=== PATIENT | male | born 1925 | race Caucasian/White ===

== ENCOUNTER 2016-04-29 11:07 | Emergency (ER) | payer MEDICARE ==
[~2016-04-29] VITALS: Ht 162.6 cm; Wt 71.3 kg
[~2016-04-29 11:07] MED LIST: ASPI81TA81; CARV25TA PO; COUM2.5T PO; FERR65TA PO; FOLI400T PO; LOSA50TA PO; MAGN1TAB14 PO; MECL25CH CHEW; NEXI40CA PO; NITR1SUB3 SL; PYRI1TAB2 PO; SIMV20TA PO; SOTA80TA PO; TAMS5CAP PO; TORS20TA PO; VITA100021 SL; VITA10007 PO; VITA200013 PO
[2016-04-29 11:09] VITALS: BP 89/63; PULSE 84; RESP 16; TEMP 97.2; O2SAT 97
[2016-04-29] MEDS ORDERED: SACC1CAP3 PO (11:31)
[2016-04-29] MEDS ORDERED: SODIUM CHLORIDE 0.9% FLUSH 5 ML FLUSH IVF PRN (11:45)
[2016-04-29] MEDS ORDERED: ONDANSETRON HCL 4 MG/2 ML VIAL IVP ONE (11:45)
[2016-04-29] MEDS ORDERED: SODIUM CHLORID 0.9% 500 ML INJ 500 ML IV ONE ×2 (11:45→14:45)
[2016-04-29 12:04] LABS: AUTOMATED NEUTROPHIL # 5.9 TH/MM3 (1.8-7.7); BASOPHIL # 0.1 TH/MM3 (0-0.2); BASOPHIL % 0.9 % (0.0-2.0); EOSINOPHIL # 0.2 TH/MM3 (0-0.4); EOSINOPHIL % 1.9 % (0.0-4.0); HEMATOCRIT 43.9 % (39.0-51.0); HEMO FLAGS DIFF FINAL; LYMPH % 22.8 % (9.0-44.0); LYMPHOCYTE # 2.1 TH/MM3 (1.0-4.8); MEAN CORPUSCULAR HEMOGLOBIN 30.4 PG (27.0-34.0); MEAN CORPUSCULAR HGB CONC 32.6 % (32.0-36.0); MONO % 8.4 % (0.0-8.0); PLATELET COUNT 152 TH/MM3 (150-450); RED BLOOD COUNT 4.72 MIL/MM3 (4.50-5.90); RED CELL DISTRIBUTION WIDTH 15.1 % (11.6-17.2); WHITE BLOOD COUNT 9.1 TH/MM3 (4.0-11.0)
[2016-04-29 12:12] LABS: CHLORIDE 105 MEQ/L (98-107); POTASSIUM 4.8 MEQ/L (3.5-5.1); SODIUM (NA) 138 MEQ/L (136-145)
[2016-04-29 12:16] LABS: ANION GAP 10 MEQ/L (5-15); BLOOD UREA NITROGEN 53 MG/DL (7-18)
[2016-04-29 12:19] LABS: ALT (GPT) 40 U/L (12-78); APTT (PATIENT) 40.3 SEC (24.3-30.1); AST (GOT) 31 U/L (15-37); GLOMERULAR FILTRATION RATE 30 ML/MIN (>89); INTERNATIONAL NORMALIZED RATIO 4.4 RATIO; PROTHROMBIN TIME - PATIENT 51.5 SEC (9.8-11.6)
[2016-04-29 12:20] LABS: TOTAL BILIRUBIN ADULT 1.4 MG/DL (0.2-1.0)
[2016-04-29 12:22] LABS: ALKALINE PHOSPHATASE 93 U/L (45-117)
[2016-04-29] MEDS ORDERED: DIATRIZOATE MEGLUM/DIATRIZOATE SOD 9 ML CUP ONE (12:26)
[2016-04-29 12:31] VITALS: BP 102/71; PULSE 74; RESP 18; O2SAT 97
--- NOTE | 2016-04-29 12:41 | PD ---
HPI Chief Complaint: GI Complaint Time Seen by Provider: 11:25 Travel History International Travel<30 days: No Contact w/Intl Traveler<30days: No Traveled to known affect area: No History of Present Illness HPI Patient is a 89 year old male who comes in complaining of abdominal pain and being unable to have a bowel movement for 5 days. He says he has tried multiple over the counter medications and has only been able to have a small, hard bowel movement. He has some nausea, but denies any vomiting. He says he has not been eating much in the past few days due to lack of appetite. He reports bloating of his abdomen. He denies any chest pain or SOB. He has had 2 surgeries on his abdomen in the past. He denies any fever or chills. PFSH Past Medical History Hx Anticoagulant Therapy: Yes (coumadin, asa 81) Heart Rhythm Problems: Yes (atrial fibulation ) Cancer: Yes (lung prostate) Cardiac Catheterization: Yes Cardiovascular Problems: Yes ( [place] x 1 , 4 vessel bypass) High Cholesterol: Yes Chest Pain: Yes Congestive Heart Failure: Yes Coronary Artery Disease: Yes Diabetes: No Diminished Hearing: No GERD: Yes Hypertension: Yes Myocardial Infarction: Yes Radiation Therapy: Yes (prostate, lung) Renal Failure: Yes Influenza Vaccination: Yes ?: Not Past Surgical History Appendectomy: Yes Cardiac Surgery: Yes (aorta replaced) Cholecystectomy: Yes Coronary Artery Bypass Graft: Yes Coronary Stent: Yes Pacemaker: Yes (defibrillator) Other Surgery: Yes (prostate radiation) Social History Alcohol Use: Yes (occ) Tobacco Use: No Substance Use: No Allergies-Medications (Allergen,Severity, Reaction): Coded Allergies: Levaquin (Verified Allergy, Severe, Joint Pain, 04/29/16) Patient report that this medication affect his tendon on his legs. Reported Meds & Prescriptions Reported Meds & Active Scripts Active Magnesium Citrate Liq (Magnesium Citrate) 300 Ml Liq 300 Ml PO ONCE Augmentin (Amoxicillin-Clavulanate) 875-125 mg Tab 875 Mg PO BID 10 Days not for use in CrCl <30 ml/min. Reported Probiotic (Saccharomyces Boulardii) 250 Mg Cap 250 Mg PO DAILY Vitamin D (Cholecalciferol) 2,000 Unit Cap 1 Cap PO DAILY Vitamin C (Ascorbic Acid) 1,000 Mg Tab 1,000 Mg PO Aspir-81 (Aspirin) 81 Mg Tabdr Carvedilol 25 Mg Tab 12.5 Mg PO BID Nexium (Esomeprazole DR) 40 Mg Capdr 40 Mg PO DAILY Feosol (Ferrous Sulfate) 65 Mg Tab 65 Mg PO DAILY Folic Acid 400 Mcg Tab 400 Mcg PO DAILY Losartan (Losartan Potassium) 50 Mg Tab 25 Mg PO DAILY Magnesium 400 Mg Tab 400 Mg PO DAILY Meclizine (Meclizine HCl) 25 Mg Chew 25 Mg CHEW DIRECTED PRN Nitroglycerin SL (Nitroglycerin) 0.4 Mg Subl 0.4 Mg SL DIRECTED PRN ONE TABLET UNDER THE TONGUE NEEDED FOR CHEST PAIN, MAY REPEAT EVERY FIVE MINUTES FOR A TOTAL OF 3 DOSES OR CALL 911 IF NO RELIEF Vitamin B-12 (Cyanocobalamin) 1,000 Mcg Subl 1,000 Mcg SL EVERY OTHER DAY Simvastatin 20 Mg Tab 20 Mg PO DAILY Sotalol (Sotalol HCl) 80 Mg Tab 80 Mg PO BID Flomax (Tamsulosin HCl) 0.4 Mg Cap 0.4 Mg PO HS Torsemide 20 Mg Tab 10 Mg PO DAILY Vitamin B-6 (Pyridoxine HCl) 200 Mg Tab 200 Mg PO DAILY Coumadin (Warfarin) 2.5 Mg Tab 2.5 Mg PO DAILY Review of Systems Except as stated in HPI: all other systems reviewed are Neg General / Constitutional: No: Fever, Chills HENT: No: Headaches, Lightheadedness Cardiovascular: No: Chest Pain or Discomfort Respiratory: No: Shortness of Breath Gastrointestinal: Positive: Nausea, Abdominal Pain, Constipation, No: Vomiting Genitourinary: No: Dysuria Musculoskeletal: No: Edema, Pain Skin: No Change in Pigmentation Neurologic: No: Weakness, Dizziness Physical Exam Narrative GENERAL: Awake and alert in no acute distress. SKIN: Warm and dry. HEAD: Atraumatic. Normocephalic. EYES: Pupils equal and round. No scleral icterus. ENT: Mucous membranes pink and moist. NECK: Trachea midline. No JVD. CARDIOVASCULAR: Regular rate and rhythm. No murmur appreciated. RESPIRATORY: No accessory muscle use. Clear to auscultation. Breath sounds equal bilaterally. GASTROINTESTINAL: Abdomen soft, nondistended. Diffusely tender to palpation. No rebound or guarding. MUSCULOSKELETAL: No obvious deformities. No clubbing. No cyanosis. No edema. NEUROLOGICAL: Awake and alert. No obvious cranial nerve deficits. Motor grossly within normal limits. Normal speech. PSYCHIATRIC: Appropriate mood and affect; insight and judgment normal. Data Data Last Documented VS Vital Signs Date Time Temp Pulse Resp B/P Pulse Ox O2 Delivery O2 Flow Rate FiO2 04/29/16 15:31 68 18 105/60 97 Room Air 04/29/16 11:09 97.2 Orders Complete Blood Count With Diff (04/29/16 11:35) Comprehensive Metabolic Panel (04/29/16 11:35) Lipase (04/29/16 11:35) Lactic Acid (04/29/16 11:35) Prothrombin Time / Inr (Pt) (04/29/16 11:35) Act Partial Throm Time (Ptt) (04/29/16 11:35) Urinalysis - C+S If Indicated (04/29/16 11:35) Ua Includes Microscopic (04/29/16 11:35) Iv Access Insert/Monitor (04/29/16 11:35) Ecg Monitoring (04/29/16 11:35) Oximetry (04/29/16 11:35) Ondansetron Inj (Zofran Inj) (04/29/16 11:45) Sodium Chloride 0.9% Flush (Ns Flush) (04/29/16 11:45) Electrocardiogram (04/29/16 11:35) Troponin I (04/29/16 11:35) Sodium Chlorid 0.9% 500 Ml Inj (Ns 500 M (04/29/16 11:45) Ct Abd/Pel W/O Iv Contrast (04/29/16 ) Diatrizoate Liq ( Gastroview Liq) (04/29/16 12:26) Oral Contrast - Adult (04/29/16 13:06) Sodium Chlorid 0.9% 500 Ml Inj (Ns 500 M (04/29/16 14:45) Labs Laboratory Tests Test 04/29/16 04/29/16 11:50 14:05 White Blood Count 9.1 TH/MM3 Red Blood Count 4.72 MIL/MM3 Hemoglobin 14.3 GM/DL Hematocrit 43.9 % Mean Corpuscular Volume 93.0 FL Mean Corpuscular Hemoglobin 30.4 PG Mean Corpuscular Hemoglobin 32.6 % Concent Red Cell Distribution Width 15.1 % Platelet Count 152 TH/MM3 Mean Platelet Volume 8.3 FL Neutrophils (%) (Auto) 66.0 % Lymphocytes (%) (Auto) 22.8 % Monocytes (%) (Auto) 8.4 % Eosinophils (%) (Auto) 1.9 % Basophils (%) (Auto) 0.9 % Neutrophils # (Auto) 5.9 TH/MM3 Lymphocytes # (Auto) 2.1 TH/MM3 Monocytes # (Auto) 0.8 TH/MM3 Eosinophils # (Auto) 0.2 TH/MM3 Basophils # (Auto) 0.1 TH/MM3 CBC Comment DIFF FINAL Differential Comment Prothrombin Time 51.5 SEC Prothromb Time International 4.4 RATIO Ratio Activated Partial 40.3 SEC Thromboplast Time Sodium Level 138 MEQ/L Potassium Level 4.8 MEQ/L Chloride Level 105 MEQ/L Carbon Dioxide Level 23.0 MEQ/L Anion Gap 10 MEQ/L Blood Urea Nitrogen 53 MG/DL Creatinine 2.10 MG/DL Estimat Glomerular Filtration 30 ML/MIN Rate Random Glucose 95 MG/DL Lactic Acid Level 1.8 mmol/L Calcium Level 9.4 MG/DL Total Bilirubin 1.4 MG/DL Aspartate Amino Transf 31 U/L (AST/SGOT) Alanine Aminotransferase 40 U/L (ALT/SGPT) Alkaline Phosphatase 93 U/L Troponin I 0.03 NG/ML Total Protein 7.1 GM/DL Albumin 3.0 GM/DL Lipase 108 U/L Urine Collection Type CLEAN CATCH Urine Color YELLOW Urine Turbidity CLEAR Urine pH 5.5 Urine Specific [place] 1.021 Urine Protein 30 mg/dL Urine Glucose (UA) NEG mg/dL Urine Ketones 15 mg/dL Urine Occult Blood NEG Urine Nitrite NEG Urine Bilirubin NEG Urine Leukocyte Esterase NEG Urine RBC 0-3 /hpf Urine WBC 0-2 /hpf Urine Squamous Epithelial 0-5 /hpf Cells Microscopic Urinalysis Comment CULT NOT INDICATED Urine Collection Time 14:05 [facility] Medical Decision Making Medical Screen Exam Complete: Yes Emergency Medical Condition: Yes Medical Record Reviewed: Yes Interpretation(s) ECG shows paced rhythm. ECG is unchanged from his previous in June 2015. Differential Diagnosis Constipation versus colitis versus diverticulitis Narrative Course Patient is an 89-year-old male comes in complaining of abdominal pain and being unable to have a bowel movement. Exam shows diffuse tenderness on palpation, but abdomen is soft. IV established, labs sent. Patient noted to have a low blood pressure of 89/63. This improved quickly with 500 cc of fluid. He does say that he has issues with low blood pressure. Labs show no elevation in white count, creatinine is 2.1. He has known history of chronic kidney disease, creatinine was 1.9 in June 2015. INR is elevated to 4.4. Patient is on Coumadin. He has no signs of bleeding currently. CT of the abdomen and pelvis performed shows diverticulitis without complication. There is some stool in the colon, but no signs of obstruction or impaction. Patient was recently on antibiotics for diverticulitis, is presumed this was Cipro and Flagyl, the daughter seems to remember these names. I we'll give him a prescription for Augmentin since he was recently on Cipro and Flagyl. Patient advised to hold his Coumadin tonight and speak with his doctor tomorrow about repeating his INR. Advised follow-up with gastroenterology. Advised to drink more fluids. Patient is very concerned that he has not had a bowel movement, I advised that this is possibly because he has not been eating. We will give him a prescription for a mild laxative. Patient is comfortable with discharge at this time. Advised to return immediately if he has any worsening symptoms. Diagnosis Primary Impression: Diverticulitis Qualified Code: K57.32 - Diverticulitis of large intestine without perforation or abscess without bleeding Additional Impression: Constipation Qualified Code: K59.00 - Constipation, unspecified constipation type Patient Instructions: Diverticulitis (ED), General Instructions Additional Instructions: Follow up with with gastroenterology. Make sure you finish all of the antibiotics. Increase your fluid intake. Your INR was 4.4 today, make sure that you do not take your Warfarin tonight. Follow up with your doctor for repeat INR testing. Do not take your blood pressure medication today either. Return to the ED for any active bleeding or any worsening symptoms. Scripts Magnesium Citrate Liq 300 Ml [id number] Ml PO ONCE #1 BOTTLE Ref 0 Prov:Kinsey Vazquez MD 04/29/16 Amoxicillin-Clavulanate (Augmentin)875-125 mg [id number] Mg PO BID 10 Days Ref 0 not for use in CrCl <30 ml/min. Prov:Kinsey Vazquez MD 04/29/16 Disposition: 01 DISCHARGE HOME Condition: Stable Kinsey Vazquez MD Apr 29, 2016 12:41
[2016-04-29 12:55] VITALS: BP 108/69; PULSE 69; RESP 18; O2SAT 98
--- NOTE | 2016-04-29 14:04 | RADHPO ---
EXAM DATE/TIME: 04/29/2016 13:45 [facility] COMPARISON: No previous studies available for comparison. INDICATIONS : Abdominal pain and constipation. ORAL CONTRAST: Prescribed oral contrast ingested. RADIATION DOSE: 15.23 CTDIvol (mGy) MEDICAL HISTORY : Cardiovascular disease. Congestive heart failure. Hypertension. Lung cancer. Prostate cancer. Renal f ailure. SURGICAL HISTORY : CABG Coronary artery stent. Pacemaker. Appendectomy. Cholecystectomy. ENCOUNTER: Initial ACUITY: 4 - 6 days PAIN SCALE: 5/10 LOCATION: abdomen/pelvis TECHNIQUE: Volumetric scanning of the abdomen and pelvis was performed. Using automated exposure control and ad justment of the mA and/or kV according to patient size, radiation dose was kept as low as reasonably achievable to obtain optimal diagnostic quality images. FINDINGS: LOWER LUNGS: The visualized lower lungs are clear. The patient is status post median sternotomy with postsurgical changes involving the heart. There is a transvenous pacer in place and aortic valve prosthesis. LIVER: Homogeneous density without lesion. There is no dilation of the biliary tree. The patient is status post cholecystectomy. SPLEEN: Normal size without lesion. PANCREAS: Within normal limits. KIDNEYS: Normal in size and shape. There is no mass or hydronephrosis. There is a small 2 mm calcification le ft renal cortex on axial image #56. ADRENAL GLANDS: Within normal limits. VASCULAR: There is no aortic aneurysm. BOWEL/MESENTERY: There are multiple scattered diverticuli. There is mild wall thickening and inflammatory change invol ving the distal descending colon with no free air or drainable fluid. There is mild inflammatory gottlieb ge. ABDOMINAL WALL: Within normal limits. RETROPERITONEUM: There is no lymphadenopathy. BLADDER: No wall thickening or mass. REPRODUCTIVE: Within normal limits. INGUINAL: There is a left inguinal hernia containing fat. MUSCULOSKELETAL: Within normal limits for patient age. CONCLUSION: 1. Acute diverticulitis involving the distal descending colon with mild inflammatory change and no fr ee air or drainable fluid. 2. Left inguinal hernia containing fat. 3. Small left renal cortical calcification. 4. Status post cholecystectomy. Rafat Lai MD on April 29, 2016 at 13:57 Board Certified Radiologist. This report was verified electronically.
[2016-04-29 14:10] VITALS: BP 109/72; PULSE 70; RESP 18; O2SAT 97
[2016-04-29 14:13] LABS: BLOOD, URINE NEG (NEG); GLUCOSE,URINE NEG (NEG); KETONE, URINE 15 mg/dL (NEG); NITRITE,URINE NEG (NEG); PH, URINE 5.5 (5.0-8.5)
[2016-04-29 14:18] LABS: COMMENT (UR) CULT NOT INDICATED; CULTURE IF INDICATED CULT NOT INDICATED; METHOD OF COLLECTION CLEAN CATCH; RBC, URINE 0-3 /hpf (0-3); SQUAMOUS EPITHELIAL CELL URINE 0-5 /hpf (0-5); URINE COLOR YELLOW (YELLW/STRAW); WBC, URINE 0-2 /hpf (0-5)
[2016-04-29 15:31] VITALS: BP 105/60; PULSE 68; RESP 18; O2SAT 97
[2016-04-29] MEDS ORDERED: AUGM875T PO (16:08)
[2016-04-29] MEDS ORDERED: MAGNSOL2 PO (16:08)
--- NOTE | 2016-04-30 23:06 | EKG ---
Date Performed: 04/29/2016 Time Performed: 11:42:56 PTAGE: 89 years EKG: Ventricular demand pacing Abnormal ECG PREVIOUS TRACING : 07/03/2015 00.55 Compared to the previous tracing, previously AV paced DOCTOR: Pratik Carroll Interpretating Date/Time 04/30/2016 23:04:30
[2016-05-14] MEDS ORDERED: ZANA4CAP PO (15:28)
[2016-05-14] MEDS ORDERED: TAMS5CAP PO (15:29)
[2016-05-14] MEDS ORDERED: PANT40TA3 PO (15:29)
[2016-05-21] MEDS ORDERED: CYCL7.5T33 PO (15:01)
[2016-05-21] MEDS ORDERED: TORS20TA PO (15:02)
[2016-05-30] MEDS ORDERED: TRAM50TA PO (16:33)
[2016-07-07] MEDS ORDERED: DOCU1CAP25 (14:48)
[2016-07-07] MEDS ORDERED: HYDR-3583 PO (14:48)
[2016-07-07] MEDS ORDERED: PANT40TA3 PO (15:05)
[2016-07-07] MEDS ORDERED: TRAM50TA PO (15:09)
[2016-07-07] MEDS ORDERED: COLC1TAB15 PO (15:16)
[2016-07-07] MEDS ORDERED: COUM2.5T PO (15:20)
[2016-07-25] MEDS ORDERED: TRAM50TA PO (14:17)
[2016-07-30] MEDS ORDERED: BACT800T5 PO (11:02)
[2016-07-30] MEDS ORDERED: METR500T10 PO (11:02)
[2016-08-07] MEDS ORDERED: WARF-18 PO (13:01)
[2016-08-11] MEDS ORDERED: NITR50VP (16:15)
[2016-08-11] MEDS ORDERED: LACTCAP8 PO (16:15)
[2016-08-11] MEDS ORDERED: VITA200T2 (16:15)
[2016-08-11] MEDS ORDERED: TRAM50TA PO (16:15)
[2016-08-11] MEDS ORDERED: FERR65TA PO (16:15)
[2016-08-11] MEDS ORDERED: OMEP40CA2 PO (16:15)
== END 2016-04-29 16:18 | disposition home or self-care (01) ==
LOC: PHED 11:07
DX: K57.32 Diverticulitis of large intestine without perforation or abscess without bleeding (principal); K59.00 Constipation, unspecified; I10 Essential (primary) hypertension; I25.2 Old myocardial infarction; I50.9 Heart failure, unspecified; I25.10 Atherosclerotic heart disease of native coronary artery without angina pectoris; R94.31 Abnormal electrocardiogram [ECG] [EKG]; Z79.01 Long term (current) use of anticoagulants
CPT/HCPCS: 74176; 80053; 81001; 83605; 83690; 84484; 85025; 85610; 85730; 93005; 96361; 96374; 99284; J2405; J7040; Q9963

== ENCOUNTER 2016-05-04 15:14 | Inpatient (IN) | payer MEDICARE ==
[2016-05-04] VITALS (10 sets, daily range): BP systolic 89–122; BP diastolic 54–68; PULSE 69–76; RESP 9–21; TEMP 97.6; O2SAT 93–100
[~2016-05-04] VITALS: Ht 162.6 cm; Wt 76.1 kg
[~2016-05-04 15:14] MED LIST changes: +AUGM875T PO; +MAGNSOL2 PO; +SACC1CAP3 PO
--- NOTE | 2016-05-04 15:16 | PD ---
HPI Chief Complaint: GI bleed, hypotension Time Seen by Provider: 15:15 Travel History International Travel<30 days: No Contact w/Intl Traveler<30days: No Traveled to known affect area: No History of Present Illness HPI 89-year-old male came to the emergency room with history of presyncope and low blood pressure this afternoon. He was with his daughter who checked his blood pressure and patient had these symptoms and it was 57 systolic. Patient had taken one of his nitroglycerin pills when he had the symptoms of dizziness. 911 was called and patient was given 1 L of IV fluid bolus en route. He never lost consciousness and blood pressure improved upon arrival to 1 teens. Patient said that for past couple days he has noticed that his stool has been dark in color. He suspects that he was passing blood. He did not tell his daughter or son-in-law regarding this since he did not want them to be bothered. Patient was taken to [place] emergency room 5 days ago for abdominal discomfort where he was diagnosed with diverticulitis. He was discharged home on antibiotics. He was also given mag citrate prescription and patient says after taking that he had started to go and was having watery stool. No history of nausea or vomiting. Currently does not have any abdominal discomfort. He is awake and answering questions appropriately. Patient says that he is on Coumadin but in the emergency room his blood test showed an INR of 4.5 he was asked to hold off on the Coumadin. He did not take it for past 5 days. However last night he took 1 dose. PFSH Past Medical History Narrative Medical List of his past medical history is reviewed from the nursing note. Hx Anticoagulant Therapy: Yes (coumadin, asa 81) Heart Rhythm Problems: Yes (atrial fibulation ) Cancer: Yes (lung prostate) Cardiac Catheterization: Yes Cardiovascular Problems: Yes ( [place] x 1 , 4 vessel bypass) High Cholesterol: Yes Chest Pain: Yes Congestive Heart Failure: Yes Coronary Artery Disease: Yes Diabetes: No Diminished Hearing: No GERD: Yes Hypertension: Yes Myocardial Infarction: Yes Radiation Therapy: Yes (prostate, lung) Renal Failure: Yes Past Surgical History Appendectomy: Yes Cardiac Surgery: Yes (aorta replaced) Cholecystectomy: Yes Coronary Artery Bypass Graft: Yes Coronary Stent: Yes Pacemaker: Yes (defibrillator) Other Surgery: Yes (prostate radiation) Social History Alcohol Use: Yes (occ) Tobacco Use: No Substance Use: No Allergies-Medications (Allergen,Severity, Reaction): Coded Allergies: Levaquin (Verified Allergy, Severe, Joint Pain, 04/29/16) Patient report that this medication affect his tendon on his legs. *MDRO Multi-Drug Resistant Organism (Verified Adverse Reaction, Unknown, ) MRSA PCR Screen POSITIVE - 05/05/2016 Comments List of his allergies reviewed from the nursing note. Reported Meds & Prescriptions Reported Meds & Active Scripts Active Magnesium Citrate Liq (Magnesium Citrate) 300 Ml Liq 300 Ml PO ONCE Augmentin (Amoxicillin-Clavulanate) 875-125 mg Tab 875 Mg PO BID 10 Days not for use in CrCl <30 ml/min. Reported Probiotic (Saccharomyces Boulardii) 250 Mg Cap 250 Mg PO DAILY Vitamin D (Cholecalciferol) 2,000 Unit Cap 1 Cap PO DAILY Vitamin C (Ascorbic Acid) 1,000 Mg Tab 1,000 Mg PO Aspir-81 (Aspirin) 81 Mg Tabdr Carvedilol 25 Mg Tab 12.5 Mg PO BID Nexium (Esomeprazole DR) 40 Mg Capdr 40 Mg PO DAILY Feosol (Ferrous Sulfate) 65 Mg Tab 65 Mg PO DAILY Folic Acid 400 Mcg Tab 400 Mcg PO DAILY Losartan (Losartan Potassium) 50 Mg Tab 25 Mg PO DAILY Magnesium 400 Mg Tab 400 Mg PO DAILY Meclizine (Meclizine HCl) 25 Mg Chew 25 Mg CHEW DIRECTED PRN Nitroglycerin SL (Nitroglycerin) 0.4 Mg Subl 0.4 Mg SL DIRECTED PRN ONE TABLET UNDER THE TONGUE NEEDED FOR CHEST PAIN, MAY REPEAT EVERY FIVE MINUTES FOR A TOTAL OF 3 DOSES OR CALL 911 IF NO RELIEF Vitamin B-12 (Cyanocobalamin) 1,000 Mcg Subl 1,000 Mcg SL EVERY OTHER DAY Simvastatin 20 Mg Tab 20 Mg PO DAILY Sotalol (Sotalol HCl) 80 Mg Tab 80 Mg PO BID Flomax (Tamsulosin HCl) 0.4 Mg Cap 0.4 Mg PO HS Torsemide 20 Mg Tab 10 Mg PO DAILY Vitamin B-6 (Pyridoxine HCl) 200 Mg Tab 200 Mg PO DAILY Coumadin (Warfarin) 2.5 Mg Tab 2.5 Mg PO DAILY Narrative Medication List of his home medications reviewed from the nursing note. Review of Systems Except as stated in HPI: all other systems reviewed are Neg Physical Exam Narrative GENERAL: Awake, alert, elderly, anxious SKIN: Warm and dry. Pale HEAD: Atraumatic. Normocephalic. EYES: Pupils equal and round. No scleral icterus. No injection or drainage. Pallor ENT: No nasal bleeding or discharge. Mucous membranes pink and moist. NECK: Trachea midline. No JVD. CARDIOVASCULAR: Regular rate and rhythm. No murmur appreciated. RESPIRATORY: No accessory muscle use. Clear to auscultation. Breath sounds equal bilaterally. GASTROINTESTINAL: Abdomen soft, non-tender, nondistended. Hepatic and splenic margins not palpable. External hemorrhoids with no thrombosis MUSCULOSKELETAL: No obvious deformities. No clubbing. No cyanosis. No edema. NEUROLOGICAL: Awake and alert. No obvious cranial nerve deficits. Motor grossly within normal limits. Normal speech. PSYCHIATRIC: Appropriate mood and affect; insight and judgment normal. Data Data Last Documented VS Vital Signs Date Time Temp Pulse Resp B/P Pulse Ox O2 Delivery O2 Flow Rate FiO2 05/04/16 15:34 18 96 Room Air 05/04/16 15:20 76 117/63 Orders Complete Blood Count With Diff (05/04/16 15:26) Comprehensive Metabolic Panel (05/04/16 15:26) Prothrombin Time / Inr (Pt) (05/04/16 15:26) Act Partial Throm Time (Ptt) (05/04/16 15:26) Type And Screen (05/04/16 15:26) Blood Product Administration .UPON TRANSFUSION (05/04/16 15:26) Ecg Monitoring (05/04/16 15:26) Iv Access Insert/Monitor (05/04/16 15:26) Oximetry (05/04/16 15:26) Sodium Chlor 0.9% 1000 Ml Inj (Ns 1000 M (05/04/16 15:26) Sodium Chloride 0.9% Flush (Ns Flush) (05/04/16 15:30) Troponin I (05/04/16 15:26) Electrocardiogram (05/04/16 ) Pantoprazole Inj (Protonix Inj) (05/04/16 18:00) Pantoprazole Inj (Protonix Inj) (05/04/16 18:00) Piperacil-Tazo 3.375 Gm Premix (Zosyn 3. (05/04/16 17:00) Red Blood Cells (Rbc) (05/04/16 16:49) Blood Product Administration .UPON TRANSFUSION (05/04/16 16:49) Sodium Chlor 0.9% 250 Ml Inj (Ns 250 Ml (05/04/16 17:00) Insert Ng Tube (05/04/16 17:08) Admit Order (Ed Use Only) (05/04/16 17:08) Labs Laboratory Tests Test 05/04/16 05/04/16 15:50 16:49 White Blood Count 9.7 TH/MM3 Red Blood Count 2.65 MIL/MM3 Hemoglobin 8.3 GM/DL Hematocrit 25.5 % Mean Corpuscular Volume 95.9 FL Mean Corpuscular Hemoglobin 31.1 PG Mean Corpuscular Hemoglobin 32.4 % Concent Red Cell Distribution Width 16.0 % Platelet Count 129 TH/MM3 Mean Platelet Volume 8.6 FL Neutrophils (%) (Auto) 65.1 % Lymphocytes (%) (Auto) 23.6 % Monocytes (%) (Auto) 8.2 % Eosinophils (%) (Auto) 2.5 % Basophils (%) (Auto) 0.6 % Neutrophils # (Auto) 6.3 TH/MM3 Lymphocytes # (Auto) 2.3 TH/MM3 Monocytes # (Auto) 0.8 TH/MM3 Eosinophils # (Auto) 0.2 TH/MM3 Basophils # (Auto) 0.1 TH/MM3 CBC Comment DIFF FINAL Differential Comment Prothrombin Time 14.8 SEC Prothromb Time International 1.3 RATIO Ratio Activated Partial 28.7 SEC Thromboplast Time Sodium Level 141 MEQ/L Potassium Level 5.4 MEQ/L Chloride Level 110 MEQ/L Carbon Dioxide Level 23.1 MEQ/L Anion Gap 8 MEQ/L Blood Urea Nitrogen 50 MG/DL Creatinine 1.93 MG/DL Estimat Glomerular Filtration 33 ML/MIN Rate Random Glucose 94 MG/DL Calcium Level 7.9 MG/DL Total Bilirubin 1.3 MG/DL Aspartate Amino Transf 22 U/L (AST/SGOT) Alanine Aminotransferase 25 U/L (ALT/SGPT) Alkaline Phosphatase 65 U/L Troponin I 0.03 NG/ML Total Protein 5.0 GM/DL Albumin 2.5 GM/DL Blood Type O POSITIVE Antibody Screen NEGATIVE Blood Bank Comment Crossmatch Leukocyte-Reduced Red Blood Cells MDM Medical Decision Making Medical Screen Exam Complete: Yes Emergency Medical Condition: Yes Medical Record Reviewed: Yes Interpretation(s) Twelve-lead EKG was reviewed by me. Paced rhythm. Heart rate of 73 bpm. Differential Diagnosis Upper GI bleed, lower GI bleed, diverticular bleed Narrative Course 5:21 PM blood test shows hemoglobin of 8.5 which has dropped significantly from hemoglobin of 14.5 from his last visit almost a week ago. Patient had another bowel movement which was all blood and about 350 ML's of it. I spoke with the GI specialist Dr. Kay and he wanted the patient to get a NG tube lavage. As per him if there was blood in the lavage he needs to be called so that he can come and do an upper endoscopy. He wanted the patient to get protonix bolus and drip an antibiotic to cover for diverticulitis. He wanted the patient to be admitted to the ICU and I spoke with the extern Dr. Soto who has accepted the patient. Have ordered 2 units of PRBC for this patient for transfusion. Patient had his last systolic blood pressure of 105. He has been informed about his admission and blood transfusion and he understands. 5:26 PM the NG tube lavage was clean return. Tube be taken out. Awaiting for the blood test was sent from blood bank for transfusion. Critical Care Narrative Aggregate critical care time was 45 minutes. Time to perform other separately billable procedures was not included in the critical care time. My time did not include minutes spent treating any other patients simultaneously or on activities that did not directly contribute to the patient's treatment. The services I provided to this patient were to treat and/or prevent clinically significant deterioration that could result in: GI bleed, hypotension, symptomatic anemia, blood transfusion I provided critical care services requiring my management, as noted below: Chart data review, documentation time, medication orders and management, vital sign assessments/reviewing monitor data, ordering and reviewing lab tests, ordering and interpreting/reviewing x-rays and diagnostic studies, care of the patient and discussion of the patient with the admitting physicians. Procedures EKG Prior to Arrival: Yes HemaPrompt Point of Care Internal Pos. & Neg. Controls: Passed Fecal Specimen Occult Blood: Positive Comment Bright red blood Diagnosis Primary Impression: GI bleed Qualified Code: K92.2 - Gastrointestinal hemorrhage, unspecified gastrointestinal hemorrhage type Additional Impressions: Symptomatic anemia Diverticulitis Qualified Code: K57.93 - Diverticulitis of intestine without perforation or abscess with bleeding, unspecified part of intestinal tract Admitting Information Admitting Physician Requests: Admit Linda Garcia MD May 04, 2016 15:16
[2016-05-04] MEDS ORDERED: SODIUM CHLOR 0.9% 1000 ML INJ 1,000 ML IV SCH (15:26)
[2016-05-04] MEDS ORDERED: SODIUM CHLORIDE 0.9% FLUSH 5 ML FLUSH IVF PRN (15:30)
[2016-05-04 16:26] LABS: AUTOMATED NEUTROPHIL # 6.3 TH/MM3 (1.8-7.7); BASOPHIL # 0.1 TH/MM3 (0-0.2); BASOPHIL % 0.6 % (0.0-2.0); EOSINOPHIL # 0.2 TH/MM3 (0-0.4); EOSINOPHIL % 2.5 % (0.0-4.0); HEMATOCRIT 25.5 % (39.0-51.0); HEMO FLAGS DIFF FINAL; LYMPH % 23.6 % (9.0-44.0); LYMPHOCYTE # 2.3 TH/MM3 (1.0-4.8); MEAN CELL VOLUME 95.9 FL (80.0-100.0); MEAN CORPUSCULAR HEMOGLOBIN 31.1 PG (27.0-34.0); MEAN CORPUSCULAR HGB CONC 32.4 % (32.0-36.0); MONO % 8.2 % (0.0-8.0); NEUT % 65.1 % (16.0-70.0); PLATELET COUNT 129 TH/MM3 (150-450); RED BLOOD COUNT 2.65 MIL/MM3 (4.50-5.90); WHITE BLOOD COUNT 9.7 TH/MM3 (4.0-11.0)
[2016-05-04 16:35] LABS: APTT (PATIENT) 28.7 SEC (24.3-30.1); INTERNATIONAL NORMALIZED RATIO 1.3 RATIO; PROTHROMBIN TIME - PATIENT 14.8 SEC (9.8-11.6)
[2016-05-04 16:38] LABS: ALT (GPT) 25 U/L (12-78); ANION GAP 8 MEQ/L (5-15); AST (GOT) 22 U/L (15-37); BICARBONATE 23.1 MEQ/L (21.0-32.0); BLOOD UREA NITROGEN 50 MG/DL (7-18); CHLORIDE 110 MEQ/L (98-107); GLOMERULAR FILTRATION RATE 33 ML/MIN (>89); POTASSIUM 5.4 MEQ/L (3.5-5.1); SODIUM (NA) 141 MEQ/L (136-145)
[2016-05-04 16:42] LABS: ALKALINE PHOSPHATASE 65 U/L (45-117); TOTAL BILIRUBIN ADULT 1.3 MG/DL (0.2-1.0)
[2016-05-04] MEDS ORDERED: SODIUM CHLOR 0.9% 250 ML INJ 250 ML IV ONE (17:00)
[2016-05-04] MEDS ORDERED: PIPERACIL-TAZO 3.375 GM PREMIX 50 ML IV ONE (17:00)
[2016-05-04] MEDS ORDERED: PANTOPRAZOLE INJ 80 MG in SODIUM CHLORIDE 0.9% INJ 35 ML IV ONE (18:00)
[2016-05-04] MEDS ORDERED: POTASSIUM CL 40 MEQ/30 ML LIQ UDC PO/TUBE PRN ×2 (18:15)
[2016-05-04] MEDS ORDERED: MAGNESIUM SULFATE INJ 4 GM in SODIUM CHLORIDE 0.9% INJ 92 ML IV PRN (18:15)
[2016-05-04] MEDS ORDERED: POTASSIUM PHOSPHATE MONOBASIC 500 MG TAB PO/TUBE PRN (18:15)
[2016-05-04] MEDS ORDERED: DEXTROSE 50% IN WATER 50 ML VIAL(D50) IV PUSH PRN (18:15)
[2016-05-04] MEDS ORDERED: SODIUM CHLORIDE 0.9% FLUSH 5 ML FLUSH IV FLUSH PRN (18:15)
[2016-05-04] MEDS ORDERED: RESP: ALBUTEROL 2.5 MG/IPRATROPIUM 0.5 MG NEB (PRN) INH (18:15)
[2016-05-04] MEDS ORDERED: POTASSIUM CHLOR 20 MEQ PREMIX 100 ML IV PRN ×2 (18:15)
[2016-05-04] MEDS ORDERED: MAGNESIUM OXIDE 400 MG TAB PO PRN (18:15)
[2016-05-04] MEDS ORDERED: POTASSIUM PHOSPHATE INJ 30 MMOL in SODIUM CHLOR 0.9% 250 ML INJ 250 ML IV PRN (18:15)
[2016-05-04] MEDS ORDERED: SODIUM PHOSPHATE INJ 30 MMOL in SODIUM CHLOR 0.9% 250 ML INJ 240 ML IV PRN (18:15)
[2016-05-04] MEDS ORDERED: ONDANSETRON HCL 4 MG/2 ML VIAL IV PRN (18:15)
[2016-05-04] MEDS ORDERED: CHLORHEXIDINE GLUCONATE 2 % 1 PACK (2 CLOTHS) TOP PRN (18:15)
[2016-05-04] MEDS ORDERED: POTASSIUM PHOSPHATE MONOBASIC 500 MG TAB PO PRN (18:15)
[2016-05-04] MEDS ORDERED: MAGNESIUM SULFATE INJ 2 GM in SODIUM CHLORIDE 0.9% INJ 96 ML IV PRN (18:15)
[2016-05-04] MEDS ORDERED: ACETAMINOPHEN 325 MG TAB PO PRN (18:15)
[2016-05-04] MEDS ORDERED: POTASSIUM CHLOR 40 MEQ PREMIX 100 ML IV PRN ×2 (18:15)
[2016-05-04] MEDS ORDERED: MISCELLANEOUS NURSING INFORMATION XX SCH (18:15)
--- NOTE | 2016-05-04 18:52 | HHI.HP ---
[facility] Service Critical Care Medicine Primary Care Physician Ale Marte MD Admission Diagnosis GI bleed, hypotension, symptomatic anemia Diagnosis: Chief Complaint: bleeding from rectum Travel History International Travel<30 Days: No Contact w/Intl Traveler <30 Da: No Traveled to Known Affected Are: No History of Present Illness This is an 89-year-old male with a history of ischemic cardiomyopathy, prior AR , prior CABG, prior PCI, prior TAVR, ACID placement who presented approximately a week ago to the [facility] emergency department with constipation was found to have acute diverticulitis and was placed on Biaxin that time and sent home. He now presents with a one-day history of acute bright red blood per rectum and hypotension. Initially, he had epigastric discomfort and arm numbness that he thought might be a heart attack, so he took a nitroglycerin, which made his blood pressure dropped even lower. On arrival to the [facility] emergency department, he was noted to have approximately 300 cc of bright red blood per rectum and was persistently hypotensive. He was given IV fluids and empirically given 1 unit of blood. Per report, he recently had a supratherapeutic INR 4.5 and was told to hold his Coumadin. Today's INR is 1.3. He denies chest pain, shortness of breath, fever, chills, nausea, vomiting. He does not have any abdominal pain currently. Critical care medicine is consulted to evaluate and manage his lower GI bleed. Review of Systems Constitutional: DENIES: Diaphoretic episodes, Fever, Chills Respiratory: DENIES: Cough, Sputum production, Shortness of breath Cardiovascular: DENIES: Chest pain, Syncope, Dyspnea on Exertion, Lower Extremity Edema, Orthopnea Gastrointestinal: COMPLAINS OF: Bloody stools, Constipation, DENIES: Abdominal pain, Diarrhea, Nausea, Vomiting Hematologic/lymphatic: DENIES: Bruising Neurologic: DENIES: Headache, Localized weakness Past Family Social History Allergies: Coded Allergies: Levaquin (Verified Allergy, Severe, Joint Pain, 04/29/16) Patient report that this medication affect his tendon on his legs. Past Medical History History of lung cancer History of prostate cancer Atrial fibrillation Coronary artery disease Acute myocardial infarction 1 Congestive heart failure, likely systolic Hyperlipidemia Hypertension GERD Prior radiation therapy Chronic kidney disease, unknown stage Past Surgical History Appendectomy TAVR CABG x 4 Cholecystectomy Multiple cardiac stents AICD Reported Medications Probiotic (Saccharomyces Boulardii) 250 Mg Cap 250 Mg PO DAILY Vitamin D (Cholecalciferol) 2,000 Unit Cap 1 Cap PO DAILY Vitamin C (Ascorbic Acid) 1,000 Mg Tab 1,000 Mg PO Aspir-81 (Aspirin) 81 Mg Tabdr Carvedilol 25 Mg Tab 12.5 Mg PO BID Nexium (Esomeprazole DR) 40 Mg Capdr 40 Mg PO DAILY Feosol (Ferrous Sulfate) 65 Mg Tab 65 Mg PO DAILY Folic Acid 400 Mcg Tab 400 Mcg PO DAILY Losartan (Losartan Potassium) 50 Mg Tab 25 Mg PO DAILY Magnesium 400 Mg Tab 400 Mg PO DAILY Meclizine (Meclizine HCl) 25 Mg Chew 25 Mg CHEW DIRECTED PRN Nitroglycerin SL (Nitroglycerin) 0.4 Mg Subl 0.4 Mg SL DIRECTED PRN ONE TABLET UNDER THE TONGUE NEEDED FOR CHEST PAIN, MAY REPEAT EVERY FIVE MINUTES FOR A TOTAL OF 3 DOSES OR CALL 911 IF NO RELIEF Vitamin B-12 (Cyanocobalamin) 1,000 Mcg Subl 1,000 Mcg SL EVERY OTHER DAY Simvastatin 20 Mg Tab 20 Mg PO DAILY Sotalol (Sotalol HCl) 80 Mg Tab 80 Mg PO BID Flomax (Tamsulosin HCl) 0.4 Mg Cap 0.4 Mg PO HS Torsemide 20 Mg Tab 10 Mg PO DAILY Vitamin B-6 (Pyridoxine HCl) 200 Mg Tab 200 Mg PO DAILY Coumadin (Warfarin) 2.5 Mg Tab 2.5 Mg PO DAILY Active Ordered Medications See MAR Family History Reviewed and found to be noncontributory to his acute illness Social History Occasional EtOH. Denies tobacco. Denies other substances. Physical Exam Vital Signs Vital Signs Date Time Temp Pulse Resp B/P Pulse Ox O2 Delivery O2 Flow Rate FiO2 05/04/16 17:30 75 21 105/55 96 Nasal Cannula 2 05/04/16 15:34 18 96 Room Air 05/04/16 15:20 76 19 117/63 Physical Exam GENERAL: Elderly male, lying in bed HEENT: Normocephalic. Atraumatic. Pupils equal, round and reactive, conjugate. Mucous membranes are dry. NECK: Trachea is midline. Large neck circumference prevents adequate assessment of JVD. CHEST: Equal chest rise. Clear to auscultation bilaterally. CARDIOVASCULAR: Normal rate, regular rhythm. No appreciable murmurs. ABDOMEN: Obese, soft, nontender, nondistended. No guarding. MUSCULOSKELETAL: 1+ peripheral edema. Distal pulses 2+. NEUROLOGICAL: 0. CAM -. Alert and oriented 3. Follows commands in all 4 extremity. Laboratory Laboratory Tests Test 05/04/16 05/04/16 15:50 16:49 White Blood Count 9.7 Red Blood Count 2.65 Hemoglobin 8.3 Hematocrit 25.5 Mean Corpuscular Volume 95.9 Mean Corpuscular Hemoglobin 31.1 Mean Corpuscular Hemoglobin 32.4 Concent Red Cell Distribution Width 16.0 Platelet Count 129 Mean Platelet Volume 8.6 Neutrophils (%) (Auto) 65.1 Lymphocytes (%) (Auto) 23.6 Monocytes (%) (Auto) 8.2 Eosinophils (%) (Auto) 2.5 Basophils (%) (Auto) 0.6 Neutrophils # (Auto) 6.3 Lymphocytes # (Auto) 2.3 Monocytes # (Auto) 0.8 Eosinophils # (Auto) 0.2 Basophils # (Auto) 0.1 CBC Comment DIFF FINAL Differential Comment Prothrombin Time 14.8 Prothromb Time International 1.3 Ratio Activated Partial 28.7 Thromboplast Time Sodium Level 141 Potassium Level 5.4 Chloride Level 110 Carbon Dioxide Level 23.1 Anion Gap 8 Blood Urea Nitrogen 50 Creatinine 1.93 Estimat Glomerular Filtration 33 Rate Random Glucose 94 Calcium Level 7.9 Total Bilirubin 1.3 Aspartate Amino Transf 22 (AST/SGOT) Alanine Aminotransferase 25 (ALT/SGPT) Alkaline Phosphatase 65 Troponin I 0.03 Total Protein 5.0 Albumin 2.5 Blood Type O POSITIVE Antibody Screen NEGATIVE Blood Bank Comment Crossmatch Leukocyte-Reduced Red Blood Cells Result Diagram: 05/04/16 1550 05/04/16 1550 Imaging Bedside Critical Care Ultrasound 05/04: moderate-severe LV systolic dysfunction, preserved RV function. no significant valvular lesions. no pericardial effusion. Assessment and Plan Assessment and Plan Assessment: This is an 89-year-old male with history of ischemic cardiomyopathy , aortic stenosis status post TAVR, on chronic anticoagulation with Coumadin, who presents a week out from a diagnosis of acute diverticulitis and now has acute bright red blood per rectum along with lightheadedness and hypotension. Given his gastric lavage was negative, this is most likely lower GI bleeding. She has been consult. We will admit him to the ICU and proceed with serial hemoglobin assessments. The patient is receiving empiric blood transfusion in the emergency department, which I agree with. Given the patient's age and significant medical comorbidities, I agree its best to admit the ICU as this bleed may be very life-threatening at this point. We will keep large-bore IV access at all times. Plan: 1. Active lower GI bleed GI has been consulted Every 4 hours H&H Nothing by mouth If he continues to have active bleeding, he will likely require CT abdomen and pelvis with IV contrast to look for source Agree with empiric blood transfusion Goal hemoglobin greater than 7 We will keep the patient on IV PPI twice a day empirically just in case there is an upper GI component, although this is unlikely. 2. Hypotension -- now resolving. -- blood transfusion as above -- admit to ICU -- q1h vitals. 3. Recent history of diverticulitis Given very recent history, we will empirically cover the patient with Zosyn 3.375 g IV every 6 hours. If the patient appears nontoxic and clinically improves we can consider de-escalating therapy. 4. Ischemic Cardiomyopathy The patient has not ever been here for cardiac evaluation. We will order a 2- D echocardiogram to officially evaluate his left ventricle function Hold the patient's home ACEI and Carvedilol in the setting of recent hypotension -- hold home diuretics in the setting of kidney injury and hypotension 5. Acute on Chronic Renal Insufficiency/Kidney Injury -- strict I/Os -- risk/benefit of Carvalho at present time is in favor of no carvalho catheter placement. If the patient continues to have active LGIB, will require Carvalho catheter placement. -- given risk of fluid overload with cardiomyopathy, will use blood transfusion as intravascular volume expansion and will not add additional fluid resuscitation at this time. Careful monitoring. 6. h/o TAVR -- hold anticoagulation. -- SCDs for DVT prophylaxis. Pharmacologic DVT prophylaxis contraindicated in the setting of active bleeding GI prophylaxis as above Dispo: Admit to the ICU. At this point he is critically ill given the high risk for active GI bleeding in the setting of presumed severe ischemic cardiomyopathy, as this combination is clearly life-threatening. This patient remains critically ill with one or more organ systems which are or may become a threat to life. I have spent in excess of 58 minutes discontinuously in the care and management of this patient. This time is exclusive of procedures, and includes, but is not limited to, evaluation of the patient, review of the medical record, discussions with family, consultants, nursing staff, or respiratory therapy, and documentation in the medical record. Randell Aguirre MD May 04, 2016 18:52
[2016-05-04] MEDS: SODIUM CHLORIDE 0.9% FLUSH 5 ML FLUSH IV FLUSH SCH (21:00)
[2016-05-04] MEDS ORDERED: PANTOPRAZOLE SODIUM 40 MG VIAL IV SCH (21:00)
[2016-05-04 21:30] LABS: HEMATOCRIT 25.5 % (39.0-51.0); REVIEW FLAG FINAL
[2016-05-04] MEDS: PANTOPRAZOLE INJ 80 MG in SODIUM CHLORIDE 0.9% INJ 100 ML IV SCH (21:30)
[2016-05-04] MEDS: PIPERACIL-TAZO 3.375 GM PREMIX 50 ML IV SCH (23:45)
[2016-05-04] MEDS: INSULIN NovoLIN REGULAR SUPPLEMENTAL SCALE SQ SCH (23:49)
[2016-05-05] VITALS (15 sets, daily range): BP systolic 86–122; BP diastolic 54–68; PULSE 69–95; RESP 12–23; TEMP 97.2–97.9; O2SAT 96–100
[2016-05-05 03:04] LABS: HEMATOCRIT 28.4 % (39.0-51.0); REVIEW FLAG FINAL
[2016-05-05] MEDS: CHLORHEXIDINE GLUCONATE 2 % 1 PACK (2 CLOTHS) TOP SCH (04:00)
[2016-05-05 04:34] LABS: HEMATOCRIT 28.1 % (39.0-51.0); MEAN CELL VOLUME 91.6 FL (80.0-100.0); MEAN CORPUSCULAR HEMOGLOBIN 31.3 PG (27.0-34.0); MEAN CORPUSCULAR HGB CONC 34.2 % (32.0-36.0); PLATELET COUNT 107 TH/MM3 (150-450); RED BLOOD COUNT 3.07 MIL/MM3 (4.50-5.90); RED CELL DISTRIBUTION WIDTH 15.9 % (11.6-17.2); REVIEW FLAG FINAL; WHITE BLOOD COUNT 8.4 TH/MM3 (4.0-11.0)
[2016-05-05 04:35] LABS: HEMATOCRIT 28.5 % (39.0-51.0); REVIEW FLAG FINAL
[2016-05-05 05:02] LABS: BICARBONATE 21.7 MEQ/L (21.0-32.0); POTASSIUM 4.8 MEQ/L (3.5-5.1)
--- NOTE | 2016-05-05 05:50 | MB ---
cc: JOAQUÍN NOLAN MD, HASSAN M.D. KIM, KIRSTEN DATE OF CONSULTATION May 04, 2016 PHYSICIAN Ale Marte MD REASON FOR CONSULTATION Melena and anemia. HISTORY OF PRESENT ILLNESS Mr. Mejia is an 89-year-old gentleman who, about a week ago came to the emergency room with some rectal bleeding and abdominal pain. At that time he was diagnosed with acute diverticulitis, was placed on antibiotics and sent home. He states he never actually felt better. He completed his course of antibiotics. He says he has mostly been on a liquid diet. He also stopped his Coumadin about four or five days ago. This morning he started passing blood again through the rectum. He states he has had a total of four bowel movements which are bloody and this brought him to the hospital. Currently he has no abdominal pain. He feels otherwise well. He is receiving blood at the time of dictation. REVIEW OF SYSTEMS No hematemesis. No hematochezia. The patient has had some melena earlier, no abdominal pain. PAST MEDICAL HISTORY 1. Lung cancer. 2. Prostate cancer. 3. Atrial fibrillation. 4. Coronary artery disease. 5. Acute CT in the past. 6. Congestive heart failure. 7. Hyperlipidemia. 8. Hypertension. 9. Reflux disease. 10. Chronic kidney disease. SURGICAL HISTORY 1. Appendectomy. 2. TAVR. 3. CABG. 4. Cholecystectomy. 5. Cardiac stents. 6. AICD. MEDICINES ON ADMISSION 1. Aspirin. 2. Carvedilol. 3. Nexium. 4. Losartan. 5. Meclizine. 6. Nitroglycerin. 7. Simvastatin. 8. Sotalol. 9. Flomax. 10. Torsemide. 11. Coumadin. FAMILY HISTORY Noncontributory. SOCIAL HISTORY Occasional alcohol. No tobacco reported. PHYSICAL EXAMINATION GENERAL: A well-nourished man in no apparent distress. VITAL SIGNS: Stable. HEAD AND NECK EXAMINATION: Anicteric sclerae. CHEST: Bilateral air entry with rales. ABDOMEN: Soft, nontender. No hepatosplenomegaly. Bowel sounds are present. FUNDRAISING COORDINATOR: Exam is nonfocal. RECTAL: Exam deferred at this time. LABS Hemoglobin of 8.3. INR is 1.3. Creatinine is 1.93. IMPRESSION Acute GI bleeding, melena with recent diverticulitis. RECOMMENDATIONS 1. The patient's Coumadin is on hold. 2. IV Protonix recommended. 3. Clear liquid diet 4. N.p.o. after midnight for endoscopy in the morning. 5. If endoscopy is negative and the patient continues to bleed, would recommend a bleeding scan. 6. Can consider a colonoscopy but ideally not indicated with in the setting of acute diverticulitis about 5-[address] Ledesma will follow from tomorrow. Thank you for this referral. MD THIAGO Lindo/JULIETH /9:31 PM /5:40 AM
[2016-05-05] MEDS: INSULIN NovoLIN REGULAR SUPPLEMENTAL SCALE SQ SCH ×3 (06:00→18:00)
[2016-05-05] MEDS: PANTOPRAZOLE INJ 80 MG in SODIUM CHLORIDE 0.9% INJ 100 ML IV SCH ×2 (06:13→22:35)
[2016-05-05] MEDS: PIPERACIL-TAZO 3.375 GM PREMIX 50 ML IV SCH ×2 (06:20→15:00)
--- NOTE | 2016-05-05 08:32 | HHI.GIFU ---
Subjective Remarks Resting in bed. States he had 2 episodes of passing dark/black stool with small amount of red blood. No n/v. No abdominal pain. Objective Vitals I&O Vital Signs Date Time Temp Pulse Resp B/P Pulse Ox O2 Delivery O2 Flow Rate FiO2 05/05/16 06:00 71 05/05/16 04:00 97.5 69 15 86/54 100 05/05/16 04:00 69 05/05/16 03:00 72 12 111/58 100 05/05/16 02:00 72 23 91/55 100 05/05/16 02:00 72 05/05/16 01:00 69 13 117/57 100 05/05/16 00:00 97.5 71 21 122/68 100 05/05/16 00:00 70 05/04/16 23:40 97.6 73 16 122/68 100 05/04/16 23:00 69 14 115/65 100 05/04/16 22:06 97.6 69 18 102/55 100 05/04/16 22:00 71 05/04/16 22:00 71 17 102/55 93 05/04/16 21:00 69 9 103/54 100 05/04/16 20:00 97.6 70 13 89/54 97 05/04/16 20:00 70 05/04/16 19:50 97.6 70 13 89/54 97 05/04/16 17:30 75 21 105/55 96 Nasal Cannula 2 05/04/16 15:34 18 96 Room Air 05/04/16 15:20 76 19 117/63 I/O 05/04/16 05/04/16 05/04/16 05/05/16 05/05/16 05/05/16 07:00 15:00 23:00 07:00 15:00 23:00 Intake Total 453 ml 410 ml Output Total 375 ml 325 ml Balance 78 ml 85 ml Intake IV Total 153 ml 202 ml Packed Cells 300 ml 208 ml Output Stool Total 375 ml 325 ml # Bowel Movements 2 2 Laboratory Laboratory Tests Test 05/04/16 05/04/16 05/04/16 05/04/16 15:50 16:49 18:00 19:00 White Blood Count 9.7 Red Blood Count 2.65 Hemoglobin 8.3 Hematocrit 25.5 Mean Corpuscular Volume 95.9 Mean Corpuscular Hemoglobin 31.1 Mean Corpuscular Hemoglobin 32.4 Concent Red Cell Distribution Width 16.0 Platelet Count 129 Mean Platelet Volume 8.6 Neutrophils (%) (Auto) 65.1 Lymphocytes (%) (Auto) 23.6 Monocytes (%) (Auto) 8.2 Eosinophils (%) (Auto) 2.5 Basophils (%) (Auto) 0.6 Neutrophils # (Auto) 6.3 Lymphocytes # (Auto) 2.3 Monocytes # (Auto) 0.8 Eosinophils # (Auto) 0.2 Basophils # (Auto) 0.1 CBC Comment DIFF FINAL Differential Comment Prothrombin Time 14.8 Prothromb Time International 1.3 Ratio Activated Partial 28.7 Thromboplast Time Sodium Level 141 Potassium Level 5.4 Chloride Level 110 Carbon Dioxide Level 23.1 Anion Gap 8 Blood Urea Nitrogen 50 Creatinine 1.93 Estimat Glomerular Filtration 33 Rate Random Glucose 94 Calcium Level 7.9 Total Bilirubin 1.3 Aspartate Amino Transf 22 (AST/SGOT) Alanine Aminotransferase 25 (ALT/SGPT) Alkaline Phosphatase 65 Troponin I 0.03 Total Protein 5.0 Albumin 2.5 Blood Type O POSITIVE O POSITIVE Antibody Screen NEGATIVE Blood Bank Comment Crossmatch Leukocyte-Reduced Red Blood Cells Nasal Screen MRSA (PCR) POSITIVE Test 05/04/16 05/05/16 05/05/16 21:24 02:41 03:25 Hemoglobin 8.2 9.5 9.7 Hematocrit 25.5 28.4 28.5 White Blood Count 8.4 Red Blood Count 3.07 Mean Corpuscular Volume 91.6 Mean Corpuscular Hemoglobin 31.3 Mean Corpuscular Hemoglobin 34.2 Concent Red Cell Distribution Width 15.9 Platelet Count 107 Mean Platelet Volume 8.8 Sodium Level 142 Potassium Level 4.8 Chloride Level 111 Carbon Dioxide Level 21.7 Anion Gap 9 Blood Urea Nitrogen 45 Creatinine 1.76 Estimat Glomerular Filtration 37 Rate Random Glucose 75 Calcium Level 8.0 Physical Exam HEENT: Normocephalic; atraumatic; no jaundice. CHEST: CTA CARDIAC: RRR, paced ABDOMEN: Soft, nondistended, nontender; no hepatosplenomegaly; bowel sounds are present in all four quadrants. EXTREMITIES: No clubbing, cyanosis, or edema. SKIN: Normal; no rash; no jaundice. TWISTER TENDER: No focal deficits; alert and oriented times three. Assessment and Plan Plan ASSESSMENT: - GIB, with melena and hematochezia. On anticoagulation at home S/P 2 units of PRBC. HH stable 9.7/28.5. PPI. Scheduled for EGD today. - Anemia, acute blood loss. S/P 2 units of PRBC. HH stable 9.7/28.5. - BRAYAN. Creat 1.76, GFR 37. - Ischemic cardiomyopathy, aortic stenosis-s/p TAVR on chronic anticoagulation. INR 1.3 - Recent hx of diverticulitis. CT without contrast 04/29- acute diverticulitis involving the distal descending colon with mild inflammatory change and no free air or drainable fluid. Was given 10 days of augmentin. PLAN: - EGD with possible colonoscopy - Obtain consults - NPO - PPI - Zosyn - Monitor HH - Transfuse as necessary - Supportive care - Further recommendations to follow based on results of above - Pt seen and examined by Dr. Ledesma and myself and this note is written on her behalf - Shanell Angulo May 05, 2016 08:32
--- NOTE | 2016-05-05 09:45 | EKG ---
Date Performed: 05/04/2016 Time Performed: 15:31:43 PTAGE: 89 years EKG: ELECTRONIC ATRIAL PACEMAKER ELECTRONIC VENTRICULAR PACEMAKER ABNORMAL RHYTHM ECG Compared t o prior tracing no significant change PREVIOUS TRACING : 04/29/2016 11.42 DOCTOR: Virgilio Bañuelos Interpretating Date/Time 05/05/2016 09:43:43
[2016-05-05 10:01] LABS: HEMATOCRIT 26.5 % (39.0-51.0); REVIEW FLAG FINAL
[2016-05-05] MEDS ORDERED: PROPOFOL 200 MG/20 ML AMP IV ONE (10:14)
[2016-05-05] MEDS ORDERED: EPINEPHrine HCL (1:10,000) 1 MG/10 ML SYRINGE OTHER ONE (10:20)
[2016-05-05] MEDS ORDERED: DO NOT ADM ANY ANTICOAGULANT DRUGS XX PRN (10:45)
[2016-05-05 12:50] LABS: HEMATOCRIT 30.5 % (39.0-51.0); REVIEW FLAG FINAL
--- NOTE | 2016-05-05 14:46 | HHI.CCPN ---
Subjective Remarks/Hospital Course This is an 89-year-old male with a history of ischemic cardiomyopathy, prior MA , prior CABG, prior PCI, prior TAVR, ACID placement who presented approximately a week ago to the [facility] emergency department with constipation was found to have acute diverticulitis and was placed on Biaxin that time and sent home. He now presents with a one-day history of acute bright red blood per rectum and hypotension. Initially, he had epigastric discomfort and arm numbness that he thought might be a heart attack, so he took a nitroglycerin, which made his blood pressure dropped even lower. On arrival to the [facility] emergency department, he was noted to have approximately 300 cc of bright red blood per rectum and was persistently hypotensive. He was given IV fluids and empirically given 1 unit of blood. Per report, he recently had a supratherapeutic INR 4.5 and was told to hold his Coumadin. Today's INR is 1.3. He denies chest pain, shortness of breath, fever, chills, nausea, vomiting. He does not have any abdominal pain currently. Critical care medicine is consulted to evaluate and manage his lower GI bleed. Subjective 05/05: The patient had multiple melanotic stools overnight, and received 2 units PRBC's. The patient remained hemodynamically stable overnight ranges 7080s. The patient continues on a Protonix infusion. Plan for EGD today. Objective Vital Signs Date Time Temp Pulse Resp B/P Pulse Ox O2 Delivery O2 Flow Rate FiO2 05/05/16 12:00 78 05/05/16 11:05 15 117/70 99 05/05/16 10:47 97.4 05/04/16 17:30 Nasal Cannula 2 Intake and Output 05/04/16 05/04/16 05/05/16 08:00 16:00 00:00 Intake Total 453 ml Output Total 375 ml Balance 78 ml Result Diagram: 05/05/16 1228 05/05/16 0325 Imaging Bedside Critical Care Ultrasound 05/04: moderate-severe LV systolic dysfunction, preserved RV function. no significant valvular lesions. no pericardial effusion. Objective Remarks GENERAL: Elderly male, lying in bed denies pain HEENT: Normocephalic. Atraumatic. Pupils equal, round and reactive, conjugate. Mucous membranes are pink and moist NECK: Trachea is midline. No JVD. CHEST: Equal chest rise. Clear to auscultation bilaterally. Noted AICD right subclavian area CARDIOVASCULAR: Normal rate, regular rhythm. S1,S2 No appreciable murmurs. ABDOMEN: Obese, soft, nontender, nondistended. No guarding. MUSCULOSKELETAL: 1+ peripheral edema. Distal pulses 2+. NEUROLOGICAL: GCS 15 Alert and oriented 3. Follows commands in all 4 extremities Procedures PLanned EGD Urinary Catheter: No Vascular Central Line Catheter: No A/P Assessment and Plan Plan: 1. Active GI bleed, acute blood loss anemia GI following, Dr Dickinson F/U recommendations Serial H&H Nothing by mouth S/P blood transfusion 2 PRBC's 05/04 Transfuse for Hgb < 7 2. Hypotension-resolved -- MAP 81-87, tele SR, no ectopy -- Maintain MAP > 65mmHg 3. Recent history of diverticulitis Empiric coverage Zosyn 3.375 g IV (day 2) every 6 hours. If the patient appears nontoxic and clinically improves we can consider de-escalating therapy. 4. Ischemic Cardiomyopathy F/U 2D echo results Hold the patient's home ACEI and Carvedilol in the setting of recent hypotension, resume when clinically indicated -- hold home diuretics in the setting of BRAYAN 2/2 hypotension, will resume when clinically indicated 5. Acute on Chronic Renal Insufficiency/Kidney Injury -- strict I/Os -- No carvalho 6. h/o TAVR -- hold anticoagulation. -- SCDs for DVT prophylaxis. Pharmacologic DVT prophylaxis contraindicated in the setting of active bleeding GI prophylaxis Protonix Dispo: Level 3 EGD results duodenitis, duodenal bulb ulcer, gastritis, hiatal hernia. Patient 's diet advance to clear liquid for GI Physician Patricia Rivera MD May 05, 2016 14:46
--- NOTE | 2016-05-05 16:14 | EC ---
Study Study Date:05/05/2016 STUDY CONCLUSIONS SUMMARY - Left ventricle: The cavity size was normal. Wall thickness was normal. Systolic function was severely reduced. The estimated ejection fraction was in the range of 25% to 30%. Wall motion was normal; there were no regional wall motion abnormalities. - Aortic valve: Valve area: 2.35cm^2 (Vmax). - Mitral valve: Mild regurgitation. - Tricuspid valve: Moderate-severe regurgitation. - Pulmonary arteries: PA peak pressure: 33mm Hg (S). If LV function is below 40, please consider prescribing an ACEI or ARB or document rationale for non-use. PROCEDURE DATA STUDY STATUS: Elective. Procedure: Transthoracic echocardiography. Image quality was good. Scanning was performed from the parasternal, apical, and subcostal acoustic windows. Study completion: The patient tolerated the procedure well. Transthoracic echocardiography. M-mode, complete 2D, complete spectral Doppler, and color Doppler. Height: Height: 64in. Weight: Weight: 164.7lb. Body mass index: BMI: 28.3kg/m^2. Body surface area: BSA: 1.8m^2. Patient status: Inpatient. CARDIAC ANATOMY LEFT VENTRICLE: The cavity size was normal. Wall thickness was normal. Systolic function was severely reduced. The estimated ejection fraction was in the range of 25% to 30%. Wall motion was normal; there were no regional wall motion abnormalities. AORTIC VALVE: Trileaflet; normal thickness leaflets. Doppler: Transvalvular velocity was within the normal range. There was no stenosis. No regurgitation. Valve area: 2.35cm^2 (Vmax). Indexed valve area: 1.31cm^2/m^2 (Vmax). AORTA: Aortic root: The aortic root was normal in size. MITRAL VALVE: Structurally normal valve. Doppler: Transvalvular velocity was within the normal range. There was no evidence for stenosis. Mild regurgitation. Peak gradient: 2mm Hg (D). LEFT ATRIUM: The atrium was normal in size. RIGHT VENTRICLE: The cavity size was normal. Wall thickness was normal. PULMONIC VALVE: Doppler: Transvalvular velocity was within the normal range. There was no evidence for stenosis. No regurgitation. TRICUSPID VALVE: Structurally normal valve. Doppler: Transvalvular velocity was within the normal range. Moderate-severe regurgitation. PULMONARY ARTERY: The main pulmonary artery was normal-sized. Systolic pressure was within the normal range. RIGHT ATRIUM: The atrium was normal in size. PERICARDIUM: There was no pericardial effusion. SYSTEMIC VEINS: Inferior vena cava: The vessel was normal in size. Patient weight: 164.7lb _Ejection fraction:_ 65-75% _Fractional shortening:_ 32% up to 5Kg 5-11.5Kg 11.6-22.9Kg 23-45Kg 45-57Kg Aortic Root 7-13 <17 13-22 17-27 17-27 LA diam 6-13 <23 24-38 33-47 37-40 RVID 10-17 7-15 7-15 7-18 8-17 LVIDd 12-22 <32 24-38 33-47 37-40 LVPW 2-4 3-6 5-7 6-8 7-8 IVS 2-4 3-6 5-7 6-8 7-8 BASIC MEASUREMENTS ADULT NORMAL Left ventricle LV internal dimension, ED, chordal *55.2 mm 43-52 level, PLAX LV internal dimension, ES, chordal *50.5 mm 23-38 level, PLAX Fractional shortening, chordal level, *9 % >29 PLAX LV posterior wall thickness, ED 8.9 mm IVS/LVPW ratio, ED 1.02 <1.3 Ventricular septum Septal thickness, ED 9.1 mm Aortic valve Leaflet separation 16 mm 15-26 BASIC MEASUREMENTS ADULT NORMAL Aortic valve Leaflet separation 16 mm 15-26 Aorta Root diameter, ED 29 mm 20-37 Left atrium Anterior-posterior dimension, ES 34 mm 19-40 Anterior-posterior dimension index, ES 1.89 cm/m^2 <2.2 LA/aortic root ratio 1.17 DOPPLER MEASUREMENTS ADULT NORMAL Main pulmonary artery Pressure, S *33 mm Hg =30 Pressure, ED 13 mm Hg Aortic valve Peak velocity, S 129 cm/s Valve area, Vmax 2.35 cm^2 Valve area index, Vmax 1.31 cm^2/m^2 Mitral valve Peak E-wave velocity 73.5 cm/s Peak A-wave velocity 98.2 cm/s Deceleration time *246 ms 150-230 Peak gradient, D 2 mm Hg Peak E/A ratio 0.7 Maximal regurgitant velocity 278 cm/s Tricuspid valve Regurgitant peak velocity 271 cm/s Peak RV-RA gradient, S 29 mm Hg Maximal regurgitant velocity 271 cm/s Systemic veins Estimated CVP 10 mm Hg Right ventricle RV pressure, S *39 mm Hg <30 Pulmonic valve Peak velocity, S 118 cm/s Regurgitant velocity, ED 90.9 cm/s LEGEND: Mean values are shown as u=mean value. Asterisk (*) cook values outside specified normal range. Prepared and signed by Virgilio Bañuelos [id number]
[2016-05-05 19:36] LABS: HEMATOCRIT 27.9 % (39.0-51.0); REVIEW FLAG FINAL
[2016-05-05 20:58] LABS: HEMATOCRIT 27.2 % (39.0-51.0); REVIEW FLAG FINAL
[2016-05-05] MEDS: SODIUM CHLORIDE 0.9% FLUSH 5 ML FLUSH IV FLUSH SCH (21:00)
[2016-05-06] VITALS (12 sets, daily range): BP systolic 83–129; BP diastolic 53–68; PULSE 69–95; RESP 16–27; TEMP 96.7–98.3; O2SAT 92–100
[2016-05-06] MEDS: PIPERACIL-TAZO 3.375 GM PREMIX 50 ML IV SCH ×3 (00:18→15:41)
[2016-05-06 00:40] LABS: REVIEW FLAG FINAL
[2016-05-06] MEDS: CHLORHEXIDINE GLUCONATE 2 % 1 PACK (2 CLOTHS) TOP SCH (04:00)
[2016-05-06 04:48] LABS: HEMATOCRIT 25.9 % (39.0-51.0); MEAN CELL VOLUME 91.3 FL (80.0-100.0); MEAN CORPUSCULAR HEMOGLOBIN 31.5 PG (27.0-34.0); MEAN CORPUSCULAR HGB CONC 34.5 % (32.0-36.0); PLATELET COUNT 121 TH/MM3 (150-450); RED BLOOD COUNT 2.84 MIL/MM3 (4.50-5.90); REVIEW FLAG FINAL; WHITE BLOOD COUNT 7.8 TH/MM3 (4.0-11.0)
[2016-05-06] MEDS: INSULIN NovoLIN REGULAR SUPPLEMENTAL SCALE SQ SCH ×4 (05:56→18:00)
[2016-05-06] MEDS: SODIUM CHLORIDE 0.9% FLUSH 5 ML FLUSH IV FLUSH SCH ×2 (09:00→20:33)
[2016-05-06] MEDS: PANTOPRAZOLE INJ 80 MG in SODIUM CHLORIDE 0.9% INJ 100 ML IV SCH (09:26)
--- NOTE | 2016-05-06 10:49 | HHI.CCPN ---
Subjective Remarks/Hospital Course This is an 89-year-old male with a history of ischemic cardiomyopathy, prior IL , prior CABG, prior PCI, prior TAVR, ACID placement who presented approximately a week ago to the [facility] emergency department with constipation was found to have acute diverticulitis and was placed on Biaxin that time and sent home. He now presents with a one-day history of acute bright red blood per rectum and hypotension. Initially, he had epigastric discomfort and arm numbness that he thought might be a heart attack, so he took a nitroglycerin, which made his blood pressure dropped even lower. On arrival to the [facility] emergency department, he was noted to have approximately 300 cc of bright red blood per rectum and was persistently hypotensive. He was given IV fluids and empirically given 1 unit of blood. Per report, he recently had a supratherapeutic INR 4.5 and was told to hold his Coumadin. Today's INR is 1.3. He denies chest pain, shortness of breath, fever, chills, nausea, vomiting. He does not have any abdominal pain currently. Critical care medicine is consulted to evaluate and manage his lower GI bleed. Subjective 05/05: The patient had multiple melanotic stools overnight, and received 2 units PRBC's. The patient remained hemodynamically stable overnight ranges 7080s. The patient continues on a Protonix infusion. Plan for EGD today. 05/06: No acute events overnight. 2 melanotic/ bloody stools since procedure. Objective Vital Signs Date Time Temp Pulse Resp B/P Pulse Ox O2 Delivery O2 Flow Rate FiO2 05/06/16 10:00 76 05/06/16 08:00 97.8 20 106/58 99 05/05/16 22:02 Nasal Cannula 2.00 Intake and Output 05/05/16 05/05/16 05/06/16 08:00 16:00 00:00 Intake Total 410 ml 510 ml 114 ml Output Total 325 ml 50 ml 175 ml Balance 85 ml 460 ml -61 ml Result Diagram: 05/06/16 0435 05/06/16 0435 Imaging Bedside Critical Care Ultrasound 05/04: moderate-severe LV systolic dysfunction, preserved RV function. no significant valvular lesions. no pericardial effusion. Objective Remarks GENERAL: Elderly male, lying in bed denies pain HEENT: Normocephalic. Atraumatic. Pupils equal, round and reactive, conjugate. Mucous membranes are pink and moist NECK: Trachea is midline. No JVD. CHEST: Equal chest rise. Clear to auscultation bilaterally. Noted AICD right subclavian area CARDIOVASCULAR: Normal rate, regular rhythm. S1,S2 No appreciable murmurs. ABDOMEN: Obese, soft, nontender, nondistended. No guarding. MUSCULOSKELETAL: 1+ peripheral edema. Distal pulses 2+. NEUROLOGICAL: GCS 15 Alert and oriented 3. Follows commands in all 4 extremities Urinary Catheter: No Vascular Central Line Catheter: No A/P Assessment and Plan Plan: 1. Active GI bleed, acute blood loss anemia GI following, Dr Dickinson Protonix infusion Serial H&H stable 8.9 Nothing by mouth S/P blood transfusion 2 PRBC's 05/04 Transfuse for Hgb < 7 2. Hypotension-resolved -- MAP 81-87, tele SR, no ectopy -- Maintain MAP > 65mmHg 3. Recent history of diverticulitis Empiric coverage Zosyn 3.375 g IV (day 3) every 6 hours. Will D/C Zosyn today 4. Ischemic Cardiomyopathy 2D echo results- Hold the patient's home ACEI and Carvedilol in the setting of recent hypotension, resume when clinically indicated -- hold home diuretics in the setting of BRAYAN 2/2 hypotension, will resume when clinically indicated --AICD Pacemaker 70-110HR (AV pacer dependent) last interrrogated 04/08 5. Acute on Chronic Renal Insufficiency/Kidney Injury -- strict I/Os -- No carvalho 6. h/o TAVR -- hold anticoagulation. -- SCDs for DVT prophylaxis. Pharmacologic DVT prophylaxis contraindicated in the setting of active bleeding GI prophylaxis Protonix infusion per GI Dispo: Level 2 Transfer to Hospitalist Physician Patricia Rivera MD May 06, 2016 10:49
[2016-05-06 11:04] LABS: HEMATOCRIT 27.7 % (39.0-51.0); REVIEW FLAG FINAL
[2016-05-06 14:44] LABS: HEMATOCRIT 28.3 % (39.0-51.0); REVIEW FLAG FINAL
--- NOTE | 2016-05-06 16:06 | HHI.GIFU ---
Subjective Remarks Up in chair. States his darker is starting to lighten in color. No n/v. No abdominal pain. (Shanell Angulo) Objective Vitals I&O Vital Signs Date Time Temp Pulse Resp B/P Pulse Ox O2 Delivery O2 Flow Rate FiO2 05/06/16 12:00 85 05/06/16 12:00 96.9 85 17 108/57 94 05/06/16 10:00 76 05/06/16 08:00 72 05/06/16 08:00 97.8 72 20 106/58 99 05/06/16 06:00 78 05/06/16 04:00 98.3 78 16 83/54 95 05/06/16 04:00 78 05/06/16 02:00 78 05/06/16 00:00 97.7 94 27 129/64 93 05/06/16 00:00 94 05/05/16 22:02 96 Nasal Cannula 2.00 05/05/16 22:00 76 05/05/16 20:00 77 05/05/16 20:00 97.9 77 22 105/62 05/05/16 18:00 80 I/O 05/05/16 05/05/16 05/05/16 05/06/16 05/06/16 05/06/16 07:00 15:00 23:00 07:00 15:00 23:00 Intake Total 410 ml 510 ml 114 ml 349 ml 124 ml Output Total 325 ml 50 ml 175 ml 375 ml Balance 85 ml 460 ml -61 ml -26 ml 124 ml Intake IV Total 202 ml 260 ml 114 ml 349 ml 124 ml Packed Cells 208 ml Other 250 ml Output Urine Total 0 ml Stool Total 325 ml 175 ml 375 ml Estimated Blood Loss 50 ml # Voids 2 1 1 1 # Bowel Movements 2 2 1 1 1 Laboratory Laboratory Tests Test 05/05/16 05/05/16 05/06/16 05/06/16 18:55 20:16 00:11 04:35 Hemoglobin 9.5 9.1 9.7 8.9 Hematocrit 27.9 27.2 29.0 25.9 White Blood Count 7.8 Red Blood Count 2.84 Mean Corpuscular Volume 91.3 Mean Corpuscular Hemoglobin 31.5 Mean Corpuscular Hemoglobin 34.5 Concent Red Cell Distribution Width 16.0 Platelet Count 121 Mean Platelet Volume 7.8 Sodium Level 142 Potassium Level 4.0 Chloride Level 110 Carbon Dioxide Level 25.0 Anion Gap 7 Blood Urea Nitrogen 30 Creatinine 1.67 Estimat Glomerular Filtration 39 Rate Random Glucose 82 Calcium Level 8.0 Phosphorus Level 2.9 Magnesium Level 2.0 Test 05/06/16 05/06/16 09:46 14:23 Hemoglobin 9.4 9.6 Hematocrit 27.7 28.3 Physical Exam HEENT: Normocephalic; atraumatic; no jaundice. CHEST: CTA CARDIAC: RRR, paced ABDOMEN: Soft, nondistended, nontender; no hepatosplenomegaly; bowel sounds are present in all four quadrants. EXTREMITIES: No clubbing, cyanosis, or edema. SKIN: Normal; no rash; no jaundice. BIOPHARMACEUTICAL REP: No focal deficits; alert and oriented times three. (Shanell Angulo) Assessment and Plan Plan ASSESSMENT: - GIB, with melena and hematochezia. S/P EGD (05/05/16)---> duodenitis, duodenal bulb ulcer, gastritis, HH. No n/v/pain. Tolerating diet. States stool is starting to become a on air personality colored brown. HH Stable. 9.6/28.3. Protonix gtt. - Anemia, acute blood loss. S/P 2 units of PRBC. HH stable 9.6/28.3. - BRAYAN. Creat 1.67 - Ischemic cardiomyopathy, aortic stenosis-s/p TAVR on chronic anticoagulation at home. INR 1.3 - Recent hx of diverticulitis. CT without contrast 04/29- acute diverticulitis involving the distal descending colon with mild inflammatory change and no free air or drainable fluid. Was given 10 days of augmentin. PLAN: - ELO- Heart healthy low residue - Await pathology - D/C Protonix Gtt - Protonix 40mg po BID - Zosyn - Monitor HH - Transfuse as necessary - Supportive care - Further recommendations to follow based on results of above - Pt seen and examined by Dr. Ledesma and myself and this note is written on her behalf - (Shanell Angulo) Physician Comments seen, examined agree with above will need colonoscopy op unless indicated otherwise we will also ask dr Carroll to see him to determine anticoagulation at discharge (Bratu,SukiShanell Hooker May 06, 2016 16:06 Suki Ledesma MD May 06, 2016 17:41
[2016-05-06 19:06] LABS: REVIEW FLAG FINAL
[2016-05-06] MEDS: PANTOPRAZOLE SOD 40 MG DELAYED RELEASE TAB PO SCH (20:33)
[2016-05-07] VITALS (8 sets, daily range): BP systolic 98–158; BP diastolic 53–80; PULSE 60–89; RESP 18–20; TEMP 96.9–98.3; O2SAT 91–100
[2016-05-07] MEDS: CHLORHEXIDINE GLUCONATE 2 % 1 PACK (2 CLOTHS) TOP SCH (04:00)
[2016-05-07] MEDS: INSULIN NovoLIN REGULAR SUPPLEMENTAL SCALE SQ SCH ×5 (06:00→23:04)
[2016-05-07 07:23] LABS: HEMATOCRIT 24.2 % (39.0-51.0); MEAN CELL VOLUME 94.2 FL (80.0-100.0); MEAN CORPUSCULAR HEMOGLOBIN 31.4 PG (27.0-34.0); MEAN CORPUSCULAR HGB CONC 33.3 % (32.0-36.0); PLATELET COUNT 121 TH/MM3 (150-450); RED BLOOD COUNT 2.57 MIL/MM3 (4.50-5.90); RED CELL DISTRIBUTION WIDTH 16.5 % (11.6-17.2); REVIEW FLAG FINAL
[2016-05-07 07:40] LABS: BICARBONATE 23.2 MEQ/L (21.0-32.0); POTASSIUM 4.1 MEQ/L (3.5-5.1)
[2016-05-07] MEDS: PANTOPRAZOLE SOD 40 MG DELAYED RELEASE TAB PO SCH ×2 (08:33→23:00)
[2016-05-07] MEDS: SODIUM CHLORIDE 0.9% FLUSH 5 ML FLUSH IV FLUSH SCH ×2 (08:46→23:01)
--- NOTE | 2016-05-07 11:38 | MB ---
cc: MARIAMA BOUCHER M.D., MARK B. M.D. DATE OF CONSULTATION: 05/07/2016 REASON FOR CONSULTATION Anticoagulation recommendations for patient with acute GI bleeding. HISTORY OF PRESENT ILLNESS Mr. Mejia is an 89-year-old gentleman, patient of Dr. Boucher, with a history of ischemic cardiomyopathy, previous myocardial infarction, prior CABG and TAVR, AICD implant, who presented to the emergency room here with acute GI bleeding. He had bright red blood per rectum but he stated that it seemed different than his usual hemorrhoids. He had severe anemia and hypotension and required packed red blood cell transfusions. His aspirin and warfarin have been discontinued and I am asked to see if they should be restarted at this point. The patient underwent EGD yesterday and was found to have some gastritis and possible peptic ulcer that was coagulated according to the patient. That report is not yet available. He says his stools have been improving in color and are less dark. He denies any abdominal discomfort. He has had no chest pain or shortness of breath or any syncopal episodes. He denies any recent ICD discharges. He has been taking his medication as directed at home. When questioned about his warfarin he does not recall why he is taking that and he does not recall ever having atrial fibrillation, although that is mentioned in his current record. He says he has been on warfarin since his TAVR a few years ago. PAST MEDICAL HISTORY 1. Lung cancer. 2. Prostate cancer. 3. Possible atrial fibrillation. 4. Coronary artery disease. 5. Acute myocardial infarction. 6. Congestive heart failure. 7. Hyperlipidemia. 8. Hypertension. 9. GERD. 10.Chronic kidney disease. 11.ASHD. 12.Aortic stenosis. 13. Paroxysmal Atrial fibrillation PAST SURGICAL HISTORY 1. Appendectomy. 2. TAVR. 3. CABG x4. 4. Cholecystectomy. 5. Multiple cardiac stents. 6. CARBON BRUSH MAKER-D implant. MEDICATIONS 1. Protonix 40 mg q.12h. p.o. 2. Novolin sliding insulin scale. 3. Acetaminophen p.r.n. 4. Zofran IV p.r.n. 5. Duo nebs q.2h. p.r.n. 6. He had been on warfarin at home and low-dose aspirin that has been discontinued since admission. According to his reported medications on his admission history and physical he was on: 1. Simvastatin. 2. Sotalol. 3. Torsemide. 4. Losartan. 5. Carvedilol. Unspecified doses. FAMILY HISTORY Noncontributory. SOCIAL HISTORY The patient denies tobacco, alcohol or illicit drug use at this time. REVIEW OF SYSTEMS Except for that mentioned in the HPI his complete 12-point review of systems is otherwise negative. PHYSICAL EXAMINATION GENERAL: An elderly white male sitting up in bed eating breakfast in no distress. VITAL SIGNS: Blood pressure 104/61 mmHg, heart rate 82 and regular, respiratory rate 18, temperature 98.1, oxygen saturation 97%. HEENT: Head is normocephalic and atraumatic. Pupils equal and react to light. Sclera anicteric. Extraocular movements intact. NECK: Supple. There is no adenopathy. No jugular venous distension at 45 degrees. Carotid upstrokes are normal. No bruits. Thyroid exam is normal. LUNGS: Clear. HEART: PMI is laterally displaced and diffuse. S1, S2 are normal. There is a grade 1/6 systolic murmur at the base. No diastolic murmurs, gallops or rubs. ABDOMEN: Bowel sounds present, soft, nontender. No hepatosplenomegaly, masses or bruits. EXTREMITIES: No cyanosis, clubbing or edema. Perfusion is adequate in the upper and lower extremities. There are no femoral bruits. NEUROLOGIC: Exam is grossly intact. EKG EKG from admission on May 04/2017 shows an electronic dual-chamber pacemaker rhythm. LABORATORY Labs from today: CBC white count 7.0, hemoglobin 8.1, hematocrit 24.2, platelet count 121,000. Hemoglobin on admission was 8.3. Chemistries from today: Sodium 140, potassium 4.1, chloride 110, CO2 23.2, BUN 20, creatinine 1.45, glucose 104, magnesium 2.0, phosphorus 2.5, AST 22. IMPRESSION 1. Acute GI bleeding and severe anemia and hypotension, currently improved, suspected upper GI bleeding although history of diverticulosis and lower GI bleeding cannot be entirely excluded yet. 2. Long-term anticoagulation therapy with warfarin. 3. ASHD with ischemic cardiomyopathy status post CARBON BRUSH MAKER-D implant. 4. History of paroxysmal atrial fibrillation currently in AV paced rhythm. 5. Status post remote CABG and prior TAVR for treatment of aortic stenosis. 6. Hyperlipidemia. 7. Hypertension. 8. Advanced age. RECOMMENDATIONS I will obtain the records from Dr. Boucher's office to determine more of his previous history and preadmission medications so that they can be restarted appropriately. I recommend he stay off his aspirin and warfarin for now at least until it is determined that his bleeding has completely stopped. Perhaps he can follow-up with Dr. Boucher in a week or two and it could be determined at that point if and when to restart his anticoagulation therapy. Discussed the plans with the patient and his family here today. After I obtain records from Dr. Boucher's office I will make further recommendations about medications to restart here before being discharged. Thank you for allowing us to participate in the care of this patient. MD ALYSSIA Hodges/PAT /9:42 AM /11:18 AM ANTON
[2016-05-07] MEDS ORDERED: PILL SPLITTER OTHER PRN (11:45)
--- NOTE | 2016-05-07 12:30 | HHI.GIFU ---
Subjective Remarks Up in chair. No obvious active bleeding, but did have a drop in his hgb today. Feeling well. No n/v. no abdominal pain. States stool is back to being normal colored brown (Shanell Angulo Dorindaginette WHITLOCK) Objective Vitals I&O Vital Signs Date Time Temp Pulse Resp B/P Pulse Ox O2 Delivery O2 Flow Rate FiO2 05/07/16 08:00 97.4 82 20 126/70 94 05/07/16 04:30 98.1 82 18 104/61 97 05/07/16 00:24 97.6 79 18 117/66 97 05/07/16 00:00 96.9 77 20 114/60 100 05/07/16 00:00 77 05/06/16 22:00 83 05/06/16 20:00 79 05/06/16 20:00 96.7 83 18 96/53 100 05/06/16 18:00 69 05/06/16 16:00 96.7 95 18 128/68 92 05/06/16 16:00 95 05/06/16 14:00 84 I/O 05/06/16 05/06/16 05/06/16 05/07/16 05/07/16 05/07/16 07:00 15:00 23:00 07:00 15:00 23:00 Intake Total 349 ml 604 ml 0 ml Output Total 375 ml 300 ml Balance -26 ml 604 ml -300 ml Intake Oral 480 ml 0 ml IV Total 349 ml 124 ml Output Urine Total 300 ml Stool Total 375 ml # Voids 1 3 # Bowel Movements 1 2 Laboratory Laboratory Tests Test 05/06/16 05/06/16 05/07/16 14:23 18:28 06:53 Hemoglobin 9.6 9.4 8.1 Hematocrit 28.3 27.0 24.2 White Blood Count 7.0 Red Blood Count 2.57 Mean Corpuscular Volume 94.2 Mean Corpuscular Hemoglobin 31.4 Mean Corpuscular Hemoglobin 33.3 Concent Red Cell Distribution Width 16.5 Platelet Count 121 Mean Platelet Volume 7.7 Sodium Level 140 Potassium Level 4.1 Chloride Level 110 Carbon Dioxide Level 23.2 Anion Gap 7 Blood Urea Nitrogen 20 Creatinine 1.45 Estimat Glomerular Filtration 46 Rate Random Glucose 104 Calcium Level 8.0 Phosphorus Level 2.5 Magnesium Level 2.0 Physical Exam HEENT: Normocephalic; atraumatic; no jaundice. CHEST: CTA CARDIAC: RRR, paced ABDOMEN: Soft, nondistended, nontender; no hepatosplenomegaly; bowel sounds are present in all four quadrants. EXTREMITIES: No clubbing, cyanosis, or edema. SKIN: Normal; no rash; no jaundice. MATERIALS SUPERVISOR: No focal deficits; alert and oriented times three. (Shanell Angulo) Assessment and Plan Plan ASSESSMENT: - GIB, with melena and hematochezia. S/P EGD (05/05/16)---> duodenitis, duodenal bulb ulcer, gastritis, HH. Pathology antral mucosa with mild active chronic gastritis, negative for helicobacter, gastric body mucosa with cystically dilated pits consistent with cystic fundic gland polyp. No n/v/pain. Tolerating diet. States stool is now its normal colored brown. HH Stable dropped to 8.1/24.2, but no obvious bleeding. Protonix - Anemia, acute blood loss. S/P 2 units of PRBC. HH stable 8.1/24.2. - BRAYAN. - Ischemic cardiomyopathy, aortic stenosis-s/p TAVR on chronic anticoagulation at home. INR 1.3 - Recent hx of diverticulitis. CT without contrast 04/29- acute diverticulitis involving the distal descending colon with mild inflammatory change and no free air or drainable fluid. Was given 10 days of augmentin. PLAN: - ELO- Heart healthy low residue - Protonix 40mg po BID - Zosyn - Monitor HH- Check again today at 1600 - Transfuse as necessary - Supportive care - Further recommendations to follow based on results of above - Pt seen and examined by Dr. Ledesma and myself and this note is written on her behalf - (Shanell Angulo) Physician Comments seen, examined agree with above hb improved we will monitor closely (Suki Ledesma MD) Shanell Angulo May 07, 2016 12:30 Suki Ledesma MD May 07, 2016 18:04
--- NOTE | 2016-05-07 14:37 | HHI.PR ---
Subjective Remarks The patient was sitting in a chair. He had no acute complaints. He said he was anxious about the biopsy results. He said he hasn't had any further bleeding. No acute concerns at this time. Objective Vitals Vital Signs Date Time Temp Pulse Resp B/P Pulse Ox O2 Delivery O2 Flow Rate FiO2 05/07/16 08:00 97.4 82 20 126/70 94 05/07/16 08:00 60 05/07/16 04:30 98.1 82 18 104/61 97 05/07/16 00:24 97.6 79 18 117/66 97 05/07/16 00:00 96.9 77 20 114/60 100 05/07/16 00:00 77 05/06/16 22:00 83 05/06/16 20:00 79 05/06/16 20:00 96.7 83 18 96/53 100 05/06/16 18:00 69 05/06/16 16:00 96.7 95 18 128/68 92 05/06/16 16:00 95 I/O 05/06/16 05/06/16 05/06/16 05/07/16 05/07/16 05/07/16 07:00 15:00 23:00 07:00 15:00 23:00 Intake Total 349 ml 604 ml 0 ml Output Total 375 ml 300 ml Balance -26 ml 604 ml -300 ml Intake Oral 480 ml 0 ml IV Total 349 ml 124 ml Output Urine Total 300 ml Stool Total 375 ml # Voids 1 3 # Bowel Movements 1 2 Result Diagram: 05/07/16 0653 05/07/16 0653 Objective Remarks GENERAL: NAD, resting comfortably. HEENT: Normocephalic. Atraumatic. Pupils equal, round and reactive, conjugate. Mucous membranes are pink and moist NECK: Trachea is midline. No JVD. CHEST: Equal chest rise. Clear to auscultation bilaterally. Noted AICD right subclavian area CARDIOVASCULAR: Normal rate, regular rhythm. S1,S2 No appreciable murmurs. ABDOMEN: Soft, nontender, nondistended. No guarding. MUSCULOSKELETAL: TR peripheral edema. Distal pulses 2+. NEUROLOGICAL: Alert and oriented 3. Follows commands in all 4 extremities. PSYCH: Mood and affect appropriate. Procedures Endoscopy Medications and IVs Current Medications Medications (Trade) Dose Ordered Sig/Osmar Route Start Time Stop Time Status Last Admin (D50w (Vial) Inj) 25 ml UNSCH PRN IV PUSH 05/04/16 18:15 (NovoLIN R SUPPLEMENTAL SCALE) 1 Q6HR SQ 05/05/16 00:00 (NS Flush) 2 ml UNSCH PRN IV FLUSH 05/04/16 18:15 (NS Flush) 2 ml BID IV FLUSH 05/04/16 21:00 05/07/16 08:46 (Tylenol) 650 mg Q6H PRN PO 05/04/16 18:15 (Zofran Inj) 4 mg Q6H PRN IV 05/04/16 18:15 Miscellaneous Information 1 Q361D XX 05/04/16 18:15 (Chlorhexidine 2% Cloth) 3 pack Taper DAILY@04 TOP 05/05/16 04:00 05/01/17 03:59 05/06/16 04:00 (Chlorhexidine 2% Cloth) 3 pack UNSCH PRN TOP 05/04/16 18:15 (Protonix) 40 mg Q12HR PO 05/06/16 21:00 05/07/16 08:33 (Betapace) 80 mg Q12HR PO 05/07/16 21:00 (Coreg) 6.25 mg Q12HR PO 05/07/16 21:00 (Cozaar) 12.5 mg DAILY PO 05/08/16 09:00 (Pill Splitter) 1 ea UNSCH PRN OTHER 05/07/16 11:45 A/P Assessment and Plan Active GI bleed/ acute blood loss anemia GI following. S/p blood transfusion 2 PRBC's 05/04. EGD (05/05/16) showed: duodenitis, duodenal bulb ulcer, gastritis, HH; Pathology antral mucosa with mild active chronic gastritis, negative for helicobacter, gastric body mucosa with cystically dilated pits consistent with cystic fundic gland polyp. - Protonix infusion. - ADAT. - follow CBC and transfuse for Hgb < 7. - hold anticoagulation. Hypotension S/t GIB. Resolved. - continue to monitor. Recent history of diverticulitis Recently completed a course of Augmentin. Asymptomatic at this time. - Empiric coverage with Zosyn. D/c. Ischemic Cardiomyopathy 2D echo noted. 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 Cardiology consult appreciated. - Hold the patient's home ACEI and Carvedilol in the setting of recent hypotension, resume when clinically indicated. - hold home diuretics in the setting of BRAYAN 2/2 hypotension, will resume when clinically indicated. Appears euvolemic at this time. - follow up with cardiology. Acute on Chronic Renal Insufficiency/Kidney Injury Improved. - strict I/Os. - avoid nephrotoxic agents and monitor. - holding off on diuretics at this time. H/o TAVR Cardiology input appreciated. - hold anticoagulation. - outpt follow-up. PPx: SCDs. Discharge Planning Awaiting clinical improvement. Rafat Powell DO May 07, 2016 14:37
[2016-05-07 17:23] LABS: REVIEW FLAG FINAL
[2016-05-07] MEDS: SOTALOL HCL 80 MG TAB PO SCH (23:00)
[2016-05-07] MEDS: CARVEDILOL 6.25 MG TAB PO SCH (23:00)
[2016-05-08] VITALS (7 sets, daily range): BP systolic 101–119; BP diastolic 57–72; PULSE 69–94; RESP 20; TEMP 97.2–98.4; O2SAT 95–100
[2016-05-08] MEDS: CHLORHEXIDINE GLUCONATE 2 % 1 PACK (2 CLOTHS) TOP SCH (04:00)
[2016-05-08] MEDS: INSULIN NovoLIN REGULAR SUPPLEMENTAL SCALE SQ SCH ×4 (05:32→23:55)
[2016-05-08 06:18] LABS: MEAN CELL VOLUME 93.3 FL (80.0-100.0); MEAN CORPUSCULAR HEMOGLOBIN 31.6 PG (27.0-34.0); MEAN CORPUSCULAR HGB CONC 33.8 % (32.0-36.0); PLATELET COUNT 121 TH/MM3 (150-450); RED BLOOD COUNT 2.35 MIL/MM3 (4.50-5.90); RED CELL DISTRIBUTION WIDTH 15.8 % (11.6-17.2); REVIEW FLAG FINAL; WHITE BLOOD COUNT 6.1 TH/MM3 (4.0-11.0)
[2016-05-08 06:35] LABS: BICARBONATE 25.1 MEQ/L (21.0-32.0); POTASSIUM 3.9 MEQ/L (3.5-5.1)
--- NOTE | 2016-05-08 08:37 | PD.CARD.PN ---
Subjective Subjective Remarks Feeling well. No obvious bleeding but Hgb down to 7.4 this AM. Denies CP or SOB. Want's to go home. Objective Medications Current Medications Medications (Trade) Dose Ordered Sig/Osmar Route PRN Reason Start Time Stop Time Status Last Admin Dose Admin Dextrose (D50w (Vial) Inj) 25 ml UNSCH PRN IV PUSH HYPOGLYCEMIA-SEE COMMENTS 05/04/16 18:15 Insulin Human Regular (NovoLIN R SUPPLEMENTAL SCALE) 1 Q6HR SQ 05/05/16 00:00 05/07/16 23:04 IV Flush (NS Flush) 2 ml UNSCH PRN IV FLUSH FLUSH AFTER USING IV ACCESS 05/04/16 18:15 IV Flush (NS Flush) 2 ml BID IV FLUSH 05/04/16 21:00 05/07/16 23:01 Acetaminophen (Tylenol) 650 mg Q6H PRN PO PAIN 1-10 AND/OR FEVER >101F 05/04/16 18:15 Ondansetron HCl (Zofran Inj) 4 mg Q6H PRN IV NAUSEA OR VOMITING 05/04/16 18:15 Miscellaneous Information 1 Q361D XX 05/04/16 18:15 Chlorhexidine Gluconate (Chlorhexidine 2% Cloth) 3 pack Taper DAILY@04 TOP 05/05/16 04:00 05/01/17 03:59 05/06/16 04:00 Chlorhexidine Gluconate (Chlorhexidine 2% Cloth) 3 pack UNSCH PRN TOP HYGIENIC CARE 05/04/16 18:15 Pantoprazole Sodium (Protonix) 40 mg Q12HR PO 05/06/16 21:00 05/07/16 23:00 Sotalol HCl (Betapace) 80 mg Q12HR PO 05/07/16 21:00 05/07/16 23:00 Carvedilol (Coreg) 6.25 mg Q12HR PO 05/07/16 21:00 05/07/16 23:00 Losartan Potassium (Cozaar) 12.5 mg DAILY PO 05/08/16 09:00 Miscellaneous (Pill Splitter) 1 ea UNSCH PRN OTHER SEE LABEL COMMENTS 05/07/16 11:45 Vital Signs / I&O Vital Signs Date Time Temp Pulse Resp B/P Pulse Ox O2 Delivery O2 Flow Rate FiO2 05/08/16 04:00 Room Air 05/08/16 04:00 98.2 72 20 102/63 96 05/08/16 00:00 97.9 84 20 103/58 98 05/08/16 00:00 Room Air 05/07/16 20:10 79 05/07/16 20:09 98.3 89 20 98/53 96 05/07/16 20:09 Room Air 05/07/16 16:00 97.7 88 20 108/57 95 05/07/16 12:00 97.6 82 20 127/59 91 I/O 05/07/16 05/07/16 05/07/16 05/08/16 05/08/16 05/08/16 07:00 15:00 23:00 07:00 15:00 23:00 Intake Total 0 ml 1080 ml 240 ml 220 ml Output Total 300 ml 700 ml 400 ml Balance -300 ml 380 ml -160 ml 220 ml Intake Oral 0 ml 1080 ml 240 ml 220 ml Output Urine Total 300 ml 700 ml 400 ml # Voids 8 2 # Bowel Movements 1 1 0 Physical Exam VSS, afebrile. No JVD @ 90 degrees. Lungs: CTA Heart: RRR, 1/6 sytolic murmur. No S3 Ext. No C/C/E Laboratory Laboratory Tests Test 05/07/16 05/08/16 17:05 05:25 Hemoglobin 8.8 GM/DL 7.4 GM/DL Hematocrit 26.0 % 22.0 % White Blood Count 6.1 TH/MM3 Red Blood Count 2.35 MIL/MM3 Mean Corpuscular Volume 93.3 FL Mean Corpuscular Hemoglobin 31.6 PG Mean Corpuscular Hemoglobin 33.8 % Concent Red Cell Distribution Width 15.8 % Platelet Count 121 TH/MM3 Mean Platelet Volume 7.7 FL Sodium Level 140 MEQ/L Potassium Level 3.9 MEQ/L Chloride Level 108 MEQ/L Carbon Dioxide Level 25.1 MEQ/L Anion Gap 7 MEQ/L Blood Urea Nitrogen 18 MG/DL Creatinine 1.48 MG/DL Estimat Glomerular Filtration 45 ML/MIN Rate Random Glucose 94 MG/DL Calcium Level 8.1 MG/DL Assessment and Plan Problem List: (1) Acute GI hemorrhage Assessment and Plan: Stool color improved. (2) Symptomatic anemia Assessment and Plan: Hgb lower today. (3) Diabetes mellitus, type II (4) Chronic systolic (congestive) heart failure Assessment and Plan: Compensated. 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 Dr. Ayala will see him back in 1- 2 weeks and decide at that point if AC can be safely restarted. All other home cardiac meds restarted and tolerating well. I will sign off and follow here PRN. Code Status Full Discussed Condition With Patient and Dr. Ayala. Munir Cullen MD May 08, 2016 08:37
[2016-05-08] MEDS: LOSARTAN 25 MG TAB PO SCH (08:41)
[2016-05-08] MEDS: CARVEDILOL 6.25 MG TAB PO SCH ×2 (08:41→23:28)
[2016-05-08] MEDS: SOTALOL HCL 80 MG TAB PO SCH ×2 (08:42→23:28)
[2016-05-08] MEDS: SODIUM CHLORIDE 0.9% FLUSH 5 ML FLUSH IV FLUSH SCH ×2 (08:42→23:28)
[2016-05-08] MEDS: PANTOPRAZOLE SOD 40 MG DELAYED RELEASE TAB PO SCH ×2 (08:42→23:29)
--- NOTE | 2016-05-08 12:01 | HHI.GIFU ---
Subjective Remarks Up in chair, in no distress. Stool is still light brown in color and he has not had any n/v, abdominal pain. HH dropped again overnight. (Shanell Angulo) Objective Vitals I&O Vital Signs Date Time Temp Pulse Resp B/P Pulse Ox O2 Delivery O2 Flow Rate FiO2 05/08/16 08:00 97.2 74 20 103/57 95 05/08/16 07:15 Room Air 05/08/16 04:00 Room Air 05/08/16 04:00 98.2 72 20 102/63 96 05/08/16 00:00 97.9 84 20 103/58 98 05/08/16 00:00 Room Air 05/07/16 20:10 79 05/07/16 20:09 98.3 89 20 98/53 96 05/07/16 20:09 Room Air 05/07/16 16:00 97.7 88 20 108/57 95 05/07/16 12:00 97.6 82 20 127/59 91 I/O 05/07/16 05/07/16 05/07/16 05/08/16 05/08/16 05/08/16 07:00 15:00 23:00 07:00 15:00 23:00 Intake Total 0 ml 1080 ml 240 ml 220 ml Output Total 300 ml 700 ml 400 ml Balance -300 ml 380 ml -160 ml 220 ml Intake Oral 0 ml 1080 ml 240 ml 220 ml Output Urine Total 300 ml 700 ml 400 ml # Voids 8 2 # Bowel Movements 1 1 0 Laboratory Laboratory Tests Test 05/07/16 05/08/16 17:05 05:25 Hemoglobin 8.8 7.4 Hematocrit 26.0 22.0 White Blood Count 6.1 Red Blood Count 2.35 Mean Corpuscular Volume 93.3 Mean Corpuscular Hemoglobin 31.6 Mean Corpuscular Hemoglobin 33.8 Concent Red Cell Distribution Width 15.8 Platelet Count 121 Mean Platelet Volume 7.7 Sodium Level 140 Potassium Level 3.9 Chloride Level 108 Carbon Dioxide Level 25.1 Anion Gap 7 Blood Urea Nitrogen 18 Creatinine 1.48 Estimat Glomerular Filtration 45 Rate Random Glucose 94 Calcium Level 8.1 Physical Exam HEENT: Normocephalic; atraumatic; no jaundice. CHEST: CTA CARDIAC: RRR, paced ABDOMEN: Soft, nondistended, nontender; no hepatosplenomegaly; bowel sounds are present in all four quadrants. EXTREMITIES: No clubbing, cyanosis, or edema. SKIN: Normal; no rash; no jaundice. LOADING MANAGER: No focal deficits; alert and oriented times three. (Shanell Angulo) Assessment and Plan Plan ASSESSMENT: - GIB, with melena and hematochezia. S/P EGD (05/05/16)---> duodenitis, duodenal bulb ulcer, gastritis, HH. Pathology antral mucosa with mild active chronic gastritis, negative for helicobacter, gastric body mucosa with cystically dilated pits consistent with cystic fundic gland polyp. No n/v/pain. Tolerating diet. States stool is now its normal colored brown. However, HH dropped to 8.1/24.2 yesterday and to 7.4 today. Getting stat CBC. If there is a further drop, will need stat bleeding scan. Will plan for EGD/Colonoscopy in am. Protonix - Anemia, acute blood loss. S/P 2 units of PRBC. HH stable 7.1, repeat pending. - BRAYAN. - Ischemic cardiomyopathy, aortic stenosis-s/p TAVR on chronic anticoagulation at home. - Recent hx of diverticulitis. CT without contrast 04/29- acute diverticulitis involving the distal descending colon with mild inflammatory change and no free air or drainable fluid. Was given 10 days of augmentin. PLAN: - Plan for egd/colonoscopy in am - Obtain consents - Clear liquids - NPO after MN - Golytely prep - Stat HH - If further drop in hgb, will need stat bleeding scan - Notify GI of repeat HH - PPI - Zosyn - Supportive care - Further recommendations to follow based on results of above - Pt seen and examined by Dr. Ledesma and myself and this note is written on her behalf ADDENDUM, rpt. HH 7.9/23.6 (Shanell Angulo) Physician Comments agree if active bleeding endoscopy on emergency (Suki Ledesma MD) Shanell Angulo May 08, 2016 12:01 Suki Ledesma MD May 08, 2016 17:46
[2016-05-08 12:02] LABS: AUTOMATED NEUTROPHIL # 4.1 TH/MM3 (1.8-7.7); BASOPHIL % 0.6 % (0.0-2.0); EOSINOPHIL # 0.2 TH/MM3 (0-0.4); EOSINOPHIL % 3.7 % (0.0-4.0); HEMATOCRIT 23.6 % (39.0-51.0); HEMO FLAGS DIFF FINAL; LYMPHOCYTE # 1.3 TH/MM3 (1.0-4.8); MEAN CELL VOLUME 94.1 FL (80.0-100.0); MEAN CORPUSCULAR HEMOGLOBIN 31.3 PG (27.0-34.0); MEAN CORPUSCULAR HGB CONC 33.3 % (32.0-36.0); MONO % 10.3 % (0.0-8.0); NEUT % 64.4 % (16.0-70.0); PLATELET COUNT 120 TH/MM3 (150-450); RED BLOOD COUNT 2.51 MIL/MM3 (4.50-5.90); RED CELL DISTRIBUTION WIDTH 15.7 % (11.6-17.2); WHITE BLOOD COUNT 6.3 TH/MM3 (4.0-11.0)
--- NOTE | 2016-05-08 14:34 | HHI.PR ---
Subjective Remarks The patient was upset that he had to stay for further scoping tomorrow. He denies any blood in his stools or dark stools. He has been ambulating. Discussed with nursing. Objective Vitals Vital Signs Date Time Temp Pulse Resp B/P Pulse Ox O2 Delivery O2 Flow Rate FiO2 05/08/16 08:00 69 05/08/16 08:00 97.2 74 20 103/57 95 05/08/16 07:15 Room Air 05/08/16 04:00 Room Air 05/08/16 04:00 98.2 72 20 102/63 96 05/08/16 00:00 97.9 84 20 103/58 98 05/08/16 00:00 Room Air 05/07/16 20:10 79 05/07/16 20:09 98.3 89 20 98/53 96 05/07/16 20:09 Room Air 05/07/16 16:00 97.7 88 20 108/57 95 I/O 05/07/16 05/07/16 05/07/16 05/08/16 05/08/16 05/08/16 07:00 15:00 23:00 07:00 15:00 23:00 Intake Total 0 ml 1080 ml 240 ml 220 ml Output Total 300 ml 700 ml 400 ml Balance -300 ml 380 ml -160 ml 220 ml Intake Oral 0 ml 1080 ml 240 ml 220 ml Output Urine Total 300 ml 700 ml 400 ml # Voids 8 2 # Bowel Movements 1 1 0 Result Diagram: 05/08/16 1149 05/08/16 0525 Objective Remarks GENERAL: NAD, resting comfortably. HEENT: Normocephalic. Atraumatic. Pupils equal, round and reactive, conjugate. Mucous membranes are pink and moist NECK: Trachea is midline. No JVD. CHEST: Equal chest rise. Clear to auscultation bilaterally. Noted AICD right subclavian area CARDIOVASCULAR: Normal rate, regular rhythm. S1,S2 No appreciable murmurs. ABDOMEN: Soft, nontender, nondistended. No guarding. MUSCULOSKELETAL: TR peripheral edema. Distal pulses 2+. NEUROLOGICAL: Alert and oriented 3. Follows commands in all 4 extremities. PSYCH: Mood and affect appropriate. Procedures Endoscopy Medications and IVs Current Medications Medications (Trade) Dose Ordered Sig/Osmar Route Start Time Stop Time Status Last Admin (D50w (Vial) Inj) 25 ml UNSCH PRN IV PUSH 05/04/16 18:15 (NovoLIN R SUPPLEMENTAL SCALE) 1 Q6HR SQ 05/05/16 00:00 05/08/16 11:54 (NS Flush) 2 ml UNSCH PRN IV FLUSH 05/04/16 18:15 (NS Flush) 2 ml BID IV FLUSH 05/04/16 21:00 05/08/16 08:42 (Tylenol) 650 mg Q6H PRN PO 05/04/16 18:15 (Zofran Inj) 4 mg Q6H PRN IV 05/04/16 18:15 Miscellaneous Information 1 Q361D XX 05/04/16 18:15 (Chlorhexidine 2% Cloth) 3 pack Taper DAILY@04 TOP 05/05/16 04:00 05/01/17 03:59 05/06/16 04:00 (Chlorhexidine 2% Cloth) 3 pack UNSCH PRN TOP 05/04/16 18:15 (Protonix) 40 mg Q12HR PO 05/06/16 21:00 05/08/16 08:42 (Betapace) 80 mg Q12HR PO 05/07/16 21:00 05/08/16 08:42 (Coreg) 6.25 mg Q12HR PO 05/07/16 21:00 05/08/16 08:41 (Cozaar) 12.5 mg DAILY PO 05/08/16 09:00 05/08/16 08:41 (Pill Splitter) 1 ea UNSCH PRN OTHER 05/07/16 11:45 (Colyte Liq) 4,000 ml ONCE ONCE PO 05/08/16 16:00 05/08/16 16:01 A/P Assessment and Plan Active GI bleed/ acute blood loss anemia GI following. S/p blood transfusion 2 PRBC's 05/04. EGD (05/05/16) showed: duodenitis, duodenal bulb ulcer, gastritis, HH; Pathology antral mucosa with mild active chronic gastritis, negative for helicobacter, gastric body mucosa with cystically dilated pits consistent with cystic fundic gland polyp. Hemoglobin decreased 05/08. - Protonix BID. - clears, NPO at MN. EGD/ colonoscopy in AM. - follow CBC and transfuse for Hgb < 7. - hold anticoagulation. Hypotension S/t GIB. Blood pressure remains in the low 100s systolic. - continue to monitor. Recent history of diverticulitis Recently completed a course of Augmentin. Asymptomatic at this time. - Empiric coverage with Zosyn d/c 05/07. Ischemic Cardiomyopathy 2D echo noted. 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 Cardiology consult appreciated. - Hold the patient's home ACEI and Carvedilol in the setting of recent hypotension, resume when clinically indicated. - hold home diuretics in the setting of BRAYAN 2/2 hypotension, will resume when clinically indicated. Appears euvolemic at this time. - follow up with cardiology. Acute on Chronic Renal Insufficiency/Kidney Injury Improved. - strict I/Os. - avoid nephrotoxic agents and monitor. - holding off on diuretics at this time. H/o TAVR Cardiology input appreciated. - hold anticoagulation. - outpt follow-up. PPx: SCDs. Discharge Planning Awaiting clinical improvement. Rafat Powell DO May 08, 2016 14:34
[2016-05-08] MEDS ORDERED: PEG (High)/E-LYTE SOLN 4000 ML BTL PO ONE (16:00)
[2016-05-09] VITALS (8 sets, daily range): BP systolic 92–139; BP diastolic 53–80; PULSE 69–79; RESP 18–20; TEMP 97–98.3; O2SAT 95–99
[2016-05-09] MEDS: CHLORHEXIDINE GLUCONATE 2 % 1 PACK (2 CLOTHS) TOP SCH (04:00)
[2016-05-09] MEDS: INSULIN NovoLIN REGULAR SUPPLEMENTAL SCALE SQ SCH ×4 (06:00→23:47)
[2016-05-09 07:23] LABS: MEAN CELL VOLUME 94.7 FL (80.0-100.0); MEAN CORPUSCULAR HEMOGLOBIN 31.4 PG (27.0-34.0); MEAN CORPUSCULAR HGB CONC 33.1 % (32.0-36.0); PLATELET COUNT 132 TH/MM3 (150-450); RED BLOOD COUNT 2.54 MIL/MM3 (4.50-5.90); RED CELL DISTRIBUTION WIDTH 16.1 % (11.6-17.2); REVIEW FLAG FINAL
[2016-05-09 07:47] LABS: BICARBONATE 27.8 MEQ/L (21.0-32.0); POTASSIUM 4.2 MEQ/L (3.5-5.1)
[2016-05-09] MEDS: SODIUM CHLORIDE 0.9% FLUSH 5 ML FLUSH IV FLUSH SCH ×2 (09:00→21:00)
[2016-05-09] MEDS: PANTOPRAZOLE SOD 40 MG DELAYED RELEASE TAB PO SCH ×2 (10:19→22:13)
[2016-05-09] MEDS: LOSARTAN 25 MG TAB PO SCH (10:20)
[2016-05-09] MEDS: CARVEDILOL 6.25 MG TAB PO SCH ×2 (10:21→22:13)
[2016-05-09] MEDS: SOTALOL HCL 80 MG TAB PO SCH ×2 (10:21→22:13)
[2016-05-09] MEDS ORDERED: PROPOFOL 200 MG/20 ML AMP IV ONE (11:45)
[2016-05-09] MEDS ORDERED: ePHEDrine/NS 25 MG/5 ML SYR IV ONE (11:50)
--- NOTE | 2016-05-09 14:49 | HHI.FF ---
Face to Face Verification Diagnosis: (1) Acute GI hemorrhage (2) Ischemic cardiomyopathy (3) Symptomatic anemia (4) S/P TAVR (transcatheter aortic valve replacement) Physical Therapy Order: Evaluate and Treat, Improve ambulation, Strength and gait training Home Health Nursing Order: Medical education Signs/symptoms of disease process CHF education Medication education-adverse effect Nursing assessment with vital signs I have seen patient Hai Mejia on 05/09/16. My clinical findings support the need for the requested home health care services because: Deconditioned w/ increased weakness Limited ability to care for self I certify that my clinical findings support that this patient is homebound because: Unsteady gait/balance Unsafe to leave home unassisted Rafat Powell DO May 09, 2016 14:49
[2016-05-09] MEDS ORDERED: CEPHALEXIN MONOHYDRATE 500 MG CAP PO SCH (16:15)
--- NOTE | 2016-05-09 16:29 | HHI.PR ---
Subjective Remarks The patient wanted to go home. He said that he had swelling in his left arm where a former IV was placed. He also noticed redness and moisture in the area. He denies outright pus. Discussed with nursing. Objective Vitals Vital Signs Date Time Temp Pulse Resp B/P Pulse Ox O2 Delivery O2 Flow Rate FiO2 05/09/16 12:09 72 18 88/53 99 05/09/16 12:04 70 18 98/63 100 05/09/16 12:00 97.0 78 18 113/68 96 05/09/16 11:59 98.0 73 18 96/60 100 05/09/16 11:02 97.3 77 18 122/56 97 05/09/16 08:00 77 05/09/16 08:00 97.3 72 18 100/56 97 05/09/16 07:00 Room Air 05/09/16 04:00 97.3 74 20 93/55 99 05/09/16 04:00 Room Air 05/09/16 00:00 98.0 73 20 92/53 99 05/09/16 00:00 Room Air 05/08/16 20:25 72 05/08/16 20:25 88 05/08/16 20:00 98.4 82 20 119/72 98 05/08/16 20:00 Room Air I/O 05/08/16 05/08/16 05/08/16 05/09/16 05/09/16 05/09/16 07:00 15:00 23:00 07:00 15:00 23:00 Intake Total 1060 ml 580 ml 200 ml Balance 1060 ml 580 ml 200 ml Intake Oral 1060 ml 580 ml IV Total 200 ml # Voids 5 5 2 # Bowel Movements 2 3 2 Result Diagram: 05/09/16 0649 05/09/16 0649 Objective Remarks GENERAL: NAD, resting comfortably. HEENT: Normocephalic. Atraumatic. Pupils equal, round and reactive, conjugate. Mucous membranes are pink and moist NECK: Trachea is midline. No JVD. CHEST: Equal chest rise. Clear to auscultation bilaterally. Noted AICD right subclavian area CARDIOVASCULAR: Normal rate, regular rhythm. S1,S2 No appreciable murmurs. ABDOMEN: Soft, nontender, nondistended. No guarding. MUSCULOSKELETAL: Left arm with 1+ edema around the elbow. There is also erythema but no warmth. NEUROLOGICAL: Alert and oriented 3. Follows commands in all 4 extremities. PSYCH: Mood and affect appropriate. Procedures Endoscopy Medications and IVs Current Medications Medications (Trade) Dose Ordered Sig/Osmar Route Start Time Stop Time Status Last Admin (D50w (Vial) Inj) 25 ml UNSCH PRN IV PUSH 05/04/16 18:15 (NovoLIN R SUPPLEMENTAL SCALE) 1 Q6HR SQ 05/05/16 00:00 05/08/16 11:54 (NS Flush) 2 ml UNSCH PRN IV FLUSH 05/04/16 18:15 (NS Flush) 2 ml BID IV FLUSH 05/04/16 21:00 05/09/16 09:00 (Tylenol) 650 mg Q6H PRN PO 05/04/16 18:15 (Zofran Inj) 4 mg Q6H PRN IV 05/04/16 18:15 Miscellaneous Information 1 Q361D XX 05/04/16 18:15 (Protonix) 40 mg Q12HR PO 05/06/16 21:00 05/09/16 10:19 (Betapace) 80 mg Q12HR PO 05/07/16 21:00 05/09/16 10:21 (Coreg) 6.25 mg Q12HR PO 05/07/16 21:00 05/09/16 10:21 (Pill Splitter) 1 ea UNSCH PRN OTHER 05/07/16 11:45 (Cleocin) 450 mg Q6HR PO 05/09/16 16:30 UNV (Lactinex) 1 tab TID PO 05/09/16 18:00 UNV A/P Assessment and Plan Active GI bleed/ acute blood loss anemia GI following. S/p blood transfusion 2 PRBC's 05/04. EGD (05/05/16) showed: duodenitis, duodenal bulb ulcer, gastritis, HH; Pathology antral mucosa with mild active chronic gastritis, negative for helicobacter, gastric body mucosa with cystically dilated pits consistent with cystic fundic gland polyp. Hemoglobin stable 05/09. Repeat EGD/ colonoscopy with ulcer and diverticulosis. Cleared for discharge by GI. - Protonix BID. - follow CBC and transfuse for Hgb < 7. - hold anticoagulation. Hypotension S/t GIB. The pt tends to run low. - continue to monitor. - hold Cozaar for now. - continue sotalol and Coreg with holding parameters. Recent history of diverticulitis Recently completed a course of Augmentin. Asymptomatic at this time. - Empiric coverage with Zosyn d/c 05/07. Ischemic Cardiomyopathy 2D echo noted. 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 Cardiology consult appreciated. - Hold the patient's home ACEI and Carvedilol in the setting of recent hypotension, resume when clinically indicated. - hold home diuretics in the setting of BRAYAN 2/2 hypotension, will resume when clinically indicated. Appears euvolemic at this time. - follow up with cardiology. Acute on Chronic Renal Insufficiency Stable. - strict I/Os. - avoid nephrotoxic agents and monitor. - holding off on diuretics at this time. H/o TAVR Cardiology input appreciated. - hold anticoagulation. - outpt follow-up. Left arm edema Swelling noted at former IV site. Area is erythematous. - Keflex started 05/09. - check US. PPx: SCDs. Discharge Planning Anticipate d/c home in AM if stable. Rafat Powell DO May 09, 2016 16:28
[2016-05-09] MEDS ORDERED: CLINDAMYCIN 150 MG CAP PO SCH (16:30)
--- NOTE | 2016-05-09 16:32 | HHI.DCPOC ---
Discharge Care Plan Diagnosis: (1) S/P TAVR (transcatheter aortic valve replacement) (2) Ischemic cardiomyopathy (3) Acute GI hemorrhage (4) Paroxysmal atrial fibrillation (5) Chronic kidney disease (CKD) Goals to Promote Your Health * To prevent worsening of your condition and complications * To maintain your health at the optimal level Directions to Meet Your Goals Take your medications as prescribed Follow your dietary instruction Follow activity as directed Keep your appointments as scheduled Take your immunizations and boosters as scheduled If your symptoms worsen call your PCP, if no PCP go to Urgent Care Center or Emergency Room Smoking is Dangerous to Your Health. Avoid second hand smoke Call the 24-hour hour crisis hotline for domestic abuse at Rafat Powell DO May 09, 2016 16:32
[2016-05-09] MEDS ORDERED: PANT40TA3 PO (16:36)
[2016-05-09] MEDS ORDERED: CEPH250C PO (16:36)
[2016-05-09] MEDS ORDERED: CARV6.25 PO (16:36)
[2016-05-09] MEDS: CEPHALEXIN MONOHYDRATE 250 MG CAP PO SCH ×2 (18:18→22:12)
[2016-05-09] MEDS: LACTOBACILLUS ACIDOPHILUS TAB PO SCH (18:18)
--- NOTE | 2016-05-09 20:40 | RADRPT ---
EXAM DATE/TIME: 05/09/2016 17:24 [facility] COMPARISON: No previous studies available for comparison. INDICATIONS : Left arm swelling. MEDICAL HISTORY : Myocardial infarction. Hypercholesterolemia. Gastroesophageal reflux disease. Congestive heart failur e. Coronary artery disease. Anticoagulant therapy, Warfarin. Afib. Hypertension. Lung cancer. Renal f ailure. Gout. Prostate cancer. Skin cancer. MRSA. SURGICAL HISTORY : Cholecystectomy. Coronary artery stent. CABG Aortic valve replacement. Internal defibrillator. Appen dectomy. ENCOUNTER: Initial ACUITY: 1 day PAIN SCORE: 1/10 LOCATION: Left arm. TECHNOLOGIST IMPRESSION: DVT: NO DVT SUPERFICIAL THROMBUS: SUPERFICIAL THROMBUS FINDINGS: The cephalic vein is occluded with thrombus. It does appear enlarged suggesting this is acute. There is spontaneous flow documented in the brachial, basilic, axillary, and subclavian veins. The vessels are compressible and augmentation response is documented. No filling defects are seen. The flow is phasic with respiration. Direction of flow in the jugular vein is caudal. CONCLUSION: Acute thrombosis of the cephalic vein. No other areas of thrombus are seen in the left upper extremit yRoberto Kwon MD on May 09, 2016 at 20:37 Board Certified Radiologist. This report was verified electronically.
[2016-05-10] VITALS (12 sets, daily range): BP systolic 93–130; BP diastolic 53–61; PULSE 70–87; RESP 16–20; TEMP 97–98.4; O2SAT 95–100
[2016-05-10] MEDS: CEPHALEXIN MONOHYDRATE 250 MG CAP PO SCH ×4 (05:23→23:18)
[2016-05-10] MEDS: INSULIN NovoLIN REGULAR SUPPLEMENTAL SCALE SQ SCH ×4 (05:25→23:22)
[2016-05-10 06:43] LABS: MEAN CELL VOLUME 94.9 FL (80.0-100.0); MEAN CORPUSCULAR HEMOGLOBIN 31.3 PG (27.0-34.0); PLATELET COUNT 157 TH/MM3 (150-450); RED BLOOD COUNT 2.64 MIL/MM3 (4.50-5.90); RED CELL DISTRIBUTION WIDTH 16.5 % (11.6-17.2); REVIEW FLAG FINAL
[2016-05-10 06:53] LABS: BICARBONATE 24.8 MEQ/L (21.0-32.0); POTASSIUM 3.9 MEQ/L (3.5-5.1)
[2016-05-10] MEDS: LACTOBACILLUS ACIDOPHILUS TAB PO SCH ×3 (10:11→16:53)
[2016-05-10] MEDS: PANTOPRAZOLE SOD 40 MG DELAYED RELEASE TAB PO SCH ×2 (10:12→21:11)
[2016-05-10] MEDS: SODIUM CHLORIDE 0.9% FLUSH 5 ML FLUSH IV FLUSH SCH ×2 (10:12→21:12)
[2016-05-10] MEDS: CARVEDILOL 6.25 MG TAB PO SCH ×2 (10:12→21:11)
[2016-05-10] MEDS: SOTALOL HCL 80 MG TAB PO SCH ×2 (10:12→21:11)
--- NOTE | 2016-05-10 17:01 | HHI.PR ---
Subjective Remarks "I am feeling better but I am extremely angry " Patient looks upset and frustrated, he started talking very inappropriately about my colleague, because he was told he will be discharged today and he is not. I tried to explain to him the new finding of the left upper extremity clot, and the need to start anticoagulation under monitoring and observation, as well as transfusing 2 units of blood, he Being unpleasant with inappropriate language. Then after lengthy discussion he requested that I talked to his son over the phone which I did, the son was very understanding he asked me to put him on speaker and he started explain to his father which seems like he get him to understand and accept situation Objective Vitals Vital Signs Date Time Temp Pulse Resp B/P Pulse Ox O2 Delivery O2 Flow Rate FiO2 05/10/16 16:00 97.6 75 18 102/54 100 05/10/16 12:00 97.7 72 18 107/57 100 05/10/16 10:11 Room Air 05/10/16 10:11 71 05/10/16 08:00 98.4 73 18 102/58 99 05/10/16 04:00 97.0 82 18 100/55 98 05/10/16 00:00 97.9 78 18 98/56 97 05/09/16 22:10 Room Air 05/09/16 22:10 78 05/09/16 20:00 97.7 69 18 108/58 98 I/O 05/09/16 05/09/16 05/09/16 05/10/16 05/10/16 05/10/16 07:00 15:00 23:00 07:00 15:00 23:00 Intake Total 560 ml 360 ml 2 ml 1000 ml Output Total 600 ml Balance -40 ml 360 ml 2 ml 1000 ml Intake Oral 360 ml 360 ml 1000 ml IV Total 200 ml 2 ml Output Urine Total 600 ml # Voids 2 0 4 # Bowel Movements 2 0 1 Result Diagram: 05/10/16 0503 05/10/16 0503 Objective Remarks GENERAL: This is a well-nourished, well-developed patient, in no apparent distress. SKIN: No rashes, warm and dry HEAD: Atraumatic. Normocephalic. EYES: Pupils equal round and reactive. Extraocular motions intact. No scleral icterus. ENT: Nose without bleeding, or drainage, Airway patent. NECK: Trachea midline. Supple CARDIOVASCULAR: Regular rate and rhythm without murmurs, gallops, or rubs. RESPIRATORY: Fair air entry bilaterally. No wheezes, rales, or rhonchi. GASTROINTESTINAL: Abdomen soft, non-tender, nondistended. Positive bowel sounds MUSCULOSKELETAL: Extremities without clubbing, cyanosis, or edema. Pedal pulses appreciated NEUROLOGICAL: Awake and alert. Moves all extremity. Normal speech.no focal neurological deficit Procedures Endoscopy A/P Assessment and Plan 05/10: Hemoglobin is 8.2, I discussed with GI the new finding of the left upper extremity cephalic V TE, they agreed to resume anticoagulation but with close monitoring and also transfusing 2 units of packed red blood cells Patient looks upset and frustrated, he started talking very inappropriately about my colleague, because he was told he will be discharged today and he is not. I tried to explain to him the new finding of the left upper extremity clot, and the need to start anticoagulation under monitoring and observation, as well as transfusing 2 units of blood, he Being unpleasant with inappropriate language. Then after lengthy discussion he requested that I talked to his son over the phone which I did, the son was very understanding he asked me to put him on speaker and he started explain to his father which seems like he get him to understand and accept situation Time spent at bedside 35 minutes, total time 50 minutes A/P: Active GI bleed/ acute blood loss anemia GI following. S/p blood transfusion 2 PRBC's 05/04. EGD (05/05/16) showed: duodenitis, duodenal bulb ulcer, gastritis, HH; Pathology antral mucosa with mild active chronic gastritis, negative for helicobacter, gastric body mucosa with cystically dilated pits consistent with cystic fundic gland polyp. Hemoglobin stable 05/09. Repeat EGD/ colonoscopy with ulcer and diverticulosis. Cleared for discharge by GI. - Protonix BID. - follow CBC and transfuse for Hgb < 7. - hold anticoagulation. Hypotension S/t GIB. The pt tends to run low. - continue to monitor. - hold Cozaar for now. - continue sotalol and Coreg with holding parameters. Recent history of diverticulitis Recently completed a course of Augmentin. Asymptomatic at this time. - Empiric coverage with Zosyn d/c 05/07. Ischemic Cardiomyopathy 2D echo noted. 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 Cardiology consult appreciated. - Hold the patient's home ACEI and Carvedilol in the setting of recent hypotension, resume when clinically indicated. - hold home diuretics in the setting of BRAYAN 2/2 hypotension, will resume when clinically indicated. Appears euvolemic at this time. - follow up with cardiology. Acute on Chronic Renal Insufficiency Stable. - strict I/Os. - avoid nephrotoxic agents and monitor. - holding off on diuretics at this time. H/o TAVR Cardiology input appreciated. - anticoagulation placed on hold, now will resume due to LUE DVT - outpt follow-up. LUE thrombus in the cephalic vein Swelling noted at former IV site. Area is erythematous. - Keflex started 05/09. -Upper extremity US. Personally reviewed, elevated the arm, warm pads, to resume anticoagulation once cleared by GI on the outpatient basis PPx: SCDs. Resume Coumadin Discharge Planning If hemoglobin stable after initiating anticoagulation and when cleared by GI Meri Raymond MD May 10, 2016 17:01
[2016-05-10] MEDS ORDERED: FUROSEMIDE 20 MG/2 ML VIAL IV ONE (18:00)
[2016-05-10 19:39] LABS: HEMATOCRIT 25.5 % (39.0-51.0); REVIEW FLAG FINAL
[2016-05-10 19:54] LABS: PROTHROMBIN TIME - PATIENT 11.4 SEC (9.8-11.6)
[2016-05-10] MEDS ORDERED: WARFARIN SOD 5 MG TAB PO ONE (20:30)
[2016-05-11] VITALS (9 sets, daily range): BP systolic 93–114; BP diastolic 50–67; PULSE 69–81; RESP 16–18; TEMP 97.2–98.3; O2SAT 94–98
[2016-05-11 03:09] LABS: HEMATOCRIT 29.2 % (39.0-51.0); MEAN CELL VOLUME 91.2 FL (80.0-100.0); MEAN CORPUSCULAR HEMOGLOBIN 30.8 PG (27.0-34.0); MEAN CORPUSCULAR HGB CONC 33.8 % (32.0-36.0); PLATELET COUNT 137 TH/MM3 (150-450); REVIEW FLAG FINAL
[2016-05-11 03:39] LABS: BICARBONATE 26.4 MEQ/L (21.0-32.0); POTASSIUM 3.9 MEQ/L (3.5-5.1)
[2016-05-11] MEDS: CEPHALEXIN MONOHYDRATE 250 MG CAP PO SCH ×4 (05:00→23:36)
[2016-05-11] MEDS: INSULIN NovoLIN REGULAR SUPPLEMENTAL SCALE SQ SCH ×2 (06:00→11:18)
[2016-05-11] MEDS: CARVEDILOL 6.25 MG TAB PO SCH ×2 (08:59→21:02)
[2016-05-11] MEDS: SODIUM CHLORIDE 0.9% FLUSH 5 ML FLUSH IV FLUSH SCH ×2 (08:59→21:02)
[2016-05-11] MEDS: LACTOBACILLUS ACIDOPHILUS TAB PO SCH ×3 (08:59→16:14)
[2016-05-11] MEDS: PANTOPRAZOLE SOD 40 MG DELAYED RELEASE TAB PO SCH ×2 (08:59→21:05)
[2016-05-11] MEDS: SOTALOL HCL 80 MG TAB PO SCH ×2 (08:59→21:05)
[2016-05-11 12:33] LABS: HEMATOCRIT 29.9 % (39.0-51.0); REVIEW FLAG FINAL
--- NOTE | 2016-05-11 13:50 | HHI.PR ---
Subjective Remarks Patient is in the relatively better mood today, he had multiple question about the upper extremity thrombus, I explained to him that he needs to elevate his arm and will apply warm and cold pads, Coumadin has been resumed INR is 1 today , hemoglobin improved to 9.9, hopefully within 1 or 2 days , if hemoglobin continues to be stable on a therapeutic Coumadin he can go home. No chest pain short of breath fever chills or hematochezia hematemesis today Objective Vitals Vital Signs Date Time Temp Pulse Resp B/P Pulse Ox O2 Delivery O2 Flow Rate FiO2 05/11/16 12:00 97.9 73 18 93/50 98 05/11/16 09:12 69 05/11/16 08:50 Room Air 05/11/16 08:00 98.3 76 18 108/61 98 05/11/16 04:00 97.2 70 18 110/59 97 05/11/16 02:15 98.2 69 16 99/54 97 05/11/16 00:54 98.1 70 18 103/56 97 05/10/16 23:57 97.7 77 16 114/61 97 05/10/16 23:31 97.5 70 16 130/61 99 05/10/16 23:29 97.5 77 16 130/61 95 05/10/16 21:09 97.7 83 16 93/55 97 05/10/16 20:07 84 05/10/16 20:00 Room Air 05/10/16 20:00 97.6 87 20 96/53 100 05/10/16 16:00 97.6 75 18 102/54 100 I/O 05/10/16 05/10/16 05/10/16 05/11/16 05/11/16 05/11/16 07:00 15:00 23:00 07:00 15:00 23:00 Intake Total 2 ml 1000 ml 420 ml 1058 ml Balance 2 ml 1000 ml 420 ml 1058 ml Intake Oral 1000 ml 420 ml 240 ml IV Total 2 ml 87 ml Packed Cells 731 ml # Voids 4 1 1 # Bowel Movements 1 0 0 Result Diagram: 05/11/16 1207 05/11/16 0258 Objective Remarks GENERAL: This is a well-nourished, well-developed patient, in no apparent distress. SKIN: No rashes, warm and dry HEAD: Atraumatic. Normocephalic. EYES: Pupils equal round and reactive. Extraocular motions intact. No scleral icterus. ENT: Nose without bleeding, or drainage, Airway patent. NECK: Trachea midline. Supple CARDIOVASCULAR: Regular rate and rhythm without murmurs, gallops, or rubs. RESPIRATORY: Fair air entry bilaterally. No wheezes, rales, or rhonchi. GASTROINTESTINAL: Abdomen soft, non-tender, nondistended. Positive bowel sounds MUSCULOSKELETAL: Extremities without clubbing, cyanosis, or edema. Pedal pulses appreciated NEUROLOGICAL: Awake and alert. Moves all extremity. Normal speech.no focal neurological deficit Procedures Endoscopy A/P Assessment and Plan 05/11: INR is 1, hemoglobin improved to 9.9 status post 2 units of PRBC transfusion, continue Coumadin management, GI following, if continued to be stable with a therapeutic INR hopefully discharge within 1 or 2 days A/P: Active GI bleed/ acute blood loss anemia GI following. S/p blood transfusion 2 PRBC's 05/04. EGD (05/05/16) showed: duodenitis, duodenal bulb ulcer, gastritis, HH; Pathology antral mucosa with mild active chronic gastritis, negative for helicobacter, gastric body mucosa with cystically dilated pits consistent with cystic fundic gland polyp. Hemoglobin stable 05/09. Repeat EGD/ colonoscopy with ulcer and diverticulosis. Cleared for discharge by GI. - Protonix BID. - follow CBC and transfuse for Hgb < 7. - hold anticoagulation. Hypotension S/t GIB. The pt tends to run low. - continue to monitor. - hold Cozaar for now. - continue sotalol and Coreg with holding parameters. Recent history of diverticulitis Recently completed a course of Augmentin. Asymptomatic at this time. - Empiric coverage with Zosyn d/c 05/07. Ischemic Cardiomyopathy 2D echo noted. 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 Cardiology consult appreciated. - Hold the patient's home ACEI and Carvedilol in the setting of recent hypotension, resume when clinically indicated. - hold home diuretics in the setting of BRAYAN 2/2 hypotension, will resume when clinically indicated. Appears euvolemic at this time. - follow up with cardiology. Acute on Chronic Renal Insufficiency Stable. - strict I/Os. - avoid nephrotoxic agents and monitor. - holding off on diuretics at this time. H/o TAVR Cardiology input appreciated. - anticoagulation placed on hold, now will resume due to LUE DVT - outpt follow-up. LUE thrombus in the cephalic vein Swelling noted at former IV site. Area is erythematous. - Keflex started 05/09. -Upper extremity US. Personally reviewed, elevated the arm, warm pads, to resume anticoagulation once cleared by GI on the outpatient basis PPx: SCDs. Resume Coumadin Discharge Planning Within 1-2 days If hemoglobin stable after initiating anticoagulation and when cleared by Meri Sims MD May 11, 2016 13:50
--- NOTE | 2016-05-11 14:38 | HHI.GIFU ---
GI Follow-up Note Consult Follow-up Subjective: Patient laying in bed comfortably, feeling better.No nausea, vomiting, abdominal pain.He developed a clot in left arm, needs anticoagulation.He is high risk of rebleeding , but due to clot and underlying cardiac problems, anticoagulation is warranted .He was given 2 units of prbc to bring his hb up, in case rebleeding occurs . Objective: PHYSICAL EXAMINATION: Vitals signs stable No fever Vital Signs Date Time Temp Pulse Resp B/P Pulse Ox O2 Delivery O2 Flow Rate FiO2 05/11/16 12:00 97.9 73 18 93/50 98 05/11/16 09:12 69 05/11/16 08:50 Room Air 05/11/16 08:00 98.3 76 18 108/61 98 HEENT: Pupils round and reactive to light; normocephalic; atraumatic; no jaundice. Throat is clear. NECK: Neck is supple, no JVD, no lymphadenopathy. CHEST: Chest is clear to auscultation and percussion. CARDIAC: Regular rate and rhythm with no murmur gallop or rubs. ABDOMEN: Soft, nondistended, nontender; no hepatosplenomegaly; bowel sounds are present in all four quadrants. EXTREMITIES: No clubbing, cyanosis, edema of left arm, warm and tender SKIN: Normal; no rash; no jaundice. ADOBE MAKER: No focal deficits; alert and oriented times three. Available Data (labs, X- Rays, Procedues) : Laboratory Tests Test 05/10/16 05/10/16 05/11/16 05/11/16 05:03 19:21 02:58 12:07 White Blood Count 6.0 TH/MM3 6.0 TH/MM3 Red Blood Count 2.64 MIL/MM3 3.20 MIL/MM3 Hemoglobin 8.2 GM/DL 8.5 GM/DL 9.9 GM/DL 10.0 GM/DL Hematocrit 25.0 % 25.5 % 29.2 % 29.9 % Mean Corpuscular Volume 94.9 FL 91.2 FL Mean Corpuscular Hemoglobin 31.3 PG 30.8 PG Mean Corpuscular Hemoglobin 33.0 % 33.8 % Concent Red Cell Distribution Width 16.5 % 17.0 % Platelet Count 157 TH/MM3 137 TH/MM3 Mean Platelet Volume 8.1 FL 7.3 FL Sodium Level 138 MEQ/L 140 MEQ/L Potassium Level 3.9 MEQ/L 3.9 MEQ/L Chloride Level 105 MEQ/L 105 MEQ/L Carbon Dioxide Level 24.8 MEQ/L 26.4 MEQ/L Anion Gap 8 MEQ/L 9 MEQ/L Blood Urea Nitrogen 17 MG/DL 22 MG/DL Creatinine 1.51 MG/DL 1.72 MG/DL Estimat Glomerular Filtration 44 ML/MIN 38 ML/MIN Rate Random Glucose 87 MG/DL 109 MG/DL Calcium Level 8.5 MG/DL 8.2 MG/DL Prothrombin Time 11.4 SEC Prothromb Time International 1.0 RATIO Ratio Blood Type O POSITIVE Antibody Screen NEGATIVE Crossmatch Leukocyte-Reduced Red Blood Cells Blood Bank Comment ASSESSMENT/PLAN: gi bleeding secondary duodenal ulcer-s/p clips-no active bleeding now anemia due to gi bleeding, stable sp prbc acute thrombosis of left cephalic vein-needs anticoagulation Recommendations ok for anticoagulation from gi point monitor cbc closely ok to dc home from gi point egd 8-12 weeks avoid nsaids cbc, pt/inr next week fu gi 1-2 weeks gi will sign off continue ppi-bid call us as needed It was a pleasure seeing Hai Mejia. Thank you for this consult. Entered by: Suki Keenan MD May 11, 2016 14:38
[2016-05-11] MEDS ORDERED: WARFARIN SOD 2.5 MG TAB PO SCH (16:00)
[2016-05-12] VITALS: BP 110/64; PULSE 76; RESP 17; TEMP 97.4; O2SAT 96
[2016-05-12 04:00] VITALS: BP 96/52; PULSE 75; RESP 17; TEMP 97.3; O2SAT 94
[2016-05-12] MEDS: CEPHALEXIN MONOHYDRATE 250 MG CAP PO SCH ×2 (05:01→11:16)
[2016-05-12 08:00] VITALS: BP 97/59; PULSE 69; RESP 20; TEMP 97.4; O2SAT 96
[2016-05-12] MEDS: CARVEDILOL 6.25 MG TAB PO SCH (08:01)
[2016-05-12] MEDS: SOTALOL HCL 80 MG TAB PO SCH (08:01)
[2016-05-12 08:04] VITALS: PULSE 69
[2016-05-12] MEDS: SODIUM CHLORIDE 0.9% FLUSH 5 ML FLUSH IV FLUSH SCH (08:06)
[2016-05-12] MEDS: PANTOPRAZOLE SOD 40 MG DELAYED RELEASE TAB PO SCH (08:06)
[2016-05-12] MEDS: LACTOBACILLUS ACIDOPHILUS TAB PO SCH ×2 (08:06→12:13)
[2016-05-12 08:53] LABS: INTERNATIONAL NORMALIZED RATIO 1.2 RATIO; PROTHROMBIN TIME - PATIENT 13.2 SEC (9.8-11.6)
[2016-05-12 12:00] VITALS: BP 97/54; PULSE 71; RESP 20; TEMP 97.2; O2SAT 97
--- NOTE | 2016-05-12 12:29 | HHI.PR ---
Subjective Remarks pt resting on chair comfortably no cp , or sob stated his arm is much better today with the warm pads and elevation , he definitely wants to go home today Objective Vitals Vital Signs Date Time Temp Pulse Resp B/P Pulse Ox O2 Delivery O2 Flow Rate FiO2 05/12/16 08:04 69 05/12/16 08:04 Room Air 05/12/16 08:00 97.4 69 20 97/59 96 05/12/16 04:00 97.3 75 17 96/52 94 05/12/16 00:00 97.4 76 17 110/64 96 05/11/16 20:34 69 05/11/16 20:00 98.3 81 18 114/67 94 05/11/16 20:00 Room Air 05/11/16 16:00 97.9 72 18 104/59 98 I/O 05/11/16 05/11/16 05/11/16 05/12/16 05/12/16 05/12/16 07:00 15:00 23:00 07:00 15:00 23:00 Intake Total 1058 ml 1002 ml 320 ml 180 ml Balance 1058 ml 1002 ml 320 ml 180 ml Intake Oral 240 ml 1000 ml 320 ml 180 ml IV Total 87 ml 2 ml Packed Cells 731 ml # Voids 1 4 2 3 # Bowel Movements 0 1 1 Result Diagram: 05/11/16 1207 05/11/16 0258 Objective Remarks GENERAL: This is a well-nourished, well-developed patient, in no apparent distress. SKIN: No rashes, warm and dry HEAD: Atraumatic. Normocephalic. EYES: Pupils equal round and reactive. Extraocular motions intact. No scleral icterus. ENT: Nose without bleeding, or drainage, Airway patent. NECK: Trachea midline. Supple CARDIOVASCULAR: Regular rate and rhythm without murmurs, gallops, or rubs. RESPIRATORY: Fair air entry bilaterally. No wheezes, rales, or rhonchi. GASTROINTESTINAL: Abdomen soft, non-tender, nondistended. Positive bowel sounds MUSCULOSKELETAL: Extremities without clubbing, cyanosis, or edema. Pedal pulses appreciated NEUROLOGICAL: Awake and alert. Moves all extremity. Normal speech.no focal neurological deficit Procedures Endoscopy A/P Assessment and Plan 05/11: INR is 1, hemoglobin improved to 9.9 status post 2 units of PRBC transfusion, continue Coumadin management, GI following, if continued to be stable with a therapeutic INR hopefully discharge within 1 or 2 days 05/12: INR today is 1.2, hemoglobin stable at 10, discussed with the patient extensively, he wants to be discharged home continuing Coumadin and following the INR, I explained to him that it would be better to stay 1 more day to make sure he is not in a bleed however he refused completely and stated he may go AGAINST MEDICAL ADVICE he doesn't get discharged today, his upper arm improved significantly today with elevation and warm and cold packs, I advised patient to monitor for any signs of GI bleed such as vomiting or defecating blood or lightheaded or dizziness A/P: Active GI bleed/ acute blood loss anemia GI following. S/p blood transfusion 2 PRBC's 05/04. EGD (05/05/16) showed: duodenitis, duodenal bulb ulcer, gastritis, HH; Pathology antral mucosa with mild active chronic gastritis, negative for helicobacter, gastric body mucosa with cystically dilated pits consistent with cystic fundic gland polyp. Hemoglobin stable 05/09. Repeat EGD/ colonoscopy with ulcer and diverticulosis. Cleared for discharge by GI. - Protonix BID. - follow CBC and transfuse for Hgb < 7. - hold anticoagulation. Hypotension S/t GIB. The pt tends to run low. - continue to monitor. - hold Cozaar for now. - continue sotalol and Coreg with holding parameters. Recent history of diverticulitis Recently completed a course of Augmentin. Asymptomatic at this time. - Empiric coverage with Zosyn d/c 05/07. Ischemic Cardiomyopathy 2D echo noted. 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 Cardiology consult appreciated. - Hold the patient's home ACEI and Carvedilol in the setting of recent hypotension, resume when clinically indicated. - hold home diuretics in the setting of BRAYAN 2/2 hypotension, will resume when clinically indicated. Appears euvolemic at this time. - follow up with cardiology. Acute on Chronic Renal Insufficiency Stable. - strict I/Os. - avoid nephrotoxic agents and monitor. - holding off on diuretics at this time. H/o TAVR Cardiology input appreciated. - anticoagulation placed on hold, now will resume due to LUE DVT - outpt follow-up. LUE thrombus in the cephalic vein Swelling noted at former IV site. Area is erythematous. - Keflex started 05/09. -Upper extremity US. Personally reviewed, elevated the arm, warm pads, to resume anticoagulation once cleared by GI on the outpatient basis PPx: SCDs. Resume Coumadin Discharge Planning today home to ff with pcp in 2-3 days Meri Raymond MD May 12, 2016 12:29 Meri Raymond MD May 12, 2016 12:29
--- NOTE | 2016-05-12 12:35 | HHI.DS ---
Discharge Summary Admission Date May 04, 2016 at 17:10 Discharge Date: May 12, 2016 Admitting Diagnosis GI bleed, hypotension, symptomatic anemia (1) S/P TAVR (transcatheter aortic valve replacement) ICD Code: Z95.2 (2) Chronic kidney disease (CKD) ICD Code: N18.9 (3) Acute GI hemorrhage ICD Code: K92.2 (4) Paroxysmal atrial fibrillation ICD Code: I48.0 (5) Upper extremity embolism ICD Code: I74.2 (6) Diabetes mellitus, type II ICD Code: E11.9 (7) Hx of coronary artery disease ICD Code: Z86.79 Procedures Endoscopy Brief History - From Admission This is an 89-year-old male with a history of ischemic cardiomyopathy, prior AL , prior CABG, prior PCI, prior TAVR, ACID placement who presented approximately a week ago to the [facility] emergency department with constipation was found to have acute diverticulitis and was placed on Biaxin that time and sent home. He now presents with a one-day history of acute bright red blood per rectum and hypotension. Initially, he had epigastric discomfort and arm numbness that he thought might be a heart attack, so he took a nitroglycerin, which made his blood pressure dropped even lower. On arrival to the [facility] emergency department, he was noted to have approximately 300 cc of bright red blood per rectum and was persistently hypotensive. He was given IV fluids and empirically given 1 unit of blood. Per report, he recently had a supratherapeutic INR 4.5 and was told to hold his Coumadin. Today's INR is 1.3. He denies chest pain, shortness of breath, fever, chills, nausea, vomiting. He does not have any abdominal pain currently. Critical care medicine is consulted to evaluate and manage his lower GI bleed. CBC/BMP: 05/11/16 1207 05/11/16 0258 Significant Findings Laboratory Tests Test 05/10/16 05/10/16 05/11/16 05/11/16 05:03 19:21 02:58 12:07 Red Blood Count 2.64 MIL/MM3 3.20 MIL/MM3 (4.50-5.90) (4.50-5.90) Hemoglobin 8.2 GM/DL 8.5 GM/DL 9.9 GM/DL 10.0 GM/DL (13.0-17.0) (13.0-17.0) (13.0-17.0) (13.0-17.0) Hematocrit 25.0 % 25.5 % 29.2 % 29.9 % (39.0-51.0) (39.0-51.0) (39.0-51.0) (39.0-51.0) Creatinine 1.51 MG/DL 1.72 MG/DL (0.60-1.30) (0.60-1.30) Estimat Glomerular Filtration 44 ML/MIN (>89) 38 ML/MIN (>89) Rate Platelet Count 137 TH/MM3 (150-450) Blood Urea Nitrogen 22 MG/DL (7-18) Random Glucose 109 MG/DL (74-106) Calcium Level 8.2 MG/DL (8.5-10.1) Test 05/12/16 08:16 Prothrombin Time 13.2 SEC (9.8-11.6) PE at Discharge GENERAL: This is a well-nourished, well-developed patient, in no apparent distress. SKIN: No rashes, warm and dry HEAD: Atraumatic. Normocephalic. EYES: Pupils equal round and reactive. Extraocular motions intact. No scleral icterus. ENT: Nose without bleeding, or drainage, Airway patent. NECK: Trachea midline. Supple CARDIOVASCULAR: Regular rate and rhythm without murmurs, gallops, or rubs. RESPIRATORY: Fair air entry bilaterally. No wheezes, rales, or rhonchi. GASTROINTESTINAL: Abdomen soft, non-tender, nondistended. Positive bowel sounds MUSCULOSKELETAL: Extremities without clubbing, cyanosis, or edema. Pedal pulses appreciated NEUROLOGICAL: Awake and alert. Moves all extremity. Normal speech.no focal neurological deficit Hospital Course 89 years old male admitted for Active GI bleed/ acute blood loss anemia patient admitted to ICU under geodesist GI consult to. S/p blood transfusion 2 PRBC's 05/04. EGD (05/05/16) showed: duodenitis, duodenal bulb ulcer, gastritis, HH; Pathology antral mucosa with mild active chronic gastritis, negative for helicobacter, gastric body mucosa with cystically dilated pits consistent with cystic fundic gland polyp. Hemoglobin stable 05/09. Repeat EGD/ colonoscopy with ulcer and diverticulosis. Protonix BID. follow CBC and transfuse for Hgb < 7. Patient received another 2 units of packed red cells on 05/10 which elevated hemoglobin to 9.9 Anticoagulation placed on hold, Patient had episodes of Hypotension S/t GIB. The pt tends to run low. hold Cozaar for now. - continue sotalol and Coreg with holding parameters. Recent history of diverticulitis Recently completed a course of Augmentin. Asymptomatic at this time. - Empiric coverage with Zosyn d/c 05/07. Ischemic Cardiomyopathy 2D echo noted. 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 Cardiology consulted. - Status post holding the patient's home ACEI and Carvedilol in the setting of recent hypotension - hold home diuretics in the setting of BRAYAN 2/2 hypotension, resume when clinically indicated. Appears euvolemic at this time. - follow up with cardiology. Acute on Chronic Renal Insufficiency might improve strict I/Os. - avoid nephrotoxic agents and monitor. -Diuretic but on hold H/o TAVR Cardiology input appreciated. - anticoagulation placed on hold, later on resume due to LUE DVT - outpt follow-up. LUE thrombus in the cephalic vein Swelling noted at former IV site. Area is erythematous. - Keflex started 05/09. Are Keflex -Upper extremity US. Personally reviewed, elevated the arm, warm pads, to resume anticoagulation once cleared by GI on the outpatient basis PPx: SCDs. Resume Coumadin On 05/11: INR is 1, hemoglobin improved to 9.9 status post 2 units of PRBC transfusion, continue Coumadin management, GI following, if continued to be stable with a therapeutic INR hopefully discharge within 1 or 2 days 05/12: INR today is 1.2, hemoglobin stable at 10, discussed with the patient extensively, he wants to be discharged home continuing Coumadin and following the INR, I explained to him that it would be better to stay 1 more day to make sure he is not in a bleed however he refused completely and stated he may go AGAINST MEDICAL ADVICE he doesn't get discharged today, his upper arm improved significantly today with elevation and warm and cold packs, I advised patient to monitor for any signs of GI bleed such as vomiting or defecating blood or lightheaded or dizziness. [id number] encounter performed with the patient on discharge day, as well as physical exam, summary of hospitalization course and postdischarge plan has been D/W the patient. D/W nurse Discharge medications reviewed and printed and signed, post discharge follow up visit with PCP and other specialist as well as Brief hospital course and discharge summary has been placed. Time spent 40 minutes Pt Condition on Discharge: Fair Discharge Disposition: Discharge Home Discharge Time: > 30 minutes Discharge Instructions DIET: Follow Instructions for: Heart Healthy Diet Activities you can perform: Weight Bearing as Macey Follow up Referrals: Cardiology - 1 Week with Wendy Ayala MD Gastroenterology - 1 Week with Suki Ledesma MD PCP Follow-up - 1 Week New Orders: CBC NO DIFF - 2-3 Days PT/INR - Daily New Medications: Carvedilol (Coreg) 6.25 Mg Tab 6.25 MG PO Q12HR Blood Pressure Management #60 TAB Pantoprazole (Pantoprazole) 40 Mg Tab 40 MG PO Q12HR GIB #60 TAB Continued Medications: Ascorbic Acid (Vitamin C) 1,000 Mg Tab 1000 MG PO Nutritional Supplement Ref 0 TAB Cholecalciferol (Vitamin D) 2,000 Unit Cap 1 CAP PO DAILY Cyanocobalamin (Vitamin B-12) 1,000 Mcg Subl 1000 MCG SL EVERY OTHER DAY Nutritional Supplement Ref 0 TAB.SL Ferrous Sulfate (Feosol) 65 Mg Tab 65 MG PO DAILY Nutritional Supplement #30 Ref 0 TAB Folic Acid (Folic Acid) 400 Mcg Tab 400 MCG PO DAILY Nutritional Supplement Ref 0 TAB Magnesium (Magnesium) 400 Mg Tab 400 MG PO DAILY Nutritional Supplement Ref 0 TAB Meclizine (Meclizine) 25 Mg Chew 25 MG CHEW DIRECTED PRN vertigo TAB Nitroglycerin SL (Nitroglycerin SL) 0.4 Mg Subl 0.4 MG SL DIRECTED ONE TABLET UNDER THE TONGUE NEEDED FOR CHEST PAIN, MAY REPEAT EVERY FIVE MINUTES FOR A TOTAL OF 3 DOSES OR CALL 911 IF NO RELIEF PRN CHEST PAIN #100 Ref 0 TAB.SL Pyridoxine (Vitamin B-6) 200 Mg Tab 200 MG PO DAILY Nutritional Supplement #30 Ref 0 TAB Saccharomyces Boulardii (Probiotic) 250 Mg Cap 250 MG PO DAILY Nutritional Supplement Ref 0 CAP Simvastatin (Simvastatin) 20 Mg Tab 20 MG PO DAILY Cholesterol Management #30 Ref 0 TAB Sotalol (Sotalol) 80 Mg Tab 80 MG PO BID Regulate Heart Beat #30 Ref 0 TAB Tamsulosin (Flomax) 0.4 Mg Cap 0.4 MG PO HS Manage Prostate Problems #30 Ref 0 CAP Warfarin (Coumadin) 2.5 Mg Tab 2.5 MG PO DAILY Prevent Blood Clot #30 Ref 0 TAB Discontinued Medications: Amoxicillin-Clavulanate (Augmentin) 875-125 mg Tab 875 MG PO BID not for use in CrCl <30 ml/min. Infection Days 10 Ref [address] (Aspir-81) 81 Mg Tabdr Carvedilol (Carvedilol) 25 Mg Tab 12.5 MG PO BID #60 Ref [address] (Nexium) 40 Mg Capdr 40 MG PO DAILY Ref 0 CAP Losartan (Losartan) 50 Mg Tab 25 MG PO DAILY Blood Pressure Management #30 Ref 0 TAB Magnesium Citrate Liq (Magnesium Citrate Liq) 300 Ml Liq 300 ML PO ONCE #1 Ref 0 BOTTLE Torsemide (Torsemide) 20 Mg Tab 10 MG PO DAILY #30 Ref 0 TAB Meri Raymond MD May 12, 2016 12:34
[2016-05-14] MEDS ORDERED: ZANA4CAP PO (15:28)
[2016-05-14] MEDS ORDERED: TAMS5CAP PO (15:29)
[2016-05-14] MEDS ORDERED: PANT40TA3 PO (15:29)
[2016-05-21] MEDS ORDERED: CYCL7.5T33 PO (15:01)
[2016-05-21] MEDS ORDERED: TORS20TA PO (15:02)
[2016-05-30] MEDS ORDERED: TRAM50TA PO (16:33)
[2016-07-07] MEDS ORDERED: DOCU1CAP25 (14:48)
[2016-07-07] MEDS ORDERED: HYDR-3583 PO (14:48)
[2016-07-07] MEDS ORDERED: PANT40TA3 PO (15:05)
[2016-07-07] MEDS ORDERED: TRAM50TA PO (15:09)
[2016-07-07] MEDS ORDERED: COLC1TAB15 PO (15:16)
[2016-07-07] MEDS ORDERED: COUM2.5T PO (15:20)
[2016-07-25] MEDS ORDERED: TRAM50TA PO (14:17)
[2016-07-30] MEDS ORDERED: METR500T10 PO (11:02)
[2016-07-30] MEDS ORDERED: BACT800T5 PO (11:02)
[2016-08-07] MEDS ORDERED: WARF-18 PO (13:01)
[2016-08-11] MEDS ORDERED: VITA200T2 (16:15)
[2016-08-11] MEDS ORDERED: TRAM50TA PO (16:15)
[2016-08-11] MEDS ORDERED: LACTCAP8 PO (16:15)
[2016-08-11] MEDS ORDERED: NITR50VP (16:15)
[2016-08-11] MEDS ORDERED: OMEP40CA2 PO (16:15)
[2016-08-11] MEDS ORDERED: FERR65TA PO (16:15)
== END 2016-05-12 15:15 | disposition home or self-care (01) | DRG 378 ==
LOC: NEPC 15:14 → NEDA 17:10 → HIMW 18:50 → N04B 05-07 00:10
PROVIDERS: ADMIT Hospitalist; ATTEND Hospitalist
PROC: 30233N1 Transfusion of Nonautologous Red Blood Cells into Peripheral Vein, Percutaneous Approach (ICD-10-PCS; principal; 2016-05-04)
PROC: 0DJD8ZZ Inspection of Lower Intestinal Tract, Via Natural or Artificial Opening Endoscopic (ICD-10-PCS; 2016-05-05)
PROC: 0DB68ZX Excision of Stomach, Via Natural or Artificial Opening Endoscopic, Diagnostic (ICD-10-PCS; 2016-05-05)
PROC: 0W3P8ZZ Control Bleeding in Gastrointestinal Tract, Via Natural or Artificial Opening Endoscopic (ICD-10-PCS; 2016-05-05 08:55)
PROC: 0DJ08ZZ Inspection of Upper Intestinal Tract, Via Natural or Artificial Opening Endoscopic (ICD-10-PCS; 2016-05-09)
PROC: 0DJD8ZZ Inspection of Lower Intestinal Tract, Via Natural or Artificial Opening Endoscopic (ICD-10-PCS; 2016-05-09)
DX: K26.4 Chronic or unspecified duodenal ulcer with hemorrhage (principal); N17.9 Acute kidney failure, unspecified; I50.22 Chronic systolic (congestive) heart failure; E11.22 Type 2 diabetes mellitus with diabetic chronic kidney disease; I95.9 Hypotension, unspecified; I48.0 Paroxysmal atrial fibrillation; I82.612 Acute embolism and thrombosis of superficial veins of left upper extremity; D62 Acute posthemorrhagic anemia; E78.00 Pure hypercholesterolemia, unspecified; K64.8 Other hemorrhoids; K64.4 Residual hemorrhoidal skin tags; K57.30 Diverticulosis of large intestine without perforation or abscess without bleeding; I25.2 Old myocardial infarction; I25.10 Atherosclerotic heart disease of native coronary artery without angina pectoris; N18.9 Chronic kidney disease, unspecified; I35.0 Nonrheumatic aortic (valve) stenosis; I25.5 Ischemic cardiomyopathy; E78.5 Hyperlipidemia, unspecified; I12.9 Hypertensive chronic kidney disease with stage 1 through stage 4 chronic kidney disease, or unspecified chronic kidney disease; K21.9 Gastro-esophageal reflux disease without esophagitis; K44.9 Diaphragmatic hernia without obstruction or gangrene; Z92.3 Personal history of irradiation; Z85.46 Personal history of malignant neoplasm of prostate; Z85.118 Personal history of other malignant neoplasm of bronchus and lung; Z86.14 Personal history of Methicillin resistant Staphylococcus aureus infection; Z88.1 Allergy status to other antibiotic agents; Z95.810 Presence of automatic (implantable) cardiac defibrillator; Z95.2 Presence of prosthetic heart valve; Z95.1 Presence of aortocoronary bypass graft; Z95.5 Presence of coronary angioplasty implant and graft; Z79.01 Long term (current) use of anticoagulants; K29.80 Duodenitis without bleeding
CPT/HCPCS: 36430; 76937; 80048; 80053; 82948; 83735; 84100; 84484; 85014; 85018; 85025; 85027; 85610; 85730; 86850; 86900; 86901; 86920; 87641; 88305; 88312; 93005; 93306; 93971; 96361; 96374; C9113; J0171; J1940; J2543; J7030; J7050; P9016

== ENCOUNTER 2016-06-03 09:16 | Inpatient (IN) | payer MEDICARE ==
[~2016-06-03] VITALS: Ht 162.6 cm; Wt 75.6 kg
[~2016-06-03 09:16] MED LIST changes: -ASPI81TA81; -AUGM875T PO; -CARV25TA PO; +CARV6.25 PO; +CYCL7.5T33 PO; -LOSA50TA PO; -MAGNSOL2 PO; -NEXI40CA PO; +PANT40TA3 PO; +TRAM50TA PO
[2016-06-03 09:30] VITALS: BP 94/61; PULSE 75; RESP 16; TEMP 96; O2SAT 94
--- NOTE | 2016-06-03 09:39 | PD ---
HPI Chief Complaint: Back/ Neck Pain or Injury Time Seen by Provider: 09:39 Travel History International Travel<30 days: No Contact w/Intl Traveler<30days: No Traveled to known affect area: No History of Present Illness HPI 89-year-old male came to the emergency room with history of low back pain for past 3 weeks. He contacted his primary care who had given him a muscle relaxant which patient said did nothing. He does not recall injuring his back. However he's never had back pain in the past. No history of fever or chills. No history of bowel or bladder incontinence. No history of lower extremity weakness or numbness. He describes the pain at the L2-L3 region going across like a band. He says the pain is worse when he tries to get up from the bed or lay down. He has been sleeping on the recliner for past 1 week. Patient says not moving and just sitting or laying still the pain is 4-5 out of 10. However slightest movement or coughing will make the pain go to 10 out of 10. He tried to call orthopedist but did not get any follow-up sooner than 4 weeks and hence decided to come to the emergency room. Blood pressure was little bit soft. Otherwise rest of the vital signs were stable. His son drove him to the emergency room. [facility] Past Medical History Narrative Medical List of his past medical, surgical, social and family history was reviewed from the nursing note. Hx Anticoagulant Therapy: Yes (WARFIN 3MG DAILY) Heart Rhythm Problems: Yes (atrial fibulation ) Cancer: Yes (lung and prostate) Cardiac Catheterization: Yes Cardiovascular Problems: Yes (ARTIFICIAL VALVE) High Cholesterol: Yes Chest Pain: Yes Congestive Heart Failure: Yes Coronary Artery Disease: Yes Diabetes: No Diminished Hearing: No Endocrine: No GERD: Yes Genitourinary: Yes Hypertension: Yes Immune Disorder: No Musculoskeletal: No Neurologic: No Psychiatric: No Respiratory: No Myocardial Infarction: Yes Radiation Therapy: Yes (prostate, lung) Renal Failure: Yes Past Surgical History Abdominal Surgery: No Appendectomy: Yes Cardiac Surgery: Yes (aorta replaced) Cholecystectomy: Yes Coronary Artery Bypass Graft: Yes Coronary Stent: Yes Pacemaker: Yes (defibrillator) Thoracic Surgery: No Other Surgery: Yes (prostate radiation) Social History Alcohol Use: Yes (occ) Tobacco Use: No Substance Use: No Allergies-Medications (Allergen,Severity, Reaction): Coded Allergies: Levaquin (Verified Allergy, Severe, Joint Pain, 06/03/16) Patient report that this medication affect his tendon on his legs. *MDRO Multi-Drug Resistant Organism (Verified Adverse Reaction, Unknown, ) MRSA PCR Screen POSITIVE - 05/05/2016 Comments List of his allergies are reviewed from the nursing note. Reported Meds & Prescriptions Reported Meds & Active Scripts Active Tramadol (Tramadol HCl) 50 Mg Tab 50 Mg PO Q6H PRN Flexeril (Cyclobenzaprine HCl) 7.5 Mg Tab 7.5 Mg PO TID PRN Pantoprazole (Pantoprazole Sodium) 40 Mg Tab 40 Mg PO Q12HR Flomax (Tamsulosin HCl) 0.4 Mg Cap 0.4 Mg PO HS Reported Coreg (Carvedilol) 3.125 Mg Tab 3.125 Mg PO BID Torsemide 20 Mg Tab 20 Mg PO DAILY Probiotic (Saccharomyces Boulardii) 250 Mg Cap 250 Mg PO DAILY Vitamin D (Cholecalciferol) 2,000 Unit Cap 1 Cap PO DAILY Vitamin C (Ascorbic Acid) 1,000 Mg Tab 1,000 Mg PO Feosol (Ferrous Sulfate) 65 Mg Tab 65 Mg PO DAILY Folic Acid 400 Mcg Tab 400 Mcg PO DAILY Magnesium 400 Mg Tab 400 Mg PO DAILY Meclizine (Meclizine HCl) 25 Mg Chew 25 Mg CHEW DIRECTED PRN Nitroglycerin SL (Nitroglycerin) 0.4 Mg Subl 0.4 Mg SL DIRECTED PRN ONE TABLET UNDER THE TONGUE NEEDED FOR CHEST PAIN, MAY REPEAT EVERY FIVE MINUTES FOR A TOTAL OF 3 DOSES OR CALL 911 IF NO RELIEF Vitamin B-12 (Cyanocobalamin) 1,000 Mcg Subl 1,000 Mcg SL EVERY OTHER DAY Simvastatin 20 Mg Tab 20 Mg PO DAILY Sotalol (Sotalol HCl) 80 Mg Tab 80 Mg PO BID Vitamin B-6 (Pyridoxine HCl) 200 Mg Tab 200 Mg PO DAILY Coumadin (Warfarin) 2.5 Mg Tab 3 Mg PO DAILY Narrative Medication List of his home medications reviewed from the nursing note. Review of Systems Except as stated in HPI: all other systems reviewed are Neg Physical Exam Narrative GENERAL: Awake, alert, elderly, mild distress SKIN: Warm and dry. HEAD: Atraumatic. Normocephalic. EYES: Pupils equal and round. No scleral icterus. No injection or drainage. ENT: No nasal bleeding or discharge. Mucous membranes pink and moist. NECK: Trachea midline. No JVD. CARDIOVASCULAR: Regular rate and rhythm. No murmur appreciated. RESPIRATORY: No accessory muscle use. Clear to auscultation. Breath sounds equal bilaterally. GASTROINTESTINAL: Abdomen soft, non-tender, nondistended. Hepatic and splenic margins not palpable. MUSCULOSKELETAL: No obvious deformities. No clubbing. No cyanosis. No edema. No point tenderness upon spine palpation NEUROLOGICAL: Awake and alert. No obvious cranial nerve deficits. Motor grossly within normal limits. Normal speech. PSYCHIATRIC: Appropriate mood and affect; insight and judgment normal. Data Data Last Documented VS Vital Signs Date Time Temp Pulse Resp B/P Pulse Ox O2 Delivery O2 Flow Rate FiO2 06/03/16 09:30 96.0 75 16 94/61 94 Orders Complete Blood Count With Diff (06/03/16 09:50) Basic Metabolic Panel (Bmp) (06/03/16 09:50) Prothrombin Time / Inr (Pt) (06/03/16 09:50) Morphine Inj (Morphine Inj) (06/03/16 10:00) Lorazepam Inj (Ativan Inj) (06/03/16 10:00) Sodium Chlorid 0.9% 500 Ml Inj (Ns 500 M (06/03/16 10:00) Sodium Chlorid 0.9% 500 Ml Inj (Ns 500 M (06/03/16 10:45) Ct Lumb Spine W/O Contrast (06/03/16 ) Ct Abd/Pel W/O Iv Contrast (06/03/16 ) Blood Culture (06/03/16 11:51) Piperacil-Tazo 4.5 Gm Premix (Zosyn 4.5 (06/03/16 12:00) Admit Order (Ed Use Only) (06/03/16 11:58) Labs Laboratory Tests Test 06/03/16 10:01 White Blood Count 6.7 TH/MM3 Red Blood Count 3.92 MIL/MM3 Hemoglobin 11.9 GM/DL Hematocrit 35.9 % Mean Corpuscular Volume 91.6 FL Mean Corpuscular Hemoglobin 30.4 PG Mean Corpuscular Hemoglobin 33.2 % Concent Red Cell Distribution Width 15.1 % Platelet Count 203 TH/MM3 Mean Platelet Volume 7.8 FL Neutrophils (%) (Auto) 61.2 % Lymphocytes (%) (Auto) 23.4 % Monocytes (%) (Auto) 8.5 % Eosinophils (%) (Auto) 5.4 % Basophils (%) (Auto) 1.5 % Neutrophils # (Auto) 4.0 TH/MM3 Lymphocytes # (Auto) 1.6 TH/MM3 Monocytes # (Auto) 0.6 TH/MM3 Eosinophils # (Auto) 0.4 TH/MM3 Basophils # (Auto) 0.1 TH/MM3 CBC Comment DIFF FINAL Differential Comment Prothrombin Time 30.2 SEC Prothromb Time International 2.6 RATIO Ratio Sodium Level 140 MEQ/L Potassium Level 3.5 MEQ/L Chloride Level 97 MEQ/L Carbon Dioxide Level 33.8 MEQ/L Anion Gap 9 MEQ/L Blood Urea Nitrogen 64 MG/DL Creatinine 2.50 MG/DL Estimat Glomerular Filtration 24 ML/MIN Rate Random Glucose 99 MG/DL Calcium Level 9.3 MG/DL MDM Medical Decision Making Medical Screen Exam Complete: Yes Emergency Medical Condition: Yes Medical Record Reviewed: Yes Differential Diagnosis Compression fracture, pathologic fracture, spinal stenosis, lumbar radiculopathy Narrative Course 10:02 AM patient has been medicated for pain. Awaiting for the CAT scan of the abdomen and pelvis and lumbar spine. 11:45 AM CAT scan report is back and shows diverticulitis on his CT abdomen pelvis. Lumbar CT shows an acute L1 compression fracture. The radiologist has mentioned that this to be amenable to percutaneous kyphoplasty. I let the patient know about this plan. I would like to admit him for intractable pain, acute diverticulitis and dehydration with his BUN/creatinine being 64 and 2.5. This patient IV hydration of 1 L bolus and he seems to be well-controlled for pain. The hospitalist wanted me to find out from the neurosurgeon if he wants to do anything interventional in which case patient will require to be transferred. Awaiting for the neurosurgeon to call back. 11:55 AM I just spoke with Dr. Ernandez from neurosurgery who wants the patient to be transferred to [facility]. I will let the hospitalist know about this. Procedures EKG Prior to Arrival: No Physician Communication Physician Communication Dr. Ernandez Diagnosis Primary Impression: Lumbar compression fracture Qualified Code: S32.000A - Lumbar compression fracture, closed, initial encounter Additional Impressions: Intractable pain Dehydration Renal failure Acute diverticulitis Admitting Information Admitting Physician Requests: Admit Linda Garcia MD Jun 03, 2016 09:39
[2016-06-03] MEDS ORDERED: LORazepam 2 MG/ML VIAL IV PUSH ONE (10:00)
[2016-06-03] MEDS ORDERED: MORPHINE SULFATE 8 MG/ML INJ IV PUSH ONE (10:00)
[2016-06-03] MEDS ORDERED: SODIUM CHLORID 0.9% 500 ML INJ 500 ML IV ONE ×2 (10:00→10:45)
[2016-06-03 10:10] LABS: BASOPHIL # 0.1 TH/MM3 (0-0.2); BASOPHIL % 1.5 % (0.0-2.0); EOSINOPHIL # 0.4 TH/MM3 (0-0.4); EOSINOPHIL % 5.4 % (0.0-4.0); HEMATOCRIT 35.9 % (39.0-51.0); HEMO FLAGS DIFF FINAL; LYMPH % 23.4 % (9.0-44.0); LYMPHOCYTE # 1.6 TH/MM3 (1.0-4.8); MEAN CELL VOLUME 91.6 FL (80.0-100.0); MEAN CORPUSCULAR HEMOGLOBIN 30.4 PG (27.0-34.0); MEAN CORPUSCULAR HGB CONC 33.2 % (32.0-36.0); MONO % 8.5 % (0.0-8.0); NEUT % 61.2 % (16.0-70.0); PLATELET COUNT 203 TH/MM3 (150-450); RED BLOOD COUNT 3.92 MIL/MM3 (4.50-5.90); RED CELL DISTRIBUTION WIDTH 15.1 % (11.6-17.2); WHITE BLOOD COUNT 6.7 TH/MM3 (4.0-11.0)
[2016-06-03 10:19] LABS: POTASSIUM 3.5 MEQ/L (3.5-5.1)
[2016-06-03 10:22] LABS: BICARBONATE 33.8 MEQ/L (21.0-32.0); INTERNATIONAL NORMALIZED RATIO 2.6 RATIO; PROTHROMBIN TIME - PATIENT 30.2 SEC (9.8-11.6)
--- NOTE | 2016-06-03 11:24 | RADHPO ---
EXAM DATE/TIME: 06/03/2016 10:44 [facility] COMPARISON: No previous studies available for comparison. INDICATIONS : Posterior abdominal pain. Evaluate for neoplasm. History of lung and prostate cancer. ORAL CONTRAST: No oral contrast ingested. RADIATION DOSE: 16.38 CTDIvol (mGy) MEDICAL HISTORY : Cardiovascular disease. Congestive heart failure. Gastroesophageal reflux disease.Hypertension. Lung cancer. Prostate cancer. SURGICAL HISTORY : CABG Appendectomy.Cholecystectomy. ENCOUNTER: Initial ACUITY: 3 weeks PAIN SCALE: 5/10 LOCATION: abdomen/pelvis TECHNIQUE: Volumetric scanning of the abdomen and pelvis was performed. Using automated exposure control and ad justment of the mA and/or kV according to patient size, radiation dose was kept as low as reasonably achievable to obtain optimal diagnostic quality images. FINDINGS: LOWER LUNGS: The visualized lower lungs are clear. LIVER: Homogeneous density without lesion. There is no dilation of the biliary tree. Cholecystectomy clips. SPLEEN: Normal size without lesion. PANCREAS: Within normal limits. KIDNEYS: Normal in size and shape. There is no mass, stone, or hydronephrosis. ADRENAL GLANDS: Within normal limits. VASCULAR: There is no aortic aneurysm. Extensive atherosclerotic changes. BOWEL/MESENTERY: Colitis of the descending colon. No perforation or abscess.. There is no free intraperitoneal air or fluid. ABDOMINAL WALL: Within normal limits. RETROPERITONEUM: There is no lymphadenopathy. BLADDER: No wall thickening or mass. REPRODUCTIVE: Mildly large prostate containing prostatic seeds.. INGUINAL: There is no lymphadenopathy or hernia on the right. Large fat containing left inguinal hernia.. MUSCULOSKELETAL: Within normal limits for patient age. CONCLUSION: 1. Diverticulitis of the sigmoid colon no perforation or abscess. 2. Status post cholecystectomy. 3. Small hiatal hernia. 4. Enlarged prostate. 5. Large fat containing left inguinal hernia. Darrell Christie MD on June 03, 2016 at 11:20 Board Certified Radiologist. This report was verified electronically.
--- NOTE | 2016-06-03 11:36 | RADHPO ---
EXAM DATE/TIME: 06/03/2016 10:44 [facility] COMPARISON: No previous studies available for comparison. INDICATIONS : Lower back pain. Evaluate for neoplasm. History of lung and prostate cancer. RADIATION DOSE: ; Reconstructed from previous dataset MEDICAL HISTORY : Cardiovascular disease. Congestive heart failure. Gastroesophageal reflux disea se.Hypertension. Prostate cancer. Lung cancer. Hypertension. SURGICAL HISTORY : CABG Appendectomy.Cholecystectomy. ENCOUNTER: Initial ACUITY: 3 weeks PAIN SCALE: 5/10 LOCATION: lumbar TECHNIQUE: Volumetric scanning of the lumbar spine was performed. Multiplanar reconstructions in the sagittal, coronal and oblique axial planes were performed. Using automated exposure control and adjustment of the mA and/or kV according to patient size, radiation dose was kept as low as reasonab ly achievable to obtain optimal diagnostic quality images. FINDINGS: Alignment: Vertebral alignment is well-preserved without evidence of listhesis. Osseous structures and facet joints: A mild compression deformity is identified of L1. There is superior endplate depression which appears acute. Vertebral body height is otherwise well maintained. Posterior elements are intact. Mild/moder ate facet arthropathy is seen and lumbar levels. There are no lytic or blastic lesions. Intervertebral disc spaces: Advanced degenerative disc disease is identified at the L4-5 and L5-S1 levels. There is marked disc s pace narrowing, endplate eburnation sclerosis and marginal spondylosis. Anterior dural space at L5-S1 secondary to a posterior disc osteophyte complex. There is no evidence of soft disc extrusion. Neurologic structures: There is no evidence of significant spinal stenosis. There are no epidural or intradural soft tissue abnormalities. CONCLUSION: Mild acute compression deformity of L1. This is amenable to vertebral augmentation if clinically indicated. No evidence of metastatic disease. Advanced degenerative disc disease at L4-5 and L5-S1. No other significant abnormalities. Zaid Charles MD on June 03, 2016 at 11:29 Board Certified Radiologist. This report was verified electronically.
[2016-06-03] MEDS ORDERED: PIPERACIL-TAZO 4.5 GM PREMIX 100 ML IV ONE (12:00)
--- NOTE | 2016-06-03 12:43 | HHI.HP ---
[facility] Ale Marte MD Admission Diagnosis lumbar compression fracture, acute diverticulitis, renal failure Diagnoses: (1) Lumbar compression fracture (2) Intractable pain (3) Acute renal failure superimposed on stage 3 chronic kidney disease (4) Hypotension (5) S/P TAVR (transcatheter aortic valve replacement) Chief Complaint: Intractable back pain Travel History International Travel<30 Days: No Contact w/Intl Traveler <30 Da: No Traveled to Known Affected Are: No History of Present Illness 89-year-old male with a history of ischemic cardiomyopathy, prior VT, prior CABG , prior PCI, prior TAVR, ACID placement presented to the ED for evaluation of 3 weeks history of low back pain has gotten worse over the past several days with the pain rated 10/10 intensity and not relieved with current muscle relaxant prescribed by his PCP. Patient first complained of low back pain on 05/12/16 however denies any trauma at the time. Currently, although he denies any radiation to lower extremities, bladder or bowel dysfunction however he is unable to lay still. It is sometimes worse with movement. He has no current GI bleed however patient was found to have low BP. Denies any chest pain or shortness of breath Past Family Social History Past Medical History History of lung cancer History of prostate cancer Atrial fibrillation Coronary artery disease Acute myocardial infarction 1 Congestive heart failure, likely systolic Hyperlipidemia Hypertension GERD Prior radiation therapy Chronic kidney disease, unknown stage Past Surgical History Appendectomy TAVR CABG x 4 Cholecystectomy Multiple cardiac stents AICD Reported Medications Tramadol (Tramadol HCl) 50 Mg Tab 50 Mg PO Q6H PRN Flexeril (Cyclobenzaprine HCl) 7.5 Mg Tab 7.5 Mg PO TID PRN Pantoprazole (Pantoprazole Sodium) 40 Mg Tab 40 Mg PO Q12HR Flomax (Tamsulosin HCl) 0.4 Mg Cap 0.4 Mg PO HS Coreg (Carvedilol) 6.25 Mg Tab 6.25 Mg PO Q12HR Reported Torsemide 20 Mg Tab 20 Mg PO DAILY Probiotic (Saccharomyces Boulardii) 250 Mg Cap 250 Mg PO DAILY Vitamin D (Cholecalciferol) 2,000 Unit Cap 1 Cap PO DAILY Vitamin C (Ascorbic Acid) 1,000 Mg Tab 1,000 Mg PO Feosol (Ferrous Sulfate) 65 Mg Tab 65 Mg PO DAILY Folic Acid 400 Mcg Tab 400 Mcg PO DAILY Magnesium 400 Mg Tab 400 Mg PO DAILY Meclizine (Meclizine HCl) 25 Mg Chew 25 Mg CHEW DIRECTED PRN Nitroglycerin SL (Nitroglycerin) 0.4 Mg Subl 0.4 Mg SL DIRECTED PRN ONE TABLET UNDER THE TONGUE NEEDED FOR CHEST PAIN, MAY REPEAT EVERY FIVE MINUTES FOR A TOTAL OF 3 DOSES OR CALL 911 IF NO RELIEF Vitamin B-12 (Cyanocobalamin) 1,000 Mcg Subl 1,000 Mcg SL EVERY OTHER DAY Simvastatin 20 Mg Tab 20 Mg PO DAILY Sotalol (Sotalol HCl) 80 Mg Tab 80 Mg PO BID Vitamin B-6 (Pyridoxine HCl) 200 Mg Tab 200 Mg PO DAILY Coumadin (Warfarin) 2.5 Mg Tab 3 Mg PO DAILY Allergies: Coded Allergies: Levaquin (Verified Allergy, Severe, Joint Pain, 06/03/16) Patient report that this medication affect his tendon on his legs. *MDRO Multi-Drug Resistant Organism (Verified Adverse Reaction, Unknown, ) MRSA PCR Screen POSITIVE - 05/05/2016 Social History Alcohol Use: Yes (occ) Tobacco Use: No Substance Use: No Physical Exam Vital Signs Vital Signs Date Time Temp Pulse Resp B/P Pulse Ox O2 Delivery O2 Flow Rate FiO2 06/03/16 09:30 96.0 75 16 94/61 94 Physical Exam GENERAL: This is a well-nourished, well-developed patient, in no apparent distress. SKIN: No rashes, ecchymoses or lesions. Cool and dry. HEAD: Atraumatic. Normocephalic. No temporal or scalp tenderness. EYES: Pupils equal round and reactive. Extraocular motions intact. No scleral icterus. No injection or drainage. ENT: Nose without bleeding, purulent drainage or septal hematoma. Throat without erythema, tonsillar hypertrophy or exudate. Uvula midline. Airway patent. NECK: Trachea midline. No JVD or lymphadenopathy. Supple, nontender, no meningeal signs. CARDIOVASCULAR: Regular rate and rhythm without murmurs, gallops, or rubs. RESPIRATORY: Clear to auscultation. Breath sounds equal bilaterally. No wheezes , rales, or rhonchi. GASTROINTESTINAL: Abdomen soft, non-tender, nondistended. No hepato-splenomegaly , or palpable masses. No guarding. MUSCULOSKELETAL: Extremities without clubbing, cyanosis, or edema. No joint tenderness, effusion, or edema noted. No calf tenderness. Negative Homans sign bilaterally. NEUROLOGICAL: Awake and alert. Cranial nerves II through XII intact. Motor and sensory grossly within normal limits. Five out of 5 muscle strength in all muscle groups. Normal speech. Laboratory Laboratory Tests Test 06/03/16 10:01 White Blood Count 6.7 Red Blood Count 3.92 Hemoglobin 11.9 Hematocrit 35.9 Mean Corpuscular Volume 91.6 Mean Corpuscular Hemoglobin 30.4 Mean Corpuscular Hemoglobin 33.2 Concent Red Cell Distribution Width 15.1 Platelet Count 203 Mean Platelet Volume 7.8 Neutrophils (%) (Auto) 61.2 Lymphocytes (%) (Auto) 23.4 Monocytes (%) (Auto) 8.5 Eosinophils (%) (Auto) 5.4 Basophils (%) (Auto) 1.5 Neutrophils # (Auto) 4.0 Lymphocytes # (Auto) 1.6 Monocytes # (Auto) 0.6 Eosinophils # (Auto) 0.4 Basophils # (Auto) 0.1 CBC Comment DIFF FINAL Differential Comment Prothrombin Time 30.2 Prothromb Time International 2.6 Ratio Sodium Level 140 Potassium Level 3.5 Chloride Level 97 Carbon Dioxide Level 33.8 Anion Gap 9 Blood Urea Nitrogen 64 Creatinine 2.50 Estimat Glomerular Filtration 24 Rate Random Glucose 99 Calcium Level 9.3 Date/Time Procedure Status Source Growth 06/03/16 12:10 Aerobic Blood Culture Received Blood Peripheral Pending 06/03/16 12:10 Anaerobic Blood Culture Received Blood Peripheral Pending Result Diagram: 06/03/16 1001 06/03/16 1001 Assessment and Plan Problem List: (1) Lumbar compression fracture ICD Code: S32.000A Status: Acute (2) Intractable pain ICD Code: R52 Status: Acute (3) S/P TAVR (transcatheter aortic valve replacement) ICD Code: Z95.2 Status: Acute (4) Acute renal failure superimposed on stage 3 chronic kidney disease ICD Code: N17.9 Status: Acute (5) Hypotension ICD Code: I95.9 Status: Acute (6) HTN (hypertension) ICD Code: I10 Status: Acute (7) Diverticulitis ICD Code: K57.92 Status: Acute Assessment and Plan 89-year-old man with Acute L1 compression fracture: CT lumbar noted and reviewed by me with finding of mild acute L1 deformity for which neurosurgery has been consulted. Pain management accordingly, TLSO brace and PT consult. Will hold Coumadin pending further evaluation from neurosurgery History of diverticulitis: CT abdomen/pelvis noted and reviewed by me with finding of diverticulitis of the sigmoid colon, however patient has no WBC, febrile episode of complaint of abdominal pain and will treat with empiric Zosyn IV, de-escalate antibiotic if patient appears nontoxic and clinically stable in a.m. 06/04/16 Hypotension: H&H stable,, status post NS Bolus 1L x 2; continue with IVF hydration. Hold Coreg and sotalol Acute on chronic kidney disease stage III: Status post IV fluid normal saline bolus, continue with IV fluid hydration and monitor BUN and creatinine. Avoid all nephrotoxic drugs. Ischemic cardiomyopathy: In the setting of hypotension with hold Coreg and diuretic History of TAVR:hold anticoagulation Coumadin until patient seen by neurosurgery SCDs for DVT prophylaxis. Resume Coumadin if okay with neurosurgery Code Status Full code Discussed Condition With Patient, ED physician Physician Certification 2 Midnight Certification Type: Admission for Inpatient Services Order for Inpatient Services The services are ordered in accordance with Medicare regulations or non- Medicare payer requirements, as applicable. In the case of services not specified as inpatient-only, they are appropriately provided as inpatient services in accordance with the 2-midnight benchmark. Estimated LOS (days): 2 days is the estimated time the patient will need to remain in the hospital, assuming treatment plan goals are met and no additional complications. Post-Hospital Plan: Not yet determined Problem Qualifiers (1) Lumbar compression fracture: Qualified Code: S32.000A - Lumbar compression fracture, closed, initial encounter Darrell Marina MD Jun 03, 2016 12:43
[2016-06-03] MEDS: SODIUM CHLOR 0.9% 1000 ML INJ 1,000 ML IV SCH ×2 (12:47→16:52)
[2016-06-03] MEDS ORDERED: NALOXONE HCL 0.4 MG/ML AMP IV PRN (13:00)
[2016-06-03] MEDS ORDERED: DOCUSATE SODIUM 50 MG/SENNA 8.6 MG TAB PO PRN (13:00)
[2016-06-03] MEDS ORDERED: SODIUM CHLORIDE 0.9% FLUSH 5 ML FLUSH FLUSH PRN (13:00)
[2016-06-03] MEDS ORDERED: RESP: ALBUTEROL 2.5 MG/IPRATROPIUM 0.5 MG NEB (PRN) NEB (13:00)
[2016-06-03] MEDS ORDERED: ACETAMINOPHEN 325 MG TAB PO PRN ×2 (13:00)
[2016-06-03] MEDS ORDERED: ACETAMINOPHEN/HYDROcodone 325 MG/5 MG TAB PO PRN (13:00)
[2016-06-03] MEDS ORDERED: ENALAPRILAT 1.25 MG/ML VIAL IV PUSH PRN (13:00)
[2016-06-03] MEDS ORDERED: TEMAZEPAM 15 MG CAP PO PRN (13:00)
[2016-06-03] MEDS ORDERED: ONDANSETRON HCL 4 MG/2 ML VIAL IVP PRN (13:00)
[2016-06-03] MEDS ORDERED: [UNRECOGNIZED DRUG - OTHER] PO PRN (13:30)
[2016-06-03] MEDS ORDERED: CYCLOBENZAPRINE PO PRN (13:30)
[2016-06-03 13:35] VITALS: BP 107/66; PULSE 84; RESP 16; O2SAT 99
[2016-06-03] MEDS ORDERED: CARV3.125 PO (13:39)
[2016-06-03 16:44] VITALS: BP 116/70; PULSE 73; RESP 19; TEMP 97; O2SAT 96
[2016-06-03] MEDS: ACETAMINOPHEN/HYDROcodone 325 MG/7.5 MG TAB PO PRN ×2 (16:51→21:35)
[2016-06-03] MEDS: SOTALOL HCL 80 MG TAB PO SCH (21:00)
[2016-06-03] MEDS ORDERED: CARVEDILOL 6.25 MG TAB PO SCH (21:00)
[2016-06-03] MEDS: CARVEDILOL 3.125 MG TAB PO SCH (21:00)
[2016-06-03 21:20] VITALS: BP 95/53; PULSE 70; RESP 18; TEMP 96.3; O2SAT 95
[2016-06-03] MEDS: SODIUM CHLORIDE 0.9% FLUSH 5 ML FLUSH FLUSH SCH (21:29)
[2016-06-03] MEDS: PIPERACIL-TAZO 2.25 GM PREMIX 50 ML IV SCH (21:29)
[2016-06-03] MEDS: TAMSULOSIN HCL 0.4 MG CAP PO SCH (21:34)
[2016-06-03] MEDS: LACTOBACILLUS ACIDOPHILUS TAB PO SCH (21:34)
--- NOTE | 2016-06-03 23:24 | PD.CONS ---
(Abelino Ernandez MD) HPI Consult Requested By Primary Care Physician Ale Marte MD (Abelino Ernandez MD) Service NRS Consult Requested By Dr. Marina Reason for Consult L1 compression fracture History of Present Illness Josh is a 89-year-old male who complains of axial lumbar pain. He reports his pain began 3 weeks ago when he bent over to put his shoes on. Since then he's been suffering of severe pain located in the upper lumbar region. He denies any radiating pain into his extremities. He denies focal weakness, bowel or bladder incontinence. He has a history of chronic renal disease as well as a fibrillator. A CT of the lumbar spine shows an L1 compression fracture. Mr. Oliveros reports his pain has been severe. Currently controlled on IV morphine. A neurosurgical evaluation was requested. (Lucy Davis) Review of Systems Constitutional: DENIES: Fever, Chills Eyes: DENIES: Diplopia Respiratory: DENIES: Hemoptysis, Shortness of breath Cardiovascular: DENIES: Chest pain Gastrointestinal: DENIES: Nausea, Vomiting Genitourinary: DENIES: Urinary incontinence Musculoskeletal: COMPLAINS OF: Back pain Neurologic: DENIES: Localized weakness, Paresthesias Psychiatric: DENIES: Hallucinations (Lucy Davis) Past Family Social History Allergies: Coded Allergies: Levaquin (Verified Allergy, Severe, Joint Pain, 06/03/16) Patient report that this medication affect his tendon on his legs. *MDRO Multi-Drug Resistant Organism (Verified Adverse Reaction, Unknown, ) MRSA PCR Screen POSITIVE - 05/05/2016 Past Medical History Atrial Fibrillation on Coumadin CHF Hypertension Hyperlipidemia Previous MN Lung CA Prostate CA GERD Chronic Kidney Disease Past Surgical History AICD CABG x 4 Appendectomy Cholecystectomy Coronary artery stent Reported Medications Tramadol (Tramadol HCl) 50 Mg Tab 50 Mg PO Q6H PRN Flexeril (Cyclobenzaprine HCl) 7.5 Mg Tab 7.5 Mg PO TID PRN Pantoprazole (Pantoprazole Sodium) 40 Mg Tab 40 Mg PO Q12HR Flomax (Tamsulosin HCl) 0.4 Mg Cap 0.4 Mg PO HS Coreg (Carvedilol) 6.25 Mg Tab 6.25 Mg PO Q12HR Reported Torsemide 20 Mg Tab 20 Mg PO DAILY Probiotic (Saccharomyces Boulardii) 250 Mg Cap 250 Mg PO DAILY Vitamin D (Cholecalciferol) 2,000 Unit Cap 1 Cap PO DAILY Vitamin C (Ascorbic Acid) 1,000 Mg Tab 1,000 Mg PO Feosol (Ferrous Sulfate) 65 Mg Tab 65 Mg PO DAILY Folic Acid 400 Mcg Tab 400 Mcg PO DAILY Magnesium 400 Mg Tab 400 Mg PO DAILY Meclizine (Meclizine HCl) 25 Mg Chew 25 Mg CHEW DIRECTED PRN Nitroglycerin SL (Nitroglycerin) 0.4 Mg Subl 0.4 Mg SL DIRECTED PRN ONE TABLET UNDER THE TONGUE NEEDED FOR CHEST PAIN, MAY REPEAT EVERY FIVE MINUTES FOR A TOTAL OF 3 DOSES OR CALL 911 IF NO RELIEF Vitamin B-12 (Cyanocobalamin) 1,000 Mcg Subl 1,000 Mcg SL EVERY OTHER DAY Simvastatin 20 Mg Tab 20 Mg PO DAILY Sotalol (Sotalol HCl) 80 Mg Tab 80 Mg PO BID Vitamin B-6 (Pyridoxine HCl) 200 Mg Tab 200 Mg PO DAILY Coumadin (Warfarin) 2.5 Mg Tab 3 Mg PO DAILY Active Ordered Medications Current Medications Medications (Trade) Dose Ordered Sig/Osmar Route PRN Reason Start Time Stop Time Status Last Admin Dose Admin Sodium Chloride (NS 1000 ml Inj) 1,000 ml @ 100 mls/hr Q10H IV 06/03/16 12:47 06/03/16 16:52 IV Flush (NS Flush) 2 ml UNSCH PRN FLUSH FLUSH AFTER USING IV ACCESS 06/03/16 13:00 IV Flush (NS Flush) 2 ml BID FLUSH 06/03/16 21:00 06/03/16 21:29 Acetaminophen (Tylenol) 650 mg Q4H PRN PO TEMP > 100.4 06/03/16 13:00 Ondansetron HCl (Zofran Inj) 4 mg Q6H PRN IVP NAUSEA OR VOMITING 06/03/16 13:00 Temazepam (Restoril) 15 mg HS PRN PO INSOMNIA 06/03/16 13:00 Acetaminophen (Tylenol) 650 mg Q6H PRN PO PAIN SCALE 1 TO 2 06/03/16 13:00 Acetaminophen/ Hydrocodone Bitart ([place] 5-325 Mg) 1 tab Q4H PRN PO PAIN SCALE 3 TO 5 06/03/16 13:00 Acetaminophen/ Hydrocodone Bitart ([place] 7.5-325 Mg) 1 tab Q4H PRN PO PAIN SCALE 6 TO 10 06/03/16 13:00 06/04/16 13:26 Morphine Sulfate (Morphine Inj) 4 mg Q1H PRN IV PAIN SCALE 7-10 (INTRACTABLE) 06/03/16 13:00 06/04/16 10:50 Naloxone HCl (Narcan Inj) 0.4 mg UNSCH PRN IV SEE LABEL COMMENTS 06/03/16 13:00 Enalaprilat (Vasotec Inj) 1.25 mg Q6H PRN IV PUSH SBP>160, DBP>90 06/03/16 13:00 Senna/Docusate Sodium (Pamela-Colace) 2 tab BID PRN PO CONSTIPATION 06/03/16 13:00 Sotalol HCl (Betapace) 80 mg BID PO 06/03/16 21:00 Tamsulosin HCl (Flomax) 0.4 mg HS PO 06/03/16 21:00 06/03/16 21:34 Patient Own Medication PT OWN MED: (Cyclobenzaprine (Flexeril)... TID PRN PO MUSCLE SPASM 06/03/16 13:30 Pravastatin Sodium 40 mg 40 mg DAILY PO 06/04/16 09:00 06/04/16 10:50 Piperacillin Sod/ Tazobactam Sod (Zosyn 2.25 Gm Premix) 50 ml @ 100 mls/hr Q8H IV 06/03/16 20:00 06/04/16 12:44 Lactobacillus Acidophilus (Lactinex) 1 tab Q12HR PO 06/03/16 21:00 06/04/16 10:50 Carvedilol (Coreg) 3.125 mg Q12HR PO 06/03/16 21:00 Family History not contributory to his fracture Social History denies tobacco use, reports of occasional etoh use, no illicit drug use (Lucy Davis) Physical Exam Vital Signs Vital Signs Date Time Temp Pulse Resp B/P Pulse Ox O2 Delivery O2 Flow Rate FiO2 06/03/16 22:41 18 06/03/16 21:20 96.3 70 18 95/53 95 06/03/16 16:44 97.0 73 19 116/70 96 06/03/16 13:35 84 16 107/66 99 Room Air 06/03/16 09:30 96.0 75 16 94/61 94 Laboratory Laboratory Tests Test 06/03/16 10:01 White Blood Count 6.7 Red Blood Count 3.92 Hemoglobin 11.9 Hematocrit 35.9 Mean Corpuscular Volume 91.6 Mean Corpuscular Hemoglobin 30.4 Mean Corpuscular Hemoglobin 33.2 Concent Red Cell Distribution Width 15.1 Platelet Count 203 Mean Platelet Volume 7.8 Neutrophils (%) (Auto) 61.2 Lymphocytes (%) (Auto) 23.4 Monocytes (%) (Auto) 8.5 Eosinophils (%) (Auto) 5.4 Basophils (%) (Auto) 1.5 Neutrophils # (Auto) 4.0 Lymphocytes # (Auto) 1.6 Monocytes # (Auto) 0.6 Eosinophils # (Auto) 0.4 Basophils # (Auto) 0.1 CBC Comment DIFF FINAL Differential Comment Prothrombin Time 30.2 Prothromb Time International 2.6 Ratio Sodium Level 140 Potassium Level 3.5 Chloride Level 97 Carbon Dioxide Level 33.8 Anion Gap 9 Blood Urea Nitrogen 64 Creatinine 2.50 Estimat Glomerular Filtration 24 Rate Random Glucose 99 Calcium Level 9.3 Date/Time Procedure Status Source Growth 06/03/16 12:10 Aerobic Blood Culture Received Blood Peripheral Pending 06/03/16 12:10 Anaerobic Blood Culture Received Blood Peripheral Pending (Abelino Ernandez MD) Physical Exam Mr. Mejia is sitting up in chair in no obvious distress. He is alert and oriented to person, place, and time. Speech is appropriate. Follows commands without difficulties. Back supported by TLSO brace. Cranial nerve examination demonstrates the pupils to be equal, round, and reactive to light. Extra-ocular movements are intact with normal convergence. Facial motor are normal and symmetrical. The cervical spine shows mild decrease range of motion in flexion, extension, lateral bending and rotation due to age related spondylosis Muscle strength is 5/5 in all muscle groups of both upper extremities including deltoid, biceps, triceps, and brewmaster. In the lower extremities, strength is 5/5 in both iliopsoas, quadriceps, hamstrings, tibialis anterior, gastrocnemius, and extensor hallucis longus. Sensory examination is intact to light touch in both the upper and lower extremities, symmetrically. Deep tendon reflexes are 1+ and symmetrical in the biceps, triceps, and brachioradialis, bilaterally, in the upper extremities. In the lower extremities, the patellar and Achilles are trace, bilaterally. There is a bilateral plantar flexion response. Hoffmanns sign is negative. There is no clonus. Cerebellar examination is intact to [id number] test (Lucy Davis) Result Diagram: 06/03/16 1001 06/03/16 1001 Imaging Last Impressions Lumbar Spine CT 06/03/16 0000 Signed Impressions: Service Date/Time: Friday, June 03, 2016 10:44 - CONCLUSION: Mild acute compression deformity of L1. This is amenable to vertebral augmentation if clinically indicated. No evidence of metastatic disease. Advanced degenerative disc disease at L4-5 and L5-S1. No other significant abnormalities. Zaid Charles MD Abdomen/Pelvis CT 06/03/16 0000 Signed Impressions: Service Date/Time: Friday, June 03, 2016 10:44 - CONCLUSION: 1. Diverticulitis of the sigmoid colon no perforation or abscess. 2. Status post cholecystectomy. 3. Small hiatal hernia. 4. Enlarged prostate. 5. Large fat containing left inguinal hernia. Darrell Christie MD (Abelino Ernandez MD) Imaging Last Impressions Lumbar Spine CT 06/03/16 0000 Signed Impressions: Service Date/Time: Friday, June 03, 2016 10:44 - CONCLUSION: Mild acute compression deformity of L1. This is amenable to vertebral augmentation if clinically indicated. No evidence of metastatic disease. Advanced degenerative disc disease at L4-5 and L5-S1. No other significant abnormalities. Zaid Charles MD Abdomen/Pelvis CT 06/03/16 0000 Signed Impressions: Service Date/Time: Friday, June 03, 2016 10:44 - CONCLUSION: 1. Diverticulitis of the sigmoid colon no perforation or abscess. 2. Status post cholecystectomy. 3. Small hiatal hernia. 4. Enlarged prostate. 5. Large fat containing left inguinal hernia. Darrell Christie MD (Lucy Davis) Attending Statement Neuro. I have reviewed his clinical and radiological findings. Start neuro checks in a serial fashion. He has a L1 fracture. The alternatives of treatment were discussed. He is in severe pain and is requesting a kyphoplasty, which is reasonable and medically necessary. The alternative of conservative treatment were discussed. I have discussed the details including the [id number] details of the surgical procedure, its indications, alternatives, risks, and potential complications. Risks and potential complications include, but are not limited to, infection, blood loss, CSF leak, partial or complete loss of sight in one or both eyes, paresis, paralysis, permanent pain or difficulty swallowing, loss of bowel or bladder function, complications from anesthesia, blood clot, stroke , myocardial infarction, or even . He will also need stabilization with a halo brace. The patient is fully anticoagulated with Coumadin. He's I and R is very high. Unable to do a kyphoplasty anterior his INR normalizes PT and OT Nutrition. NPO after midnight Renal. monitor closely urine output, BUN and creatinine Endocrine. Monitor serial Acu checks and SSI as needed in detail ID monitor for signs of infection Protonix for stress ulcer prophylaxis Cristopher hose and SCD's for DVT prophylaxis Discussed with Dr Hairston and Dr Lazar (Abelino Ernandez MD) Abelino Ernandez MD Jun 03, 2016 23:24 Lucy Davis Jun 04, 2016 17:03
[2016-06-04 00:28] VITALS: BP 98/58; PULSE 69; RESP 20; TEMP 96.9; O2SAT 95
[2016-06-04 04:24] VITALS: BP 99/59; PULSE 73; RESP 20; TEMP 97.1; O2SAT 96
[2016-06-04] MEDS: PIPERACIL-TAZO 2.25 GM PREMIX 50 ML IV SCH ×2 (04:30→12:44)
[2016-06-04 08:00] VITALS: BP 100/56; PULSE 70; RESP 18; TEMP 95.3; O2SAT 95
[2016-06-04 08:33] LABS: BASOPHIL % 0.5 % (0.0-2.0); EOSINOPHIL # 0.3 TH/MM3 (0-0.4); EOSINOPHIL % 5.2 % (0.0-4.0); HEMO FLAGS DIFF FINAL; LYMPH % 19.6 % (9.0-44.0); LYMPHOCYTE # 1.2 TH/MM3 (1.0-4.8); MEAN CELL VOLUME 91.2 FL (80.0-100.0); MEAN CORPUSCULAR HEMOGLOBIN 30.7 PG (27.0-34.0); MEAN CORPUSCULAR HGB CONC 33.7 % (32.0-36.0); MONO % 8.8 % (0.0-8.0); NEUT % 65.9 % (16.0-70.0); PLATELET COUNT 146 TH/MM3 (150-450); RED BLOOD COUNT 3.51 MIL/MM3 (4.50-5.90); RED CELL DISTRIBUTION WIDTH 16.4 % (11.6-17.2)
[2016-06-04 08:37] LABS: INTERNATIONAL NORMALIZED RATIO 3.3 RATIO; PROTHROMBIN TIME - PATIENT 38.8 SEC (9.8-11.6)
[2016-06-04] MEDS: SODIUM CHLOR 0.9% 1000 ML INJ 1,000 ML IV SCH ×2 (08:47→18:47)
[2016-06-04] MEDS ORDERED: TORSEMIDE 20 MG TAB PO SCH (09:00)
[2016-06-04] MEDS: SODIUM CHLORIDE 0.9% FLUSH 5 ML FLUSH FLUSH SCH ×2 (09:00→21:00)
[2016-06-04] MEDS: CARVEDILOL 3.125 MG TAB PO SCH ×3 (09:00→22:03)
[2016-06-04] MEDS: SOTALOL HCL 80 MG TAB PO SCH ×2 (09:00→21:00)
[2016-06-04 09:01] LABS: ALT (GPT) 20 U/L (12-78); ANION GAP 9 MEQ/L (5-15); AST (GOT) 21 U/L (15-37); BICARBONATE 28.1 MEQ/L (21.0-32.0); BLOOD UREA NITROGEN 50 MG/DL (7-18); CHLORIDE 104 MEQ/L (98-107); GLOMERULAR FILTRATION RATE 30 ML/MIN (>89); POTASSIUM 3.5 MEQ/L (3.5-5.1); SODIUM (NA) 141 MEQ/L (136-145)
[2016-06-04 09:04] LABS: ALKALINE PHOSPHATASE 100 U/L (45-117); TOTAL BILIRUBIN ADULT 0.8 MG/DL (0.2-1.0)
[2016-06-04] MEDS: MORPHINE SULFATE 4 MG/ML INJ IV PRN (10:50)
[2016-06-04] MEDS: PRAVASTATIN SOD 40 MG TAB PO SCH (10:50)
[2016-06-04] MEDS: LACTOBACILLUS ACIDOPHILUS TAB PO SCH ×2 (10:50→22:03)
[2016-06-04 12:30] VITALS: BP 109/58; PULSE 70; RESP 18; TEMP 95.6; O2SAT 95
[2016-06-04] MEDS: ACETAMINOPHEN/HYDROcodone 325 MG/7.5 MG TAB PO PRN ×2 (13:26→20:08)
[2016-06-04 16:00] VITALS: BP 122/70; PULSE 95; RESP 18; TEMP 96.1; O2SAT 95
--- NOTE | 2016-06-04 17:19 | HHI.PR ---
Objective Vitals Vital Signs Date Time Temp Pulse Resp B/P Pulse Ox O2 Delivery O2 Flow Rate FiO2 06/04/16 16:00 96.1 95 18 122/70 95 06/04/16 12:30 95.6 70 18 109/58 95 06/04/16 08:00 95.3 70 18 100/56 95 06/04/16 04:24 97.1 73 20 99/59 96 06/04/16 00:28 96.9 69 20 98/58 95 06/03/16 22:41 18 06/03/16 21:20 96.3 70 18 95/53 95 I/O 06/03/16 06/03/16 06/03/16 06/04/16 06/04/16 06/04/16 07:00 15:00 23:00 07:00 15:00 23:00 Intake Total 1000 ml 700 ml Balance 1000 ml 700 ml Intake Oral 700 ml IV Total 1000 ml # Voids 2 1 3 # Bowel Movements 1 Result Diagram: 06/04/16 0747 06/04/16 0747 A/P Problem List: (1) Lumbar compression fracture ICD Code: S32.000A Status: Acute (2) Intractable pain ICD Code: R52 Status: Acute (3) S/P TAVR (transcatheter aortic valve replacement) ICD Code: Z95.2 Status: Acute (4) Acute renal failure superimposed on stage 3 chronic kidney disease ICD Code: N17.9 Status: Acute (5) Hypotension ICD Code: I95.9 Status: Acute (6) HTN (hypertension) ICD Code: I10 Status: Acute (7) Diverticulitis ICD Code: K57.92 Status: Acute Assessment and Plan 89-year-old man with Acute L1 compression fracture - CT lumbar noted and reviewed by me with finding of mild acute L1 deformity. - Pain management accordingly, TLSO brace and PT consult. -NSG will do kyphoplasty. History of diverticulitis - CT abdomen/pelvis finding of diverticulitis of the sigmoid colon, however patient has no WBC, febrile episode of complaint of abdominal pain -on empiric Zosyn IV but can switch to PO. Hypotension -RESOLVED. - H&H stable,, status post NS Bolus 1L x 2; continue with IVF hydration - Coreg and sotalol held. will restart meds. Acute on chronic kidney disease stage III -improved. -decrease UOP. -Status post IV fluid normal saline bolus, continue with IV fluid hydration and monitor BUN and creatinine. -Avoid all nephrotoxic drugs. -will consult patient's stage technician. Ischemic cardiomyopathy restart Coreg and diuretic History of TAVR: -Coumadin held pending surgery. once INR<2 would recommend starting heparin. right now INR 3.3. SCDs for DVT prophylaxis. Discharge Planning patient schedule for Kyphoplasty but INR is elevated at 3.3 with worsening renal function. Problem Qualifiers (1) Lumbar compression fracture: Qualified Code: S32.000A - Lumbar compression fracture, closed, initial encounter Brea Cleveland MD Jun 04, 2016 17:19
[2016-06-04] MEDS: metroNIDAZOLE 500 MG TAB PO SCH ×2 (18:00→22:03)
[2016-06-04 20:56] VITALS: BP 116/66; PULSE 72; RESP 16; TEMP 97; O2SAT 94
[2016-06-04] MEDS: TAMSULOSIN HCL 0.4 MG CAP PO SCH (22:03)
[2016-06-04] MEDS: CIPROFLOXACIN 500 MG TAB PO SCH (22:03)
[2016-06-05] VITALS (14 sets, daily range): BP systolic 87–125; BP diastolic 50–69; PULSE 67–73; RESP 17–20; TEMP 95.3–96.7; O2SAT 94–98
[2016-06-05] MEDS: SODIUM CHLOR 0.9% 1000 ML INJ 1,000 ML IV SCH (04:47)
[2016-06-05] MEDS: ACETAMINOPHEN/HYDROcodone 325 MG/7.5 MG TAB PO PRN ×3 (05:34→21:11)
[2016-06-05] MEDS: metroNIDAZOLE 500 MG TAB PO SCH ×3 (05:34→21:10)
--- NOTE | 2016-06-05 07:50 | HHI.PR ---
Subjective Remarks This is a pleasant 89 y/o Male with History of CAD prior NV, status post CABG, PCI, TAVR(Transcatheter Aortic Valve Replacement) AICD placement, who came to ER with 3 weeks history of Low back pain, seen by PCP sent for muscle relaxants, but did not Improve, although he denies any radiation to lower extremities, bladder or bowel dysfunction however he is unable to lay still. he has History of Lung cancer, Prostate cancer, Atrial Fibrillation, CHF by history, GERD, Hyperlipidemia, Prior radiation therapy CKD, seen in his bedroom and recommended FFP to continue with his Surgery later today, no complaint, he is sitting and eating Objective Vital Signs Date Time Temp Pulse Resp B/P Pulse Ox O2 Delivery O2 Flow Rate FiO2 06/05/16 04:00 96.3 67 20 91/61 94 06/05/16 00:00 96.0 73 20 125/57 95 06/04/16 20:56 97.0 72 16 116/66 94 06/04/16 16:00 96.1 95 18 122/70 95 06/04/16 14:26 19 06/04/16 12:30 95.6 70 18 109/58 95 06/04/16 10:55 18 06/04/16 08:00 95.3 70 18 100/56 95 I/O 06/04/16 06/04/16 06/04/16 06/05/16 06/05/16 06/05/16 07:00 15:00 23:00 07:00 15:00 23:00 Intake Total 700 ml 360 ml Balance 700 ml 360 ml Intake Oral 700 ml 360 ml # Voids 1 4 1 # Bowel Movements 1 0 Result Diagram: 06/04/16 0747 06/04/16 0747 Imaging Last Impressions Lumbar Spine CT 06/03/16 0000 Signed Impressions: Service Date/Time: Friday, June 03, 2016 10:44 - CONCLUSION: Mild acute compression deformity of L1. This is amenable to vertebral augmentation if clinically indicated. No evidence of metastatic disease. Advanced degenerative disc disease at L4-5 and L5-S1. No other significant abnormalities. Zaid Charles MD Abdomen/Pelvis CT 06/03/16 0000 Signed Impressions: Service Date/Time: Friday, June 03, 2016 10:44 - CONCLUSION: 1. Diverticulitis of the sigmoid colon no perforation or abscess. 2. Status post cholecystectomy. 3. Small hiatal hernia. 4. Enlarged prostate. 5. Large fat containing left inguinal hernia. Darrell Christie MD Procedures No procedures performed to the patient. Other Results Laboratory Tests Test 06/04/16 07:47 White Blood Count 6.0 TH/MM3 Red Blood Count 3.51 MIL/MM3 Hemoglobin 10.8 GM/DL Hematocrit 32.0 % Mean Corpuscular Volume 91.2 FL Mean Corpuscular Hemoglobin 30.7 PG Mean Corpuscular Hemoglobin 33.7 % Concent Red Cell Distribution Width 16.4 % Platelet Count 146 TH/MM3 Mean Platelet Volume 8.2 FL Neutrophils (%) (Auto) 65.9 % Lymphocytes (%) (Auto) 19.6 % Monocytes (%) (Auto) 8.8 % Eosinophils (%) (Auto) 5.2 % Basophils (%) (Auto) 0.5 % Neutrophils # (Auto) 4.0 TH/MM3 Lymphocytes # (Auto) 1.2 TH/MM3 Monocytes # (Auto) 0.5 TH/MM3 Eosinophils # (Auto) 0.3 TH/MM3 Basophils # (Auto) 0.0 TH/MM3 CBC Comment DIFF FINAL Differential Comment Prothrombin Time 38.8 SEC Prothromb Time International 3.3 RATIO Ratio Sodium Level 141 MEQ/L Potassium Level 3.5 MEQ/L Chloride Level 104 MEQ/L Carbon Dioxide Level 28.1 MEQ/L Anion Gap 9 MEQ/L Blood Urea Nitrogen 50 MG/DL Creatinine 2.11 MG/DL Estimat Glomerular Filtration 30 ML/MIN Rate Random Glucose 96 MG/DL Calcium Level 8.4 MG/DL Total Bilirubin 0.8 MG/DL Aspartate Amino Transf 21 U/L (AST/SGOT) Alanine Aminotransferase 20 U/L (ALT/SGPT) Alkaline Phosphatase 100 U/L Total Protein 5.9 GM/DL Albumin 2.6 GM/DL Objective Remarks GENERAL: This is a well-nourished, well-developed patient, in no apparent distress. SKIN: No rashes, ecchymoses or lesions. Cool and dry. HEAD: Atraumatic. Normocephalic. No temporal or scalp tenderness. EYES: Pupils equal round and reactive. Extraocular motions intact. No scleral icterus. No injection or drainage. ENT: Nose without bleeding, purulent drainage or septal hematoma. Throat without erythema, tonsillar hypertrophy or exudate. Uvula midline. Airway patent. NECK: Trachea midline. No JVD or lymphadenopathy. Supple, nontender, no meningeal signs. CARDIOVASCULAR: Regular rate and rhythm without murmurs, gallops, or rubs. RESPIRATORY: Clear to auscultation. Breath sounds equal bilaterally. No wheezes , rales, or rhonchi. GASTROINTESTINAL: Abdomen soft, non-tender, nondistended. No hepato-splenomegaly , or palpable masses. No guarding. MUSCULOSKELETAL: Extremities without clubbing, cyanosis, or edema. No joint tenderness, effusion, or edema noted. No calf tenderness. Negative Homans sign bilaterally. NEUROLOGICAL: Awake and alert. Cranial nerves II through XII intact. Motor and sensory grossly within normal limits. Five out of 5 muscle strength in all muscle groups. Normal speech. Medications and IVs Current Medications Medications (Trade) Dose Ordered Sig/Osmar Route Start Time Stop Time Status Last Admin (NS 1000 ml Inj) 1,000 ml @ 100 mls/hr Q10H IV 06/03/16 12:47 06/05/16 04:47 (NS Flush) 2 ml UNSCH PRN FLUSH 06/03/16 13:00 (NS Flush) 2 ml BID FLUSH 06/03/16 21:00 06/04/16 09:00 (Tylenol) 650 mg Q4H PRN PO 06/03/16 13:00 (Zofran Inj) 4 mg Q6H PRN IVP 06/03/16 13:00 (Restoril) 15 mg HS PRN PO 06/03/16 13:00 (Tylenol) 650 mg Q6H PRN PO 06/03/16 13:00 ([place] 5-325 Mg) 1 tab Q4H PRN PO 06/03/16 13:00 ([place] 7.5-325 Mg) 1 tab Q4H PRN PO 06/03/16 13:00 06/05/16 05:34 (Morphine Inj) 4 mg Q1H PRN IV 06/03/16 13:00 06/04/16 10:50 (Narcan Inj) 0.4 mg UNSCH PRN IV 06/03/16 13:00 (Vasotec Inj) 1.25 mg Q6H PRN IV PUSH 06/03/16 13:00 (Pamela-Colace) 2 tab BID PRN PO 06/03/16 13:00 (Betapace) 80 mg BID PO 06/03/16 21:00 (Flomax) 0.4 mg HS PO 06/03/16 21:00 06/04/16 22:03 Patient Own Medication PT OWN MED: (Cyclobenzaprine (Flexeril)... TID PRN PO 06/03/16 13:30 (Pravachol) 40 mg DAILY PO 06/04/16 09:00 06/04/16 10:50 (Lactinex) 1 tab Q12HR PO 06/03/16 21:00 06/04/16 22:03 (Coreg) 3.125 mg BID PO 06/04/16 21:00 (Cipro) 500 mg Q12HR PO 06/04/16 21:00 06/04/16 22:03 (Flagyl) 500 mg Q8HR PO 06/04/16 18:00 06/05/16 05:34 A/P Assessment and Plan 1. Acute L1 compression fracture seen in CT Lumbar, on Pain Management, TLSO Thoracolumbosacral Orthosis Neurosurgery Specialist Doctor Oma crowley, asked for Kyphoplasty, on hold Coumadin, to be performed once INR below 1.5, continue PT and OT, given FFP 2 units to continue with Surgery later today. 2. History of Diverticulitis, CT abdomen and Pelvis has diverticulitis of the sigmoid colon, has no WBC, febrile abdominal pain, on Empiric Zosyn. de escalate antibiotic if patient is non toxic. 3. Hypotension Resolved re started Coreg and Sotalol 4. Acute on chronic Kidney disease stage III, status post IV fluids normal saline, Nephrology specialist following. 5. CAD status post CABG. Cardiomyopathy on hold Coreg 6. History of TARV (Transcatheter Aortic Valve Replacement) SCDs for DVT prophylaxis. Resume Coumadin once procedure performed by neurosurgery Code Status Full code Discharge Planning Expected in one to two days. Allan Soares MD Jun 05, 2016 07:50 Allan Soares MD Jun 05, 2016 07:50
[2016-06-05] MEDS: CARVEDILOL 3.125 MG TAB PO SCH ×2 (09:00→21:00)
[2016-06-05] MEDS: PRAVASTATIN SOD 40 MG TAB PO SCH (09:22)
[2016-06-05] MEDS: CIPROFLOXACIN 500 MG TAB PO SCH ×2 (09:22→21:10)
[2016-06-05] MEDS: LACTOBACILLUS ACIDOPHILUS TAB PO SCH ×2 (09:22→21:11)
[2016-06-05] MEDS: SOTALOL HCL 80 MG TAB PO SCH ×2 (09:22→21:00)
[2016-06-05] MEDS: MORPHINE SULFATE 4 MG/ML INJ IV PRN (09:23)
[2016-06-05] MEDS: SODIUM CHLORIDE 0.9% FLUSH 5 ML FLUSH FLUSH SCH ×2 (09:48→21:00)
[2016-06-05 10:19] LABS: HEMATOCRIT 36.9 % (39.0-51.0); MEAN CELL VOLUME 93.2 FL (80.0-100.0); MEAN CORPUSCULAR HEMOGLOBIN 29.9 PG (27.0-34.0); MEAN CORPUSCULAR HGB CONC 32.1 % (32.0-36.0); PLATELET COUNT 151 TH/MM3 (150-450); RED BLOOD COUNT 3.96 MIL/MM3 (4.50-5.90); RED CELL DISTRIBUTION WIDTH 16.6 % (11.6-17.2); REVIEW FLAG FINAL; WHITE BLOOD COUNT 7.4 TH/MM3 (4.0-11.0)
[2016-06-05 10:20] LABS: INTERNATIONAL NORMALIZED RATIO 2.3 RATIO; PROTHROMBIN TIME - PATIENT 25.9 SEC (9.8-11.6)
[2016-06-05 10:44] LABS: BICARBONATE 31.8 MEQ/L (21.0-32.0); POTASSIUM 3.8 MEQ/L (3.5-5.1)
[2016-06-05] MEDS ORDERED: SODIUM CHLOR 0.9% 250 ML INJ 250 ML IV ONE (10:45)
--- NOTE | 2016-06-05 16:41 | PD.CONS ---
HPI Consult Requested By Reason for Consult Chronic kidney disease. Primary Care Physician Ale Marte MD History of Present Illness This patient is an 89-year-old male with a history of multiple medical problems including chronic kidney disease stage III, cardiorenal syndrome the past, severe cardiomyopathy with an ejection fraction said to be 25-30% by echocardiogram April 2016, secondary hyperparathyroidism of renal disease as well as previous hypertension recently discharged from this institution after developing a GI bleed with evidence of gastritis and duodenal ulceration now admitted with compression fracture L1 with plans for kyphoplasty tomorrow. Patient's creatinine level was elevated at 2.5 on presentation. Patient received IV hydration and his creatinine level is now 1.7 which is within usual baseline range. Review of Systems Constitutional: COMPLAINS OF: Fatigue, DENIES: Diaphoretic episodes, Fever, Weight gain, Weight loss, Chills, Dizziness, Change in appetite, Night Sweats Respiratory: DENIES: Apneas, Cough, Snoring, Wheezing, Hemoptysis, Sputum production, Shortness of breath Cardiovascular: COMPLAINS OF: Lower Extremity Edema, DENIES: Chest pain, Palpitations, Syncope, Dyspnea on Exertion, PND, Orthopnea, Claudication Gastrointestinal: DENIES: Abdominal pain, Black stools, Bloody stools, Constipation, Diarrhea, Nausea, Vomiting, Difficulty Swallowing, Anorexia Musculoskeletal: COMPLAINS OF: Joint pain, Back pain, DENIES: Muscle aches, Stiffness, Joint Swelling, Neck pain Past Family Social History Allergies: Coded Allergies: Levaquin (Verified Allergy, Severe, Joint Pain, 06/03/16) Patient report that this medication affect his tendon on his legs. *MDRO Multi-Drug Resistant Organism (Verified Adverse Reaction, Unknown, ) MRSA PCR Screen POSITIVE - 05/05/2016 Past Medical History Chronic kidney disease stage III. Severe cardiomyopathy with ejection fraction said to be 25-30% to the echocardiogram April,. Secondary hyperparathyroidism of renal disease. Gastroesophageal reflux disease. Recent GI bleed with duodenal ulcer and gastritis. Congestive heart failure. Coronary disease. Mention of atrial fibrillation in records. Past Surgical History AV TR AICD per records. Mention of CABG in records. Reported Medications Reported Meds & Active Scripts Active Tramadol (Tramadol HCl) 50 Mg Tab 50 Mg PO Q6H PRN Flexeril (Cyclobenzaprine HCl) 7.5 Mg Tab 7.5 Mg PO TID PRN Pantoprazole (Pantoprazole Sodium) 40 Mg Tab 40 Mg PO Q12HR Flomax (Tamsulosin HCl) 0.4 Mg Cap 0.4 Mg PO HS Reported Coreg (Carvedilol) 3.125 Mg Tab 3.125 Mg PO BID Torsemide 20 Mg Tab 20 Mg PO DAILY Probiotic (Saccharomyces Boulardii) 250 Mg Cap 250 Mg PO DAILY Vitamin D (Cholecalciferol) 2,000 Unit Cap 1 Cap PO DAILY Vitamin C (Ascorbic Acid) 1,000 Mg Tab 1,000 Mg PO Feosol (Ferrous Sulfate) 65 Mg Tab 65 Mg PO DAILY Folic Acid 400 Mcg Tab 400 Mcg PO DAILY Magnesium 400 Mg Tab 400 Mg PO DAILY Meclizine (Meclizine HCl) 25 Mg Chew 25 Mg CHEW DIRECTED PRN Nitroglycerin SL (Nitroglycerin) 0.4 Mg Subl 0.4 Mg SL DIRECTED PRN ONE TABLET UNDER THE TONGUE NEEDED FOR CHEST PAIN, MAY REPEAT EVERY FIVE MINUTES FOR A TOTAL OF 3 DOSES OR CALL 911 IF NO RELIEF Vitamin B-12 (Cyanocobalamin) 1,000 Mcg Subl 1,000 Mcg SL EVERY OTHER DAY Simvastatin 20 Mg Tab 20 Mg PO DAILY Sotalol (Sotalol HCl) 80 Mg Tab 80 Mg PO BID Vitamin B-6 (Pyridoxine HCl) 200 Mg Tab 200 Mg PO DAILY Coumadin (Warfarin) 2.5 Mg Tab 3 Mg PO DAILY Active Ordered Medications Inpatient Medications Acetaminophen (Tylenol) 650 mg Q6H PRN PO PAIN SCALE 1 TO 2; Start 06/03/16 at 13:00 Acetaminophen/ Hydrocodone Bitart ([place] 5-325 Mg) 1 tab Q4H PRN PO PAIN SCALE 3 TO 5; Start 06/03/16 at 13:00 Acetaminophen/ Hydrocodone Bitart ([place] 7.5-325 Mg) 1 tab Q4H PRN PO PAIN SCALE 6 TO 10 Last administered on 06/05/16 11:36; Start 06/03/16 at 13:00 Albuterol/ Ipratropium (Duoneb Neb) 1 ampule Q2HR NEB PRN NEB SOB/WHEEZING; Start 06/03/16 at 13:00 Carvedilol (Coreg) 3.125 mg BID PO ; Start 06/04/16 at 21:00 Ciprofloxacin (Cipro) 500 mg Q12HR PO Last administered on 06/05/16 09:22; Start 06/04/16 at 21:00 Enalaprilat (Vasotec Inj) 1.25 mg Q6H PRN IV PUSH SBP>160, DBP>90; Start 06/03 at 13:00 IV Flush (NS Flush) 2 ml BID FLUSH Last administered on 06/05/16 09:48; Start 06/03/16 at 21:00 Lactobacillus Acidophilus (Lactinex) 1 tab Q12HR PO Last administered on 09:22; Start 06/03/16 at 21:00 Lorazepam 0.5 mg 0.5 mg ONCE ONCE IV PUSH Last administered on 06/03/16 10:08 ; Start 06/03/16 at 10:00; Stop 06/03/16 at 10:01; Status DC Metronidazole 500 mg 500 mg Q8HR PO Last administered on 06/05/16 13:52; Start 06/04/16 at 18:00 Morphine Sulfate (Morphine Inj) 4 mg Q1H PRN IV PAIN SCALE 7-10 (INTRACTABLE) Last administered on 06/05/16 09:23; Start 06/03/16 at 13:00 Naloxone HCl (Narcan Inj) 0.4 mg UNSCH PRN IV SEE LABEL COMMENTS; Start at 13:00 Ondansetron HCl (Zofran Inj) 4 mg Q6H PRN IVP NAUSEA OR VOMITING; Start at 13:00 Patient Own Medication PT OWN MED: (Cyclobenzaprine (Flexeril)... TID PRN PO MUSCLE SPASM; Start 06/03/16 at 13:30 Piperacillin Sod/ Tazobactam Sod (Zosyn 2.25 Gm Premix) 50 ml @ 100 mls/hr Q8H IV Last administered on 06/04/16 12:44; Start 06/03/16 at 20:00; Stop at 17:22; Status DC Pravastatin Sodium 40 mg 40 mg DAILY PO Last administered on 06/05/16 09:22; Start 06/04/16 at 09:00 Senna/Docusate Sodium (Pamela-Colace) 2 tab BID PRN PO CONSTIPATION; Start at 13:00 Sodium Chloride (NS 1000 ml Inj) 1,000 ml @ 100 mls/hr Q10H IV Last administered on 06/05/16 04:47; Start 06/03/16 at 12:47 Sodium Chloride (NS 250 ml Inj) 250 ml @ 15 mls/hr ONCE ONCE IV Last administered on 06/05/16 13:59; Start 06/05/16 at 10:45; Stop 06/06/16 at 03:24 Sotalol HCl (Betapace) 80 mg BID PO Last administered on 06/05/16 09:22; Start 06/03/16 at 21:00 Tamsulosin HCl (Flomax) 0.4 mg HS PO Last administered on 06/04/16 22:03; Start 06/03/16 at 21:00 Temazepam (Restoril) 15 mg HS PRN PO INSOMNIA; Start 06/03/16 at 13:00 Torsemide (Demadex) 20 mg DAILY PO ; Start 06/04/16 at 09:00; Stop 06/04/16 at 09:00; Status DC Family History Noncontributory to current complaint. Social History No current history of illicit drug use. Physical Exam Vital Signs Vital Signs Date Time Temp Pulse Resp B/P Pulse Ox O2 Delivery O2 Flow Rate FiO2 06/05/16 12:36 17 06/05/16 12:06 96.7 69 20 87/50 96 06/05/16 08:42 95.3 73 20 123/67 96 06/05/16 04:00 96.3 67 20 91/61 94 06/05/16 00:00 96.0 73 20 125/57 95 06/04/16 20:56 97.0 72 16 116/66 94 Physical Exam GENERAL: Elderly male. Currently not in respiratory distress. SKIN: Warm and dry. HEAD: Normocephalic. EYES: No scleral icterus. No injection or drainage. NECK: Supple, trachea midline. No JVD or lymphadenopathy. CARDIOVASCULAR: Regular rate and rhythm without murmurs, gallops, or rubs. RESPIRATORY: Breath sounds equal bilaterally. No accessory muscle use. GASTROINTESTINAL: Abdomen soft, non-tender, nondistended. MUSCULOSKELETAL: No cyanosis, or trace edema ankles. Back brace in place not disturbed. BACK: Nontender without obvious deformity. No CVA tenderness. Laboratory Laboratory Tests Test 06/05/16 06/05/16 09:57 13:06 White Blood Count 7.4 Red Blood Count 3.96 Hemoglobin 11.8 Hematocrit 36.9 Mean Corpuscular Volume 93.2 Mean Corpuscular Hemoglobin 29.9 Mean Corpuscular Hemoglobin 32.1 Concent Red Cell Distribution Width 16.6 Platelet Count 151 Mean Platelet Volume 8.3 Prothrombin Time 25.9 Prothromb Time International 2.3 Ratio Sodium Level 140 Potassium Level 3.8 Chloride Level 102 Carbon Dioxide Level 31.8 Anion Gap 6 Blood Urea Nitrogen 41 Creatinine 1.70 Estimat Glomerular Filtration 38 Rate Random Glucose 90 Calcium Level 9.1 Blood Bank Comment Date/Time Procedure Status Source Growth 06/03/16 12:10 Aerobic Blood Culture - Preliminary Resulted Blood Peripheral NO GROWTH IN 2 DAYS 06/03/16 12:10 Anaerobic Blood Culture - Preliminary Resulted Blood Peripheral NO GROWTH IN 2 DAYS Result Diagram: 06/05/16 0957 06/05/[address] scan performed without hydronephrosis. Assessment and Plan Problem List: (1) Acute renal failure superimposed on stage 3 chronic kidney disease Plan: Most likely secondary to intravascular volume depletion on presentation improved. Creatinine appears to be back to baseline. (2) Chronic systolic (congestive) heart failure Plan: Patient's creatinine level appears to be back to baseline and in view of his history of severe cardiomyopathy will discontinue normal saline and reduce IV rate utilizing half normal saline. Patient's daughter concerned regarding reinitiating diuretic therapy at this time. I advised her in view of relatively low blood pressure early in the day and the fact that the patient has no clinical evidence of pulmonary congestion will hold off diuretic therapy for the present monitoring volume status in house. Given his severe cardiomyopathy he will require resumption of diuretic at some point in time however. (3) Secondary hyperparathyroidism, renal Plan: Check intact PTH level and vitamin D level. (4) CKD (chronic kidney disease) stage 3, GFR 30-59 ml/min Plan: Secondary to nephrosclerosis hypertension and aging. Medications should be adjusted for the patient's estimated GFR if clinically indicated. Avoid agents with significant potential for nephrotoxicity possible including NSAIDs for analgesia, iodine contrast agents. Gadolinium is contraindicated if the GFR is below 30. Discussed Condition With Patient's daughter and the patient. Fabricio Salazar MD Jun 05, 2016 16:41
--- NOTE | 2016-06-05 16:52 | HHI.NSPN ---
(Lucy Davis) Note Status Status: Progress Note (Abelino Ernandez MD) Interval History Interval History Mr. Mejia is a 89-year-old male who complains of axial lumbar pain. He reports his pain began 3 weeks ago when he bent over to put his shoes on. Since then he's been suffering of severe pain located in the upper lumbar region. He denies any radiating pain into his extremities. He denies focal weakness, bowel or bladder incontinence. He has a history of chronic renal disease as well as a fibrillator. A CT of the lumbar spine shows an L1 compression fracture. Mr. Oliveros reports his pain has been severe. Currently controlled on IV morphine. A neurosurgical evaluation was requested 06/05: INR elevated, awaiting FFP, continues to report of lumbar pain (Lucy Davis) Labs, Micro, & Vital Signs Results Date Time Temp Pulse Resp B/P Pulse Ox O2 Delivery O2 Flow Rate FiO2 06/05/16 16:43 95.9 73 20 120/64 96 06/05/16 12:36 17 06/05/16 12:06 96.7 69 20 87/50 96 06/05/16 08:42 95.3 73 20 123/67 96 06/05/16 04:00 96.3 67 20 91/61 94 06/05/16 00:00 96.0 73 20 125/57 95 06/04/16 20:56 97.0 72 16 116/66 94 06/05/16 07:00 Intake Total 1060 ml Balance 1060 ml Constitutional Vital Signs Date Time Temp Pulse Resp B/P Pulse Ox O2 Delivery O2 Flow Rate FiO2 06/05/16 16:43 95.9 73 20 120/64 96 06/05/16 12:36 17 06/05/16 12:06 96.7 69 20 87/50 96 06/05/16 08:42 95.3 73 20 123/67 96 06/05/16 04:00 96.3 67 20 91/61 94 06/05/16 00:00 96.0 73 20 125/57 95 06/04/16 20:56 97.0 72 16 116/66 94 06/05/16 07:00 Intake Total 1060 ml Balance 1060 ml (Lucy Davis) Review of Systems/Exam Exam Mr. Mejia is alert and oriented to person, place, and time. Speech is appropriate. Follows commands without difficulties. Back supported by TLSO brace. Cranial nerve examination: pupils to be equal, round, and reactive to light. Extra-ocular movements are intact with normal convergence. Facial motor are normal and symmetrical. The cervical spine shows mild decrease range of motion in flexion, extension, lateral bending and rotation due to age related spondylosis Muscle strength is 5/5 in all muscle groups of both upper extremities including deltoid, biceps, triceps, and tightening machine operator. In the lower extremities, strength is 5/5 in both iliopsoas, quadriceps, hamstrings, tibialis anterior, gastrocnemius, and extensor hallucis longus. Sensory examination is intact to light touch in both the upper and lower extremities, symmetrically. Deep tendon reflexes are 1+ and symmetrical in the biceps, triceps, and brachioradialis, bilaterally, in the upper extremities. In the lower extremities, the patellar and Achilles are trace, bilaterally. There is a bilateral plantar flexion response. Hoffmanns sign is negative. There is no clonus. Cerebellar examination is intact to [id number] test (Lucy Davis) Medications Current Medications Current Medications Medications (Trade) Dose Ordered Sig/Osmar Route PRN Reason Start Time Stop Time Status Last Admin Dose Admin Sodium Chloride (NS 1000 ml Inj) 1,000 ml @ 100 mls/hr Q10H IV 06/03/16 12:47 06/05/16 04:47 IV Flush (NS Flush) 2 ml UNSCH PRN FLUSH FLUSH AFTER USING IV ACCESS 06/03/16 13:00 IV Flush (NS Flush) 2 ml BID FLUSH 06/03/16 21:00 06/05/16 09:48 Acetaminophen (Tylenol) 650 mg Q4H PRN PO TEMP > 100.4 06/03/16 13:00 Ondansetron HCl (Zofran Inj) 4 mg Q6H PRN IVP NAUSEA OR VOMITING 06/03/16 13:00 Temazepam (Restoril) 15 mg HS PRN PO INSOMNIA 06/03/16 13:00 Acetaminophen (Tylenol) 650 mg Q6H PRN PO PAIN SCALE 1 TO 2 06/03/16 13:00 Acetaminophen/ Hydrocodone Bitart ([place] 5-325 Mg) 1 tab Q4H PRN PO PAIN SCALE 3 TO 5 06/03/16 13:00 Acetaminophen/ Hydrocodone Bitart ([place] 7.5-325 Mg) 1 tab Q4H PRN PO PAIN SCALE 6 TO 10 06/03/16 13:00 06/05/16 11:36 Morphine Sulfate (Morphine Inj) 4 mg Q1H PRN IV PAIN SCALE 7-10 (INTRACTABLE) 06/03/16 13:00 06/05/16 09:23 Naloxone HCl (Narcan Inj) 0.4 mg UNSCH PRN IV SEE LABEL COMMENTS 06/03/16 13:00 Enalaprilat (Vasotec Inj) 1.25 mg Q6H PRN IV PUSH SBP>160, DBP>90 06/03/16 13:00 Senna/Docusate Sodium ([place]amela-Colace) 2 tab BID PRN PO CONSTIPATION 06/03/16 13:00 Sotalol HCl (Betapace) 80 mg BID PO 06/03/16 21:00 06/05/16 09:22 Tamsulosin HCl (Flomax) 0.4 mg HS PO 06/03/16 21:00 06/04/16 22:03 Patient Own Medication PT OWN MED: (Cyclobenzaprine (Flexeril)... TID PRN PO MUSCLE SPASM 06/03/16 13:30 Pravastatin Sodium (Pravachol) 40 mg DAILY PO 06/04/16 09:00 06/05/16 09:22 Lactobacillus Acidophilus (Lactinex) 1 tab Q12HR PO 06/03/16 21:00 06/05/16 09:22 Carvedilol (Coreg) 3.125 mg BID PO 06/04/16 21:00 Ciprofloxacin (Cipro) 500 mg Q12HR PO 06/04/16 21:00 06/05/16 09:22 Metronidazole 500 mg 500 mg Q8HR PO 06/04/16 18:00 06/05/16 13:52 Sodium Chloride (NS 250 ml Inj) 250 ml @ 15 mls/hr ONCE ONCE IV 06/05/16 10:45 06/06/16 03:24 06/05/16 13:59 (Lucy Davis) Medical Decision Making MDM Remarks 89 y/o male with L1 compression fracture and severe axial lumbar pain Atrial Fibrillation previously on coumadin, this has been held (Lucy Davis) Plan Plan Remarks cont reversal of INR tentatively schedule for L1 Kyphoplasty tomorrow if INR revered I have discussed in detail including the [id number] details of the surgical procedure, its indications, alternatives, risks, and potential complications. Risks and potential complications include, but are not limited to, infection, blood loss, CSF leak, partial or complete loss of sight in one or both eyes, paresis, paralysis, permanent pain or difficulty swallowing, loss of bowel or bladder function, complications from anesthesia, blood clot, stroke, myocardial infarction, or even . (Lucy Davis) Attending Statement The exam, history, and the medical decision-making described in the above note were completed with the assistance of the mid-level provider. I reviewed and agree with the findings presented. I attest that I had a [id number] encounter with the patient on the same day, and personally performed and documented my assessment and findings in the medical record. (Abelino Ernandez MD) Lucy Davis Jun 05, 2016 16:52 Abelino Ernandez MD Jun 08, 2016 19:35
[2016-06-05] MEDS ORDERED: DEXT 5%-NACL 0.45% 1000 ML INJ 1,000 ML IV SCH (17:00)
[2016-06-05 21:02] LABS: INTERNATIONAL NORMALIZED RATIO 1.6 RATIO; PROTHROMBIN TIME - PATIENT 18.3 SEC (9.8-11.6)
[2016-06-05] MEDS: TAMSULOSIN HCL 0.4 MG CAP PO SCH (21:10)
[2016-06-06] VITALS (7 sets, daily range): BP systolic 94–130; BP diastolic 50–76; PULSE 69–72; RESP 16–20; TEMP 95.7–98.1; O2SAT 94–100
[2016-06-06] MEDS: ACETAMINOPHEN/HYDROcodone 325 MG/7.5 MG TAB PO PRN (05:39)
[2016-06-06] MEDS: metroNIDAZOLE 500 MG TAB PO SCH ×2 (05:39→18:23)
[2016-06-06 07:02] LABS: INTERNATIONAL NORMALIZED RATIO 1.6 RATIO; PROTHROMBIN TIME - PATIENT 18.6 SEC (9.8-11.6)
[2016-06-06 07:06] LABS: AUTOMATED NEUTROPHIL # 3.5 TH/MM3 (1.8-7.7); BASOPHIL % 0.7 % (0.0-2.0); EOSINOPHIL # 0.2 TH/MM3 (0-0.4); EOSINOPHIL % 4.4 % (0.0-4.0); HEMATOCRIT 30.9 % (39.0-51.0); HEMO FLAGS DIFF FINAL; LYMPH % 20.8 % (9.0-44.0); LYMPHOCYTE # 1.1 TH/MM3 (1.0-4.8); MEAN CELL VOLUME 91.7 FL (80.0-100.0); MEAN CORPUSCULAR HEMOGLOBIN 29.7 PG (27.0-34.0); MEAN CORPUSCULAR HGB CONC 32.4 % (32.0-36.0); MONO % 10.9 % (0.0-8.0); NEUT % 63.2 % (16.0-70.0); PLATELET COUNT 121 TH/MM3 (150-450); RED BLOOD COUNT 3.37 MIL/MM3 (4.50-5.90); RED CELL DISTRIBUTION WIDTH 16.4 % (11.6-17.2); WHITE BLOOD COUNT 5.5 TH/MM3 (4.0-11.0)
[2016-06-06 07:20] LABS: POTASSIUM 3.8 MEQ/L (3.5-5.1)
[2016-06-06] MEDS ORDERED: BUPIVACAINE/EPINEPHRINE 0.5% PF 30 ML VIAL ONE (07:29)
[2016-06-06] MEDS ORDERED: PHYTONADIONE INJ 1 MG/0.5 ML AMP SQ ONE ×2 (09:00→10:15)
[2016-06-06] MEDS ORDERED: PHYTONADIONE 10 MG/ML VIAL SQ STA (09:00)
[2016-06-06] MEDS ORDERED: SODIUM CHLOR 0.9% 250 ML INJ 250 ML IV ONE (09:15)
--- NOTE | 2016-06-06 09:17 | HHI.PR ---
Subjective Remarks This is a pleasant 89 y/o Male with History of CAD prior [place], status post CABG, PCI, TAVR(Transcatheter Aortic Valve Replacement) AICD placement, who came to ER with 3 weeks history of Low back pain, seen by PCP sent for muscle relaxants, but did not Improve, although he denies any radiation to lower extremities, bladder or bowel dysfunction however he is unable to lay still. he has History of Lung cancer, Prostate cancer, Atrial Fibrillation, CHF by history, GERD, Hyperlipidemia, Prior radiation therapy CKD, Discussed with Doctor Abelino Ernandez early in am and given to the patient low dose of Vitamin K, no indication for larger dosages of Vitamin K will be difficult to raise his INR after procedure performed, he is stable in bed, given two more units of FFP and Vitamin K 1 mg awaiting for Kyphoplasty. Kyphoplasty performed today June 06 2016 with diagnosis of L1 compression fracture. with General Anesthesia. Objective Vital Signs Date Time Temp Pulse Resp B/P Pulse Ox O2 Delivery O2 Flow Rate FiO2 06/06/16 08:33 96.2 72 17 119/67 95 06/06/16 04:00 95.9 69 20 94/50 94 06/06/16 00:00 97.6 71 20 94/50 95 06/05/16 20:00 96.4 70 20 118/56 98 06/05/16 16:44 70 18 107/58 96 06/05/16 16:43 95.9 73 20 120/64 96 06/05/16 16:30 95.4 70 17 118/65 94 06/05/16 16:11 70 18 123/69 97 06/05/16 16:09 70 20 120/64 97 06/05/16 15:00 95.7 69 20 96/53 95 06/05/16 14:45 95.7 69 18 96/53 95 06/05/16 14:25 95.4 70 19 93/54 97 06/05/16 14:10 95.9 70 18 99/54 96 06/05/16 12:36 17 06/05/16 12:06 96.7 69 20 87/50 96 I/O 06/05/16 06/05/16 06/05/16 06/06/16 06/06/16 06/06/16 07:00 15:00 23:00 07:00 15:00 23:00 Intake Total 720 ml 480 ml 1020 ml 360 ml Balance 720 ml 480 ml 1020 ml 360 ml Intake Oral 720 ml 480 ml IV Total 1020 ml 360 ml # Voids 2 3 1 # Bowel Movements 0 1 0 Result Diagram: 06/06/1662506/06/16 06 Imaging Last Impressions Lumbar Spine CT 06/03/16 0000 Signed Impressions: Service Date/Time: Friday, June 03, 2016 10:44 - CONCLUSION: Mild acute compression deformity of L1. This is amenable to vertebral augmentation if clinically indicated. No evidence of metastatic disease. Advanced degenerative disc disease at L4-5 and L5-S1. No other significant abnormalities. Zaid Charles MD Abdomen/Pelvis CT 06/03/16 0000 Signed Impressions: Service Date/Time: Friday, June 03, 2016 10:44 - CONCLUSION: 1. Diverticulitis of the sigmoid colon no perforation or abscess. 2. Status post cholecystectomy. 3. Small hiatal hernia. 4. Enlarged prostate. 5. Large fat containing left inguinal hernia. Darrell Christie MD Procedures No procedures performed to the patient. Other Results Laboratory Tests Test 06/04/16 06/05/16 06/06/16 07:47 13:06 06:26 Total Bilirubin 0.8 MG/DL Aspartate Amino Transf 21 U/L (AST/SGOT) Alanine Aminotransferase 20 U/L (ALT/SGPT) Alkaline Phosphatase 100 U/L Total Protein 5.9 GM/DL Albumin 2.6 GM/DL Blood Bank Comment White Blood Count 5.5 TH/MM3 Red Blood Count 3.37 MIL/MM3 Hemoglobin 10.0 GM/DL Hematocrit 30.9 % Mean Corpuscular Volume 91.7 FL Mean Corpuscular Hemoglobin 29.7 PG Mean Corpuscular Hemoglobin 32.4 % Concent Red Cell Distribution Width 16.4 % Platelet Count 121 TH/MM3 Mean Platelet Volume 8.0 FL Neutrophils (%) (Auto) 63.2 % Lymphocytes (%) (Auto) 20.8 % Monocytes (%) (Auto) 10.9 % Eosinophils (%) (Auto) 4.4 % Basophils (%) (Auto) 0.7 % Neutrophils # (Auto) 3.5 TH/MM3 Lymphocytes # (Auto) 1.1 TH/MM3 Monocytes # (Auto) 0.6 TH/MM3 Eosinophils # (Auto) 0.2 TH/MM3 Basophils # (Auto) 0.0 TH/MM3 CBC Comment DIFF FINAL Differential Comment Prothrombin Time 18.6 SEC Prothromb Time International 1.6 RATIO Ratio Sodium Level 139 MEQ/L Potassium Level 3.8 MEQ/L Chloride Level 103 MEQ/L Carbon Dioxide Level 30.0 MEQ/L Anion Gap 6 MEQ/L Blood Urea Nitrogen 35 MG/DL Creatinine 1.63 MG/DL Estimat Glomerular Filtration 40 ML/MIN Rate Random Glucose 124 MG/DL Calcium Level 8.7 MG/DL 25-Hydroxy Vitamin D Total 22.3 ng/ML Parathyroid Hormone (Intact) 50.8 PG/ML Objective Remarks GENERAL: This is a well-nourished, well-developed patient, in no apparent distress. SKIN: No rashes, ecchymoses or lesions. Cool and dry. HEAD: Atraumatic. Normocephalic. No temporal or scalp tenderness. EYES: Pupils equal round and reactive. Extraocular motions intact. No scleral icterus. No injection or drainage. ENT: Nose without bleeding, purulent drainage or septal hematoma. Throat without erythema, tonsillar hypertrophy or exudate. Uvula midline. Airway patent. NECK: Trachea midline. No JVD or lymphadenopathy. Supple, nontender, no meningeal signs. CARDIOVASCULAR: Regular rate and rhythm without murmurs, gallops, or rubs. RESPIRATORY: Clear to auscultation. Breath sounds equal bilaterally. No wheezes , rales, or rhonchi. GASTROINTESTINAL: Abdomen soft, non-tender, nondistended. No hepato-splenomegaly , or palpable masses. No guarding. MUSCULOSKELETAL: Extremities without clubbing, cyanosis, or edema. No joint tenderness, effusion, or edema noted. No calf tenderness. Negative Homans sign bilaterally. NEUROLOGICAL: Awake and alert. Cranial nerves II through XII intact. Motor and sensory grossly within normal limits. Five out of 5 muscle strength in all muscle groups. Normal speech. Medications and IVs Current Medications Medications (Trade) Dose Ordered Sig/Osmar Route Start Time Stop Time Status Last Admin (NS Flush) 2 ml UNSCH PRN FLUSH 06/03/16 13:00 (NS Flush) 2 ml BID FLUSH 06/03/16 21:00 06/05/16 09:48 (Tylenol) 650 mg Q4H PRN PO 06/03/16 13:00 (Zofran Inj) 4 mg Q6H PRN IVP 06/03/16 13:00 (Restoril) 15 mg HS PRN PO 06/03/16 13:00 (Tylenol) 650 mg Q6H PRN PO 06/03/16 13:00 ([place] 5-325 Mg) 1 tab Q4H PRN PO 06/03/16 13:00 ([place] 7.5-325 Mg) 1 tab Q4H PRN PO 06/03/16 13:00 06/06/16 05:39 (Morphine Inj) 4 mg Q1H PRN IV 06/03/16 13:00 06/05/16 09:23 (Narcan Inj) 0.4 mg UNSCH PRN IV 06/03/16 13:00 (Vasotec Inj) 1.25 mg Q6H PRN IV PUSH 06/03/16 13:00 ([place]-Colace) 2 tab BID PRN PO 06/03/16 13:00 (Betapace) 80 mg BID PO 06/03/16 21:00 06/05/16 09:22 (Flomax) 0.4 mg HS PO 06/03/16 21:00 06/05/16 21:10 Patient Own Medication PT OWN MED: (Cyclobenzaprine (Flexeril)... TID PRN PO 06/03/16 13:30 (Pravachol) 40 mg DAILY PO 06/04/16 09:00 06/05/16 09:22 (Lactinex) 1 tab Q12HR PO 06/03/16 21:00 06/05/16 21:11 (Coreg) 3.125 mg BID PO 06/04/16 21:00 (Cipro) 500 mg Q12HR PO 06/04/16 21:00 06/05/16 21:10 Metronidazole 500 mg 500 mg Q8HR PO 06/04/16 18:00 06/06/16 05:39 (D5W-1/2 NS 1000 ml Inj) 1,000 ml @ 30 mls/hr Q24H IV 06/05/16 17:00 06/05/16 19:25 Phytonadione 1 mg 1 mg ONCE ONCE SQ 06/06/16 09:00 06/06/16 09:01 UNV (NS 250 ml Inj) 250 ml @ 15 mls/hr ONCE ONCE IV 06/06/16 09:15 06/07/16 01:54 A/P Assessment and Plan 1. Acute L1 compression fracture seen in CT Lumbar, on Pain Management, TLSO Thoracolumbosacral Orthosis Neurosurgery Specialist Doctor Oma crowley, asked for Kyphoplasty, on hold Coumadin, to be performed once INR below 1.5, continue PT and OT, given two more Units of FFP and 1 mg of Vitamin K.Status post Kyphoplasty 2. History of Diverticulitis, CT abdomen and Pelvis has diverticulitis of the sigmoid colon, has no WBC, febrile abdominal pain, on Cipro and Metronidazole. 3. Hypotension Resolved re started Coreg and Sotalol 4. Acute on chronic Kidney disease stage III, status post IV fluids normal saline, Nephrology specialist following. 5. CAD status post CABG. Cardiomyopathy on hold Coreg 6. History of TARV (Transcatheter Aortic Valve Replacement) Now Status post Kyphoplasty patient stable will need to go Home on by mouth Warfarin and bridge with Lovenox if needed once cleared by Neurosurgery. SCDs for DVT prophylaxis. Resume Coumadin once procedure performed by neurosurgery Code Status Full code Discharge Planning Expected in one to two days. Allan Soares MD Jun 06, 2016 09:17
[2016-06-06] MEDS ORDERED: NEOSTIGMINE 3 MG/3 ML SYR IV ONE (09:49)
[2016-06-06] MEDS ORDERED: PHENYLEPH/NS 1000 MCG/10 ML SYR IV ONE (09:49)
[2016-06-06] MEDS ORDERED: PROPOFOL 200 MG/20 ML AMP IV ONE (09:49)
[2016-06-06] MEDS ORDERED: ONDANSETRON HCL 4 MG/2 ML VIAL IV PUSH ONE (09:50)
[2016-06-06] MEDS ORDERED: SODIUM CHLORID 0.9% 500 ML INJ 500 ML IV ONE (09:50)
--- NOTE | 2016-06-06 10:13 | HHI.NPPN ---
Subjective History of Present Illness This patient is an 89-year-old male with a history of multiple medical problems including chronic kidney disease stage III, cardiorenal syndrome the past, severe cardiomyopathy with an ejection fraction said to be 25-30% by echocardiogram April 2016, secondary hyperparathyroidism of renal disease as well as previous hypertension recently discharged from this institution after developing a GI bleed with evidence of gastritis and duodenal ulceration now admitted with compression fracture L1 with plans for kyphoplasty tomorrow. Patient's creatinine level was elevated at 2.5 on presentation. Patient received IV hydration and his creatinine level is now 1.7 which is within usual baseline range. Interval History Pt doing well today. Going for surgery this afternoon after transfusion of FFP and Vit K. (Amanda Grimes) Objective Data Data 06/05/16 06/06/16 19:00 07:00 Intake Total 1500 ml 360 ml Balance 1500 ml 360 ml Intake Oral 480 ml IV Total 1020 ml 360 ml # Voids 3 1 # Bowel Movements 1 0 Vital Signs Date Time Temp Pulse Resp B/P Pulse Ox O2 Delivery O2 Flow Rate FiO2 06/06/16 08:33 96.2 72 17 119/67 95 06/06/16 04:00 95.9 69 20 94/50 94 06/06/16 00:00 97.6 71 20 94/50 95 06/05/16 20:00 96.4 70 20 118/56 98 06/05/16 16:44 70 18 107/58 96 06/05/16 16:43 95.9 73 20 120/64 96 06/05/16 16:30 95.4 70 17 118/65 94 06/05/16 16:11 70 18 123/69 97 06/05/16 16:09 70 20 120/64 97 06/05/16 15:00 95.7 69 20 96/53 95 06/05/16 14:45 95.7 69 18 96/53 95 06/05/16 14:25 95.4 70 19 93/54 97 06/05/16 14:10 95.9 70 18 99/54 96 06/05/16 12:36 17 06/05/16 12:06 96.7 69 20 87/50 96 (Amanda Grimes) -: 06/06/16 0626 06/06/16 0626 Imaging Last Impressions Lumbar Spine CT 06/03/16 0000 Signed Impressions: Service Date/Time: Friday, June 03, 2016 10:44 - CONCLUSION: Mild acute compression deformity of L1. This is amenable to vertebral augmentation if clinically indicated. No evidence of metastatic disease. Advanced degenerative disc disease at L4-5 and L5-S1. No other significant abnormalities. Zaid Charles MD Abdomen/Pelvis CT 06/03/16 0000 Signed Impressions: Service Date/Time: Friday, June 03, 2016 10:44 - CONCLUSION: 1. Diverticulitis of the sigmoid colon no perforation or abscess. 2. Status post cholecystectomy. 3. Small hiatal hernia. 4. Enlarged prostate. 5. Large fat containing left inguinal hernia. Darrell Christie MD Medication Review Current Medications Medications (Trade) Dose Ordered Sig/Osmar Route Start Time Stop Time Status Last Admin (NS Flush) 2 ml UNSCH PRN FLUSH 06/03/16 13:00 (NS Flush) 2 ml BID FLUSH 06/03/16 21:00 06/05/16 09:48 (Tylenol) 650 mg Q4H PRN PO 06/03/16 13:00 (Zofran Inj) 4 mg Q6H PRN IVP 06/03/16 13:00 (Restoril) 15 mg HS PRN PO 06/03/16 13:00 (Tylenol) 650 mg Q6H PRN PO 06/03/16 13:00 ([place] 5-325 Mg) 1 tab Q4H PRN PO 06/03/16 13:00 ([place] 7.5-325 Mg) 1 tab Q4H PRN PO 06/03/16 13:00 06/06/16 05:39 (Morphine Inj) 4 mg Q1H PRN IV 06/03/16 13:00 06/05/16 09:23 (Narcan Inj) 0.4 mg UNSCH PRN IV 06/03/16 13:00 (Vasotec Inj) 1.25 mg Q6H PRN IV PUSH 06/03/16 13:00 ([place]-Colace) 2 tab BID PRN PO 06/03/16 13:00 (Betapace) 80 mg BID PO 06/03/16 21:00 06/05/16 09:22 (Flomax) 0.4 mg HS PO 06/03/16 21:00 06/05/16 21:10 Patient Own Medication PT OWN MED: (Cyclobenzaprine (Flexeril)... TID PRN PO 06/03/16 13:30 (Pravachol) 40 mg DAILY PO 06/04/16 09:00 06/05/16 09:22 (Lactinex) 1 tab Q12HR PO 06/03/16 21:00 06/05/16 21:11 (Coreg) 3.125 mg BID PO 06/04/16 21:00 (Cipro) 500 mg Q12HR PO 06/04/16 21:00 06/05/16 21:10 Metronidazole 500 mg 500 mg Q8HR PO 06/04/16 18:00 06/06/16 05:39 Dextrose/Sodium Chloride 1,000 ml @ 30 mls/hr Q24H IV 06/05/16 17:00 06/05/16 19:25 (NS 250 ml Inj) 250 ml @ 15 mls/hr ONCE ONCE IV 06/06/16 09:15 06/07/16 01:54 (Amanda Grimes) Physical Exam General Appearance: No Acute Distress (Amanda Grimes) Pulmonary Resp Exam: Clear Bilaterally, Breath Sounds Equal (Amanda Grimes) Cardiology CV Exam: Regular, Normal Sinus Rhythm (Amanda Grimes) Gastrointestinal/Abdomen GI Exam: Soft, Non-Tender (Amanda Grimes) Integumentary Skin Exam: Clear, Warm (Amanda Grimes) Extremeties Extremities Exam: Trace Edema Extremeties Remarks Bilat ankles, pre-tibial (Amanda Grimes) Neurologic Neuro Exam: Alert, Awake, Oriented (Amanda Grimes) Psychiatric Psych Exam: Appropriate Responses (Amanda Grimes) Assessment/Plan Problem List: (1) Acute renal failure superimposed on stage 3 chronic kidney disease Plan: Most likely secondary to intravascular volume depletion on presentation improved. Creatinine appears to be back to baseline. (2) Chronic systolic (congestive) heart failure Plan: No signs of fluid overload. Continue on D5 1/2NS at 30mL/hr. BP marginal. Monitor. (3) Secondary hyperparathyroidism, renal Plan: Resume Vitamin D3 2000IU once daily (4) CKD (chronic kidney disease) stage 3, GFR 30-59 ml/min Plan: Secondary to nephrosclerosis hypertension and aging. Medications should be adjusted for the patient's estimated GFR if clinically indicated. Avoid agents with significant potential for nephrotoxicity possible including NSAIDs for analgesia, iodine contrast agents. Gadolinium is contraindicated if the GFR is below 30. (Amanda Grimes) Amanda Grimes Jun 06, 2016 10:13 Fabricio Salazar MD Jun 07, 2016 11:17
[2016-06-06] MEDS: MORPHINE SULFATE 4 MG/ML INJ IV PRN (10:35)
[2016-06-06] MEDS: LACTOBACILLUS ACIDOPHILUS TAB PO SCH ×2 (10:40→20:04)
[2016-06-06] MEDS: CARVEDILOL 3.125 MG TAB PO SCH ×2 (10:40→20:04)
[2016-06-06] MEDS: CIPROFLOXACIN 500 MG TAB PO SCH ×2 (10:40→20:04)
[2016-06-06] MEDS: PRAVASTATIN SOD 40 MG TAB PO SCH (10:40)
[2016-06-06] MEDS: SOTALOL HCL 80 MG TAB PO SCH ×2 (10:45→20:04)
[2016-06-06] MEDS ORDERED: KETAMINE HCL 500 MG/5 ML VIAL ONE (11:41)
[2016-06-06] MEDS ORDERED: FAMOTIDINE 20 MG/2 ML VIAL ONE (11:42)
[2016-06-06] MEDS ORDERED: MIDAZOLAM HCL 2 MG/2 ML VIAL ONE (11:42)
[2016-06-06] MEDS ORDERED: IOHEXOL 350 MG/ML 10 ML VIAL (for RAD DIAG) ONE (12:32)
[2016-06-06 12:59] LABS: INTERNATIONAL NORMALIZED RATIO 1.4 RATIO; PROTHROMBIN TIME - PATIENT 15.4 SEC (9.8-11.6)
[2016-06-06] MEDS ORDERED: DO NOT ADM ANY ANTICOAGULANT DRUGS XX PRN (13:19)
[2016-06-06] MEDS ORDERED: SODIUM CHLORIDE 0.9% FLUSH 5 ML FLUSH IVF PRN (13:30)
[2016-06-06] MEDS ORDERED: *morphine SULFATE 8 MG/ML PERIprocedure ONLY ONE ×3 (13:37→13:52)
[2016-06-06] MEDS ORDERED: *HYDROmorphone PF 1 MG VIAL PERIprocedural Use ONLY ONE ×2 (14:16→14:33)
--- NOTE | 2016-06-06 14:26 | PD.OP ---
Operative Report Date of Surgery: Jun 06, 2016 Preoperative Diagnosis: L1 compression fracture Postoperative Diagnosis: L1 compression fracture Procedure: L1 kyphoplasty Anesthesia: general Surgeon: Abelino Ernandez Staff Development Nurse(s): HAKEEM Operation and Findings: INDICATIONS FOR THE PROCEDURE Mr Mejia is a 89 year-old male who presented with intractable pain related to a L1 compression fracture. He failed nonsurgical management and a kyphoplasty was indicated as the most appropriate form of treatment. The [id number] details of the procedure, indications, alternatives, risks and potential complications were fully discussed with the patient. Mr Mejia fully understood. All The questions were answered. No guarantees were given. The patient voiced requesting the procedure and provided informed consents. The patient was offered the alternative of delaying the procedure and continuing with nonsurgical management. DETAILS OF THE SURGICAL PROCEDURE The patient was brought to the operating room and after the induction of general anesthesia, endotracheal intubation was performed. A [place] catheter and bilateral LOTUS hose and sequential compression devices were placed and kept throughout the procedure. The patient was positioned prone on the [place] table over gel rods. All pressure points were carefully padded with egg crate mattress. The eyes were tapped shut after ointment was applied by the anesthesiologist to prevent corneal abrasion. A [place] hugger was placed over the exposed lower body to maintain control of the core body temperature. The lumbar region was prepped and draped in the usual sterile fashion. The C-arms were brought to the field and simultaneous AP and lateral x-rays were obtained. The levels were carefully counted and the pedicles of L1 were marked over the skin. An entry point was selected 1 centimeter superior and 1 centimeter lateral to the pedicle. Two small incisions were outlined on the skin and infiltrated with 1% lidocaine with epinephrine in 1:100,000 dilution. Initially, two small skin incisions were made with a #11 blade. Then, Jamshidi needles were carefully advanced to the entrance of the pedicle, and then into the vertebral body under continuous fluoroscopic guidance. K-wires were placed inside the vertebral body of and the needles were carefully removed. A drill was used to create a trough into the vertebral body to insert a cannula. Once the cannula was located through the pedicle, the drill was removed and bilateral balloons were inserted into the T11 vertebral body for vertebral augmentation. A careful expansion of the balloon under continuous fluoroscopic guidance and manometric evaluation allowed expansion of the vertebral body. Then , the balloons were deflated and carefully removed and the voids created in the vertebral body were filled with bone cement under fluoroscopic visualization. A very good expansion of the vertebral bodies was achieved without evidence of extravasation or cement or other complications. The cannulas were then removed. The incisions were closed using a single stitch at each incision. Dermabond was applied to the skin. At the end of the procedure, the sponge, needle, instrument counts correct. The estimated blood loss as minimal. No intraoperative complications occurred. The patient received prophylactic antibiotics. The patient was then extubated and transferred to the recovery room in stable condition. Abelino Ernandez MD Jun 06, 2016 14:26
[2016-06-06] MEDS: NS + KCL 20 MEQ INJ 1,000 ML IV SCH (14:59)
[2016-06-06] MEDS ORDERED: ACETAMINOPHEN 325 MG TAB PO PRN (15:00)
[2016-06-06] MEDS ORDERED: ACETAMINOPHEN/HYDROcodone 325 MG/10 MG TAB PO PRN (15:00)
[2016-06-06] MEDS ORDERED: MORPHINE SULFATE 4 MG/ML INJ IV PUSH PRN (15:00)
--- NOTE | 2016-06-06 15:24 | RADRPT ---
EXAM DATE/TIME: 06/06/2016 12:12 [facility] COMPARISON: No previous studies available for comparison. INDICATIONS : L1 Kyphoplasty. MEDICAL HISTORY : Cardiovascular disease. Congestive heart failure. Gastroesophageal reflux SURGICAL HISTORY : CABG. Appendectomy. Cholecystectomy. ENCOUNTER: Subsequent ACUITY: 3 days PAIN SCORE: Non-responsive. LOCATION: Lumbar spine. FINDINGS: Two view examination was performed. The patient is status post kyphoplasty at the L1 level. The cont rast is well placed. There is a compression deformity of the superior aspect of L1. CONCLUSION: Successful L1 kyphoplasty. Canelo Kwon MD on June 06, 2016 at 15:20 Board Certified Radiologist. This report was verified electronically.
[2016-06-06] MEDS: ceFAZolin 2 GM PREMIX 50 ML IV SCH ×2 (16:44→22:59)
[2016-06-06] MEDS: MORPHINE SULFATE 4 MG/ML INJ IV PUSH PRN ×2 (19:27→23:05)
[2016-06-06] MEDS: DOCUSATE SODIUM 100 MG CAP PO SCH (20:04)
[2016-06-06] MEDS: TAMSULOSIN HCL 0.4 MG CAP PO SCH (20:04)
[2016-06-06] MEDS: SODIUM CHLORIDE 0.9% FLUSH 5 ML FLUSH IVF SCH (20:05)
[2016-06-06] MEDS: ACETAMINOPHEN/HYDROcodone 325 MG/10 MG TAB PO PRN (20:19)
[2016-06-07] VITALS (8 sets, daily range): BP systolic 96–132; BP diastolic 51–82; PULSE 73–96; RESP 16–20; TEMP 95–99; O2SAT 63–98
[2016-06-07] MEDS: ACETAMINOPHEN/HYDROcodone 325 MG/10 MG TAB PO PRN ×2 (00:57→06:04)
[2016-06-07] MEDS: NS + KCL 20 MEQ INJ 1,000 ML IV SCH (01:00)
[2016-06-07] MEDS: metroNIDAZOLE 500 MG TAB PO SCH ×3 (03:11→16:57)
[2016-06-07] MEDS: ceFAZolin 2 GM PREMIX 50 ML IV SCH (06:03)
[2016-06-07 07:51] LABS: BICARBONATE 26.9 MEQ/L (21.0-32.0); POTASSIUM 4.5 MEQ/L (3.5-5.1)
--- NOTE | 2016-06-07 08:01 | HHI.PR ---
Subjective Remarks This is a pleasant 89 y/o Male with History of CAD prior ND, status post CABG, PCI, TAVR(Transcatheter Aortic Valve Replacement) AICD placement, who came to ER with 3 weeks history of Low back pain, seen by PCP sent for muscle relaxants, but did not Improve, although he denies any radiation to lower extremities, bladder or bowel dysfunction however he is unable to lay still. he has History of Lung cancer, Prostate cancer, Atrial Fibrillation, CHF by history, GERD, Hyperlipidemia, Prior radiation therapy CKD, Discussed with Doctor Abelino Ernandez early in am and given to the patient low dose of Vitamin K, no indication for larger dosages of Vitamin K will be difficult to raise his INR after procedure performed, he is stable in bed, given two more units of FFP and Vitamin K 1 mg awaiting for Kyphoplasty. Kyphoplasty performed today June 06 2016 with diagnosis of L1 compression fracture. with General Anesthesia. 06/07 Seen in his bedroom in the presence of nurse Miss Viveros, explained that he will need bridging with Lovenox and Warfarin for discharge, he has no pain at this time and asked me to stop Pain medicine, was explained he has pain medicine PRN and he has to ask for it to be given in case of pain, he states understands , all questions answered awaiting for final recommendations by Neurosurgery. Objective Vital Signs Date Time Temp Pulse Resp B/P Pulse Ox O2 Delivery O2 Flow Rate FiO2 06/07/16 04:00 96.6 74 18 99/55 74 06/07/16 04:00 96.6 74 18 99/55 93 06/07/16 00:00 95.0 83 18 132/81 95 06/06/16 20:00 97.6 72 16 130/76 96 06/06/16 16:10 98.1 70 17 124/72 98 06/06/16 15:48 98 Nasal Cannula 3.00 06/06/16 14:35 69 16 130/81 98 Nasal Cannula 3 06/06/16 13:19 97.6 76 16 121/77 97 Simple Mask 06/06/16 09:10 95.7 70 18 118/66 100 06/06/16 08:33 96.2 72 17 119/67 95 I/O 06/06/16 06/06/16 06/06/16 06/07/16 06/07/16 06/07/16 07:00 15:00 23:00 07:00 15:00 23:00 Intake Total 360 ml 450 ml 720 ml Output Total 0 ml Balance 360 ml 450 ml 720 ml Intake Oral 720 ml IV Total 360 ml Other 450 ml Output Estimated Blood Loss 0 ml # Voids 1 3 4 # Bowel Movements 0 2 Result Diagram: 06/06/16 0626 06/07/16 0640 Imaging Last Impressions Lumbar Spine X-Ray 06/06/16 0000 Signed Impressions: Service Date/Time: Monday, June 06, 2016 12:12 - CONCLUSION: Successful L1 kyphoplasty. Canelo Kwon MD Lumbar Spine CT 06/03/16 0000 Signed Impressions: Service Date/Time: Friday, June 03, 2016 10:44 - CONCLUSION: Mild acute compression deformity of L1. This is amenable to vertebral augmentation if clinically indicated. No evidence of metastatic disease. Advanced degenerative disc disease at L4-5 and L5-S1. No other significant abnormalities. Zaid Charles MD Abdomen/Pelvis CT 06/03/16 0000 Signed Impressions: Service Date/Time: Friday, June 03, 2016 10:44 - CONCLUSION: 1. Diverticulitis of the sigmoid colon no perforation or abscess. 2. Status post cholecystectomy. 3. Small hiatal hernia. 4. Enlarged prostate. 5. Large fat containing left inguinal hernia. Darrell Christie MD Procedures No procedures performed to the patient. Other Results Laboratory Tests Test 06/04/16 06/06/16 06/06/16 06/06/16 07:47 06:26 09:58 12:37 Total Bilirubin 0.8 MG/DL Aspartate Amino Transf 21 U/L (AST/SGOT) Alanine Aminotransferase 20 U/L (ALT/SGPT) Alkaline Phosphatase 100 U/L Total Protein 5.9 GM/DL White Blood Count 5.5 TH/MM3 Red Blood Count 3.37 MIL/MM3 Hemoglobin 10.0 GM/DL Hematocrit 30.9 % Mean Corpuscular Volume 91.7 FL Mean Corpuscular Hemoglobin 29.7 PG Mean Corpuscular Hemoglobin 32.4 % Concent Red Cell Distribution Width 16.4 % Platelet Count 121 TH/MM3 Mean Platelet Volume 8.0 FL Neutrophils (%) (Auto) 63.2 % Lymphocytes (%) (Auto) 20.8 % Monocytes (%) (Auto) 10.9 % Eosinophils (%) (Auto) 4.4 % Basophils (%) (Auto) 0.7 % Neutrophils # (Auto) 3.5 TH/MM3 Lymphocytes # (Auto) 1.1 TH/MM3 Monocytes # (Auto) 0.6 TH/MM3 Eosinophils # (Auto) 0.2 TH/MM3 Basophils # (Auto) 0.0 TH/MM3 CBC Comment DIFF FINAL Differential Comment 25-Hydroxy Vitamin D Total 22.3 ng/ML Parathyroid Hormone (Intact) 50.8 PG/ML Blood Bank Comment Prothrombin Time 15.4 SEC Prothromb Time International 1.4 RATIO Ratio Test 06/07/16 06:40 Sodium Level 140 MEQ/L Potassium Level 4.5 MEQ/L Chloride Level 104 MEQ/L Carbon Dioxide Level 26.9 MEQ/L Anion Gap 9 MEQ/L Blood Urea Nitrogen 33 MG/DL Creatinine 1.72 MG/DL Estimat Glomerular Filtration 38 ML/MIN Rate Random Glucose 81 MG/DL Calcium Level 8.7 MG/DL Phosphorus Level 2.7 MG/DL Albumin 2.7 GM/DL Objective Remarks GENERAL: This is a well-nourished, well-developed patient, in no apparent distress. SKIN: No rashes, ecchymoses or lesions. Cool and dry. HEAD: Atraumatic. Normocephalic. No temporal or scalp tenderness. EYES: Pupils equal round and reactive. Extraocular motions intact. No scleral icterus. No injection or drainage. ENT: Nose without bleeding, purulent drainage or septal hematoma. Throat without erythema, tonsillar hypertrophy or exudate. Uvula midline. Airway patent. NECK: Trachea midline. No JVD or lymphadenopathy. Supple, nontender, no meningeal signs. CARDIOVASCULAR: Irregular rhythm secondary to some PVCs hears, but no murmurs. RESPIRATORY: Clear to auscultation. Breath sounds equal bilaterally. No wheezes , rales, or rhonchi. Brace in place. GASTROINTESTINAL: Abdomen soft, non-tender, nondistended. No hepato-splenomegaly , or palpable masses. No guarding. MUSCULOSKELETAL: Extremities without clubbing, cyanosis, or edema. No joint tenderness, effusion, or edema noted. No calf tenderness. Negative Homans sign bilaterally. NEUROLOGICAL: Awake and alert. Cranial nerves II through XII intact. Motor and sensory grossly within normal limits. Five out of 5 muscle strength in all muscle groups. Normal speech. Medications and IVs Current Medications Medications (Trade) Dose Ordered Sig/Osmar Route Start Time Stop Time Status Last Admin (Zofran Inj) 4 mg Q6H PRN IVP 06/03/16 13:00 (Restoril) 15 mg HS PRN PO 06/03/16 13:00 (Narcan Inj) 0.4 mg UNSCH PRN IV 06/03/16 13:00 (Vasotec Inj) 1.25 mg Q6H PRN IV PUSH 06/03/16 13:00 (Pamela-Colace) 2 tab BID PRN PO 06/03/16 13:00 (Betapace) 80 mg BID PO 06/03/16 21:00 06/06/16 20:04 (Flomax) 0.4 mg HS PO 06/03/16 21:00 06/06/16 20:04 Patient Own Medication PT OWN MED: (Cyclobenzaprine (Flexeril)... TID PRN PO 06/03/16 13:30 (Pravachol) 40 mg DAILY PO 06/04/16 09:00 06/06/16 10:40 (Lactinex) 1 tab Q12HR PO 06/03/16 21:00 06/06/16 20:04 (Coreg) 3.125 mg BID PO 06/04/16 21:00 06/06/16 20:04 (Cipro) 500 mg Q12HR PO 06/04/16 21:00 06/06/16 20:04 Cholecalciferol 2000 units 2,000 units DAILY PO 06/07/16 09:00 (NS + KCl 20 Meq Inj) 1,000 ml @ 100 mls/hr Q10H IV 06/06/16 15:00 06/06/16 14:59 (NS Flush) 2 ml UNSCH PRN IVF 06/06/16 13:30 (NS Flush) 2 ml BID IVF 06/06/16 21:00 (Colace) 100 mg BID PO 06/06/16 21:00 06/06/16 20:04 (Protonix) 40 mg DAILY PO 06/07/16 09:00 (Roy 10-325 Mg) 1 tab Q4H PRN PO 06/06/16 15:00 (Roy 10-325 Mg) 2 tab Q4H PRN PO 06/06/16 15:00 06/07/16 06:04 (Morphine Inj) 2 mg Q2H PRN IV PUSH 06/06/16 15:00 (Morphine Inj) 4 mg Q2H PRN IV PUSH 06/06/16 15:00 06/06/16 23:05 (Tylenol) 650 mg Q4H PRN PO 06/06/16 15:00 Miscellaneous Information ALL NURSING DEPARTME... UNSCH PRN XX 06/06/16 13:19 06/07/16 13:18 (Flagyl) 500 mg Q8H PO 06/06/16 18:19 06/07/16 03:11 A/P Assessment and Plan 1. Acute L1 compression fracture seen in CT Lumbar, on Pain Management, TLSO Thoracolumbosacral Orthosis Neurosurgery Specialist Doctor Oma performed Kyphoplasty 06/06/16 awaiting final recommendations. as per PT will go home on [facility] for PT and Skilled nurse will be added. 2. History of Diverticulitis, CT abdomen and Pelvis has diverticulitis of the sigmoid colon, has no WBC, febrile abdominal pain, on Cipro and Metronidazole. 3. Hypotension Resolved re started Coreg and Sotalol. 4. Acute on chronic Kidney disease stage III, status post IV fluids normal saline, Nephrology specialist following. at this time at baseline will follow off IV fluids, he is eating and drinking well. 5. CAD status post CABG. Cardiomyopathy on hold Coreg 6. History of TARV (Transcatheter Aortic Valve Replacement) 7. Chronic systolic CHF, no signs of overload but at this time will discontinue IV fluids and follow 8. CAD status post CABG, Ischemic Cardiomyopathy, history of Cardiac Resynchronization Therapy Defibrillator [employer] in place at this time sinus rhythm with some PVCs. Discussed with patient and nurse Miss Viveros in the room all questions explained to the best of my abilities. Now Status post Kyphoplasty patient stable will need to go Home on by mouth Warfarin and bridge with Lovenox if needed once cleared by Neurosurgery. SCDs for DVT prophylaxis. Resume Coumadin once procedure performed by neurosurgery Code Status Full code Discharge Planning Awaiting final recommendations by Neurosurgery for discharge Allan Soares MD Jun 07, 2016 08:01
[2016-06-07] MEDS: SODIUM CHLORIDE 0.9% FLUSH 5 ML FLUSH IVF SCH ×2 (08:53→20:47)
[2016-06-07] MEDS: LACTOBACILLUS ACIDOPHILUS TAB PO SCH ×2 (08:53→20:47)
[2016-06-07] MEDS: CHOLECALCIFEROL (VIT D3) 1000 UNIT TAB PO SCH (08:54)
[2016-06-07] MEDS: PANTOPRAZOLE SOD 40 MG DELAYED RELEASE TAB PO SCH (08:54)
[2016-06-07] MEDS: PRAVASTATIN SOD 40 MG TAB PO SCH (08:55)
[2016-06-07] MEDS: DOCUSATE SODIUM 100 MG CAP PO SCH ×2 (08:55→20:47)
[2016-06-07] MEDS: CARVEDILOL 3.125 MG TAB PO SCH ×2 (08:55→20:47)
[2016-06-07] MEDS: SOTALOL HCL 80 MG TAB PO SCH ×2 (08:56→20:47)
[2016-06-07] MEDS: CIPROFLOXACIN 500 MG TAB PO SCH (13:54)
--- NOTE | 2016-06-07 15:47 | HHI.NPPN ---
Subjective History of Present Illness This patient is an 89-year-old male with a history of multiple medical problems including chronic kidney disease stage III, cardiorenal syndrome the past, severe cardiomyopathy with an ejection fraction said to be 25-30% by echocardiogram April 2016, secondary hyperparathyroidism of renal disease as well as previous hypertension recently discharged from this institution after developing a GI bleed with evidence of gastritis and duodenal ulceration now admitted with compression fracture L1 with plans for kyphoplasty tomorrow. Patient's creatinine level was elevated at 2.5 on presentation. Patient received IV hydration and his creatinine level is now 1.7 which is within usual baseline range. Interval History Patient indicates his back pain is improved significantly since the procedure. Also indicating appetite back to normal and he is drinking fluids normally. Objective Data Data 06/06/16 06/07/16 19:00 07:00 Intake Total 450 ml 720 ml Output Total 0 ml Balance 450 ml 720 ml Intake Oral 720 ml Other 450 ml Output Estimated Blood Loss 0 ml # Voids 3 4 # Bowel Movements 2 Vital Signs Date Time Temp Pulse Resp B/P Pulse Ox O2 Delivery O2 Flow Rate FiO2 06/07/16 12:34 99.0 73 18 102/51 93 06/07/16 09:10 95 21 06/07/16 08:33 96.9 76 18 115/61 92 06/07/16 04:00 96.6 74 18 99/55 74 06/07/16 04:00 96.6 74 18 99/55 93 06/07/16 00:00 95.0 83 18 132/81 95 06/06/16 20:00 97.6 72 16 130/76 96 06/06/16 16:10 98.1 70 17 124/72 98 06/06/16 15:48 98 Nasal Cannula 3.00 -: 06/06/16 0626 06/07/16 0640 Medication Review Current Medications Morphine Sulfate (Morphine Inj) 5 mg ONCE ONCE IV PUSH Last administered on 10:08; Start 06/03/16 at 10:00; Stop 06/03/16 at 10:01; Status DC Lorazepam 0.5 mg 0.5 mg ONCE ONCE IV PUSH Last administered on 06/03/16 10:08 ; Start 06/03/16 at 10:00; Stop 06/03/16 at 10:01; Status DC Sodium Chloride 500 ml @ 500 mls/hr BOLUS ONCE IV Last administered on 10:08; Start 06/03/16 at 10:00; Stop 06/03/16 at 10:59; Status DC Sodium Chloride 500 ml @ 500 mls/hr BOLUS ONCE IV Last administered on 11:23; Start 06/03/16 at 10:45; Stop 06/03/16 at 11:44; Status DC Piperacillin Sod/ Tazobactam Sod 100 ml @ 200 mls/hr ONCE ONCE IV Last administered on 06/03/16 12:11; Start 06/03/16 at 12:00; Stop 06/03/16 at 12:29 ; Status DC Sodium Chloride (NS 1000 ml Inj) 1,000 ml @ 100 mls/hr Q10H IV Last administered on 06/05/16 04:47; Start 06/03/16 at 12:47; Stop 06/05/16 at 16:47 ; Status DC IV Flush (NS Flush) 2 ml UNSCH PRN FLUSH FLUSH AFTER USING IV ACCESS; Start at 13:00; Stop 06/06/16 at 14:10; Status DC IV Flush (NS Flush) 2 ml BID FLUSH Last administered on 06/05/16 09:48; Start 06/03/16 at 21:00; Stop 06/06/16 at 14:10; Status DC Acetaminophen (Tylenol) 650 mg Q4H PRN PO TEMP > 100.4; Start 06/03/16 at 13:00 ; Stop 06/06/16 at 14:06; Status DC Ondansetron HCl (Zofran Inj) 4 mg Q6H PRN IVP NAUSEA OR VOMITING; Start at 13:00 Temazepam (Restoril) 15 mg HS PRN PO INSOMNIA; Start 06/03/16 at 13:00 Acetaminophen (Tylenol) 650 mg Q6H PRN PO PAIN SCALE 1 TO 2; Start 06/03/16 at 13:00; Stop 06/06/16 at 14:06; Status DC Acetaminophen/ Hydrocodone Bitart (Kempner 5-325 Mg) 1 tab Q4H PRN PO PAIN SCALE 3 TO 5; Start 06/03/16 at 13:00; Stop 06/06/16 at 14:05; Status DC Acetaminophen/ Hydrocodone Bitart (Kempner 7.5-325 Mg) 1 tab Q4H PRN PO PAIN SCALE 6 TO 10 Last administered on 06/06/16 05:39; Start 06/03/16 at 13:00; Stop 06/06/16 at 14:05; Status DC Morphine Sulfate (Morphine Inj) 4 mg Q1H PRN IV PAIN SCALE 7-10 (INTRACTABLE) Last administered on 06/06/16 10:35; Start 06/03/16 at 13:00; Stop 06/06/16 at 14:09; Status DC Naloxone HCl (Narcan Inj) 0.4 mg UNSCH PRN IV SEE LABEL COMMENTS; Start at 13:00 Enalaprilat (Vasotec Inj) 1.25 mg Q6H PRN IV PUSH SBP>160, DBP>90; Start 06/03 at 13:00 Senna/Docusate Sodium (Pamela-Colace) 2 tab BID PRN PO CONSTIPATION; Start at 13:00 Albuterol/ Ipratropium (Duoneb Neb) 1 ampule Q2HR NEB PRN NEB SOB/WHEEZING; Start 06/03/16 at 13:00 Carvedilol (Coreg) 6.25 mg Q12HR PO ; Start 06/03/16 at 21:00; Stop 06/03/16 at 21:00; Status DC Sotalol HCl (Betapace) 80 mg BID PO Last administered on 06/07/16 08:56; Start 06/03/16 at 21:00 Tamsulosin HCl (Flomax) 0.4 mg HS PO Last administered on 06/06/16 20:04; Start 06/03/16 at 21:00 Torsemide (Demadex) 20 mg DAILY PO ; Start 06/04/16 at 09:00; Stop 06/04/16 at 09:00; Status DC Patient Own Medication PT OWN MED: (Cyclobenzaprine (Flexeril)... TID PRN PO MUSCLE SPASM; Start 06/03/16 at 13:30 Pravastatin Sodium 40 mg 40 mg DAILY PO Last administered on 06/07/16 08:55; Start 06/04/16 at 09:00 Piperacillin Sod/ Tazobactam Sod (Zosyn 2.25 Gm Premix) 50 ml @ 100 mls/hr Q8H IV Last administered on 06/04/16 12:44; Start 06/03/16 at 20:00; Stop at 17:22; Status DC Lactobacillus Acidophilus (Lactinex) 1 tab Q12HR PO Last administered on 08:53; Start 06/03/16 at 21:00 Carvedilol (Coreg) 3.125 mg Q12HR PO Last administered on 06/04/16 22:03; Start 06/03/16 at 21:00; Stop 06/04/16 at 23:13; Status DC Carvedilol (Coreg) 3.125 mg BID PO Last administered on 06/07/16 08:55; Start 06/04/16 at 21:00 Ciprofloxacin (Cipro) 500 mg Q12HR PO Last administered on 06/06/16 20:04; Start 06/04/16 at 21:00; Stop 06/07/16 at 08:22; Status DC Metronidazole 500 mg 500 mg Q8HR PO Last administered on 06/06/16 05:39; Start 06/04/16 at 18:00; Stop 06/06/16 at 18:19; Status DC Sodium Chloride 250 ml @ 15 mls/hr ONCE ONCE IV Last administered on 13:59; Start 06/05/16 at 10:45; Stop 06/06/16 at 03:24; Status DC Dextrose/Sodium Chloride (D5W-1/2 NS 1000 ml Inj) 1,000 ml @ 30 mls/hr Q24H IV Last administered on 06/05/16 19:25; Start 06/05/16 at 17:00; Stop 06/06/16 at 14:13; Status DC Bupivacaine HCl/ Epinephrine Bitart (Sensorcaine-Epinephrine Pf 0.5% Inj) 30 ml STK-MED ONCE .ROUTE Last administered on 06/06/16 12:32; Start 06/06/16 at 07: 29; Stop 06/06/16 at 07:30; Status DC Phytonadione (Vitamin K Inj) 10 mg ONCE STAT SQ ; Start 06/06/16 at 09:00; Stop 06/06/16 at 09:01; Status Cancel Phytonadione 1 mg 1 mg ONCE ONCE SQ ; Start 06/06/16 at 09:00; Stop 06/06/16 at 09:01; Status Cancel Sodium Chloride (NS 250 ml Inj) 250 ml @ 15 mls/hr ONCE ONCE IV Last administered on 06/06/16 10:35; Start 06/06/16 at 09:15; Stop 06/07/16 at 01:54 ; Status DC Phytonadione (Aquamephyton Inj) 1 mg ONCE ONCE SQ Last administered on 11:20; Start 06/06/16 at 10:15; Stop 06/06/16 at 10:16; Status DC Cholecalciferol (Vitamin D3) 2,000 units DAILY PO Last administered on 08:54; Start 06/07/16 at 09:00 Ketamine HCl (Ketalar Inj) 500 mg STK-MED ONCE .ROUTE ; Start 06/06/16 at 11:41 ; Stop 06/06/16 at 11:42; Status DC Famotidine (Pepcid Inj) 20 mg STK-MED ONCE .ROUTE ; Start 06/06/16 at 11:42; Stop 06/06/16 at 11:43; Status DC Midazolam HCl (Versed Inj) 2 mg STK-MED ONCE .ROUTE ; Start 06/06/16 at 11:42; Stop 06/06/16 at 11:43; Status DC Iohexol 50 ml 50 ml STK-MED ONCE .XX Last administered on 06/06/16 12:32; Start 06/06/16 at 12:32; Stop 06/06/16 at 12:35; Status DC Potassium Chloride/Sodium Chloride (NS + KCl 20 Meq Inj) 1,000 ml @ 100 mls/hr Q10H IV Last administered on 06/06/16 14:59; Start 06/06/16 at 15:00; Stop at 09:10; Status DC IV Flush (NS Flush) 2 ml UNSCH PRN IVF FLUSH AFTER USING IV ACCESS; Start 06/06 at 13:30 IV Flush 2 ml 2 ml BID IVF Last administered on 06/07/16 08:53; Start at 21:00 Cefazolin Sodium/ Dextrose (Ancef 2 Gm Premix) 50 ml @ 100 mls/hr Q8H IV Last administered on 06/07/16 06:03; Start 06/06/16 at 15:00; Stop 06/07/16 at 07:29 ; Status DC Docusate Sodium (Colace) 100 mg BID PO Last administered on 06/07/16 08:55; Start 06/06/16 at 21:00 Pantoprazole Sodium (Protonix) 40 mg DAILY PO Last administered on 06/07/16 08 :54; Start 06/07/16 at 09:00 Acetaminophen/ Hydrocodone Bitart (Kempner 10-325 Mg) 1 tab Q4H PRN PO SEE LABEL COMMENTS; Start 06/06/16 at 15:00 Acetaminophen/ Hydrocodone Bitart (Kempner 10-325 Mg) 2 tab Q4H PRN PO SEE LABEL COMMENTS Last administered on 06/07/16 06:04; Start 06/06/16 at 15:00 Morphine Sulfate (Morphine Inj) 2 mg Q2H PRN IV PUSH SEE LABEL COMMENTS; Start 06/06/16 at 15:00 Morphine Sulfate (Morphine Inj) 4 mg Q2H PRN IV PUSH SEE LABEL COMMENTS Last administered on 06/06/16 23:05; Start 06/06/16 at 15:00 Acetaminophen (Tylenol) 650 mg Q4H PRN PO TEMPERATURE > 101.5 F; Start at 15:00 Morphine Sulfate (*morphine INJ PERIprocedure ONLY) 8 mg STK-MED ONCE .ROUTE Last administered on 06/06/16 13:37; Start 06/06/16 at 13:37; Stop 06/06/16 at 13:38; Status DC Morphine Sulfate (*morphine INJ PERIprocedure ONLY) 8 mg STK-MED ONCE .ROUTE Last administered on 06/06/16 13:44; Start 06/06/16 at 13:44; Stop 06/06/16 at 13:45; Status DC Morphine Sulfate (*morphine INJ PERIprocedure ONLY) 8 mg STK-MED ONCE .ROUTE Last administered on 06/06/16 13:52; Start 06/06/16 at 13:52; Stop 06/06/16 at 13:53; Status DC Hydromorphone HCl (*DILAUDID PF INJ PERIprocedural ONLY) 1 mg STK-MED ONCE .ROUTE Last administered on 06/06/16 14:16; Start 06/06/16 at 14:16; Stop at 14:17; Status DC Hydromorphone HCl (*DILAUDID PF INJ PERIprocedural ONLY) 1 mg STK-MED ONCE .ROUTE Last administered on 06/06/16 14:33; Start 06/06/16 at 14:33; Stop at 14:34; Status DC Miscellaneous Information ALL NURSING DEPARTME... UNSCH PRN XX SEE LABEL COMMENTS; Start 06/06/16 at 13:19; Stop 06/07/16 at 13:18; Status DC Metronidazole (Flagyl) 500 mg Q8H PO Last administered on 06/07/16 08:55; Start 06/06/16 at 18:19 Ciprofloxacin (Cipro) 500 mg Q18H PO Last administered on 06/07/16 13:54; Start 06/07/16 at 15:00 Physical Exam General Appearance: No Acute Distress Pulmonary Resp Exam: Clear Bilaterally, Breath Sounds Equal Cardiology CV Exam: Regular, Normal Sinus Rhythm Gastrointestinal/Abdomen GI Exam: Soft, Non-Tender Integumentary Skin Exam: Clear, Warm Extremeties Extremities Exam: Trace Edema Neurologic Neuro Exam: Alert, Awake, Oriented Psychiatric Psych Exam: Appropriate Responses Assessment/Plan Discussed Condition With: Patient, Son Problem List: (1) Chronic systolic (congestive) heart failure Plan: No evidence of significant fluid retention however the patient does have a severe cardiomyopathy. At this point in time will resume his torsemide. Patient's potassium level has been below 4.0 occasionally will therefore add a small dose of potassium chloride with the diuretic 10 mEq every other day. Repeat BMP Thursday. Creatinine level appears to be at baseline and patient is stable from a renal point of view. Patient will be seen on a when necessary basis in house and will be followed up in the office post discharge. (2) Secondary hyperparathyroidism, renal Plan: Resume Vitamin D3 2000IU once daily (3) CKD (chronic kidney disease) stage 3, GFR 30-59 ml/min Plan: Secondary to nephrosclerosis hypertension and aging. Medications should be adjusted for the patient's estimated GFR if clinically indicated. Avoid agents with significant potential for nephrotoxicity possible including NSAIDs for analgesia, iodine contrast agents. Gadolinium is contraindicated if the GFR is below 30. (4) Ischemic cardiomyopathy Fabricio Salazar MD Jun 07, 2016 15:47
[2016-06-07] MEDS: WARFARIN SOD 5 MG TAB PO SCH (17:42)
[2016-06-07] MEDS: ENOXAPARIN SODIUM 80 MG/0.8 ML SYRINGE SQ SCH (17:42)
--- NOTE | 2016-06-07 20:08 | HHI.NSPN ---
Note Status Status: Progress Note Interval History Diagnosis L1 fracture Interval History Mr. Mejia is a 89-year-old male who complains of axial lumbar pain. He reports his pain began 3 weeks ago when he bent over to put his shoes on. Since then he's been suffering of severe pain located in the upper lumbar region. He denies any radiating pain into his extremities. He denies focal weakness, bowel or bladder incontinence. He has a history of chronic renal disease as well as a fibrillator. A CT of the lumbar spine shows an L1 compression fracture. Mr. Oliveros reports his pain has been severe. Currently controlled on IV morphine. A neurosurgical evaluation was requested 06/05: INR elevated, awaiting FFP, continues to report of lumbar pain 06/07. He is alert a wakeup very happy. He is back pain has resolved Labs, Micro, & Vital Signs Results Date Time Temp Pulse Resp B/P Pulse Ox O2 Delivery O2 Flow Rate FiO2 06/07/16 15:46 96.4 74 18 109/60 92 06/07/16 12:34 99.0 73 18 102/51 93 06/07/16 09:10 95 21 06/07/16 08:33 96.9 76 18 115/61 92 06/07/16 04:00 96.6 74 18 99/55 74 06/07/16 04:00 96.6 74 18 99/55 93 06/07/16 00:00 95.0 83 18 132/81 95 06/07/16 07:00 Intake Total 1170 ml Output Total 0 ml Balance 1170 ml Constitutional Vital Signs Date Time Temp Pulse Resp B/P Pulse Ox O2 Delivery O2 Flow Rate FiO2 06/07/16 15:46 96.4 74 18 109/60 92 06/07/16 12:34 99.0 73 18 102/51 93 06/07/16 09:10 95 21 06/07/16 08:33 96.9 76 18 115/61 92 06/07/16 04:00 96.6 74 18 99/55 74 06/07/16 04:00 96.6 74 18 99/55 93 06/07/16 00:00 95.0 83 18 132/81 95 06/07/16 07:00 Intake Total 1170 ml Output Total 0 ml Balance 1170 ml Review of Systems/Exam Exam Mr. Mejia is alert and oriented to person, place, and time. Speech is appropriate. Follows commands without difficulties. Back supported by TLSO brace. Cranial nerve examination: pupils to be equal, round, and reactive to light. Extra-ocular movements are intact with normal convergence. Facial motor are normal and symmetrical. The cervical spine shows mild decrease range of motion in flexion, extension, lateral bending and rotation due to age related spondylosis Muscle strength is 5/5 in all muscle groups of both upper extremities including deltoid, biceps, triceps, and grocery clerk checking. In the lower extremities, strength is 5/5 in both iliopsoas, quadriceps, hamstrings, tibialis anterior, gastrocnemius, and extensor hallucis longus. Sensory examination is intact to light touch in both the upper and lower extremities, symmetrically. Deep tendon reflexes are 1+ and symmetrical in the biceps, triceps, and brachioradialis, bilaterally, in the upper extremities. In the lower extremities, the patellar and Achilles are trace, bilaterally. There is a bilateral plantar flexion response. Hoffmanns sign is negative. There is no clonus. Cerebellar examination is intact to [id number] test Medications Current Medications Current Medications Morphine Sulfate (Morphine Inj) 5 mg ONCE ONCE IV PUSH Last administered on 10:08; Start 06/03/16 at 10:00; Stop 06/03/16 at 10:01; Status DC Lorazepam 0.5 mg 0.5 mg ONCE ONCE IV PUSH Last administered on 06/03/16 10:08 ; Start 06/03/16 at 10:00; Stop 06/03/16 at 10:01; Status DC Sodium Chloride 500 ml @ 500 mls/hr BOLUS ONCE IV Last administered on 10:08; Start 06/03/16 at 10:00; Stop 06/03/16 at 10:59; Status DC Sodium Chloride 500 ml @ 500 mls/hr BOLUS ONCE IV Last administered on 11:23; Start 06/03/16 at 10:45; Stop 06/03/16 at 11:44; Status DC Piperacillin Sod/ Tazobactam Sod 100 ml @ 200 mls/hr ONCE ONCE IV Last administered on 06/03/16 12:11; Start 06/03/16 at 12:00; Stop 06/03/16 at 12:29 ; Status DC Sodium Chloride (NS 1000 ml Inj) 1,000 ml @ 100 mls/hr Q10H IV Last administered on 06/05/16 04:47; Start 06/03/16 at 12:47; Stop 06/05/16 at 16:47 ; Status DC IV Flush (NS Flush) 2 ml UNSCH PRN FLUSH FLUSH AFTER USING IV ACCESS; Start at 13:00; Stop 06/06/16 at 14:10; Status DC IV Flush (NS Flush) 2 ml BID FLUSH Last administered on 06/05/16 09:48; Start 06/03/16 at 21:00; Stop 06/06/16 at 14:10; Status DC Acetaminophen (Tylenol) 650 mg Q4H PRN PO TEMP > 100.4; Start 06/03/16 at 13:00 ; Stop 06/06/16 at 14:06; Status DC Ondansetron HCl (Zofran Inj) 4 mg Q6H PRN IVP NAUSEA OR VOMITING; Start at 13:00 Temazepam (Restoril) 15 mg HS PRN PO INSOMNIA; Start 06/03/16 at 13:00 Acetaminophen (Tylenol) 650 mg Q6H PRN PO PAIN SCALE 1 TO 2; Start 06/03/16 at 13:00; Stop 06/06/16 at 14:06; Status DC Acetaminophen/ Hydrocodone Bitart (Sidney 5-325 Mg) 1 tab Q4H PRN PO PAIN SCALE 3 TO 5; Start 06/03/16 at 13:00; Stop 06/06/16 at 14:05; Status DC Acetaminophen/ Hydrocodone Bitart (Sidney 7.5-325 Mg) 1 tab Q4H PRN PO PAIN SCALE 6 TO 10 Last administered on 06/06/16 05:39; Start 06/03/16 at 13:00; Stop 06/06/16 at 14:05; Status DC Morphine Sulfate (Morphine Inj) 4 mg Q1H PRN IV PAIN SCALE 7-10 (INTRACTABLE) Last administered on 06/06/16 10:35; Start 06/03/16 at 13:00; Stop 06/06/16 at 14:09; Status DC Naloxone HCl (Narcan Inj) 0.4 mg UNSCH PRN IV SEE LABEL COMMENTS; Start at 13:00 Enalaprilat (Vasotec Inj) 1.25 mg Q6H PRN IV PUSH SBP>160, DBP>90; Start 06/03 at 13:00 Senna/Docusate Sodium (Pamela-Colace) 2 tab BID PRN PO CONSTIPATION; Start at 13:00 Albuterol/ Ipratropium (Duoneb Neb) 1 ampule Q2HR NEB PRN NEB SOB/WHEEZING; Start 06/03/16 at 13:00 Carvedilol (Coreg) 6.25 mg Q12HR PO ; Start 06/03/16 at 21:00; Stop 06/03/16 at 21:00; Status DC Sotalol HCl (Betapace) 80 mg BID PO Last administered on 06/07/16 08:56; Start 06/03/16 at 21:00 Tamsulosin HCl (Flomax) 0.4 mg HS PO Last administered on 06/07/16 20:47; Start 06/03/16 at 21:00 Torsemide (Demadex) 20 mg DAILY PO ; Start 06/04/16 at 09:00; Stop 06/04/16 at 09:00; Status DC Patient Own Medication PT OWN MED: (Cyclobenzaprine (Flexeril)... TID PRN PO MUSCLE SPASM; Start 06/03/16 at 13:30 Pravastatin Sodium 40 mg 40 mg DAILY PO Last administered on 06/07/16 08:55; Start 06/04/16 at 09:00 Piperacillin Sod/ Tazobactam Sod (Zosyn 2.25 Gm Premix) 50 ml @ 100 mls/hr Q8H IV Last administered on 06/04/16 12:44; Start 06/03/16 at 20:00; Stop at 17:22; Status DC Lactobacillus Acidophilus (Lactinex) 1 tab Q12HR PO Last administered on 20:47; Start 06/03/16 at 21:00 Carvedilol (Coreg) 3.125 mg Q12HR PO Last administered on 06/04/16 22:03; Start 06/03/16 at 21:00; Stop 06/04/16 at 23:13; Status DC Carvedilol (Coreg) 3.125 mg BID PO Last administered on 06/07/16 08:55; Start 06/04/16 at 21:00 Ciprofloxacin (Cipro) 500 mg Q12HR PO Last administered on 06/06/16 20:04; Start 06/04/16 at 21:00; Stop 06/07/16 at 08:22; Status DC Metronidazole 500 mg 500 mg Q8HR PO Last administered on 06/06/16 05:39; Start 06/04/16 at 18:00; Stop 06/06/16 at 18:19; Status DC Sodium Chloride 250 ml @ 15 mls/hr ONCE ONCE IV Last administered on 13:59; Start 06/05/16 at 10:45; Stop 06/06/16 at 03:24; Status DC Dextrose/Sodium Chloride (D5W-1/2 NS 1000 ml Inj) 1,000 ml @ 30 mls/hr Q24H IV Last administered on 06/05/16 19:25; Start 06/05/16 at 17:00; Stop 06/06/16 at 14:13; Status DC Bupivacaine HCl/ Epinephrine Bitart (Sensorcaine-Epinephrine Pf 0.5% Inj) 30 ml STK-MED ONCE .ROUTE Last administered on 06/06/16 12:32; Start 06/06/16 at 07: 29; Stop 06/06/16 at 07:30; Status DC Phytonadione (Vitamin K Inj) 10 mg ONCE STAT SQ ; Start 06/06/16 at 09:00; Stop 06/06/16 at 09:01; Status Cancel Phytonadione 1 mg 1 mg ONCE ONCE SQ ; Start 06/06/16 at 09:00; Stop 06/06/16 at 09:01; Status Cancel Sodium Chloride (NS 250 ml Inj) 250 ml @ 15 mls/hr ONCE ONCE IV Last administered on 06/06/16 10:35; Start 06/06/16 at 09:15; Stop 06/07/16 at 01:54 ; Status DC Phytonadione (Aquamephyton Inj) 1 mg ONCE ONCE SQ Last administered on 11:20; Start 06/06/16 at 10:15; Stop 06/06/16 at 10:16; Status DC Cholecalciferol (Vitamin D3) 2,000 units DAILY PO Last administered on 08:54; Start 06/07/16 at 09:00 Ketamine HCl (Ketalar Inj) 500 mg STK-MED ONCE .ROUTE ; Start 06/06/16 at 11:41 ; Stop 06/06/16 at 11:42; Status DC Famotidine (Pepcid Inj) 20 mg STK-MED ONCE .ROUTE ; Start 06/06/16 at 11:42; Stop 06/06/16 at 11:43; Status DC Midazolam HCl (Versed Inj) 2 mg STK-MED ONCE .ROUTE ; Start 06/06/16 at 11:42; Stop 06/06/16 at 11:43; Status DC Iohexol 50 ml 50 ml STK-MED ONCE .XX Last administered on 06/06/16 12:32; Start 06/06/16 at 12:32; Stop 06/06/16 at 12:35; Status DC Potassium Chloride/Sodium Chloride (NS + KCl 20 Meq Inj) 1,000 ml @ 100 mls/hr Q10H IV Last administered on 06/06/16 14:59; Start 06/06/16 at 15:00; Stop at 09:10; Status DC IV Flush (NS Flush) 2 ml UNSCH PRN IVF FLUSH AFTER USING IV ACCESS; Start 06/06 at 13:30 IV Flush 2 ml 2 ml BID IVF Last administered on 06/07/16 20:47; Start at 21:00 Cefazolin Sodium/ Dextrose (Ancef 2 Gm Premix) 50 ml @ 100 mls/hr Q8H IV Last administered on 06/07/16 06:03; Start 06/06/16 at 15:00; Stop 06/07/16 at 07:29 ; Status DC Docusate Sodium (Colace) 100 mg BID PO Last administered on 06/07/16 20:47; Start 06/06/16 at 21:00 Pantoprazole Sodium (Protonix) 40 mg DAILY PO Last administered on 06/07/16 08 :54; Start 06/07/16 at 09:00 Acetaminophen/ Hydrocodone Bitart (Sidney 10-325 Mg) 1 tab Q4H PRN PO SEE LABEL COMMENTS; Start 06/06/16 at 15:00 Acetaminophen/ Hydrocodone Bitart (Sidney 10-325 Mg) 2 tab Q4H PRN PO SEE LABEL COMMENTS Last administered on 06/07/16 06:04; Start 06/06/16 at 15:00 Morphine Sulfate (Morphine Inj) 2 mg Q2H PRN IV PUSH SEE LABEL COMMENTS; Start 06/06/16 at 15:00 Morphine Sulfate (Morphine Inj) 4 mg Q2H PRN IV PUSH SEE LABEL COMMENTS Last administered on 06/06/16 23:05; Start 06/06/16 at 15:00 Acetaminophen (Tylenol) 650 mg Q4H PRN PO TEMPERATURE > 101.5 F; Start at 15:00 Morphine Sulfate (*morphine INJ PERIprocedure ONLY) 8 mg STK-MED ONCE .ROUTE Last administered on 06/06/16 13:37; Start 06/06/16 at 13:37; Stop 06/06/16 at 13:38; Status DC Morphine Sulfate (*morphine INJ PERIprocedure ONLY) 8 mg STK-MED ONCE .ROUTE Last administered on 06/06/16 13:44; Start 06/06/16 at 13:44; Stop 06/06/16 at 13:45; Status DC Morphine Sulfate (*morphine INJ PERIprocedure ONLY) 8 mg STK-MED ONCE .ROUTE Last administered on 06/06/16 13:52; Start 06/06/16 at 13:52; Stop 06/06/16 at 13:53; Status DC Hydromorphone HCl (*DILAUDID PF INJ PERIprocedural ONLY) 1 mg STK-MED ONCE .ROUTE Last administered on 06/06/16 14:16; Start 06/06/16 at 14:16; Stop at 14:17; Status DC Hydromorphone HCl (*DILAUDID PF INJ PERIprocedural ONLY) 1 mg STK-MED ONCE .ROUTE Last administered on 06/06/16 14:33; Start 06/06/16 at 14:33; Stop at 14:34; Status DC Miscellaneous Information ALL NURSING DEPARTME... UNSCH PRN XX SEE LABEL COMMENTS; Start 06/06/16 at 13:19; Stop 06/07/16 at 13:18; Status DC Metronidazole (Flagyl) 500 mg Q8H PO Last administered on 06/07/16 16:57; Start 06/06/16 at 18:19 Ciprofloxacin (Cipro) 500 mg Q18H PO Last administered on 06/07/16 13:54; Start 06/07/16 at 15:00 Torsemide (Demadex) 20 mg DAILY PO ; Start 06/08/16 at 09:00 Potassium Chloride (KCl) 10 meq EVERY OTHER DAY PO ; Start 06/09/16 at 09:00 Warfarin Sodium (Coumadin) 5 mg DAILY@1600 PO Last administered on 06/07/16 17 :42; Start 06/07/16 at 17:30 Enoxaparin Sodium (Lovenox Inj) 80 mg Q12H SQ Last administered on 06/07/16 17 :42; Start 06/07/16 at 18:00 Sucralfate (Carafate) 1 gm HS PO Last administered on 06/07/16 20:47; Start at 21:00 Medical Decision Making MDM Remarks Last Impressions Lumbar Spine X-Ray 06/06/16 0000 Signed Impressions: Service Date/Time: Monday, June 06, 2016 12:12 - CONCLUSION: Successful L1 kyphoplasty. Canelo Kwon MD Lumbar Spine CT 06/03/16 0000 Signed Impressions: Service Date/Time: Friday, June 03, 2016 10:44 - CONCLUSION: Mild acute compression deformity of L1. This is amenable to vertebral augmentation if clinically indicated. No evidence of metastatic disease. Advanced degenerative disc disease at L4-5 and L5-S1. No other significant abnormalities. Zaid Charles MD Abdomen/Pelvis CT 06/03/16 0000 Signed Impressions: Service Date/Time: Friday, June 03, 2016 10:44 - CONCLUSION: 1. Diverticulitis of the sigmoid colon no perforation or abscess. 2. Status post cholecystectomy. 3. Small hiatal hernia. 4. Enlarged prostate. 5. Large fat containing left inguinal hernia. Darrell Christie MD Attending Statement Status post L1 Kyphoplasty. He is very happy with the resolution of his severe pain. Advance activity. Can resume anticoagulation. Cleared per neurosurgical standpoint to discharge to rehabilitation Discuss it with Dr. Vazuqez and with his family Abelino Ernandez MD Jun 07, 2016 20:08
[2016-06-07] MEDS: TAMSULOSIN HCL 0.4 MG CAP PO SCH (20:47)
[2016-06-07] MEDS ORDERED: SUCRALFATE 1 GM TAB PO SCH (21:00)
[2016-06-08] MEDS: metroNIDAZOLE 500 MG TAB PO SCH ×2 (01:30→08:29)
[2016-06-08 04:00] VITALS: BP 100/55; PULSE 78; RESP 20; TEMP 97; O2SAT 92
[2016-06-08] MEDS: ENOXAPARIN SODIUM 80 MG/0.8 ML SYRINGE SQ SCH (05:41)
[2016-06-08 08:00] VITALS: BP 150/55; PULSE 74; RESP 20; TEMP 97.5; O2SAT 93
--- NOTE | 2016-06-08 08:20 | HHI.PR ---
Subjective Remarks This is a pleasant 89 y/o Male with History of CAD prior [place], status post CABG, PCI, TAVR(Transcatheter Aortic Valve Replacement) AICD placement, who came to ER with 3 weeks history of Low back pain, seen by PCP sent for muscle relaxants, but did not Improve, although he denies any radiation to lower extremities, bladder or bowel dysfunction however he is unable to lay still. he has History of Lung cancer, Prostate cancer, Atrial Fibrillation, CHF by history, GERD, Hyperlipidemia, Prior radiation therapy CKD. Kyphoplasty performed today June 06 2016 with diagnosis of L1 compression fracture. with General Anesthesia. 06/07 Seen in his bedroom in the presence of nurse Miss Viveros, explained that he will need bridging with Lovenox and Warfarin for discharge. 06/08 Seen in his bedroom and yesterday evening I had the opportunity to talk about the case with Neurosurgery specialist Doctor Oma and recommended for discharge to Rehab, discussed with nurse Miss Hussein no new issues, discussed with Patient in the room no Nausea, vomit or diarrhea, Discussed with Steam Table Associate and he will go to Rehab and continue Lovenox bridging for INR therapeutic. Objective Vital Signs Date Time Temp Pulse Resp B/P Pulse Ox O2 Delivery O2 Flow Rate FiO2 06/08/16 08:00 97.5 74 20 150/55 93 06/08/16 04:00 97.0 78 20 100/55 92 06/07/16 23:19 98.5 89 20 96/53 93 06/07/16 20:00 97.8 82 18 101/55 63 06/07/16 15:46 96.4 74 18 109/60 92 06/07/16 12:34 99.0 73 18 102/51 93 06/07/16 09:10 95 21 06/07/16 08:33 96.9 76 18 115/61 92 I/O 06/07/16 06/07/16 06/07/16 06/08/16 06/08/16 06/08/16 07:00 15:00 23:00 07:00 15:00 23:00 Intake Total 720 ml 960 ml 240 ml 0 ml Balance 720 ml 960 ml 240 ml 0 ml Intake Oral 720 ml 960 ml 240 ml 0 ml # Voids 4 3 0 # Bowel Movements 2 0 Result Diagram: 06/06/1626 06/07/16 0640 Imaging Last Impressions Lumbar Spine X-Ray 06/06/16 0000 Signed Impressions: Service Date/Time: Monday, June 06, 2016 12:12 - CONCLUSION: Successful L1 kyphoplasty. Canelo Kwon MD Lumbar Spine CT 06/03/16 0000 Signed Impressions: Service Date/Time: Friday, June 03, 2016 10:44 - CONCLUSION: Mild acute compression deformity of L1. This is amenable to vertebral augmentation if clinically indicated. No evidence of metastatic disease. Advanced degenerative disc disease at L4-5 and L5-S1. No other significant abnormalities. Zaid Charles MD Abdomen/Pelvis CT 06/03/16 0000 Signed Impressions: Service Date/Time: Friday, June 03, 2016 10:44 - CONCLUSION: 1. Diverticulitis of the sigmoid colon no perforation or abscess. 2. Status post cholecystectomy. 3. Small hiatal hernia. 4. Enlarged prostate. 5. Large fat containing left inguinal hernia. Darrell Christie MD Procedures Kyphoplasty L1 Compression Fracture Other Results Laboratory Tests Test 06/04/16 06/06/16 06/06/16 06/06/16 07:47 06:26 09:58 12:37 Total Bilirubin 0.8 MG/DL Aspartate Amino Transf 21 U/L (AST/SGOT) Alanine Aminotransferase 20 U/L (ALT/SGPT) Alkaline Phosphatase 100 U/L Total Protein 5.9 GM/DL White Blood Count 5.5 TH/MM3 Red Blood Count 3.37 MIL/MM3 Hemoglobin 10.0 GM/DL Hematocrit 30.9 % Mean Corpuscular Volume 91.7 FL Mean Corpuscular Hemoglobin 29.7 PG Mean Corpuscular Hemoglobin 32.4 % Concent Red Cell Distribution Width 16.4 % Platelet Count 121 TH/MM3 Mean Platelet Volume 8.0 FL Neutrophils (%) (Auto) 63.2 % Lymphocytes (%) (Auto) 20.8 % Monocytes (%) (Auto) 10.9 % Eosinophils (%) (Auto) 4.4 % Basophils (%) (Auto) 0.7 % Neutrophils # (Auto) 3.5 TH/MM3 Lymphocytes # (Auto) 1.1 TH/MM3 Monocytes # (Auto) 0.6 TH/MM3 Eosinophils # (Auto) 0.2 TH/MM3 Basophils # (Auto) 0.0 TH/MM3 CBC Comment DIFF FINAL Differential Comment 25-Hydroxy Vitamin D Total 22.3 ng/ML Parathyroid Hormone (Intact) 50.8 PG/ML Blood Bank Comment Prothrombin Time 15.4 SEC Prothromb Time International 1.4 RATIO Ratio Test 06/07/16 06:40 Sodium Level 140 MEQ/L Potassium Level 4.5 MEQ/L Chloride Level 104 MEQ/L Carbon Dioxide Level 26.9 MEQ/L Anion Gap 9 MEQ/L Blood Urea Nitrogen 33 MG/DL Creatinine 1.72 MG/DL Estimat Glomerular Filtration 38 ML/MIN Rate Random Glucose 81 MG/DL Calcium Level 8.7 MG/DL Phosphorus Level 2.7 MG/DL Albumin 2.7 GM/DL Objective Remarks GENERAL: This is a well-nourished, well-developed patient, in no apparent distress. SKIN: No rashes, ecchymoses or lesions. Cool and dry. HEAD: Atraumatic. Normocephalic. No temporal or scalp tenderness. EYES: Pupils equal round and reactive. Extraocular motions intact. No scleral icterus. No injection or drainage. ENT: Nose without bleeding, purulent drainage or septal hematoma. Throat without erythema, tonsillar hypertrophy or exudate. Uvula midline. Airway patent. NECK: Trachea midline. No JVD or lymphadenopathy. Supple, nontender, no meningeal signs. CARDIOVASCULAR: Irregular rhythm secondary to some PVCs hears, but no murmurs. RESPIRATORY: Clear to auscultation. Breath sounds equal bilaterally. No wheezes , rales, or rhonchi. Brace in place. GASTROINTESTINAL: Abdomen soft, non-tender, nondistended. No hepato-splenomegaly , or palpable masses. No guarding. MUSCULOSKELETAL: Extremities without clubbing, cyanosis, or edema. No joint tenderness, effusion, or edema noted. No calf tenderness. Negative Homans sign bilaterally. NEUROLOGICAL: Awake and alert. Cranial nerves II through XII intact. Motor and sensory grossly within normal limits. Five out of 5 muscle strength in all muscle groups. Normal speech. Medications and IVs Current Medications Medications (Trade) Dose Ordered Sig/Osmar Route Start Time Stop Time Status Last Admin (Zofran Inj) 4 mg Q6H PRN IVP 06/03/16 13:00 (Restoril) 15 mg HS PRN PO 06/03/16 13:00 (Narcan Inj) 0.4 mg UNSCH PRN IV 06/03/16 13:00 (Vasotec Inj) 1.25 mg Q6H PRN IV PUSH 06/03/16 13:00 (Pamela-Colace) 2 tab BID PRN PO 06/03/16 13:00 (Betapace) 80 mg BID PO 06/03/16 21:00 06/07/16 08:56 (Flomax) 0.4 mg HS PO 06/03/16 21:00 06/07/16 20:47 Patient Own Medication PT OWN MED: (Cyclobenzaprine (Flexeril)... TID PRN PO 06/03/16 13:30 (Pravachol) 40 mg DAILY PO 06/04/16 09:00 06/07/16 08:55 (Lactinex) 1 tab Q12HR PO 06/03/16 21:00 06/07/16 20:47 (Coreg) 3.125 mg BID PO 06/04/16 21:00 06/07/16 08:55 (Vitamin D3) 2,000 units DAILY PO 06/07/16 09:00 06/07/16 08:54 (NS Flush) 2 ml UNSCH PRN IVF 06/06/16 13:30 (NS Flush) 2 ml BID IVF 06/06/16 21:00 06/07/16 20:47 (Colace) 100 mg BID PO 06/06/16 21:00 06/07/16 20:47 (Protonix) 40 mg DAILY PO 06/07/16 09:00 06/07/16 08:54 (Alexander 10-325 Mg) 1 tab Q4H PRN PO 06/06/16 15:00 (Alexander 10-325 Mg) 2 tab Q4H PRN PO 06/06/16 15:00 06/07/16 06:04 (Morphine Inj) 2 mg Q2H PRN IV PUSH 06/06/16 15:00 (Morphine Inj) 4 mg Q2H PRN IV PUSH 06/06/16 15:00 06/06/16 23:05 (Tylenol) 650 mg Q4H PRN PO 06/06/16 15:00 (Flagyl) 500 mg Q8H PO 06/06/16 18:19 06/08/16 01:30 (Cipro) 500 mg Q18H PO 06/07/16 15:00 06/07/16 13:54 (Demadex) 20 mg DAILY PO 06/08/16 09:00 (Coumadin) 5 mg DAILY@1600 PO 06/07/16 17:30 06/07/16 17:42 (Lovenox Inj) 80 mg Q12H SQ 06/07/16 18:00 06/08/16 05:41 (Carafate) 1 gm HS PO 06/07/16 21:00 06/07/16 20:47 A/P Problem List: (1) Low back pain radiating to both legs ICD Code: M54.5 (2) CKD (chronic kidney disease) stage 3, GFR 30-59 ml/min ICD Code: N18.3 (3) HTN (hypertension) ICD Code: I10 (4) L1 vertebral fracture ICD Code: S32.019A Assessment and Plan 1. Acute L1 compression fracture seen in CT Lumbar, on Pain Management, TLSO Thoracolumbosacral Orthosis Neurosurgery Specialist Doctor Oma performed Kyphoplasty 06/06/16 awaiting final recommendations. as per PT will go home on [facility] for PT and Skilled nurse will be added. 2. History of Diverticulitis, CT abdomen and Pelvis has diverticulitis of the sigmoid colon, has no WBC, febrile abdominal pain, on Cipro and Metronidazole. will continue five days more. 3. Hypotension Resolved re started Coreg and Sotalol. 4. Acute on chronic Kidney disease stage III, status post IV fluids normal saline, Nephrology specialist following. at this time at baseline. 5. CAD status post CABG. Cardiomyopathy re started Coreg and Sotalol. 6. History of TARV (Transcatheter Aortic Valve Replacement) continue Lovenox bridging for INR therapeutic within 2 to 3 7. Chronic systolic CHF, no signs of overload 8. 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 Discussed with patient and nurse Miss Hussein in the room all questions explained to the best of my abilities. Now Status post Kyphoplasty patient stable will need to go Home on by mouth Warfarin and bridge with Lovenox As Always a pleasure to talk about cases with Neurosurgery Specialist Doctor Abelino Ernandez input and recommendations appreciated. SCDs for DVT prophylaxis. Resume Coumadin once procedure performed by neurosurgery Code Status Full code Discharge Planning Discharge to Rehab facility today. Allan Soares MD Jun 08, 2016 08:20
[2016-06-08] MEDS: SODIUM CHLORIDE 0.9% FLUSH 5 ML FLUSH IVF SCH (08:28)
[2016-06-08] MEDS: PRAVASTATIN SOD 40 MG TAB PO SCH (08:28)
[2016-06-08] MEDS: DOCUSATE SODIUM 100 MG CAP PO SCH (08:29)
[2016-06-08] MEDS: CARVEDILOL 3.125 MG TAB PO SCH (08:29)
[2016-06-08] MEDS: LACTOBACILLUS ACIDOPHILUS TAB PO SCH (08:29)
[2016-06-08] MEDS: SOTALOL HCL 80 MG TAB PO SCH (08:29)
[2016-06-08] MEDS: PANTOPRAZOLE SOD 40 MG DELAYED RELEASE TAB PO SCH (08:30)
[2016-06-08] MEDS: CHOLECALCIFEROL (VIT D3) 1000 UNIT TAB PO SCH (08:30)
[2016-06-08] MEDS: CIPROFLOXACIN 500 MG TAB PO SCH (08:30)
[2016-06-08] MEDS ORDERED: TORSEMIDE 20 MG TAB PO SCH (09:00)
[2016-06-08] MEDS ORDERED: COUM5TAB PO (10:42)
[2016-06-08] MEDS ORDERED: HYDR-3583 PO (10:42)
[2016-06-08] MEDS ORDERED: METR-1 PO (10:42)
[2016-06-08] MEDS ORDERED: CIPR-9 PO (10:42)
[2016-06-08] MEDS ORDERED: POTA-243 PO (10:42)
[2016-06-08] MEDS ORDERED: CARA1TAB6 PO (10:42)
[2016-06-08] MEDS ORDERED: ENOX80P SQ (10:44)
[2016-06-08 12:26] VITALS: BP 96/67; PULSE 87; RESP 20; TEMP 96; O2SAT 93
--- NOTE | 2016-06-08 13:25 | HHI.DS ---
Discharge Summary Admission Date Jun 03, 2016 at 12:00 Discharge Date: Jun 08, 2016 Admitting Diagnosis lumbar compression fracture, acute diverticulitis, renal failure (1) Lumbar compression fracture ICD Code: S32.000A (2) Intractable pain ICD Code: R52 Diagnosis: Principal (3) S/P TAVR (transcatheter aortic valve replacement) ICD Code: Z95.2 Diagnosis: Secondary (4) Acute renal failure superimposed on stage 3 chronic kidney disease ICD Code: N17.9 Diagnosis: Secondary (5) Hypotension ICD Code: I95.9 Diagnosis: Secondary (6) HTN (hypertension) ICD Code: I10 Diagnosis: Secondary (7) Diverticulitis ICD Code: K57.92 Diagnosis: Principal Procedures L1 Kyphoplasty Brief History - From Admission 89-year-old male with a history of ischemic cardiomyopathy, prior IL, prior CABG , prior PCI, prior TAVR, ACID placement presented to the ED for evaluation of 3 weeks history of low back pain has gotten worse over the past several days with the pain rated 10/10 intensity and not relieved with current muscle relaxant prescribed by his PCP. Patient first complained of low back pain on 05/12/16 however denies any trauma at the time. Currently, although he denies any radiation to lower extremities, bladder or bowel dysfunction however he is unable to lay still. It is sometimes worse with movement. He has no current GI bleed however patient was found to have low BP. Denies any chest pain or shortness of breath CBC/BMP: 06/06/16 0626 06/07/16 0640 Significant Findings Laboratory Tests Test 06/05/16 06/06/16 06/06/16 06/07/16 20:11 06:26 12:37 06:40 Prothrombin Time 18.3 SEC 18.6 SEC 15.4 SEC (9.8-11.6) (9.8-11.6) (9.8-11.6) Red Blood Count 3.37 MIL/MM3 (4.50-5.90) Hemoglobin 10.0 GM/DL (13.0-17.0) Hematocrit 30.9 % (39.0-51.0) Platelet Count 121 TH/MM3 (150-450) Monocytes (%) (Auto) 10.9 % (0.0-8.0) Eosinophils (%) (Auto) 4.4 % (0.0-4.0) Blood Urea Nitrogen 35 MG/DL (7-18) 33 MG/DL (7-18) Creatinine 1.63 MG/DL 1.72 MG/DL (0.60-1.30) (0.60-1.30) Estimat Glomerular Filtration 40 ML/MIN (>89) 38 ML/MIN (>89) Rate Random Glucose 124 MG/DL (74-106) 25-Hydroxy Vitamin D Total 22.3 ng/ML (30-100) Albumin 2.7 GM/DL (3.4-5.0) Imaging Last Impressions Lumbar Spine X-Ray 06/06/16 0000 Signed Impressions: Service Date/Time: Monday, June 06, 2016 12:12 - CONCLUSION: Successful L1 kyphoplasty. Canelo Kwon MD Lumbar Spine CT 06/03/16 0000 Signed Impressions: Service Date/Time: Friday, June 03, 2016 10:44 - CONCLUSION: Mild acute compression deformity of L1. This is amenable to vertebral augmentation if clinically indicated. No evidence of metastatic disease. Advanced degenerative disc disease at L4-5 and L5-S1. No other significant abnormalities. Zaid Charles MD Abdomen/Pelvis CT 06/03/16 0000 Signed Impressions: Service Date/Time: Friday, June 03, 2016 10:44 - CONCLUSION: 1. Diverticulitis of the sigmoid colon no perforation or abscess. 2. Status post cholecystectomy. 3. Small hiatal hernia. 4. Enlarged prostate. 5. Large fat containing left inguinal hernia. Darrell Christie MD PE at Discharge GENERAL: This is a well-nourished, well-developed patient, in no apparent distress. SKIN: No rashes, ecchymoses or lesions. Cool and dry. HEAD: Atraumatic. Normocephalic. No temporal or scalp tenderness. EYES: Pupils equal round and reactive. Extraocular motions intact. No scleral icterus. No injection or drainage. ENT: Nose without bleeding, purulent drainage or septal hematoma. Throat without erythema, tonsillar hypertrophy or exudate. Uvula midline. Airway patent. NECK: Trachea midline. No JVD or lymphadenopathy. Supple, nontender, no meningeal signs. CARDIOVASCULAR: Irregular rhythm secondary to some PVCs hears, but no murmurs. RESPIRATORY: Clear to auscultation. Breath sounds equal bilaterally. No wheezes , rales, or rhonchi. Brace in place. GASTROINTESTINAL: Abdomen soft, non-tender, nondistended. No hepato-splenomegaly , or palpable masses. No guarding. MUSCULOSKELETAL: Extremities without clubbing, cyanosis, or edema. No joint tenderness, effusion, or edema noted. No calf tenderness. Negative Homans sign bilaterally. NEUROLOGICAL: Awake and alert. Cranial nerves II through XII intact. Motor and sensory grossly within normal limits. Five out of 5 muscle strength in all muscle groups. Normal speech. This is a pleasant 89 y/o Male with History of CAD prior IL, status post CABG, PCI, TAVR(Transcatheter Aortic Valve Replacement) AICD placement, who came to ER with 3 weeks history of Low back pain, seen by PCP sent for muscle relaxants, but did not Improve, although he denies any radiation to lower extremities, bladder or bowel dysfunction however he is unable to lay still. he has History of Lung cancer, Prostate cancer, Atrial Fibrillation, CHF by history, GERD, Hyperlipidemia, Prior radiation therapy CKD. Kyphoplasty performed today June 06 2016 with diagnosis of L1 compression fracture. with General Anesthesia. 06/07 Seen in his bedroom in the presence of nurse Miss Viveros, explained that he will need bridging with Lovenox and Warfarin for discharge. 06/08 Seen in his bedroom and yesterday evening I had the opportunity to talk about the case with Neurosurgery specialist Doctor Oma and recommended for discharge to Rehab, discussed with nurse Miss Hussein no new issues, discussed with Patient in the room no Nausea, vomit or diarrhea, Discussed with Digital Strategy Director and he will go to Rehab and continue Lovenox bridging for INR therapeutic. Assessment and Plan 1. Acute L1 compression fracture seen in CT Lumbar, on Pain Management, TLSO Thoracolumbosacral Orthosis Neurosurgery Specialist Doctor Ernandez performed Kyphoplasty 06/06/16 awaiting final recommendations. as per PT will go home on [facility] for PT and Skilled nurse will be added. 2. History of Diverticulitis, CT abdomen and Pelvis has diverticulitis of the sigmoid colon, has no WBC, febrile abdominal pain, on Cipro and Metronidazole. will continue five days more. 3. Hypotension Resolved re started Coreg and Sotalol. 4. Acute on chronic Kidney disease stage III, status post IV fluids normal saline, Nephrology specialist following. at this time at baseline. 5. CAD status post CABG. Cardiomyopathy re started Coreg and Sotalol. 6. History of TARV (Transcatheter Aortic Valve Replacement) continue Lovenox bridging for INR therapeutic within 2 to 3 7. Chronic systolic CHF, no signs of overload 8. CAD status post CABG, Ischemic Cardiomyopathy, history of Cardiac Resynchronization Therapy Defibrillator [employer]D in place at this time sinus rhythm with some PVCs. Discussed with patient and nurse Miss Hussein in the room all questions explained to the best of my abilities. Now Status post Kyphoplasty patient stable will need to go Home on by mouth Warfarin and bridge with Lovenox As Always a pleasure to talk about cases with Neurosurgery Specialist Doctor Abelino Ernandez input and recommendations appreciated. SCDs for DVT prophylaxis. Resume Coumadin once procedure performed by neurosurgery Code Status Full code Discharge Planning Discharge to Rehab facility today. Hospital Course This is a pleasant 89 y/o Male with History of CAD prior IL, status post CABG, PCI, TAVR(Transcatheter Aortic Valve Replacement) AICD placement, who came to ER with 3 weeks history of Low back pain, seen by PCP sent for muscle relaxants, but did not Improve, although he denies any radiation to lower extremities, bladder or bowel dysfunction however he is unable to lay still. he has History of Lung cancer, Prostate cancer, Atrial Fibrillation, CHF by history, GERD, Hyperlipidemia, Prior radiation therapy CKD. Kyphoplasty performed today June 06 2016 with diagnosis of L1 compression fracture. with General Anesthesia. 06/07 Seen in his bedroom in the presence of nurse Miss Viveros, explained that he will need bridging with Lovenox and Warfarin for discharge. 06/08 Seen in his bedroom and yesterday evening I had the opportunity to talk about the case with Neurosurgery specialist Doctor Ernandez and recommended for discharge to Rehab, discussed with nurse Miss Hussein no new issues, discussed with Patient in the room no Nausea, vomit or diarrhea, Discussed with Digital Strategy Director and he will go to Rehab and continue Lovenox bridging for INR therapeutic. Assessment and Plan 1. Acute L1 compression fracture seen in CT Lumbar, on Pain Management, TLSO Thoracolumbosacral Orthosis Neurosurgery Specialist Doctor Oma performed Kyphoplasty 06/06/16 awaiting final recommendations. as per PT will go home on [facility] for PT and Skilled nurse will be added. 2. History of Diverticulitis, CT abdomen and Pelvis has diverticulitis of the sigmoid colon, has no WBC, febrile abdominal pain, on Cipro and Metronidazole. will continue five days more. 3. Hypotension Resolved re started Coreg and Sotalol. 4. Acute on chronic Kidney disease stage III, status post IV fluids normal saline, Nephrology specialist following. at this time at baseline. 5. CAD status post CABG. Cardiomyopathy re started Coreg and Sotalol. 6. History of TARV (Transcatheter Aortic Valve Replacement) continue Lovenox bridging for INR therapeutic within 2 to 3 7. Chronic systolic CHF, no signs of overload 8. CAD status post CABG, Ischemic Cardiomyopathy, history of Cardiac Resynchronization Therapy Defibrillator [employer]-D in place at this time sinus rhythm with some PVCs. Discussed with patient and nurse Miss Hussein in the room all questions explained to the best of my abilities. Now Status post Kyphoplasty patient stable will need to go Home on by mouth Warfarin and bridge with Lovenox As Always a pleasure to talk about cases with Neurosurgery Specialist Doctor Abelino Ernandez input and recommendations appreciated. SCDs for DVT prophylaxis. Resume Coumadin once procedure performed by neurosurgery Code Status Full code Discharge Planning Discharge to Rehab facility today. Pt Condition on Discharge: Good Discharge Disposition: Discharge to SNF Discharge Time: > 30 minutes Discharge Instructions DIET: Follow Instructions for: Heart Healthy Diet Activities you can perform: Regular-No Restrictions Allan Soares MD Jun 08, 2016 13:25
[2016-06-08] MEDS: WARFARIN SOD 5 MG TAB PO SCH (15:08)
[2016-06-09] MEDS ORDERED: POTASSIUM CHLORIDE 10 MEQ CONTROLLED RELEASE TAB PO SCH (09:00)
[2016-07-07] MEDS ORDERED: HYDR-3583 PO (14:48)
[2016-07-07] MEDS ORDERED: DOCU1CAP25 (14:48)
[2016-07-07] MEDS ORDERED: PANT40TA3 PO (15:05)
[2016-07-07] MEDS ORDERED: TRAM50TA PO (15:09)
[2016-07-07] MEDS ORDERED: COLC1TAB15 PO (15:16)
[2016-07-07] MEDS ORDERED: COUM2.5T PO (15:20)
[2016-07-25] MEDS ORDERED: TRAM50TA PO (14:17)
[2016-07-30] MEDS ORDERED: BACT800T5 PO (11:02)
[2016-07-30] MEDS ORDERED: METR500T10 PO (11:02)
[2016-08-07] MEDS ORDERED: WARF-18 PO (13:01)
[2016-08-11] MEDS ORDERED: LACTCAP8 PO (16:15)
[2016-08-11] MEDS ORDERED: OMEP40CA2 PO (16:15)
[2016-08-11] MEDS ORDERED: VITA200T2 (16:15)
[2016-08-11] MEDS ORDERED: NITR50VP (16:15)
[2016-08-11] MEDS ORDERED: FERR65TA PO (16:15)
[2016-08-11] MEDS ORDERED: TRAM50TA PO (16:15)
== END 2016-06-08 16:02 | DRG 516 ==
LOC: PHED 09:16 → PHEDA 12:00 → N05A 16:08
PROVIDERS: ADMIT Internal Medicine; ATTEND Internal Medicine
PROC: 0QU03JZ Supplement Lumbar Vertebra with Synthetic Substitute, Percutaneous Approach (ICD-10-PCS; 2016-06-06)
PROC: 0QS03ZZ Reposition Lumbar Vertebra, Percutaneous Approach (ICD-10-PCS; principal; 2016-06-06 11:42)
DX: M48.56XA Collapsed vertebra, not elsewhere classified, lumbar region, initial encounter for fracture (principal); N17.9 Acute kidney failure, unspecified; I95.9 Hypotension, unspecified; I50.22 Chronic systolic (congestive) heart failure; I48.91 Unspecified atrial fibrillation; K57.32 Diverticulitis of large intestine without perforation or abscess without bleeding; I13.10 Hypertensive heart and chronic kidney disease without heart failure, with stage 1 through stage 4 chronic kidney disease, or unspecified chronic kidney disease; N18.3 Chronic kidney disease, stage 3 (moderate); N25.81 Secondary hyperparathyroidism of renal origin; I25.10 Atherosclerotic heart disease of native coronary artery without angina pectoris; E86.0 Dehydration; Z95.1 Presence of aortocoronary bypass graft; M54.5 Low back pain; I25.5 Ischemic cardiomyopathy; E78.00 Pure hypercholesterolemia, unspecified; K21.9 Gastro-esophageal reflux disease without esophagitis; E78.5 Hyperlipidemia, unspecified; Z86.14 Personal history of Methicillin resistant Staphylococcus aureus infection; I25.2 Old myocardial infarction; Z92.3 Personal history of irradiation; Z85.46 Personal history of malignant neoplasm of prostate; Z85.118 Personal history of other malignant neoplasm of bronchus and lung; Z88.1 Allergy status to other antibiotic agents; Z95.5 Presence of coronary angioplasty implant and graft; Z95.2 Presence of prosthetic heart valve; Z95.810 Presence of automatic (implantable) cardiac defibrillator; Z79.01 Long term (current) use of anticoagulants; M47.9 Spondylosis, unspecified; Z87.11 Personal history of peptic ulcer disease; N28.9 Disorder of kidney and ureter, unspecified
CPT/HCPCS: 36430; 72100; 72131; 74176; 80048; 80053; 80069; 82306; 83970; 85025; 85027; 85610; 86927; 87040; 94150; 96361; 96374; 96375; J0690; J1170; J1650; J2060; J2250; J2270; J2370; J2405; J2543; J2710; J3430; J3480; J7030; J7040; J7050; L0200; L0484; L0627; P9017; Q9967

== ENCOUNTER 2016-07-16 10:55 | Emergency (ER) | payer MEDICARE ==
[~2016-07-16] VITALS: Ht 162.6 cm; Wt 74.0 kg
[~2016-07-16 10:55] MED LIST changes: +CARV3.125 PO; -CARV6.25 PO; +COLC1TAB15 PO; +COUM5TAB PO; -CYCL7.5T33 PO; +DOCU1CAP25; -MECL25CH CHEW; +POTA-243 PO
[2016-07-16 11:07] VITALS: BP 86/62; PULSE 78; RESP 18; TEMP 97.5
[2016-07-16 11:39] VITALS: RESP 15; O2SAT 97
[2016-07-16 11:45] LABS: BLOOD, URINE NEG (NEG); GLUCOSE,URINE NEG (NEG); KETONE, URINE NEG (NEG); NITRITE,URINE NEG (NEG); PH, URINE 5.5 (5.0-8.5)
[2016-07-16] MEDS ORDERED: MORPHINE SULFATE 4 MG/ML INJ IV PUSH ONE (11:45)
[2016-07-16] MEDS ORDERED: SODIUM CHLORIDE 0.9% FLUSH 10 ML FLUSH IV FLUSH PRN (11:45)
[2016-07-16 11:50] LABS: METHOD OF COLLECTION CLEAN CATCH; RBC, URINE 0-3 /hpf (0-3); URINE COLOR YELLOW (YELLW/STRAW)
[2016-07-16 11:51] LABS: COMMENT (UR) CULT NOT INDICATED; CULTURE IF INDICATED CULT NOT INDICATED; SQUAMOUS EPITHELIAL CELL URINE 0-5 /hpf (0-5)
[2016-07-16 11:51] LABS: CHLORIDE 106 MEQ/L (98-107); SODIUM (NA) 142 MEQ/L (136-145)
[2016-07-16 11:55] LABS: ANION GAP 8 MEQ/L (5-15); BICARBONATE 27.6 MEQ/L (21.0-32.0); BLOOD UREA NITROGEN 36 MG/DL (7-18)
[2016-07-16 11:58] LABS: ALT (GPT) 26 U/L (12-78); AST (GOT) 28 U/L (15-37); AUTOMATED NEUTROPHIL # 5.4 TH/MM3 (1.8-7.7); BASOPHIL # 0.1 TH/MM3 (0-0.2); BASOPHIL % 0.8 % (0.0-2.0); EOSINOPHIL # 0.3 TH/MM3 (0-0.4); EOSINOPHIL % 3.8 % (0.0-4.0); GLOMERULAR FILTRATION RATE 36 ML/MIN (>89); HEMATOCRIT 36.8 % (39.0-51.0); HEMO FLAGS DIFF FINAL; LYMPH % 16.6 % (9.0-44.0); LYMPHOCYTE # 1.3 TH/MM3 (1.0-4.8); MEAN CELL VOLUME 91.8 FL (80.0-100.0); MEAN CORPUSCULAR HEMOGLOBIN 30.3 PG (27.0-34.0); MONO % 8.1 % (0.0-8.0); NEUT % 70.7 % (16.0-70.0); PLATELET COUNT 228 TH/MM3 (150-450); RED BLOOD COUNT 4.01 MIL/MM3 (4.50-5.90); RED CELL DISTRIBUTION WIDTH 16.3 % (11.6-17.2); WHITE BLOOD COUNT 7.7 TH/MM3 (4.0-11.0)
[2016-07-16 11:59] LABS: TOTAL BILIRUBIN ADULT 1.1 MG/DL (0.2-1.0)
[2016-07-16 12:00] LABS: ALKALINE PHOSPHATASE 142 U/L (45-117)
--- NOTE | 2016-07-16 12:09 | PD ---
HPI Chief Complaint: Flank/Kidney Pain Time Seen by Provider: 11:18 Travel History International Travel<30 days: No Contact w/Intl Traveler<30days: No Traveled to known affect area: No History of Present Illness HPI Send 89-year-old man who presents to the emergency room complaining of left flank pain has been constant for the past 4-5 days. He is a history of multiple medical problems including ischemic cardiomyopathy, previous lung cancer and prostate cancer, and a recent L1 kyphoplasty on June 06. He's done well from that. He still wears his brace. He developed this left flank pain 4- 5 days ago. No clear aggravating or alleviating factors. It seems to be a little bit worse with movement. No urinary symptoms. No dark urine or dysuria. No change in his bowel movements. No other complaints. History Past Medical History Narrative Medical Ischemic cardiomyopathy CAD, history of PR, history of CABG TAB R AICD History of lung cancer History of prostate cancer A. fib Hyperlipidemia Hypertension GERD CKD Social History Alcohol Use: Yes (occ) Tobacco Use: No Allergies-Medications (Allergen,Severity, Reaction): Coded Allergies: Levaquin (Verified Allergy, Severe, Joint Pain, 07/16/16) Patient report that this medication affect his tendon on his legs. *MDRO Multi-Drug Resistant Organism (Verified Adverse Reaction, Unknown, ) MRSA PCR Screen POSITIVE - 05/05/2016 Reported Meds & Prescriptions Reported Meds & Active Scripts Active Colchicine 0.6 Mg Tab 0.6 Mg PO DAILY gout attack: 2 tablets X1, then 1 more tablet 1 hour later. Do not repeat for 3 days Tramadol (Tramadol HCl) 50 Mg Tab 50 Mg PO Q8H PRN Pantoprazole (Pantoprazole Sodium) 40 Mg Tab 40 Mg PO DAILY Coumadin (Warfarin) 5 Mg Tab 5 Mg PO DAILY@1600 TAKE ONE TABLET DAILY AT 1700 HOURS, INR GOAL 2 TO 3 HOLD WARFARIN IF INR IN 3 OR OVER TITRATE DOSAGES NEEDS PT AND INR ON DAILY BASIS Klor-Con 10 (Potassium Chloride) 10 Meq Tab 10 Meq PO EVERY OTHER DAY Flomax (Tamsulosin HCl) 0.4 Mg Cap 0.4 Mg PO HS Reported Stool Softener (Docusate Calcium) 240 Mg Cap Coreg (Carvedilol) 3.125 Mg Tab 3.125 Mg PO BID Torsemide 20 Mg Tab 20 Mg PO DAILY Probiotic (Saccharomyces Boulardii) 250 Mg Cap 250 Mg PO DAILY Vitamin D (Cholecalciferol) 2,000 Unit Cap 1 Cap PO DAILY Vitamin C (Ascorbic Acid) 1,000 Mg Tab 1,000 Mg PO Feosol (Ferrous Sulfate) 65 Mg Tab 65 Mg PO DAILY Folic Acid 400 Mcg Tab 400 Mcg PO DAILY Magnesium 400 Mg Tab 400 Mg PO DAILY Nitroglycerin SL (Nitroglycerin) 0.4 Mg Subl 0.4 Mg SL DIRECTED PRN ONE TABLET UNDER THE TONGUE NEEDED FOR CHEST PAIN, MAY REPEAT EVERY FIVE MINUTES FOR A TOTAL OF 3 DOSES OR CALL 911 IF NO RELIEF Vitamin B-12 (Cyanocobalamin) 1,000 Mcg Subl 1,000 Mcg SL EVERY OTHER DAY Simvastatin 20 Mg Tab 20 Mg PO DAILY Sotalol (Sotalol HCl) 80 Mg Tab 80 Mg PO BID Vitamin B-6 (Pyridoxine HCl) 200 Mg Tab 200 Mg PO DAILY Review of Systems Except as stated in HPI: all other systems reviewed are Neg Physical Exam Narrative GENERAL: 89 year-old man, no acute distress. SKIN: Focused skin assessment warm/dry. HEAD: Atraumatic. Normocephalic. CARDIOVASCULAR: Regular rate and rhythm. No murmur appreciated. RESPIRATORY: No accessory muscle use. Clear to auscultation. Breath sounds equal bilaterally. GASTROINTESTINAL: Abdomen soft, non-tender, nondistended. Hepatic and splenic margins not palpable. MUSCULOSKELETAL: No obvious deformities. Normal appearance the back. 2 well healing small puncture incisions from kyphoplasty. There is no evidence of zoster. There is no obvious bony deformity or tenderness. NEUROLOGICAL: Awake and alert. No obvious cranial nerve deficits. Motor grossly within normal limits. Normal speech. PSYCHIATRIC: Appropriate mood and affect; insight and judgment normal. Data Data Last Documented VS Vital Signs Date Time Temp Pulse Resp B/P Pulse Ox O2 Delivery O2 Flow Rate FiO2 07/16/16 12:16 15 07/16/16 11:39 97 07/16/16 11:07 97.5 78 86/62 Orders Complete Blood Count With Diff (07/16/16 11:32) Comprehensive Metabolic Panel (07/16/16 11:32) Lipase (07/16/16 11:32) Urinalysis - C+S If Indicated (07/16/16 11:32) Ct Abd/Pel W/O Iv Contrast (07/16/16 11:32) Iv Access Insert/Monitor (07/16/16 11:32) Ecg Monitoring (07/16/16 11:32) Oximetry (07/16/16 11:32) Morphine Inj (Morphine Inj) (07/16/16 11:45) Sodium Chloride 0.9% Flush (Ns Flush) (07/16/16 11:45) Labs Laboratory Tests Test 07/16/16 07/16/16 11:30 11:35 Urine Collection Type CLEAN CATCH Urine Color YELLOW Urine Turbidity CLEAR Urine pH 5.5 Urine Specific [place] 1.022 Urine Protein 100 mg/dL Urine Glucose (UA) NEG mg/dL Urine Ketones NEG mg/dL Urine Occult Blood NEG Urine Nitrite NEG Urine Bilirubin NEG Urine Leukocyte Esterase NEG Urine RBC 0-3 /hpf Urine Squamous Epithelial 0-5 /hpf Cells Urine Hyaline Casts 20-24 /lpf Microscopic Urinalysis Comment CULT NOT INDICATED Urine Collection Time 11:30 White Blood Count 7.7 TH/MM3 Red Blood Count 4.01 MIL/MM3 Hemoglobin 12.1 GM/DL Hematocrit 36.8 % Mean Corpuscular Volume 91.8 FL Mean Corpuscular Hemoglobin 30.3 PG Mean Corpuscular Hemoglobin 33.0 % Concent Red Cell Distribution Width 16.3 % Platelet Count 228 TH/MM3 Mean Platelet Volume 8.2 FL Neutrophils (%) (Auto) 70.7 % Lymphocytes (%) (Auto) 16.6 % Monocytes (%) (Auto) 8.1 % Eosinophils (%) (Auto) 3.8 % Basophils (%) (Auto) 0.8 % Neutrophils # (Auto) 5.4 TH/MM3 Lymphocytes # (Auto) 1.3 TH/MM3 Monocytes # (Auto) 0.6 TH/MM3 Eosinophils # (Auto) 0.3 TH/MM3 Basophils # (Auto) 0.1 TH/MM3 CBC Comment DIFF FINAL Differential Comment Sodium Level 142 MEQ/L Potassium Level 5.0 MEQ/L Chloride Level 106 MEQ/L Carbon Dioxide Level 27.6 MEQ/L Anion Gap 8 MEQ/L Blood Urea Nitrogen 36 MG/DL Creatinine 1.80 MG/DL Estimat Glomerular Filtration 36 ML/MIN Rate Random Glucose 94 MG/DL Calcium Level 9.3 MG/DL Total Bilirubin 1.1 MG/DL Aspartate Amino Transf 28 U/L (AST/SGOT) Alanine Aminotransferase 26 U/L (ALT/SGPT) Alkaline Phosphatase 142 U/L Total Protein 7.8 GM/DL Albumin 3.2 GM/DL Lipase 59 U/L [facility] Medical Decision Making Medical Screen Exam Complete: Yes Emergency Medical Condition: Yes Interpretation(s) LABS: CBC remarkable for mild anemia. CMP remarkable for chronic kidney disease Lipase is normal UA unremarkable CT abdomen and pelvis: Mild diverticulitis involving the distal descending colon. No free air or fluid. Left inguinal hernia. Small cortical stone in the left kidney which is low lying. No obstruction. Differential Diagnosis Left flank pain, renal stone, AAA, zoster, musculoskeletal pain, other Narrative Course Medical decision making 89 year-old man with history of ischemic cardiomyopathy, runs low blood pressures, multiple medical problems including recent GI bleed, recent kyphoplasty. Presents with left flank pain. No history of kidney stones. We' ll check labs, CT for stone, likely continue supportive treatment. Diagnosis Primary Impression: Left flank pain Additional Impression: Acute diverticulitis Additional Instructions: Take antibiotics as prescribed. Continue acetaminophen and tramadol as needed for pain. Follow up with your primary doctor the next 2 days. You need repeat evaluation of your INR. Return to the emergency department for any new or worsening symptoms. Med/Other Pt SpecificInfo: Prescription(s) given, No Change to Meds Scripts Amoxicillin-Clavulanate (Augmentin)875-125 mg [id number] Mg PO BID 7 Days not for use in CrCl <30 ml/min. Prov:Denver Benton MD 07/16/16 Disposition: 01 DISCHARGE HOME Condition: Stable Denver Benton MD Jul 16, 2016 12:09
--- NOTE | 2016-07-16 12:13 | RADHPO ---
EXAM DATE/TIME: 07/16/2016 11:43 [facility] COMPARISON: CT ABDOMEN & PELVIS W/O CONTRAST, June 03, 2016, 10:44. INDICATIONS : Left flank pain x 2 days. ORAL CONTRAST: No oral contrast ingested. RADIATION DOSE: 15.13 CTDIvol (mGy) MEDICAL HISTORY : Carcinoma, lung. Carcinoma, prostate. Congestive heart failure.Myocardial infarction. Hypertension. Kyphoplasty 6 weeks ago. SURGICAL HISTORY : CABG Pacemaker.Appendectomy.Cholecystectomy. ENCOUNTER: Initial ACUITY: 2 days PAIN SCALE: 10/10 LOCATION: Left flank TECHNIQUE: Volumetric scanning of the abdomen and pelvis was performed. Using automated exposure control and ad justment of the mA and/or kV according to patient size, radiation dose was kept as low as reasonably achievable to obtain optimal diagnostic quality images. FINDINGS: LOWER LUNGS: The visualized lower lungs are clear. LIVER: Homogeneous density without lesion. There is no dilation of the biliary tree. Status post cholecyste ctomy. SPLEEN: Normal size without lesion. PANCREAS: Within normal limits. KIDNEYS: Normal in size and shape. The left kidney is low lying is a small cortical stone. There is no mass or hydronephrosis. ADRENAL GLANDS: Within normal limits. VASCULAR: There is no aortic aneurysm. BOWEL/MESENTERY: There is wall thickening and mild inflammatory change involving the distal descending colon with mult iple diverticuli. There is no free air or fluid. ABDOMINAL WALL: Within normal limits. RETROPERITONEUM: There is no lymphadenopathy. BLADDER: No wall thickening or mass. REPRODUCTIVE: The prostate gland remains enlarged and contains radiation seed implants. INGUINAL: There is no adenopathy. There is a left inguinal hernia containing mesenteric fat extending into the inguinal ring and upper scrotum. MUSCULOSKELETAL: Within normal limits for patient age. CONCLUSION: 1. Mild diverticulitis involving the distal descending colon. There is no free air or fluid. 2. Left inguinal hernia containing mesenteric fat. 3. Small cortical stone in the left kidney which is low lying. There is no obstruction. Rafat Lai MD on July 16, 2016 at 12:03 Board Certified Radiologist. This report was verified electronically.
[2016-07-16 12:16] VITALS: RESP 15
[2016-07-16] MEDS ORDERED: AUGM875T PO (12:18)
[2016-07-16 12:23] VITALS: BP 122/78
[2016-07-16] MEDS ORDERED: WARF-18 PO (14:06)
[2016-07-25] MEDS ORDERED: TRAM50TA PO (14:17)
[2016-07-30] MEDS ORDERED: BACT800T5 PO (11:02)
[2016-07-30] MEDS ORDERED: METR500T10 PO (11:02)
[2016-08-07] MEDS ORDERED: WARF-18 PO (13:01)
[2016-08-11] MEDS ORDERED: TRAM50TA PO (16:15)
[2016-08-11] MEDS ORDERED: FERR65TA PO (16:15)
[2016-08-11] MEDS ORDERED: OMEP40CA2 PO (16:15)
[2016-08-11] MEDS ORDERED: VITA200T2 (16:15)
[2016-08-11] MEDS ORDERED: NITR50VP (16:15)
[2016-08-11] MEDS ORDERED: LACTCAP8 PO (16:15)
== END 2016-07-16 12:33 | disposition home or self-care (01) ==
LOC: PHED 10:55
DX: R10.9 Unspecified abdominal pain (principal); K57.32 Diverticulitis of large intestine without perforation or abscess without bleeding; I12.9 Hypertensive chronic kidney disease with stage 1 through stage 4 chronic kidney disease, or unspecified chronic kidney disease; E78.5 Hyperlipidemia, unspecified; N18.9 Chronic kidney disease, unspecified; Z98.890 Other specified postprocedural states; Z95.1 Presence of aortocoronary bypass graft; Z85.118 Personal history of other malignant neoplasm of bronchus and lung; Z86.79 Personal history of other diseases of the circulatory system; Z85.46 Personal history of malignant neoplasm of prostate; Z87.19 Personal history of other diseases of the digestive system
CPT/HCPCS: 74176; 80053; 81001; 83690; 85025; 96374; 99284; J2270

== ENCOUNTER 2016-08-12 07:55 | Observation (INO) | payer MEDICARE ==
[~2016-08-12] VITALS: Ht 160 cm; Wt 74.2 kg
[2016-08-12] MEDS: SODIUM CHLOR 0.9% 1000 ML INJ 1,000 ML IV SCH ×2 (06:40→08:30)
[~2016-08-12 07:55] MED LIST changes: +AUGM875T PO; +BACT800T5 PO; -COUM2.5T PO; -COUM5TAB PO; +LACTCAP8 PO; +METR500T10 PO; +NITR50VP; +OMEP40CA2 PO; +VITA200T2; +WARF-18 PO; +ceFAZolin 2 GM PREMIX 50 ML ONE
[2016-08-12] MEDS ORDERED: POVIDONE IODINE 5% (ANTISEPSIS KIT) 4 APPLICATIONS EACH NARE PRN (08:30)
[2016-08-12] MEDS ORDERED: LACTATED RINGER'S 1000 ML IV PRN (08:30)
[2016-08-12] MEDS ORDERED: SODIUM CHLORID 0.9% 500 ML IV PRN (08:30)
[2016-08-12] MEDS ORDERED: METOPROLOL TARTRATE 25 MG TAB PO PRN (08:30)
[2016-08-12] MEDS ORDERED: INSULIN HUMAN REGULAR 1,000 UNITS/10 ML VIAL SQ PRN (08:30)
[2016-08-12] MEDS ORDERED: CHLORHEXIDINE GLUCONATE 2 % 1 PACK (2 CLOTHS) TOPICAL PRN (08:30)
[2016-08-12 08:35] VITALS: BP 95/63; PULSE 70; RESP 18; TEMP 97.8; O2SAT 98
[2016-08-12] MEDS: VANCOMYCIN HCL 1000 MG ON-CALL/NS 250 ML IV SCH ×4 (08:45→08:51)
[2016-08-12 09:03] LABS: APTT (PATIENT) 27.8 SEC (24.3-30.1); INTERNATIONAL NORMALIZED RATIO 1.2 RATIO; PROTHROMBIN TIME - PATIENT 13.2 SEC (9.8-11.6)
[2016-08-12] MEDS ORDERED: ACETAMINOPHEN 1000 MG/100 ML VIAL IV ONE (09:22)
[2016-08-12] MEDS ORDERED: ARTIFICIAL TEARS OPTH OINT 3.5 APPLIC/3.5 GM TUBO ONE (09:22)
[2016-08-12] MEDS ORDERED: MIDAZOLAM HCL 2 MG/2 ML VIAL ONE (09:23)
[2016-08-12] MEDS ORDERED: fentaNYL CITRATE 250 MCG/5 ML AMP ONE (09:23)
[2016-08-12] MEDS ORDERED: FAMOTIDINE 20 MG/2 ML VIAL ONE (09:23)
[2016-08-12] MEDS ORDERED: BUPIVACAINE/EPINEPHRINE 0.5% 50 ML VIAL ONE (10:20)
[2016-08-12] MEDS ORDERED: IOHEXOL 350 MG/ML 50 ML BTL (for RAD DIAG) ONE (10:20)
[2016-08-12] MEDS ORDERED: DO NOT ADM ANY ANTICOAGULANT DRUGS PRN (11:07)
[2016-08-12] MEDS ORDERED: *morphine SULFATE 8 MG/ML PERIprocedure ONLY ONE ×3 (11:16→11:48)
[2016-08-12] MEDS ORDERED: *MEPERIDINE 25 MG INJ VIAL PERIprocedural Use ONLY ONE (11:36)
[2016-08-12] MEDS ORDERED: NS + KCL 20 MEQ INJ 1,000 ML IV SCH (11:47)
[2016-08-12] MEDS ORDERED: MORPHINE SULFATE 4 MG/ML INJ IV PUSH PRN ×2 (12:00)
[2016-08-12] MEDS ORDERED: SODIUM CHLORIDE 0.9% FLUSH 5 ML FLUSH IVF PRN (12:00)
[2016-08-12] MEDS ORDERED: NITROGLYCERIN 0.4 MG SL 25 TABS/BTL SL PRN (12:00)
[2016-08-12] MEDS ORDERED: ACETAMINOPHEN 325 MG TAB PO PRN (12:00)
[2016-08-12] MEDS ORDERED: ACETAMINOPHEN/HYDROcodone 325 MG/10 MG TAB PO PRN (12:00)
[2016-08-12] MEDS ORDERED: *HYDROmorphone PF 1 MG VIAL PERIprocedural Use ONLY ONE (12:09)
--- NOTE | 2016-08-12 12:11 | PD.OP ---
Operative Report Date of Surgery: August 12, 2016 Preoperative Diagnosis: L 2 and L3 compression fractures Postoperative Diagnosis: L 2 and L3 compression fractures Procedure: L2 kyphoplasty L3 kyphoplasty Anesthesia: general Surgeon: Abelino Ernandez Vp Construction(s): HAKEEM Operation and Findings: INDICATIONS FOR THE PROCEDURE Mr Mejia is a 89 year-old male with history of prior L1 who presented with intractable pain related to a compression fracture of L2 and L3. He failed nonsurgical management and a kyphoplasty was indicated as the most appropriate form of treatment. The [id number] details of the procedure, indications, alternatives, risks and potential complications were fully discussed with the patient. The patient fully understood. All The questions were answered. No guarantees were given. The patient voiced requesting the procedure and provided informed consents. The patient was offered the alternative of delaying the procedure and continuing with nonsurgical management. DETAILS OF THE SURGICAL PROCEDURE The patient was brought to the operating room and after the induction of general anesthesia, endotracheal intubation was performed. A Barajas catheter and bilateral LOTUS hose and sequential compression devices were placed and kept throughout the procedure. The patient was positioned prone on the Isrrael table over gel rods. All pressure points were carefully padded with egg crate mattress. The eyes were tapped shut after ointment was applied by the anesthesiologist to prevent corneal abrasion. A Valencia hugger was placed over the exposed lower body to maintain control of the core body temperature. The lumbar region was prepped and draped in the usual sterile fashion. The C-arms were brought to the field and simultaneous AP and lateral x-rays were obtained. The levels were carefully counted and the pedicles of L2 and L3 were marked over the skin. An entry point was selected 1 centimeter superior and 1 centimeter lateral to the pedicle od L2 and L3. Two small incisions were outlined on the skin and infiltrated with 1% lidocaine with epinephrine in 1:100,000 dilution. Initially, two small skin incisions were made with a #11 blade. Then, Jamshidi needles were carefully advanced to the entrance of the pedicle of L2, and then into the vertebral body under continuous fluoroscopic guidance. K-wires were placed inside the vertebral body of and the needles were carefully removed. A drill was used to create a trough into the vertebral body to insert a cannula. Once the cannula was located through the pedicle, the drill was removed and bilateral balloons were inserted into the L2 vertebral body. A careful expansion of the balloon under continuous fluoroscopic guidance and manometric evaluation allowed expansion of the vertebral body. Then, the procedure was repeated in the same fashion at L3. The skin incisions were made with a #11 blade. Then, Jamshidi needles were carefully advanced to the entrance of the pedicle, and then into the L3 vertebral body under continuous fluoroscopic guidance. The needles were advanced. The K-wire was advanced inside the vertebral body of L3 and the needles were carefully removed. A drill was used to create a trough into the vertebral body and to insert a cannula. Once the cannula was located through the pedicle, the drill was removed and bilateral balloons were inserted into the vertebral body for vertebral augmentation. A careful expansion of the balloon under continuous fluoroscopic guidance and manometric evaluation allowed expansion of the vertebral body. Then, the balloons were deflated and carefully removed and the voids created in the vertebral bodies were filled with bone cement. A very good expansion if the vertebral bodies was achieved without evidence of extravasation or cement or other complications. The cannulas were then removed. The incisions were closed using a single stitch at each incision. Dermabond was applied to the skin. At the end of the procedure, the sponge, needle, instrument counts correct. The estimated blood loss as minimal. No intraoperative complications occurred. The patient received prophylactic antibiotics. The patient was then extubated and transferred to the recovery room in stable condition. Abelino Ernandez MD August 12, 2016 12:10
[2016-08-12] MEDS ORDERED: PROPOFOL 200 MG/20 ML AMP IV ONE (13:51)
[2016-08-12] MEDS ORDERED: PHENYLEPH/NS 1000 MCG/10 ML SYR IV ONE (13:52)
[2016-08-12] MEDS ORDERED: ePHEDrine/NS 25 MG/5 ML SYR IV ONE (13:52)
[2016-08-12] MEDS ORDERED: NEOSTIGMINE 3 MG/3 ML SYR IV ONE (13:52)
[2016-08-12] MEDS ORDERED: ONDANSETRON HCL 4 MG/2 ML VIAL IV PUSH ONE (13:52)
[2016-08-12] MEDS ORDERED: LACTATED RINGER'S 1000 ML INJ 1,000 ML IV ONE (13:53)
[2016-08-12] MEDS ORDERED: SODIUM CHLORID 0.9% 500 ML INJ 500 ML IV ONE (13:53)
--- NOTE | 2016-08-12 16:44 | RADRPT ---
EXAM DATE/TIME: 08/12/2016 10:54 [place] COMPARISON: SPINE LUMBAR LTD (AP & LAT), June 06, 2016, 12:12. INDICATIONS : Kyphoplasty of L2 and L3 MEDICAL HISTORY : Hypertension. Carcinoma, lung. Carcinoma, prostate. Congestive heart failure.Myocardial infarct ion. SURGICAL HISTORY : Kyphoplasty L1. ENCOUNTER: Initial ACUITY: 1 day PAIN SCORE: Non-responsive. LOCATION: Lumbar spine. FINDINGS: AP and lateral views of the spine were obtained. Exact levels cannot be confidently determined from t he images provided given the lack of anatomic landmarks. The AP image demonstrates kyphoplasty at 3 c ontiguous levels. The lateral view demonstrates cement material within a single vertebral body that i s associated with height loss. CONCLUSION: Spot fluoroscopic images, as above. Canelo Barraza MD on August 12, 2016 at 16:40 Board Certified Radiologist. This report was verified electronically.
[2016-08-12] MEDS: ceFAZolin 2 GM PREMIX 50 ML IV SCH (17:24)
[2016-08-12 19:21] VITALS: BP 94/67; PULSE 87; RESP 18; TEMP 96.6; O2SAT 100
[2016-08-12] MEDS: DOCUSATE SODIUM 100 MG CAP PO SCH (20:50)
[2016-08-12] MEDS: TAMSULOSIN HCL 0.4 MG CAP PO SCH (20:50)
[2016-08-12] MEDS: FERROUS SULFATE 325 MG (65 MG ELEMENTAL IRON) TAB PO SCH (20:51)
[2016-08-12] MEDS: SODIUM CHLORIDE 0.9% FLUSH 5 ML FLUSH IVF SCH (20:51)
[2016-08-12] MEDS: SOTALOL HCL 80 MG TAB PO SCH (20:51)
[2016-08-12 21:36] VITALS: O2SAT 98
[2016-08-12 23:48] VITALS: BP 93/61; PULSE 75; RESP 18; TEMP 96.4; O2SAT 98
[2016-08-13] MEDS: ceFAZolin 2 GM PREMIX 50 ML IV SCH ×2 (01:14→10:04)
[2016-08-13] MEDS: traMADol HCL 50 MG TAB PO PRN ×3 (01:14→17:30)
[2016-08-13 04:00] VITALS: BP 94/63; PULSE 70; RESP 17; TEMP 96.3; O2SAT 99
[2016-08-13 08:00] VITALS: BP 97/65; PULSE 74; RESP 18; TEMP 96; O2SAT 99
[2016-08-13] MEDS: SODIUM CHLOR 0.9% 1000 ML INJ 1,000 ML IV SCH (08:30)
[2016-08-13] MEDS ORDERED: PANTOPRAZOLE SOD 40 MG DELAYED RELEASE TAB PO SCH (09:00)
[2016-08-13] MEDS: SODIUM CHLORIDE 0.9% FLUSH 5 ML FLUSH IVF SCH ×2 (09:00→21:00)
[2016-08-13] MEDS ORDERED: NON-FORMULARY DRUG (Saccharomyces Boulardii (Probiotic) 250 MG) PO SCH (09:00)
[2016-08-13] MEDS: SOTALOL HCL 80 MG TAB PO SCH ×2 (09:00→21:00)
--- NOTE | 2016-08-13 09:09 | PD.CONS ---
HPI Service [facility] Hospitalists Consult Requested By Dr Ernandez neurosurgery Reason for Consult medical management Primary Care Physician Ale Marte MD Diagnoses: History of Present Illness 89 yo male with PMH of lung CA, prostate CA, Afib on coumadin, CAD, [place], systolic CHF, HLD, HTN, CKD, GERD. Patient is post kyphoplasty by Dr Ernandez 08/12. The hospitalist is consulted for medical management. The patient is in the chair, eating breakfast. He appears not acute distress. He says he has good strength. Says pain is controlled by medications. He denies having any chest pain, shortness of breath, nausea, vomiting, diarrhea . He complains of constipation. No fever or chills. No problem with urination Barajas in place clear urine. He has no complaints of this time. Review of Systems Except as stated in HPI: all other systems reviewed are Neg Past Family Social History Allergies: Coded Allergies: Levaquin (Verified Allergy, Severe, Joint Pain, 08/11/16) Patient report that this medication affect his tendon on his legs. *MDRO Multi-Drug Resistant Organism (Verified Adverse Reaction, Unknown, ) MRSA PCR Screen POSITIVE - 05/05/2016 Past Medical History History of lung cancer History of prostate cancer Atrial fibrillation Coronary artery disease Acute myocardial infarction 1 Congestive heart failure, likely systolic Hyperlipidemia Hypertension GERD Prior radiation therapy Chronic kidney disease, unknown stage Past Surgical History Appendectomy TAVR CABG x 4 Cholecystectomy Multiple cardiac stents AICD Reported Medications Reported Meds & Active Scripts Active Warfarin 2.5 Mg Tab 2.5 Mg PO DAILY Klor-Con 10 (Potassium Chloride) 10 Meq Tab 10 Meq PO EVERY OTHER DAY Flomax (Tamsulosin HCl) 0.4 Mg Cap 0.4 Mg PO HS Reported Tramadol (Tramadol HCl) 50 Mg Tab 50 Mg PO Q4H PRN Vitamin B-6 (Pyridoxine HCl) 200 Mg Tab Feosol (Ferrous Sulfate) 65 Mg Tab 65 Mg PO BIDPC Omeprazole 40 Mg Cap 40 Mg PO DAILY Stool Softener (Docusate Calcium) 240 Mg Cap Torsemide 20 Mg Tab 10 Mg PO DAILY Probiotic (Saccharomyces Boulardii) 250 Mg Cap 250 Mg PO DAILY Vitamin D (Cholecalciferol) 2,000 Unit Cap 1 Cap PO DAILY Vitamin C (Ascorbic Acid) 1,000 Mg Tab 1,000 Mg PO Folic Acid 400 Mcg Tab 400 Mcg PO DAILY Magnesium 400 Mg Tab 400 Mg PO DAILY Nitroglycerin SL (Nitroglycerin) 0.4 Mg Subl 0.4 Mg SL DIRECTED PRN ONE TABLET UNDER THE TONGUE NEEDED FOR CHEST PAIN, MAY REPEAT EVERY FIVE MINUTES FOR A TOTAL OF 3 DOSES OR CALL 911 IF NO RELIEF Vitamin B-12 (Cyanocobalamin) 1,000 Mcg Subl 1,000 Mcg SL EVERY OTHER DAY Simvastatin 20 Mg Tab 20 Mg PO DAILY Sotalol (Sotalol HCl) 80 Mg Tab 80 Mg PO BID Family History Father had lung cancer he was a smoker Mother cancer unspecified Social History Denies EtOH use, tobacco use or illicit drug use. Quit smoking 50 years ago, used to smoke 1-1/2 pack per days for 20 years. Physical Exam Vital Signs Vital Signs Date Time Temp Pulse Resp B/P Pulse Ox O2 Delivery O2 Flow Rate FiO2 08/13/16 04:00 96.3 70 17 94/63 99 08/12/16 23:48 96.4 75 18 93/61 98 08/12/16 21:36 98 Nasal Cannula 2.00 08/12/16 19:21 96.6 87 18 94/67 100 08/12/16 17:30 69 12 95/60 98 Nasal Cannula 2 08/12/16 17:00 70 13 100/61 97 Nasal Cannula 2 08/12/16 16:00 97.0 69 12 98/64 99 Nasal Cannula 2 08/12/16 15:00 69 12 103/64 100 Nasal Cannula 2 08/12/16 14:00 69 15 95/62 97 Nasal Cannula 2 08/12/16 13:00 69 20 90/57 97 Nasal Cannula 2 08/12/16 12:30 69 17 97/62 98 Nasal Cannula 2 08/12/16 12:00 97.0 69 12 109/69 96 Nasal Cannula 2 08/12/16 11:45 69 19 117/73 100 Nasal Cannula 2 08/12/16 11:30 69 21 115/72 99 Nasal Cannula 2 08/12/16 11:11 98.1 69 12 139/79 100 Nasal Cannula 2 Physical Exam GENERAL: This is a very pleasant 89-year-old male, well-nourished, well- developed patient, in no apparent distress. SKIN: No rashes, ecchymoses or lesions. Cool and dry. HEAD: Atraumatic. Normocephalic. No temporal or scalp tenderness. EYES: Pupils equal round and reactive. Extraocular motions intact. No scleral icterus. No injection or drainage. ENT: Nose without bleeding, purulent drainage or septal hematoma. Throat without erythema, tonsillar hypertrophy or exudate. Uvula midline. Airway patent. NECK: Trachea midline. No JVD or lymphadenopathy. Supple, nontender, no meningeal signs. CARDIOVASCULAR: Regular rate and rhythm without murmurs, gallops, or rubs. RESPIRATORY: Clear to auscultation. Breath sounds equal bilaterally. No wheezes , rales, or rhonchi. GASTROINTESTINAL: Abdomen soft, non-tender, nondistended. No hepato-splenomegaly , or palpable masses. No guarding. MUSCULOSKELETAL: Brace in place. Extremities without clubbing, cyanosis, or edema. No joint tenderness, effusion, or edema noted. No calf tenderness. Negative Homans sign bilaterally. NEUROLOGICAL: Awake and alert. Cranial nerves II through XII intact. Motor and sensory grossly within normal limits. Five out of 5 muscle strength in all muscle groups. Normal speech. Imaging Last Impressions Lumbar Spine X-Ray 08/12/16 0000 Signed Impressions: Service Date/Time: Friday, August 12, 2016 10:54 - CONCLUSION: Spot fluoroscopic images, as above. Canelo Barraza MD Assessment and Plan Assessment and Plan 89-year-old man with L1 and L2 compression fracture: s/p kyphoplasty by Dr Ernandez 08/12/[address] Management per neurosurgery. Constipation. Laxatives/to soft as need. History of diverticulitis:stable. Hypertension: Continue Coreg and sotalol. Monitor BP . BP noted running into a lower side, parameters for BP meds administration. Hold antihypertensive if low BP. Chronic kidney disease stage III: Avoid nephrotoxic drugs. Afib, Ischemic cardiomyopathy, CAD, HLD. Continue home meds. History of TAVR:hold anticoagulation Coumadin until patient seen by neurosurgery BPH resume tamsulosin. SCDs for DVT prophylaxis. Resume Coumadin when okay with neurosurgery Thank you for this consultation. We'll follow along. Code Status Full code Discussed Condition With patient. nurse Manda Schmidt MD August 13, 2016 09:09
[2016-08-13] MEDS: PANTOPRAZOLE SOD 40 MG DELAYED RELEASE TAB PO SCH (09:46)
[2016-08-13] MEDS: FERROUS SULFATE 325 MG (65 MG ELEMENTAL IRON) TAB PO SCH ×2 (09:47→17:42)
[2016-08-13] MEDS: FOLIC ACID 1 MG TAB PO SCH (09:47)
[2016-08-13] MEDS: CHOLECALCIFEROL (VIT D3) 1000 UNIT TAB PO SCH (09:47)
[2016-08-13] MEDS: PRAVASTATIN SOD 40 MG TAB PO SCH (09:48)
[2016-08-13] MEDS: TORSEMIDE 20 MG TAB PO SCH (09:48)
[2016-08-13] MEDS: DOCUSATE SODIUM 100 MG CAP PO SCH ×2 (09:48→21:38)
[2016-08-13] MEDS: MAGNESIUM OXIDE 400 MG TAB PO SCH (09:49)
--- NOTE | 2016-08-13 10:58 | HHI.NSPN ---
(Lucy Davis) Note Status Status: Progress Note (Lucy Davis) Interval History Interval History Mr. Mejia is a 89 y/o male s/p L2, L3 Kyphoplasty on 08/12/16. He reports mild achiness in the low back as he has been sitting for a while, otherwise his previous lumbar pain has significantly improved. Last BP 97/65, pt reports he normally runs low at home has not been taking his bp medications at home, medicine aware. (Lucy Davis) Labs, Micro, & Vital Signs Results Date Time Temp Pulse Resp B/P Pulse Ox O2 Delivery O2 Flow Rate FiO2 08/13/16 08:00 96.0 74 18 97/65 99 08/13/16 04:00 96.3 70 17 94/63 99 08/12/16 23:48 96.4 75 18 93/61 98 08/12/16 21:36 98 Nasal Cannula 2.00 08/12/16 19:21 96.6 87 18 94/67 100 08/12/16 17:30 69 12 95/60 98 Nasal Cannula 2 08/12/16 17:00 70 13 100/61 97 Nasal Cannula 2 08/12/16 16:00 97.0 69 12 98/64 99 Nasal Cannula 2 08/12/16 15:00 69 12 103/64 100 Nasal Cannula 2 08/12/16 14:00 69 15 95/62 97 Nasal Cannula 2 08/12/16 13:00 69 20 90/57 97 Nasal Cannula 2 08/12/16 12:30 69 17 97/62 98 Nasal Cannula 2 08/12/16 12:00 97.0 69 12 109/69 96 Nasal Cannula 2 08/12/16 11:45 69 19 117/73 100 Nasal Cannula 2 08/12/16 11:30 69 21 115/72 99 Nasal Cannula 2 08/12/16 11:11 98.1 69 12 139/79 100 Nasal Cannula 2 08/13/16 07:00 Intake Total 2599 ml Output Total 1750 ml Balance 849 ml Constitutional Vital Signs Date Time Temp Pulse Resp B/P Pulse Ox O2 Delivery O2 Flow Rate FiO2 08/13/16 08:00 96.0 74 18 97/65 99 08/13/16 04:00 96.3 70 17 94/63 99 08/12/16 23:48 96.4 75 18 93/61 98 08/12/16 21:36 98 Nasal Cannula 2.00 08/12/16 19:21 96.6 87 18 94/67 100 08/12/16 17:30 69 12 95/60 98 Nasal Cannula 2 08/12/16 17:00 70 13 100/61 97 Nasal Cannula 2 08/12/16 16:00 97.0 69 12 98/64 99 Nasal Cannula 2 08/12/16 15:00 69 12 103/64 100 Nasal Cannula 2 08/12/16 14:00 69 15 95/62 97 Nasal Cannula 2 08/12/16 13:00 69 20 90/57 97 Nasal Cannula 2 08/12/16 12:30 69 17 97/62 98 Nasal Cannula 2 08/12/16 12:00 97.0 69 12 109/69 96 Nasal Cannula 2 08/12/16 11:45 69 19 117/73 100 Nasal Cannula 2 08/12/16 11:30 69 21 115/72 99 Nasal Cannula 2 08/12/16 11:11 98.1 69 12 139/79 100 Nasal Cannula 2 08/13/16 07:00 Intake Total 2599 ml Output Total 1750 ml Balance 849 ml (Lucy Davis) Review of Systems/Exam Exam Mr. Mejia is alert, awake and oriented to time, place and person. Speech is fluent. Follows commands well. Sitting up in chair with TLSO brace on. Cranial nerve examination demonstrates the pupils to be equal, round, and reactive to light. Extra-ocular movements are intact. Facial motor and sensory function are normal and symmetrical. Neck is soft and supple. Muscle strength is 5/5 in all muscle groups of both upper and lower extremities bilaterally. Sensory examination is intact to light touch and sharp/dull discrimination in both the upper and lower extremities, symmetrically. There is a bilateral plantar flexion response. (Lucy Davis) Medications Current Medications Current Medications Medications (Trade) Dose Ordered Sig/Osmar Route PRN Reason Start Time Stop Time Status Last Admin Dose Admin Sodium Chloride 1,000 ml @ 30 mls/hr Q24H IV 08/12/16 08:30 Lactated Ringer's 1,000 ml @ 30 mls/hr Q24H PRN IV SEE LABEL COMMENTS 08/12/16 08:30 08/15/16 08:29 08/12/16 08:34 Sodium Chloride (NS 500 ml Inj) 500 ml @ 30 mls/hr [id number] PRN IV SEE LABEL COMMENTS 08/12/16 08:30 08/15/16 08:29 Miscellaneous Information ALL NURSING DEPARTME... UNSCH PRN .XX SEE LABEL COMMENTS 08/12/16 11:07 08/13/16 11:06 IV Flush (NS Flush) 2 ml UNSCH PRN IVF FLUSH AFTER USING IV ACCESS 08/12/16 12:00 IV Flush (NS Flush) 2 ml BID IVF 08/12/16 21:00 08/13/16 09:00 Docusate Sodium (Colace) 100 mg BID PO 08/12/16 21:00 08/13/16 09:48 Acetaminophen/ Hydrocodone Bitart ([place] 10-325 Mg) 1 tab Q4H PRN PO PAIN SCALE 1 TO 5 08/12/16 12:00 Acetaminophen/ Hydrocodone Bitart ([place] 10-325 Mg) 2 tab Q4H PRN PO PAIN SCALE 6 TO 10 08/12/16 12:00 Morphine Sulfate (Morphine Inj) 2 mg Q2H PRN IV PUSH PAIN SCALE 1 TO 6 08/12/16 12:00 Morphine Sulfate (Morphine Inj) 4 mg Q2H PRN IV PUSH PAIN SCALE 7 TO 10 08/12/16 12:00 Acetaminophen (Tylenol) 650 mg Q4H PRN PO TEMPERATURE > 101.5 F 08/12/16 12:00 Ferrous Sulfate (Ferrous Sulfate) 65 mg BIDPC PO 08/12/16 18:00 08/13/16 09:47 Folic Acid (Folate) 0.4 mg DAILY PO 08/13/16 09:00 08/13/16 09:47 Nitroglycerin (Nitrostat Sl) 0.4 mg BID PRN SL CHEST PAIN 08/12/16 12:00 Sotalol HCl (Betapace) 80 mg BID PO 08/12/16 21:00 Tamsulosin HCl (Flomax) 0.4 mg HS PO 08/12/16 21:00 08/12/16 20:50 Torsemide (Demadex) 10 mg DAILY PO 08/13/16 09:00 08/13/16 09:48 Tramadol HCl (Ultram) 50 mg Q4H PRN PO PAIN 08/12/16 12:00 08/13/16 09:47 Cholecalciferol (Vitamin D3) 2,000 units DAILY PO 08/13/16 09:00 08/13/16 09:47 Magnesium Oxide (Mag-Ox) 400 mg DAILY PO NS 08/13/16 09:00 08/13/16 09:49 Pantoprazole Sodium (Protonix) 40 mg DAILY PO 08/13/16 09:00 08/13/16 09:46 Pravastatin Sodium (Pravachol) 40 mg DAILY PO CM 08/13/16 09:00 08/13/16 09:48 (Lucy Davis) Medical Decision Making MDM Remarks 89 y/o male s/p L2, L3 Kyphoplasty 08/12/16 (Lucy Davis) Plan Plan Remarks medical assistance appreciated hold antihypertensive, clinically stable, TLSO when out of bed discussed w/ pt regarding activity restrictions and wound care dc home with [facility] once cleared by medical physician (Lucy Davis) Attending Statement The exam, history, and the medical decision-making described in the above note were completed with the assistance of the mid-level provider. I reviewed and agree with the findings presented. I attest that I had a [id number] encounter with the patient on the same day, and personally performed and documented my assessment and findings in the medical record. (Abelino Ernandez MD) Lucy Davis August 13, 2016 10:58 Abelino Ernandez MD August 18, 2016 12:36
[2016-08-13] MEDS ORDERED: DOCUSATE SODIUM 50 MG/SENNA 8.6 MG TAB PO ONE (11:30)
[2016-08-13] MEDS ORDERED: MAGNESIUM HYDROXIDE SUSP 30 ML CUP PO PRN (11:30)
[2016-08-13 12:00] VITALS: BP 98/58; PULSE 71; RESP 18; TEMP 96.6; O2SAT 97
--- NOTE | 2016-08-13 12:32 | HHI.DCPOC ---
Discharge Care Plan Diagnosis: (1) S/P kyphoplasty Goals to Promote Your Health * To prevent worsening of your condition and complications * To maintain your health at the optimal level Directions to Meet Your Goals Take your medications as prescribed Follow your dietary instruction Follow activity as directed Keep your appointments as scheduled Take your immunizations and boosters as scheduled If your symptoms worsen call your PCP, if no PCP go to Urgent Care Center or Emergency Room Smoking is Dangerous to Your Health. Avoid second hand smoke Call the 24-hour hour crisis hotline for domestic abuse at Lucy Davis August 13, 2016 12:32
[2016-08-13] MEDS ORDERED: TRAM50TA PO (12:33)
--- NOTE | 2016-08-13 12:33 | HHI.FF ---
Face to Face Verification Diagnosis: (1) S/P kyphoplasty Physical Therapy Order: Improve ambulation, Strength and gait training Home Health Nursing Order: Medical education Signs/symptoms of disease process Wound care and dressing changes Nursing assessment with vital signs I have seen patient Hai Mejia on 08/13/16. My clinical findings support the need for the requested home health care services because: Deconditioned w/ increased weakness High risk of falls I certify that my clinical findings support that this patient is homebound because: Post-op weakness Unsteady gait/balance Lucy Davis August 13, 2016 12:33
[2016-08-13 13:55] VITALS: O2SAT 96
[2016-08-13 16:00] VITALS: BP 108/62; PULSE 72; RESP 20; TEMP 96.4; O2SAT 96
[2016-08-13 19:00] VITALS: BP 104/65; PULSE 70; RESP 17; TEMP 97.1; O2SAT 94
[2016-08-13] MEDS: TAMSULOSIN HCL 0.4 MG CAP PO SCH (21:38)
[2016-08-13] MEDS: ACETAMINOPHEN/HYDROcodone 325 MG/10 MG TAB PO PRN (21:42)
[2016-08-14] VITALS: BP 96/61; PULSE 73; RESP 19; TEMP 98.5; O2SAT 94
[2016-08-14] MEDS: ACETAMINOPHEN/HYDROcodone 325 MG/10 MG TAB PO PRN (03:11)
[2016-08-14 04:00] VITALS: BP 94/66; PULSE 83; RESP 18; TEMP 96.7; O2SAT 97
[2016-08-14 08:22] VITALS: BP 96/64; PULSE 80; RESP 16; TEMP 96.7; O2SAT 95
[2016-08-14] MEDS: SODIUM CHLOR 0.9% 1000 ML INJ 1,000 ML IV SCH (08:30)
[2016-08-14] MEDS: SOTALOL HCL 80 MG TAB PO SCH (09:00)
[2016-08-14] MEDS: FERROUS SULFATE 325 MG (65 MG ELEMENTAL IRON) TAB PO SCH (09:00)
[2016-08-14] MEDS: DOCUSATE SODIUM 100 MG CAP PO SCH (09:00)
[2016-08-14] MEDS: TORSEMIDE 20 MG TAB PO SCH (09:00)
[2016-08-14] MEDS ORDERED: DOCUSATE SODIUM 50 MG/SENNA 8.6 MG TAB PO SCH (09:00)
[2016-08-14] MEDS ORDERED: POTASSIUM CHLORIDE 10 MEQ CONTROLLED RELEASE TAB PO SCH (09:00)
[2016-08-14] MEDS: FOLIC ACID 1 MG TAB PO SCH (09:00)
[2016-08-14] MEDS ORDERED: CYANOCOBALAMIN 1,000 MCG TAB PO SCH (09:00)
[2016-08-14] MEDS: SODIUM CHLORIDE 0.9% FLUSH 5 ML FLUSH IVF SCH (09:00)
[2016-08-14] MEDS: PANTOPRAZOLE SOD 40 MG DELAYED RELEASE TAB PO SCH (09:19)
[2016-08-14] MEDS: PRAVASTATIN SOD 40 MG TAB PO SCH (09:19)
[2016-08-14] MEDS: MAGNESIUM OXIDE 400 MG TAB PO SCH (09:19)
[2016-08-14] MEDS: CHOLECALCIFEROL (VIT D3) 1000 UNIT TAB PO SCH (09:19)
[2016-08-14] MEDS ORDERED: FERROUS SULFATE 325 MG (65 MG ELEMENTAL IRON) TAB PO SCH (09:30)
[2016-08-14] MEDS ORDERED: FOLIC ACID 1 MG TAB PO SCH (09:30)
--- NOTE | 2016-08-14 09:53 | HHI.PR ---
Subjective Remarks patient sitting on the chair,minimal back pain from surgery "very leticia bit" voiding spontaneously, + good BM Objective Vitals Vital Signs Date Time Temp Pulse Resp B/P Pulse Ox O2 Delivery O2 Flow Rate FiO2 08/14/16 08:22 96.7 80 16 96/64 95 08/14/16 04:11 18 08/14/16 04:00 96.7 83 18 94/66 97 08/14/16 00:00 98.5 73 19 96/61 94 08/13/16 19:00 97.1 70 17 104/65 94 08/13/16 18:14 Nasal Cannula 2.00 08/13/16 16:00 96.4 72 20 108/62 96 08/13/16 13:55 96 Nasal Cannula 2.00 08/13/16 12:00 96.6 71 18 98/58 97 I/O 08/13/16 08/13/16 08/13/16 08/14/16 08/14/16 08/14/16 07:00 15:00 23:00 07:00 15:00 23:00 Intake Total 824 ml 224 ml 480 ml 480 ml Output Total 575 ml 275 ml 930 ml 0 ml Balance 249 ml -51 ml -450 ml 480 ml Intake Oral 360 ml 480 ml 480 ml IV Total 464 ml 224 ml Output Urine Total 575 ml 275 ml 930 ml Stool Total 0 ml Bladder Scan Volume Amount 407 ml # Voids 3 # Bowel Movements 0 0 0 Imaging Last Impressions Lumbar Spine X-Ray 08/12/16 0000 Signed Impressions: Service Date/Time: Friday, August 12, 2016 10:54 - CONCLUSION: Spot fluoroscopic images, as above. Canelo Barraza MD Objective Remarks awake and alert, oriented x 3, NAD anicteric lungs clear regular rhythm abdomen- soft, good bowel sounds extremitie no edema moves all extremities spontaneously Procedures kyphoplastry A/P Assessment and Plan 89-year-old man with L1 and L2 compression fracture: s/p kyphoplasty by Dr Ernandez 08/12/[address] Management per neurosurgery. Constipation. Laxatives/to soft as need.+ BM History of diverticulitis:stable. Hypertension: Continue Coreg and sotalol. Monitor BP . BP noted running into a lower side, parameters for BP meds administration. asymptomatic . Chronic kidney disease stage III: Avoid nephrotoxic drugs. Afib, Ischemic cardiomyopathy, CAD, HLD. Continue home meds. History of TAVR:hold anticoagulation Coumadin until patient seen by neurosurgery BPH resume tamsulosin. SCDs for DVT prophylaxis. Resume Coumadin when okay with neurosurgery DC planning- Home health care Timmy Correa MD August 14, 2016 09:53
--- NOTE | 2016-08-14 11:55 | HHI.NSPN ---
(Lucy Davis) Note Status Status: Progress Note (Lucy Davis) Interval History Interval History Mr. Mejia is a 89 y/o male s/p L2, L3 Kyphoplasty on 08/12/16. He reports mild achiness in the low back as he has been sitting for a while, otherwise his previous lumbar pain has significantly improved. Last BP 97/65, pt reports he normally runs low at home has not been taking his bp medications at home, medicine aware. 08/14: dc held last yesterday due to low urine output following removal of carvalho catheter. urine increased overnight, denies any difficulty with voiding. (Lucy Davis) Labs, Micro, & Vital Signs Results Date Time Temp Pulse Resp B/P Pulse Ox O2 Delivery O2 Flow Rate FiO2 08/14/16 08:22 96.7 80 16 96/64 95 08/14/16 04:11 18 08/14/16 04:00 96.7 83 18 94/66 97 08/14/16 00:00 98.5 73 19 96/61 94 08/13/16 19:00 97.1 70 17 104/65 94 08/13/16 18:14 Nasal Cannula 2.00 08/13/16 16:00 96.4 72 20 108/62 96 08/13/16 13:55 96 Nasal Cannula 2.00 08/13/16 12:00 96.6 71 18 98/58 97 08/14/16 07:00 Intake Total 1184 ml Output Total 1205 ml Balance -21 ml Constitutional Vital Signs Date Time Temp Pulse Resp B/P Pulse Ox O2 Delivery O2 Flow Rate FiO2 08/14/16 08:22 96.7 80 16 96/64 95 08/14/16 04:11 18 08/14/16 04:00 96.7 83 18 94/66 97 08/14/16 00:00 98.5 73 19 96/61 94 08/13/16 19:00 97.1 70 17 104/65 94 08/13/16 18:14 Nasal Cannula 2.00 08/13/16 16:00 96.4 72 20 108/62 96 08/13/16 13:55 96 Nasal Cannula 2.00 08/13/16 12:00 96.6 71 18 98/58 97 08/14/16 07:00 Intake Total 1184 ml Output Total 1205 ml Balance -21 ml (Lucy Davis) Review of Systems/Exam Exam Mr. Mejia is alert, awake and oriented to time, place and person. Speech is fluent. Follows commands well. Sitting up in chair with TLSO brace on. Cranial nerve examination demonstrates the pupils to be equal, round, and reactive to light. Extra-ocular movements are intact. Facial motor and sensory function are normal and symmetrical. Neck is soft and supple. Muscle strength is 5/5 in all muscle groups of both upper and lower extremities bilaterally. Sensory examination is intact to light touch and sharp/dull discrimination in both the upper and lower extremities, symmetrically. There is a bilateral plantar flexion response. (Lucy Davis) Medications Current Medications Current Medications Medications (Trade) Dose Ordered Sig/Osmar Route PRN Reason Start Time Stop Time Status Last Admin Dose Admin Sodium Chloride 1,000 ml @ 30 mls/hr Q24H IV 08/12/16 08:30 Lactated Ringer's 1,000 ml @ 30 mls/hr Q24H PRN IV SEE LABEL COMMENTS 08/12/16 08:30 08/15/16 08:29 08/12/16 08:34 Sodium Chloride (NS 500 ml Inj) 500 ml @ 30 mls/hr [id number] PRN IV SEE LABEL COMMENTS 08/12/16 08:30 08/15/16 08:29 IV Flush (NS Flush) 2 ml UNSCH PRN IVF FLUSH AFTER USING IV ACCESS 08/12/16 12:00 IV Flush (NS Flush) 2 ml BID IVF 08/12/16 21:00 08/14/16 09:00 Docusate Sodium (Colace) 100 mg BID PO 08/12/16 21:00 08/13/16 21:38 Acetaminophen/ Hydrocodone Bitart (Pioneer 10-325 Mg) 1 tab Q4H PRN PO PAIN SCALE 1 TO 5 08/12/16 12:00 Acetaminophen/ Hydrocodone Bitart (Pioneer 10-325 Mg) 2 tab Q4H PRN PO PAIN SCALE 6 TO 10 08/12/16 12:00 08/14/16 03:11 Morphine Sulfate (Morphine Inj) 2 mg Q2H PRN IV PUSH PAIN SCALE 1 TO 6 08/12/16 12:00 Morphine Sulfate (Morphine Inj) 4 mg Q2H PRN IV PUSH PAIN SCALE 7 TO 10 08/12/16 12:00 Acetaminophen (Tylenol) 650 mg Q4H PRN PO TEMPERATURE > 101.5 F 08/12/16 12:00 Nitroglycerin (Nitrostat Sl) 0.4 mg BID PRN SL CHEST PAIN 08/12/16 12:00 Sotalol HCl (Betapace) 80 mg BID PO 08/12/16 21:00 Tamsulosin HCl (Flomax) 0.4 mg HS PO 08/12/16 21:00 08/13/16 21:38 Torsemide (Demadex) 10 mg DAILY PO 08/13/16 09:00 08/13/16 09:48 Tramadol HCl (Ultram) 50 mg Q4H PRN PO PAIN 08/12/16 12:00 08/13/16 17:30 Cholecalciferol (Vitamin D3) 2,000 units DAILY PO 08/13/16 09:00 08/14/16 09:19 Magnesium Oxide (Mag-Ox) 400 mg DAILY PO NS 08/13/16 09:00 08/14/16 09:19 Pantoprazole Sodium (Protonix) 40 mg DAILY PO 08/13/16 09:00 08/14/16 09:19 Pravastatin Sodium (Pravachol) 40 mg DAILY PO CM 08/13/16 09:00 08/14/16 09:19 Senna/Docusate Sodium (Pamela-Colace) 2 tab DAILY PO 08/14/16 09:00 Magnesium Hydroxide (Milk Of Magnesia Liq) 30 ml DAILY PRN PO severe constipation 08/13/16 11:30 08/14/16 03:17 Ferrous Sulfate (Ferrous Sulfate) 325 mg BIDPC PO 08/14/16 09:30 08/14/16 09:30 Folic Acid (Folate) 1 mg DAILY PO 08/14/16 09:30 08/14/16 09:30 (Lucy Davis) Medical Decision Making MDM Remarks 89 y/o male s/p L2, L3 Kyphoplasty 08/12/16 (Lucy Davis) Plan Plan Remarks clinically stable, TLSO when out of bed discussed w/ pt regarding activity restrictions and wound care dc home with C (Lucy Davis) Attending Statement The exam, history, and the medical decision-making described in the above note were completed with the assistance of the mid-level provider. I reviewed and agree with the findings presented. I attest that I had a [id number] encounter with the patient on the same day, and personally performed and documented my assessment and findings in the medical record. (Abelino Ernandez MD) Lucy Davis August 14, 2016 11:54 Abelino Ernandez MD August 18, 2016 12:45
--- NOTE | 2016-08-14 11:56 | HHI.DS ---
Discharge Summary Admission Date August 12, 2016 at 11:48 Discharge Date: August 14, 2016 Admitting Diagnosis s/p Kyphoplasty (1) S/P kyphoplasty ICD Code: Z98.890 Brief History Mr Mejia is a 89 year-old male with history of prior L1 who presented with intractable pain related to a compression fracture of L2 and L3. He failed nonsurgical management and a kyphoplasty was indicated as the most appropriate form of treatment. Significant Findings Laboratory Tests Test 08/12/16 08:25 Prothrombin Time 13.2 SEC (9.8-11.6) Hospital Course Mr. Mejia is s/p L2 and L3 kyphoplasty on August 12, 2016. His surgery went well without complications. Medical management cleared for discharge. He was discharged home in stable conditions. Pt Condition on Discharge: Stable Discharge Disposition: Disch w/ Home Health Serv Discharge Instructions DIET: Follow Instructions for: Heart Healthy Diet ACTIVITIES You can perform: Weight Bearing As Macey ADDITIONAL Activity Instructio: No strenuous activities, heavy lifting, bending, twisting or any other stress on the spine. avoid falls, use assistance whem ambulating. Wear back brace when out of bed. Continued Medications: Ascorbic Acid (Vitamin C) 1,000 Mg Tab 1000 MG PO Nutritional Supplement Ref 0 TAB Cholecalciferol (Vitamin D) 2,000 Unit Cap 1 CAP PO DAILY Cyanocobalamin (Vitamin B-12) 1,000 Mcg Subl 1000 MCG SL EVERY OTHER DAY Nutritional Supplement Ref 0 TAB.SL Docusate Calcium (Stool Softener) 240 Mg Cap Ferrous Sulfate (Feosol) 65 Mg Tab 65 MG PO BIDPC Nutritional Supplement #60 Ref 0 TAB Folic Acid (Folic Acid) 400 Mcg Tab 400 MCG PO DAILY Nutritional Supplement Ref 0 TAB Magnesium (Magnesium) 400 Mg Tab 400 MG PO DAILY Nutritional Supplement Ref 0 TAB Nitroglycerin SL (Nitroglycerin SL) 0.4 Mg Subl 0.4 MG SL DIRECTED ONE TABLET UNDER THE TONGUE NEEDED FOR CHEST PAIN, MAY REPEAT EVERY FIVE MINUTES FOR A TOTAL OF 3 DOSES OR CALL 911 IF NO RELIEF PRN CHEST PAIN #100 Ref 0 TAB.SL Omeprazole (Omeprazole) 40 Mg Cap 40 MG PO DAILY #30 Ref 0 CAP Potassium Chloride ER (Klor-Con 10) 10 Meq Tab 10 MEQ PO EVERY OTHER DAY Hypokalemia #10 Ref 0 TAB Pyridoxine (Vitamin B-6) 200 Mg Tab Saccharomyces Boulardii (Probiotic) 250 Mg Cap 250 MG PO DAILY Nutritional Supplement Ref 0 CAP Simvastatin (Simvastatin) 20 Mg Tab 20 MG PO DAILY Cholesterol Management #30 Ref 0 TAB Sotalol (Sotalol) 80 Mg Tab 80 MG PO BID Regulate Heart Beat #30 Ref 0 TAB Tamsulosin (Flomax) 0.4 Mg Cap 0.4 MG PO HS Manage Prostate Problems #30 Ref 0 CAP Torsemide (Torsemide) 20 Mg Tab 10 MG PO DAILY #30 Ref 0 TAB Tramadol (Tramadol) 50 Mg Tab 50 MG PO Q4H PRN PAIN #90 Ref 0 TAB (This prescription has been renewed) Warfarin (Warfarin) 2.5 Mg Tab 2.5 MG PO DAILY Blood Clot Prevention #30 Ref 12 TAB Lucy Davis August 14, 2016 11:56
== END 2016-08-14 12:35 | disposition home health service (06) ==
LOC: HSDC 07:55 → HSDI 11:48 → EDSTATUS 12:00 → N06B 18:03
PROVIDERS: ADMIT Neurological Surgery; ATTEND Neurological Surgery
DX: M48.56XA Collapsed vertebra, not elsewhere classified, lumbar region, initial encounter for fracture (principal); K21.9 Gastro-esophageal reflux disease without esophagitis; I50.22 Chronic systolic (congestive) heart failure; I13.0 Hypertensive heart and chronic kidney disease with heart failure and stage 1 through stage 4 chronic kidney disease, or unspecified chronic kidney disease; I25.5 Ischemic cardiomyopathy; I48.91 Unspecified atrial fibrillation; I25.10 Atherosclerotic heart disease of native coronary artery without angina pectoris; N18.3 Chronic kidney disease, stage 3 (moderate); K59.00 Constipation, unspecified; N40.0 Benign prostatic hyperplasia without lower urinary tract symptoms; E78.5 Hyperlipidemia, unspecified; I25.2 Old myocardial infarction; M81.0 Age-related osteoporosis without current pathological fracture; M10.9 Gout, unspecified; F32.9 Major depressive disorder, single episode, unspecified; Z85.46 Personal history of malignant neoplasm of prostate; Z85.118 Personal history of other malignant neoplasm of bronchus and lung; Z79.01 Long term (current) use of anticoagulants; Z95.1 Presence of aortocoronary bypass graft; Z95.2 Presence of prosthetic heart valve; Z87.891 Personal history of nicotine dependence; Z88.8 Allergy status to other drugs, medicaments and biological substances; Z92.3 Personal history of irradiation; Z95.5 Presence of coronary angioplasty implant and graft; Z95.810 Presence of automatic (implantable) cardiac defibrillator
CPT/HCPCS: 22514; 22515; 72100; 85610; 85730; 88307; 88311; 94150; 97163; 97530; G0378; G8987; G8988; J0131; J0690; J1170; J2175; J2250; J2270; J2370; J2405; J2710; J3010; J3370; J7040; J7050; J7120; Q9967; J7030

== ENCOUNTER 2016-08-17 09:07 | Observation (INO) | payer MEDICARE ==
[~2016-08-17] VITALS: Ht 160 cm; Wt 65.0 kg
[2016-08-17] VITALS (7 sets, daily range): BP systolic 111–159; BP diastolic 64–96; PULSE 69–89; RESP 16–20; TEMP 96.1–97.8; O2SAT 95–98
[~2016-08-17 09:07] MED LIST changes: -AUGM875T PO; -BACT800T5 PO; -CARV3.125 PO; -COLC1TAB15 PO; -LACTCAP8 PO; -METR500T10 PO; -NITR50VP; -PANT40TA3 PO; -PYRI1TAB2 PO; -ceFAZolin 2 GM PREMIX 50 ML ONE
[2016-08-17] MEDS ORDERED: SODIUM CHLORIDE 0.9% FLUSH 10 ML FLUSH IVF PRN (09:15)
[2016-08-17 09:37] LABS: AUTOMATED NEUTROPHIL # 5.9 TH/MM3 (1.8-7.7); BASOPHIL # 0.1 TH/MM3 (0-0.2); BASOPHIL % 0.6 % (0.0-2.0); EOSINOPHIL # 0.2 TH/MM3 (0-0.4); EOSINOPHIL % 2.4 % (0.0-4.0); HEMATOCRIT 38.3 % (39.0-51.0); HEMO FLAGS DIFF FINAL; LYMPH % 17.3 % (9.0-44.0); LYMPHOCYTE # 1.5 TH/MM3 (1.0-4.8); MEAN CELL VOLUME 93.6 FL (80.0-100.0); MONO % 11.2 % (0.0-8.0); NEUT % 68.5 % (16.0-70.0); PLATELET COUNT 137 TH/MM3 (150-450); RED BLOOD COUNT 4.09 MIL/MM3 (4.50-5.90); RED CELL DISTRIBUTION WIDTH 17.7 % (11.6-17.2); WHITE BLOOD COUNT 8.7 TH/MM3 (4.0-11.0)
[2016-08-17 09:45] LABS: INTERNATIONAL NORMALIZED RATIO 1.2 RATIO; PROTHROMBIN TIME - PATIENT 12.9 SEC (9.8-11.6)
[2016-08-17] MEDS ORDERED: PANTOPRAZOLE INJ 80 MG in SODIUM CHLORIDE 0.9% INJ 100 ML IV SCH (09:45)
[2016-08-17] MEDS ORDERED: PANTOPRAZOLE INJ 80 MG in SODIUM CHLORIDE 0.9% INJ 35 ML IV ONE (09:45)
--- NOTE | 2016-08-17 09:45 | PD ---
HPI . Rectal bleeding Chief Complaint: GI Complaint Time Seen by Provider: 09:33 Travel History International Travel<30 days: No Contact w/Intl Traveler<30days: No Traveled to known affect area: No History of Present Illness HPI Patient presents with the acute onset of rectal bleeding. It started about 11 PM. He reports 4-5 episodes of bright red blood per rectum. He denies any associated abdominal pain. This patient is on Coumadin because of a history of atrial fibrillation and an artificial aortic valve. He has had no noted exacerbating or relieving factors. Patient had a similar episode in April. At that time, he became hypotensive and was eventually treated with 4 units of packed red blood cells. He was also hypercoagulable with an INR of 4.5. His Coumadin was held and the INR normalized. He was treated with Protonix. PFSH Past Medical History Hx Anticoagulant Therapy: Yes (coumadin) Heart Rhythm Problems: Yes (atrial fibulation ) Cancer: Yes (lung and prostate) Cardiac Catheterization: Yes Cardiovascular Problems: Yes (afib) High Cholesterol: Yes Chest Pain: Yes Congestive Heart Failure: Yes Coronary Artery Disease: Yes Diabetes: Yes Patient Takes Glucophage: No Diminished Hearing: No Endocrine: No GERD: Yes Genitourinary: Yes Hypertension: Yes Immune Disorder: No Musculoskeletal: No Neurologic: No Psychiatric: No Respiratory: Yes (LUNG CA IN REMISSION) Myocardial Infarction: Yes Radiation Therapy: Yes (prostate, lung) Renal Failure: Yes Past Surgical History Abdominal Surgery: No Appendectomy: Yes Cardiac Surgery: Yes (aorta replaced) Cholecystectomy: Yes Coronary Artery Bypass Graft: Yes Coronary Stent: Yes Pacemaker: Yes (defibrillator) Thoracic Surgery: No Other Surgery: Yes (prostate radiation) Social History Alcohol Use: Yes (occ) Tobacco Use: No Substance Use: No Allergies-Medications (Allergen,Severity, Reaction): Coded Allergies: Levaquin (Verified Allergy, Severe, Joint Pain, 08/17/16) Patient report that this medication affect his tendon on his legs. *MDRO Multi-Drug Resistant Organism (Verified Adverse Reaction, Unknown, ) MRSA PCR Screen POSITIVE - 05/05/2016 Reported Meds & Prescriptions Reported Meds & Active Scripts Active Tramadol (Tramadol HCl) 50 Mg Tab 50 Mg PO Q4H PRN Warfarin 2.5 Mg Tab 2.5 Mg PO DAILY Klor-Con 10 (Potassium Chloride) 10 Meq Tab 10 Meq PO EVERY OTHER DAY Flomax (Tamsulosin HCl) 0.4 Mg Cap 0.4 Mg PO HS Reported Vitamin B-6 (Pyridoxine HCl) 200 Mg Tab Omeprazole 40 Mg Cap 40 Mg PO DAILY Stool Softener (Docusate Calcium) 240 Mg Cap Torsemide 20 Mg Tab 10 Mg PO DAILY Probiotic (Saccharomyces Boulardii) 250 Mg Cap 250 Mg PO DAILY Vitamin D (Cholecalciferol) 2,000 Unit Cap 1 Cap PO DAILY Folic Acid 400 Mcg Tab 400 Mcg PO DAILY Magnesium 400 Mg Tab 400 Mg PO DAILY Nitroglycerin SL (Nitroglycerin) 0.4 Mg Subl 0.4 Mg SL DIRECTED PRN ONE TABLET UNDER THE TONGUE NEEDED FOR CHEST PAIN, MAY REPEAT EVERY FIVE MINUTES FOR A TOTAL OF 3 DOSES OR CALL 911 IF NO RELIEF Vitamin B-12 (Cyanocobalamin) 1,000 Mcg Subl 1,000 Mcg SL EVERY OTHER DAY Simvastatin 20 Mg Tab 20 Mg PO DAILY Sotalol (Sotalol HCl) 80 Mg Tab 80 Mg PO BID Review of Systems Except as stated in HPI: all other systems reviewed are Neg General / Constitutional: No: Fever, Chills HENT: No: Lightheadedness Cardiovascular: No: Chest Pain or Discomfort Respiratory: No: Shortness of Breath Gastrointestinal: Positive: Hematochezia, No: Nausea, Vomiting, Diarrhea, Abdominal Pain Musculoskeletal: Positive: Pain (back pain related to recent compression fractures which were followed by kyphoplasty) Physical Exam Narrative Vital Signs Date Time Temp Pulse Resp B/P Pulse Ox O2 Delivery O2 Flow Rate FiO2 08/17/16 09:08 97.7 89 16 111/74 95 GENERAL: Patient is awake and alert and in no acute distress. SKIN: Warm and dry. HEAD: Atraumatic. Normocephalic. EYES: Pupils equal and round. Extraocular movements are intact. ENT: No nasal bleeding or discharge. Mucous membranes pink and moist. NECK: Trachea midline. Neck is supple. CARDIOVASCULAR: Regular rate and rhythm. RESPIRATORY: No accessory muscle use. Lungs are clear with full air movement throughout. GASTROINTESTINAL: Abdomen soft, non-tender, nondistended. RECTAL: Deferred as he has bright red blood on his pajamas. MUSCULOSKELETAL: No obvious deformities. No edema. NEUROLOGICAL: Awake and alert. No obvious cranial nerve deficits. Motor grossly within normal limits. Normal speech. PSYCHIATRIC: Appropriate mood and affect; insight and judgment normal. Data Data Last Documented VS Vital Signs Date Time Temp Pulse Resp B/P Pulse Ox O2 Delivery O2 Flow Rate FiO2 08/17/16 09:08 97.7 89 16 111/74 95 Orders Basic Metabolic Panel (Bmp) (08/17/16 09:15) Complete Blood Count With Diff (08/17/16 09:15) Prothrombin Time / Inr (Pt) (08/17/16 09:15) Act Partial Throm Time (Ptt) (08/17/16 09:15) Iv Access Insert/Monitor (08/17/16 09:15) Sodium Chloride 0.9% Flush (Ns Flush) (08/17/16 09:15) Pantoprazole Inj (Protonix Inj) (08/17/16 09:45) Pantoprazole Inj (Protonix Inj) (08/17/16 09:45) Pantoprazole Inj (Protonix Inj) (08/17/16 10:15) Consult Gastroenterology (08/17/16 ) Labs Laboratory Tests Test 08/17/16 09:25 White Blood Count 8.7 TH/MM3 Red Blood Count 4.09 MIL/MM3 Hemoglobin 12.3 GM/DL Hematocrit 38.3 % Mean Corpuscular Volume 93.6 FL Mean Corpuscular Hemoglobin 30.0 PG Mean Corpuscular Hemoglobin 32.0 % Concent Red Cell Distribution Width 17.7 % Platelet Count 137 TH/MM3 Mean Platelet Volume 8.2 FL Neutrophils (%) (Auto) 68.5 % Lymphocytes (%) (Auto) 17.3 % Monocytes (%) (Auto) 11.2 % Eosinophils (%) (Auto) 2.4 % Basophils (%) (Auto) 0.6 % Neutrophils # (Auto) 5.9 TH/MM3 Lymphocytes # (Auto) 1.5 TH/MM3 Monocytes # (Auto) 1.0 TH/MM3 Eosinophils # (Auto) 0.2 TH/MM3 Basophils # (Auto) 0.1 TH/MM3 CBC Comment DIFF FINAL Differential Comment Prothrombin Time 12.9 SEC Prothromb Time International 1.2 RATIO Ratio Activated Partial 27.9 SEC Thromboplast Time Sodium Level 140 MEQ/L Potassium Level 3.9 MEQ/L Chloride Level 101 MEQ/L Carbon Dioxide Level 31.6 MEQ/L Anion Gap 7 MEQ/L Blood Urea Nitrogen 49 MG/DL Creatinine 1.72 MG/DL Estimat Glomerular Filtration 38 ML/MIN Rate Random Glucose 112 MG/DL Calcium Level 9.5 MG/DL MDM Medical Decision Making Medical Screen Exam Complete: Yes Emergency Medical Condition: Yes Medical Record Reviewed: Yes (patient was seen here on May 04 with similar symptoms. However, he was hypotensive at that time. He had an EGD which showed to tinnitus and a duodenal ulcer. He also had gastritis. Colonoscopy showed diverticulosis with no active bleeding. He was treated with blood and Protonix.) Differential Diagnosis Differential diagnosis includes but is not limited to hemorrhoid, diverticulitis , cancer, coagulopathy Narrative Course Patient presents with repeat rectal bleeding. He appears hemodynamically stable at this time. Physician Communication Physician Communication Dr. Fletcher (GI) is aware of the patient. Dr. Bauman will admit the patient to OBS. Diagnosis Primary Impression: Acute GI hemorrhage Admitting Information Admitting Physician Requests: Observation Condition: Stable Mckenzie Melgar MD August 17, 2016 09:45
[2016-08-17 09:46] LABS: APTT (PATIENT) 27.9 SEC (24.3-30.1)
[2016-08-17 10:01] LABS: BICARBONATE 31.6 MEQ/L (21.0-32.0); POTASSIUM 3.9 MEQ/L (3.5-5.1)
[2016-08-17] MEDS: PANTOPRAZOLE INJ 80 MG in SODIUM CHLORIDE 0.9% INJ 100 ML IV SCH ×2 (10:15→20:54)
[2016-08-17] MEDS ORDERED: SODIUM CHLOR 0.9% 1000 ML INJ 1,000 ML IV SCH (11:00)
[2016-08-17] MEDS ORDERED: SODIUM CHLORIDE 0.9% FLUSH 10 ML FLUSH IV FLUSH PRN (11:00)
[2016-08-17] MEDS ORDERED: NALOXONE HCL 0.4 MG/ML AMP IV PRN (11:00)
[2016-08-17] MEDS ORDERED: traMADol HCL 50 MG TAB PO PRN (11:00)
[2016-08-17] MEDS ORDERED: SENNOSIDES 8.6 MG TAB PO PRN (12:00)
[2016-08-17] MEDS ORDERED: LACTULOSE SYRUP 20 GM/30 ML CUP PO PRN (12:00)
[2016-08-17] MEDS ORDERED: BISACODYL 10 MG SUPP RECTAL PRN (12:00)
[2016-08-17] MEDS ORDERED: MAGNESIUM HYDROXIDE SUSP 30 ML CUP PO PRN (12:00)
--- NOTE | 2016-08-17 14:56 | HHI.HP ---
[facility] Ale Marte MD Admission Diagnosis GI bleed Diagnoses: Chief Complaint: Rectal bleeding Travel History International Travel<30 Days: No Contact w/Intl Traveler <30 Da: No Traveled to Known Affected Are: No History of Present Illness 89-year-old male with past medical history of ischemic cardiomyopathy, HTN, HLD , A. fib, daily, BPH who presented for rectal bleeding. Patient states that about midnight last night he began having rectal bleeding. He states that he was having gross blood with no stool that was making the entire colon bowl red. He states he had about 4 episodes. He denies any dark or black bowel movements. He does report some lower abdominal cramping, but denies any abdominal pain. He denies any nausea, vomiting, fever, chills, recent illness. He states that this does not feel like his previous episodes of diverticulitis. He states that his PCP, Dr. Marte has been monitoring his INR, states most recently it was 2.6. The patient had a previous admission for similar complaints in April of this year That required blood transfusion and was found to have a duodenal ulcer and gastritis. Review of Systems Except as stated in HPI: all other systems reviewed are Neg Past Family Social History Past Medical History CAD with ischemic cardiomyopathy and systolic congestive heart failure Hypertension Hyperlipidemia Atrial fibrillation on chronic anticoagulation History of aortic valve replacement Peptic ulcer disease BPH History of lung cancer status post radiation History of diverticulitis Past Surgical History CABG TAVR AICD placement PCI with stent placement Appendectomy Cholecystectomy Kyphoplasty Reported Medications Tramadol (Tramadol HCl) 50 Mg Tab 50 Mg PO Q4H PRN Warfarin 2.5 Mg Tab 2.5 Mg PO DAILY Klor-Con 10 (Potassium Chloride) 10 Meq Tab 10 Meq PO EVERY OTHER DAY Flomax (Tamsulosin HCl) 0.4 Mg Cap 0.4 Mg PO HS Vitamin B-6 (Pyridoxine HCl) 200 Mg Tab Omeprazole 40 Mg Cap 40 Mg PO DAILY Stool Softener (Docusate Calcium) 240 Mg Cap Torsemide 20 Mg Tab 10 Mg PO DAILY Probiotic (Saccharomyces Boulardii) 250 Mg Cap 250 Mg PO DAILY Vitamin D (Cholecalciferol) 2,000 Unit Cap 1 Cap PO DAILY Folic Acid 400 Mcg Tab 400 Mcg PO DAILY Magnesium 400 Mg Tab 400 Mg PO DAILY Nitroglycerin SL (Nitroglycerin) 0.4 Mg Subl 0.4 Mg SL DIRECTED PRN ONE TABLET UNDER THE TONGUE NEEDED FOR CHEST PAIN, MAY REPEAT EVERY FIVE MINUTES FOR A TOTAL OF 3 DOSES OR CALL 911 IF NO RELIEF Vitamin B-12 (Cyanocobalamin) 1,000 Mcg Subl 1,000 Mcg SL EVERY OTHER DAY Simvastatin 20 Mg Tab 20 Mg PO DAILY Sotalol (Sotalol HCl) 80 Mg Tab 80 Mg PO BID Allergies: Coded Allergies: Levaquin (Verified Allergy, Severe, Joint Pain, 08/17/16) Patient report that this medication affect his tendon on his legs. *MDRO Multi-Drug Resistant Organism (Verified Adverse Reaction, Unknown, ) MRSA PCR Screen POSITIVE - 05/05/2016 Active Ordered Medications Current Medications Medications (Trade) Dose Ordered Sig/Osmar Route Start Time Stop Time Status Last Admin Sodium Chloride 2 ml 2 ml UNSCH PRN IVF 08/17/16 09:15 (Protonix Inj/NS Inj) 100 ml @ 10 mls/hr Q10H IV 08/17/16 10:15 08/17/16 10:15 (NS Flush) 2 ml UNSCH PRN IV FLUSH 08/17/16 11:00 (NS Flush) 2 ml BID IV FLUSH 08/17/16 21:00 (Narcan Inj) 0.4 mg UNSCH PRN IV 08/17/16 11:00 (Pamela-Colace) 1 tab BID PO 08/17/16 21:00 (Milk Of Magnesia Liq) 30 ml Q12HR PRN PO 08/17/16 12:00 (Senokot) 17.2 mg Q12HR PRN PO 08/17/16 12:00 (Dulcolax Supp) 10 mg DAILY PRN RECTAL 08/17/16 12:00 (Lactulose Liq) 30 ml DAILY PRN PO 08/17/16 12:00 (Betapace) 80 mg BID PO 08/17/16 21:00 (Flomax) 0.4 mg HS PO 08/17/16 21:00 (Ultram) 50 mg Q4H PRN PO 08/17/16 11:00 Pravastatin Sodium 40 mg 40 mg DAILY PO 08/18/16 09:00 (NS 1000 ml Inj) 1,000 ml @ 42 mls/hr [id number] IV 08/17/16 11:00 08/17/16 11:00 Family History Father of lung cancer Mother at age 26, cause unknown Social History Quit smoking over 50 years ago Denies any alcohol use Lives with his son and [id number] Physical Exam Vital Signs Vital Signs Date Time Temp Pulse Resp B/P Pulse Ox O2 Delivery O2 Flow Rate FiO2 08/17/16 13:23 96.1 70 16 135/78 97 08/17/16 12:04 75 20 159/96 98 Room Air 08/17/16 09:08 97.7 89 16 111/74 95 Physical Exam GENERAL: Well-developed well-nourished. In no acute distress. SKIN: Warm and dry. No lesions noted. HEENT: Normocephalic. Pupils equal and round. Mucous membranes pink and moist. CARDIOVASCULAR: Irregular rate and rhythm. No murmur appreciated. RESPIRATORY: No accessory muscle use. Clear to auscultation. Breath sounds equal bilaterally. GASTROINTESTINAL: Abdomen soft, lower abdominal TTP, nondistended. Bowel sounds x4. MUSCULOSKELETAL: No obvious deformities. No clubbing or cyanosis. 2+ edema. NEUROLOGICAL: Awake and alert. No focal neurological deficits. Moves upper and lower extremities spontaneously. Normal speech. PSYCHIATRIC: Appropriate mood and affect; insight and judgment normal. Laboratory Laboratory Tests Test 08/17/16 08/17/16 09:25 12:40 White Blood Count 8.7 Red Blood Count 4.09 Hemoglobin 12.3 11.2 Hematocrit 38.3 Mean Corpuscular Volume 93.6 Mean Corpuscular Hemoglobin 30.0 Mean Corpuscular Hemoglobin 32.0 Concent Red Cell Distribution Width 17.7 Platelet Count 137 Mean Platelet Volume 8.2 Neutrophils (%) (Auto) 68.5 Lymphocytes (%) (Auto) 17.3 Monocytes (%) (Auto) 11.2 Eosinophils (%) (Auto) 2.4 Basophils (%) (Auto) 0.6 Neutrophils # (Auto) 5.9 Lymphocytes # (Auto) 1.5 Monocytes # (Auto) 1.0 Eosinophils # (Auto) 0.2 Basophils # (Auto) 0.1 CBC Comment DIFF FINAL Differential Comment Prothrombin Time 12.9 Prothromb Time International 1.2 Ratio Activated Partial 27.9 Thromboplast Time Sodium Level 140 Potassium Level 3.9 Chloride Level 101 Carbon Dioxide Level 31.6 Anion Gap 7 Blood Urea Nitrogen 49 Creatinine 1.72 Estimat Glomerular Filtration 38 Rate Random Glucose 112 Calcium Level 9.5 Result Diagram: 08/17/16 1240 08/17/16 0925 Assessment and Plan Assessment and Plan 89-year-old male with past medical history of ischemic cardiomyopathy, HTN, HLD , A. fib, daily, BPH who presented for rectal bleeding Rectal bleeding: Presented with hemoglobin 12.3, previously 12.1 on 07/16/16. Monitor serial H&H. Protonix GTT started in the ED. GI consulted. Hold Coumadin. Diet per GI, IVF while nothing by mouth. Atrial fibrillation on chronic anticoagulation: Holding Coumadin. INR currently 1.2. Continue rate control with sotalol. CAD/systolic CHF/HTN/HLD: Chronic, stable at this time. Continue sotalol, statin. Hold torsemide for now. CKD stage III: Creatinine 1.72, previously 1.8 on 07/16/16. Stable. Monitor. DVT prophylaxis: SCDs. Discussed Condition With Patient, Dr. Bauman Attending Statement The exam, history, and the medical decision-making described in the above note were completed with the assistance of the mid-level provider. I reviewed and agree with the findings presented. I attest that I had a [id number] encounter with the patient on the same day, and personally performed and documented my assessment and findings in the medical record.patient seen and examined date of service. acute lower GI bleed with multiple comorbidities. GI consult. close monitoring of hemoglobin.Puma Mosquera August 17, 2016 14:56 Javier Bauman MD Aug 21, 2016 07:31
--- NOTE | 2016-08-17 15:26 | MB ---
cc: JOVANNY RIVERO MD DATE OF CONSULTATION: 08/17/2016. REASON FOR CONSULTATION: Rectal bleeding. HISTORY OF PRESENT ILLNESS: An 89-year-old male patient known to our service from previous recent admission in April of 2016 who is anticoagulated on Coumadin for atrial fibrillation and an artificial aortic valve presented with active bleeding described as painless fresh blood per rectum large amount four to five times that started last night at 11:00 p.m. and he presented two hours ago to the [facility]. The patient denies any associated symptoms except for mild abdominal cramps and discomfort prior to defecation. The patient denies any nausea or vomiting. Denies any abdominal distension. Denies any change in bowel habits. No change in weight or appetite. The patient denies any dysphagia, odynophagia or any other gastrointestinal symptoms. In the emergency room, the patient was evaluated and seen. He appeared to be stable with a hemodynamically stable vital signs. His hemoglobin relatively stable at 12.3 went down after a few hours to 11.2 but he was completely asymptomatic. The patient had a previous similar attack in April of 2016. He had an endoscopic evaluation that showed duodenal ulcer. An endoclip was placed and the bleeding stopped. Also he had a colonoscopy that was suboptimal in preparation, but it showed diverticulosis and internal hemorrhoids. The patient was discharged after hospitalization after receiving blood transfusion and proper treatment and the patient has been asymptomatic since that time. REVIEW OF SYSTEMS All fourteen systems negative other than the ones mentioned in the history of present illness. PAST MEDICAL HISTORY: 1. Atrial fibrillation. 2. Aortic valve replacement. 3. Coronary artery disease. 4. Dyslipidemia. 5. Diabetes mellitus. 6. Gastroesophageal reflux disease (GERD). 7. Duodenal ulcer. 8. Diverticulosis. 9. Lung carcinoma in remission. 10. Renal insufficiency. PAST SURGICAL HISTORY: 1. Aortic valve replacement. 2. Coronary artery bypass graft and stenting. 3. Defibrillator placement. PSYCHOSOCIAL HISTORY: The patient is an occasional alcohol user. No tobacco or substance abuse. ALLERGIES: LEVAQUIN. MEDICATIONS: 1. Tramadol. 2. Warfarin. 3. Flomax. 4. Vitamin B6. 5. Omeprazole. 6. Stool softener. 7. A probiotic. 8. Vitamin D. 9. Folic acid. 10. Magnesium. 11. Nitroglycerin. 12. Vitamin B12. 13. Simvastatin. 14. Sotalol. FAMILY HISTORY: Noncontributory. PHYSICAL EXAMINATION: GENERAL: On examination, the patient appeared to be comfortable at this time not in distress or in pain. VITAL SIGNS: Temperature of 96.1, pulse 70, respiratory rate 16, blood pressure 135/78 and pulse oximetry of 97. HEAD AND NECK: Atraumatic and normocephalic. Pupils equal and react to light. Supple neck. No lymphadenopathy. No thyromegaly. CHEST: Clear to auscultation bilaterally. No crackles or wheezes. HEART: Regular rate and rhythm. ABDOMEN: Abdomen soft and nontender. No hepatosplenomegaly. No palpable masses. RECTAL: Deferred as he is having red blood in his PJs. EXTREMITIES: Normal pulses. No edema. NEUROLOGICAL EXAMINATION: Alert and awake. Cranial nerves II through XII are grossly intact. No motor or sensory deficit. SKIN: No rashes or lesions. LABORATORY DATA: White count 8.7, hemoglobin 12.3 down to 11.2 after several hours, hematocrit 38.3, platelet count of 157,000. INR 1.2, PTT 27.9. Chemistry within normal limits with a creatinine of 1.7, BUN of 49, random blood sugar 112. ASSESSMENT AND PLAN: An 89-year-old male patient known to our service with the following problems: 1. Rectal bleeding described as fresh blood, painless, four to five episodes over the last 12 hours. 2. Previous history of diverticulosis. 3. Internal hemorrhoids. 4. Previous history of peptic ulcer disease status post ____ in April of 2016. 5. History of anticoagulation with warfarin with subtherapeutic levels.. RECOMMENDATIONS: 1. Will keep the patient on clear liquid diet. 2. Serial hemoglobin and hematocrit. 3. High-dose proton pump inhibitor. 4. Blood transfusion as needed. Further recommendations to follow. Thank you for the consultation. Jovanny COTTRELL/HERBERT /1:50 PM /3:11 PM
[2016-08-17] MEDS: DOCUSATE SODIUM 50 MG/SENNA 8.6 MG TAB PO SCH (20:13)
[2016-08-17] MEDS: SOTALOL HCL 80 MG TAB PO SCH (20:13)
[2016-08-17] MEDS: SODIUM CHLORIDE 0.9% FLUSH 10 ML FLUSH IV FLUSH SCH (20:15)
[2016-08-17] MEDS ORDERED: TAMSULOSIN HCL 0.4 MG CAP PO SCH (21:00)
[2016-08-18 00:50] VITALS: BP 102/59; PULSE 69; RESP 16; TEMP 98.5; O2SAT 94
[2016-08-18 03:39] VITALS: BP 113/64; PULSE 64; RESP 18; TEMP 98.5; O2SAT 95
[2016-08-18] MEDS: PANTOPRAZOLE INJ 80 MG in SODIUM CHLORIDE 0.9% INJ 100 ML IV SCH (05:19)
[2016-08-18 06:38] LABS: AUTOMATED NEUTROPHIL # 4.3 TH/MM3 (1.8-7.7); BASOPHIL # 0.1 TH/MM3 (0-0.2); BASOPHIL % 0.9 % (0.0-2.0); EOSINOPHIL # 0.2 TH/MM3 (0-0.4); EOSINOPHIL % 2.8 % (0.0-4.0); HEMO FLAGS DIFF FINAL; LYMPHOCYTE # 1.3 TH/MM3 (1.0-4.8); MEAN CELL VOLUME 93.7 FL (80.0-100.0); MEAN CORPUSCULAR HEMOGLOBIN 29.3 PG (27.0-34.0); MEAN CORPUSCULAR HGB CONC 31.3 % (32.0-36.0); MONO % 11.9 % (0.0-8.0); NEUT % 65.4 % (16.0-70.0); PLATELET COUNT 120 TH/MM3 (150-450); RED BLOOD COUNT 3.84 MIL/MM3 (4.50-5.90); RED CELL DISTRIBUTION WIDTH 17.7 % (11.6-17.2); WHITE BLOOD COUNT 6.6 TH/MM3 (4.0-11.0)
[2016-08-18 07:09] LABS: ALKALINE PHOSPHATASE 119 U/L (45-117); ALT (GPT) 24 U/L (12-78); ANION GAP 7 MEQ/L (5-15); AST (GOT) 33 U/L (15-37); BICARBONATE 29.7 MEQ/L (21.0-32.0); BLOOD UREA NITROGEN 36 MG/DL (7-18); CHLORIDE 105 MEQ/L (98-107); GLOMERULAR FILTRATION RATE 49 ML/MIN (>89); POTASSIUM 3.7 MEQ/L (3.5-5.1); SODIUM (NA) 142 MEQ/L (136-145); TOTAL BILIRUBIN ADULT 1.3 MG/DL (0.2-1.0)
[2016-08-18 08:09] VITALS: BP 131/76; PULSE 70; RESP 19; TEMP 98; O2SAT 98
[2016-08-18 08:10] VITALS: PULSE 69
[2016-08-18] MEDS: SOTALOL HCL 80 MG TAB PO SCH (08:21)
[2016-08-18] MEDS: DOCUSATE SODIUM 50 MG/SENNA 8.6 MG TAB PO SCH (08:21)
[2016-08-18] MEDS: SODIUM CHLORIDE 0.9% FLUSH 10 ML FLUSH IV FLUSH SCH (08:21)
[2016-08-18] MEDS ORDERED: PRAVASTATIN SOD 40 MG TAB PO SCH (09:00)
--- NOTE | 2016-08-18 09:19 | HHI.PR ---
Subjective Remarks Follow-up for rectal bleeding. The patient denies any further episodes of rectal bleeding overnight. He states he's had normal bowel movements since being admitted. He denies any abdominal pain. He's been tolerating diet. The patient believes that he was told he couldn't be on new or anticoagulants due to TAVR. Objective Vitals Vital Signs Date Time Temp Pulse Resp B/P Pulse Ox O2 Delivery O2 Flow Rate FiO2 08/18/16 08:09 98.0 70 19 131/76 98 08/18/16 03:39 98.5 64 18 113/64 95 08/18/16 00:50 98.5 69 16 102/59 94 08/17/16 21:40 69 08/17/16 19:12 97.8 73 18 118/64 96 08/17/16 15:36 96.1 70 18 135/76 96 08/17/16 13:23 96.1 70 16 135/78 97 08/17/16 13:00 72 08/17/16 12:04 75 20 159/96 98 Room Air I/O 08/17/16 08/17/16 08/17/16 08/18/16 08/18/16 08/18/16 07:00 15:00 23:00 07:00 15:00 23:00 Intake Total 900 ml Balance 900 ml Intake Oral 200 ml IV Total 700 ml # Bowel Movements 2 Result Diagram: 08/18/16 0604 08/18/16 0604 Objective Remarks GENERAL: Well-developed well-nourished. In no acute distress. SKIN: Warm and dry. No lesions noted. HEENT: Normocephalic. Pupils equal and round. Mucous membranes pink and moist. CARDIOVASCULAR: Irregular rate and rhythm. No murmur appreciated. RESPIRATORY: No accessory muscle use. Clear to auscultation. Breath sounds equal bilaterally. GASTROINTESTINAL: Abdomen soft, non-tender, nondistended. Bowel sounds x4. MUSCULOSKELETAL: No obvious deformities. No clubbing or cyanosis. Trace edema. NEUROLOGICAL: Awake and alert. No focal neurological deficits. Moves upper and lower extremities spontaneously. Normal speech. PSYCHIATRIC: Appropriate mood and affect; insight and judgment normal. A/P Assessment and Plan 89-year-old male with past medical history of ischemic cardiomyopathy, HTN, HLD , A. fib, daily, BPH who presented for rectal bleeding Rectal bleeding: Presented with hemoglobin 12.3, previously 12.1 on 07/16/16. Monitor serial H&H, stable overnight. Continue with IV Protonix twice a day. GI consulted, recommended monitoring H&H and clear liquids. Hold Coumadin. Improved. Follow GI recommendations. Atrial fibrillation on chronic anticoagulation: Holding Coumadin. INR currently 1.2. Continue rate control with sotalol. The patient will need follow-up with his hookman, Dr. Ayala, to determine the need for further anticoagulation with history of TAVR and recurrent GI bleeding. Chadsvasc 4, Hasbled 6. CAD/systolic CHF/HTN/HLD: Chronic, stable at this time. Continue sotalol, statin. Hold torsemide for now. CKD stage III: Creatinine 1.72, previously 1.8 on 07/16/16. Stable. Monitor. DVT prophylaxis: SCDs. Discharge Planning Likely discharge later today if cleared by gastroenterology for outpatient follow-up with GI and cardiology. Addendum 1145: Discussed earlier with cardiology, recommended resuming Coumadin at 2.5 mg daily. Discuss with gastroenterology, patient cleared from GI perspective for discharge. 1300 Discussed plan of care with patient and family who verbalized understanding and understands the need to continue to monitor as outpatient. Puma Rolon August 18, 2016 09:19
[2016-08-18] MEDS ORDERED: PANTOPRAZOLE SODIUM 40 MG VIAL IV PUSH SCH (10:00)
--- NOTE | 2016-08-18 10:09 | PD.CONS ---
HPI Service Dr. Ayala Consult Requested By Hospitalist Reason for Consult GIB, anticoagulated on Coumadin for Afib, TAVR Primary Care Physician Ale Marte MD History of Present Illness Mr. Mejia is a pleasant 89 year old known to Dr. Ayala. He has a history of ischemic cardiomyopathy S/P ICD, chronic atrial fibrillation, TAVR, CABG, hypertension and hyperlipidemia. He was admitted yesterday with complaints of bright red blood per rectum. He had previous GIB in April of this year and was found to have bleeding gastric ulcer, diverticulosis, internal hemorrhoids, and required blood transfusions. He reports that he woke up around midnight to go the bathroom and passed a lot of blood. He had about 3 other episodes of this. No further recurrence since hospitalization. He is on coumadin for anticoagulation, INR was 1.2 at the time of bleeding. He denies any chest pain , shortness of breath or palpitations. Telemetry shows atrial fibrillation with controlled ventricular response in the 70s. BP has been stable. He does state that he has had 2 episodes over the last month and a half suggestive of TIAs where he lost vision of his right eye for several minutes. He has not reported this to Dr. Ayala or anyone. He is currently resting in the bed without distress. Denies any needs. Review of Systems Consitutional: DENIES: Fatigue, Fever, Chills, Weight gain, Weight loss Eyes: COMPLAINS OF: Amaurosis Fugax, Change in vision (2 episodes of loss of vision R eye ) HEENT: DENIES: Lightheadedness, Change in hearing Respiratory: DENIES: See HPI, Cough, Snoring, Shortness of breath, Wheezing, Sputum production Cardiovascular: DENIES: See HPI, Chest pain, Palpitations, Syncope, Tachycardia Gastrointestinal: COMPLAINS OF: Nausea, Vomiting, Change in bowel habits, Reflux, Melena Genitourinary: DENIES: Urinary incontinence, Difficulty voiding Integumentary: DENIES: Rash Neurologic: COMPLAINS OF: Stroke symptoms (loss of vision R eye), DENIES: Tingling or numbness, Memory problems, Poor Balance Musculoskeletal: DENIES: Joint pain, Muscle pain, Limited range of motion, Back pain Psychiatric: DENIES: Anxiety, Depression, Sleep disturbances Hematologic: COMPLAINS OF: Bruising tendencies, Bleeding tendencies Endocrine: DENIES: Weight gain, Weight loss, Thyroid disease Past Family Social History Allergies: Coded Allergies: Levaquin (Verified Allergy, Severe, Joint Pain, 08/17/16) Patient report that this medication affect his tendon on his legs. *MDRO Multi-Drug Resistant Organism (Verified Adverse Reaction, Unknown, ) MRSA PCR Screen POSITIVE - 05/05/2016 Past Medical History ischemic cardiomyopathy, CABG, TAVR, atrial fibrillation, hypertension, hyperlipidemia, gastric ulcerGENERAL: Awake, alert. No distress. SKIN: Warm and dry. HEAD: Atraumatic. Normocephalic. EYES: Pupils equal and round. No scleral icterus. No injection or drainage. ENT: No nasal bleeding or discharge. Mucous membranes pink and moist. NECK: Trachea midline. No JVD. CARDIOVASCULAR: Regular rate. Irregularly irregular rhythm. Flow murmur over the aortic valve. RESPIRATORY: No accessory muscle use. Clear to auscultation. Breath sounds equal bilaterally. GASTROINTESTINAL: Abdomen soft, non-tender, nondistended. MUSCULOSKELETAL: Extremities without clubbing, cyanosis, or edema. No obvious deformities. NEUROLOGICAL: Awake and alert. No obvious cranial nerve deficits. Motor grossly within normal limits. Five out of 5 muscle strength in the arms and legs. Normal speech. PSYCHIATRIC: Appropriate mood and affect; insight and judgment normal. Past Surgical History CABG, TAVR Reported Medications Reported Meds & Active Scripts Active Tramadol (Tramadol HCl) 50 Mg Tab 50 Mg PO Q4H PRN Warfarin 2.5 Mg Tab 2.5 Mg PO DAILY Klor-Con 10 (Potassium Chloride) 10 Meq Tab 10 Meq PO EVERY OTHER DAY Flomax (Tamsulosin HCl) 0.4 Mg Cap 0.4 Mg PO HS Reported Vitamin B-6 (Pyridoxine HCl) 200 Mg Tab Omeprazole 40 Mg Cap 40 Mg PO DAILY Stool Softener (Docusate Calcium) 240 Mg Cap Torsemide 20 Mg Tab 10 Mg PO DAILY Probiotic (Saccharomyces Boulardii) 250 Mg Cap 250 Mg PO DAILY Vitamin D (Cholecalciferol) 2,000 Unit Cap 1 Cap PO DAILY Folic Acid 400 Mcg Tab 400 Mcg PO DAILY Magnesium 400 Mg Tab 400 Mg PO DAILY Nitroglycerin SL (Nitroglycerin) 0.4 Mg Subl 0.4 Mg SL DIRECTED PRN ONE TABLET UNDER THE TONGUE NEEDED FOR CHEST PAIN, MAY REPEAT EVERY FIVE MINUTES FOR A TOTAL OF 3 DOSES OR CALL 911 IF NO RELIEF Vitamin B-12 (Cyanocobalamin) 1,000 Mcg Subl 1,000 Mcg SL EVERY OTHER DAY Simvastatin 20 Mg Tab 20 Mg PO DAILY Sotalol (Sotalol HCl) 80 Mg Tab 80 Mg PO BID Active Ordered Medications Current Medications Medications (Trade) Dose Ordered Sig/Osmar Route Start Time Stop Time Status Last Admin (NS Flush) 2 ml UNSCH PRN IVF 08/17/16 09:15 (NS Flush) 2 ml UNSCH PRN IV FLUSH 08/17/16 11:00 (NS Flush) 2 ml BID IV FLUSH 08/17/16 21:00 08/18/16 08:21 (Narcan Inj) 0.4 mg UNSCH PRN IV 08/17/16 11:00 (Pamela-Colace) 1 tab BID PO 08/17/16 21:00 08/18/16 08:21 (Milk Of Magnesia Liq) 30 ml Q12HR PRN PO 08/17/16 12:00 (Senokot) 17.2 mg Q12HR PRN PO 08/17/16 12:00 (Dulcolax Supp) 10 mg DAILY PRN RECTAL 08/17/16 12:00 (Lactulose Liq) 30 ml DAILY PRN PO 08/17/16 12:00 (Betapace) 80 mg BID PO 08/17/16 21:00 08/18/16 08:21 (Flomax) 0.4 mg HS PO 08/17/16 21:00 08/17/16 20:13 (Ultram) 50 mg Q4H PRN PO 08/17/16 11:00 (Pravachol) 40 mg DAILY PO 08/18/16 09:00 08/18/16 08:21 (Protonix Inj) 40 mg Q12H IV PUSH 08/18/16 10:00 08/18/16 09:31 Family History noncontributory Physical Exam Vital Signs Vital Signs Date Time Temp Pulse Resp B/P Pulse Ox O2 Delivery O2 Flow Rate FiO2 08/18/16 08:10 69 08/18/16 08:09 98.0 70 19 131/76 98 08/18/16 03:39 98.5 64 18 113/64 95 08/18/16 00:50 98.5 69 16 102/59 94 08/17/16 21:40 69 08/17/16 19:12 97.8 73 18 118/64 96 08/17/16 15:36 96.1 70 18 135/76 96 08/17/16 13:23 96.1 70 16 135/78 97 08/17/16 13:00 72 08/17/16 12:04 75 20 159/96 98 Room Air Physical Exam GENERAL: Awake, alert. No distress. SKIN: Warm and dry. HEAD: Atraumatic. Normocephalic. EYES: Pupils equal and round. No scleral icterus. No injection or drainage. ENT: No nasal bleeding or discharge. Mucous membranes pink and moist. NECK: Trachea midline. No JVD. CARDIOVASCULAR: Regular rate. Irregularly irregular rhythm. Flow murmur over the aortic valve. RESPIRATORY: No accessory muscle use. Clear to auscultation. Breath sounds equal bilaterally. GASTROINTESTINAL: Abdomen soft, non-tender, nondistended. MUSCULOSKELETAL: Extremities without clubbing, cyanosis, or edema. No obvious deformities. NEUROLOGICAL: Awake and alert. No obvious cranial nerve deficits. Motor grossly within normal limits. Five out of 5 muscle strength in the arms and legs. Normal speech. PSYCHIATRIC: Appropriate mood and affect; insight and judgment normal. Laboratory Laboratory Tests Test 08/17/16 08/17/16 08/18/16 08/18/16 12:40 19:02 02:40 06:04 Hemoglobin 11.2 11.9 11.2 11.2 White Blood Count 6.6 Red Blood Count 3.84 Hematocrit 36.0 Mean Corpuscular Volume 93.7 Mean Corpuscular Hemoglobin 29.3 Mean Corpuscular Hemoglobin 31.3 Concent Red Cell Distribution Width 17.7 Platelet Count 120 Mean Platelet Volume 8.1 Neutrophils (%) (Auto) 65.4 Lymphocytes (%) (Auto) 19.0 Monocytes (%) (Auto) 11.9 Eosinophils (%) (Auto) 2.8 Basophils (%) (Auto) 0.9 Neutrophils # (Auto) 4.3 Lymphocytes # (Auto) 1.3 Monocytes # (Auto) 0.8 Eosinophils # (Auto) 0.2 Basophils # (Auto) 0.1 CBC Comment DIFF FINAL Differential Comment Sodium Level 142 Potassium Level 3.7 Chloride Level 105 Carbon Dioxide Level 29.7 Anion Gap 7 Blood Urea Nitrogen 36 Creatinine 1.37 Estimat Glomerular Filtration 49 Rate Random Glucose 81 Calcium Level 9.0 Total Bilirubin 1.3 Aspartate Amino Transf 33 (AST/SGOT) Alanine Aminotransferase 24 (ALT/SGPT) Alkaline Phosphatase 119 Total Protein 6.7 Albumin 2.7 Result Diagram: 08/18/1660308/18/16603 Assessment and Plan Problem List: (1) GI bleed (2) Atrial fibrillation (3) S/P TAVR (transcatheter aortic valve replacement) (4) Arteriosclerotic heart disease (ASHD) (5) Ischemic cardiomyopathy (6) Hx of CABG (7) HTN (hypertension) Assessment and Plan Acute GIB Atrial Fibrillation S/P TAVR Possible recent TIAs S/P CABG Ischemic Cardiomyopathy Hypertension Hyperlipidemia No further bleeding. Hgb 11.2. Will resume coumadin if okay with GI. He is at increased risk of stroke. He is aware of the risks. Continue sotalol and statin. Dr. Ayala to follow tomorrow. Code Status Full Discussed Condition With Dr. Sutton and RN Dorinda Burgos August 18, 2016 10:09
--- NOTE | 2016-08-18 11:53 | HHI.GIFU ---
Subjective Remarks No more rectal bleeding since admission and asymptomatic now. Objective Vitals I&O Vital Signs Date Time Temp Pulse Resp B/P Pulse Ox O2 Delivery O2 Flow Rate FiO2 08/18/16 08:10 69 08/18/16 08:09 98.0 70 19 131/76 98 08/18/16 03:39 98.5 64 18 113/64 95 08/18/16 00:50 98.5 69 16 102/59 94 08/17/16 21:40 69 08/17/16 19:12 97.8 73 18 118/64 96 08/17/16 15:36 96.1 70 18 135/76 96 08/17/16 13:23 96.1 70 16 135/78 97 08/17/16 13:00 72 08/17/16 12:04 75 20 159/96 98 Room Air I/O 08/17/16 08/17/16 08/17/16 08/18/16 08/18/16 08/18/16 07:00 15:00 23:00 07:00 15:00 23:00 Intake Total 900 ml 104 ml Balance 900 ml 104 ml Intake Oral 200 ml IV Total 700 ml 104 ml # Voids 1 # Bowel Movements 2 Laboratory Laboratory Tests Test 08/17/16 08/17/16 08/18/16 08/18/16 12:40 19:02 02:40 06:04 Hemoglobin 11.2 11.9 11.2 11.2 White Blood Count 6.6 Red Blood Count 3.84 Hematocrit 36.0 Mean Corpuscular Volume 93.7 Mean Corpuscular Hemoglobin 29.3 Mean Corpuscular Hemoglobin 31.3 Concent Red Cell Distribution Width 17.7 Platelet Count 120 Mean Platelet Volume 8.1 Neutrophils (%) (Auto) 65.4 Lymphocytes (%) (Auto) 19.0 Monocytes (%) (Auto) 11.9 Eosinophils (%) (Auto) 2.8 Basophils (%) (Auto) 0.9 Neutrophils # (Auto) 4.3 Lymphocytes # (Auto) 1.3 Monocytes # (Auto) 0.8 Eosinophils # (Auto) 0.2 Basophils # (Auto) 0.1 CBC Comment DIFF FINAL Differential Comment Sodium Level 142 Potassium Level 3.7 Chloride Level 105 Carbon Dioxide Level 29.7 Anion Gap 7 Blood Urea Nitrogen 36 Creatinine 1.37 Estimat Glomerular Filtration 49 Rate Random Glucose 81 Calcium Level 9.0 Total Bilirubin 1.3 Aspartate Amino Transf 33 (AST/SGOT) Alanine Aminotransferase 24 (ALT/SGPT) Alkaline Phosphatase 119 Total Protein 6.7 Albumin 2.7 Test 08/18/16 11:22 Hemoglobin 11.1 Physical Exam HEENT: Pupils round and reactive to light; normocephalic; atraumatic; no jaundice. Throat is clear. NECK: Neck is supple, no JVD, no lymphadenopathy. CHEST: Chest is clear to auscultation and percussion. CARDIAC: Regular rate and rhythm with no murmur gallop or rubs. ABDOMEN: Soft, nondistended, nontender; no hepatosplenomegaly; bowel sounds are present in all four quadrants. EXTREMITIES: No clubbing, cyanosis, or edema. Assessment and Plan Physician Comments 1. Rectal bleeding described as fresh blood, painless, resolved and normal color BM since admssion 2. Previous history of diverticulosis. 3. Internal hemorrhoids. 4. Previous history of peptic ulcer disease 5. History of anticoagulation with warfarin with subtherapeutic levels.. RECOMMENDATIONS: - ELO - Serial hemoglobin and hematocrit. - Proton pump inhibitor. - Resume anticoagulation Jovanny Fletcher MD August 18, 2016 11:52
[2016-08-18] MEDS ORDERED: WARFARIN SOD 2.5 MG TAB PO SCH (16:00)
== END 2016-08-18 14:18 | disposition home or self-care (01) ==
LOC: NEPE 09:07 → NEDA 10:44 → NEPGCP 12:58
PROVIDERS: ADMIT Internal Medicine; ATTEND Internal Medicine
DX: K62.5 Hemorrhage of anus and rectum (principal); K64.8 Other hemorrhoids; I48.2 Chronic atrial fibrillation; I25.10 Atherosclerotic heart disease of native coronary artery without angina pectoris; K21.9 Gastro-esophageal reflux disease without esophagitis; I13.0 Hypertensive heart and chronic kidney disease with heart failure and stage 1 through stage 4 chronic kidney disease, or unspecified chronic kidney disease; I50.22 Chronic systolic (congestive) heart failure; E11.22 Type 2 diabetes mellitus with diabetic chronic kidney disease; N18.3 Chronic kidney disease, stage 3 (moderate); I25.2 Old myocardial infarction; E78.5 Hyperlipidemia, unspecified; N40.0 Benign prostatic hyperplasia without lower urinary tract symptoms; I25.5 Ischemic cardiomyopathy; Z79.01 Long term (current) use of anticoagulants; Z85.46 Personal history of malignant neoplasm of prostate; Z85.118 Personal history of other malignant neoplasm of bronchus and lung; Z92.3 Personal history of irradiation; Z95.1 Presence of aortocoronary bypass graft; Z95.5 Presence of coronary angioplasty implant and graft; Z88.1 Allergy status to other antibiotic agents; Z87.11 Personal history of peptic ulcer disease; Z95.2 Presence of prosthetic heart valve; Z95.810 Presence of automatic (implantable) cardiac defibrillator
CPT/HCPCS: 80048; 80053; 85018; 85025; 85610; 85730; 96374; 96375; 97110; 97116; 97162; 99285; C9113; G0378; G8988; G8989; J7030